=== PATIENT | female | born 1960 | race Caucasian/White ===

== ENCOUNTER → 2017-04-09 10:01 | Outpatient (POV) | payer MEDICARE, OTHER, SELFPAY ==
[2017-04-09 10:30] VITALS: BP 175/85; PULSE 106; RESP 20; TEMP 36.9; O2SAT 95; BMI 35.0
--- NOTE | 2017-04-09 10:45 | HMH.PAINSOAP ---
[facility] Pain Management SOAP Note Subjective:: This patient is a pleasant 56-year-old white female who we are treating for degenerative disease of lumbar spine with lumbar radiculopathy symptoms and postlaminectomy syndrome of the lumbar spine. She has increasing low back pain which is not relieved by her oral medication. She is failed all previous conservative therapy including injections, physical therapy, previous surgery and oral medications. She has had a successful neuropsychological evaluation. We do have approval and we will plan on pump trial possibly on May 04. We will refill her hydrocodone 7.5 mg and decrease her to twice a day. Her Chris and urine screen are all appropriate. Kaspar #[id number]. Objective:: Alert and oriented ?3 in no acute distress patient has an antalgic gait. Motor strength of the lower extremities is 5/5. There is no gross sensory deficit. Assessment:: Degenerative disc disease of lumbar spine with lumbar radiculopathy symptoms and postlaminectomy syndrome. Plan:: We will decrease her hydrocodone 7.5 mg to 1 tablet twice a day and is weaning her off this medication. We have tried multiple times to schedule intrathecal pump trial. We will tentatively plan on intrathecal pump trial on May 04. This will be a single shot fentanyl trial with 25 mcg. She has had a successful neuropsychological evaluation and we do have approval. This patient has failed all conservative therapy including injections, medications, physical therapy and previous surgery. I talked her about the risk and benefits of intrathecal therapy and answered all questions. We will give her a one-month prescription of hydrocodone 7.5 mg twice a day.
--- NOTE | 2017-04-09 10:49 | P.CONS_ITS ---
[facility] Pain Management SOAP Note Subjective:: This patient is a pleasant 56-year-old white female who we are treating for degenerative disease of lumbar spine with lumbar radiculopathy symptoms and postlaminectomy syndrome of the lumbar spine. She has increasing low back pain which is not relieved by her oral medication. She is failed all previous conservative therapy including injections, physical therapy, previous surgery and oral medications. She has had a successful neuropsychological evaluation. We do have approval and we will plan on pump trial possibly on May 04. We will refill her hydrocodone 7.5 mg and decrease her to twice a day. Her Chris and urine screen are all appropriate. Kaspar #[id number]. Objective:: Alert and oriented ?3 in no acute distress patient has an antalgic gait. Motor strength of the lower extremities is 5/5. There is no gross sensory deficit. Assessment:: Degenerative disc disease of lumbar spine with lumbar radiculopathy symptoms and postlaminectomy syndrome. Plan:: We will decrease her hydrocodone 7.5 mg to 1 tablet twice a day and is weaning her off this medication. We have tried multiple times to schedule intrathecal pump trial. We will tentatively plan on intrathecal pump trial on May 04. This will be a single shot fentanyl trial with 25 mcg. She has had a successful neuropsychological evaluation and we do have approval. This patient has failed all conservative therapy including injections, medications, physical therapy and previous surgery. I talked her about the risk and benefits of intrathecal therapy and answered all questions. We will give her a one-month prescription of hydrocodone 7.5 mg twice a day.
== END ==
PROVIDERS: Family Provider Family Medicine; PCP Family Medicine; Visit Provider Anesthesiology
DX: M54.16 Radiculopathy, lumbar region (principal)
CPT/HCPCS: 99212

== ENCOUNTER → 2017-05-04 09:02 | Day surgery (SDC) | payer MEDICARE, OTHER, SELFPAY ==
[2017-05-04] VITALS (12 sets, daily range): BP systolic 120–173; BP diastolic 68–108; PULSE 82–113; RESP 16–20; TEMP 36.4; O2SAT 94–98; BMI 35.0
--- NOTE | 2017-05-04 10:00 | PC.NURSE ---
PHYSICAL THERAPY AT BEDSIDE FOR PRE- EVAL
--- NOTE | 2017-05-04 10:52 | P.PCN_ITS ---
- Procedure Date: 05/04/17 Time: 10:50 Anesthesiologist:: Cecilio Peoples MD Complications:: None Pre-procedure Diagnosis:: Degenerative disc disease of lumbar spine with lumbar radiculopathy symptoms and postlaminectomy syndrome of lumbar spine Post-procedure Diagnosis:: Same Indications for Procedure:: This patient is a pleasant 56-year-old white female who we are treating for degenerative disease of lumbar spine with lumbar radiculopathy symptoms and postlaminectomy syndrome of lumbar spine. She has failed all conservative therapy including injections, physical therapy, previous surgery and oral medications. She has had a successful neuropsychological evaluation. She has been off her hydrocodone since last Sunday. Her Chris and urine drug screen have been appropriate. She presents for intrathecal pump trial today. I have explained the risk and benefits are all questions. Procedure Details:: Pain pump trial Informed consent was obtained and the risk and benefits of the procedure was explained to the patient. The patient was taken to the procedure room and placed prone on the procedure table. Patient was prepped and draped in sterile fashion. C-arm fluoroscopy was used to view the lumbar spine. The skin and subcutaneous tissues were anesthetized using lidocaine. I placed a 18-gauge spinal needle into the L5-S1 interspace and advanced until clear CSF was obtained. After this intrathecal catheter was inserted and advanced very easily to the L1 vertebral body. The needle was withdrawn. We were able to freely withdraw clear CSF through the catheter. The catheter was secured in place and the patient was taken to recovery in stable condition. Patient tolerated the procedure well with no complications. After obtaining one set of vitals patient was bolused with 25 mcg of intrathecal fentanyl single shot. We reevaluated the patient after 30 minutes to 1 hour. She was also reassessed by physical therapy. She was 90-100% better with pain score by 1 out of 10. Prior to procedure pain score was a 10 out of 10. She was ambulating better and able to stand longer. She did very well and wants to proceed with permanent placement. This was a successful trial. Catheter was removed and a Band-Aid was placed. We will plan on permanent placement on May 23 with intrathecal Dilaudid 1 mg/ mL to start at 0.1 mg per day. We will have her see in consult with the morning of May 23. Plan and Disposition:: We will plan on permanent placement of intrathecal pain pump with Dilaudid 1 mg/ mL to start at 0.1 mg per day. We will plan on permanent placement on May 23. We will have her see Dr. Finley for consult that morning
--- NOTE | 2017-05-04 11:16 | PC.NURSE ---
MD AT BEDSIDE TO DOSE PT @ 1113, VSS, PT STATES PAIN IS 9/10, DENIES ANY NEEDS/CONCERNS AT THIS TIME
--- NOTE | 2017-05-04 12:00 | PC.NURSE ---
PHYSICAL THERAPY AT BEDSIDE FOR POST EVAL
--- NOTE | 2017-05-04 12:08 | PC.NURSE ---
PT STATES PAIN IS MUCH BETTER AT THIS TIME, RATES PAIN 03/21, LUNCH TRAY ORDERED FOR PT, PT DENIES ANY FURTHER NEEDS/CONCERNS AT THIS TIME
--- NOTE | 2017-05-04 13:00 | PC.NURSE ---
MD AT BEDSIDE FOR POST EVAL, MD STATES PT IS DOING WELL AND OK TO BE DISCHARGED, PAIN REPORTS PAIN IS MUCH BETTER
--- NOTE | 2017-05-04 13:16 | PC.NURSE ---
MARISA CHRIS AT PT BEDSIDE TO PULL CATHETER, VSS, PT DOING WELL AND WITHOUT COMPLAINTS
[2017-05-10 15:05] LABS: POC Glucose,Bedside 175 mg/dL (70-110)
== END ==
PROVIDERS: Family Provider Family Medicine; PCP Family Medicine; Visit Provider Anesthesiology
DX: M51.16 Intervertebral disc disorders with radiculopathy, lumbar region (principal); M96.1 Postlaminectomy syndrome, not elsewhere classified; Z79.899 Other long term (current) drug therapy
CPT/HCPCS: 62323; 82962

== ENCOUNTER → 2017-05-14 14:57 | Outpatient (POV) | payer MEDICARE, OTHER, SELFPAY ==
[2017-05-14 16:00] VITALS: BP 177/94; PULSE 115; RESP 22; O2SAT 96; BMI 34.7
--- NOTE | 2017-05-14 16:55 | HMH.PAINSOAP ---
[facility] Pain Management SOAP Note Subjective:: Patient is a pleasant 57-year-old white female who presents today after her most recent intrathecal pain pump trial. Patient states during the trial she had 90-100% pain relief. She also had increased range of motion with physical therapy. Patient was doing well after the trial however her pain did return. Patient has been out of her pain medication for several days and been using Tylenol and ibuprofen for pain relief. Patient is scheduled on May 23 for her permanent pain pump implant. She rates her pain 8 out of 10 today states that it is achy and dull. ROS General: no recent weight change, no fever, no sleep disturbances Respiratory: no cough, no shortness of air, no recurring pulmonary infections Cardiovascular/Peripheral Vascular: No chest pain, No palpitations, no edema, no shortness of breath. Gastrointestinal: no incontinence, normal bowel movements reported Genitourinary: no incontinence Musculoskeletal: Back pain Psychiatric: normal mood/ affect, Neurological: [denies weakness in extremities], [denies balance issues] Objective:: Physical Exam General: Alert and oriented x3, no acute distress, pleasant and cooperative, [on room air] Lungs: Resps E/U, Symmetrical chest expansion, Eyes: PERRL Musculoskeletal: Flexion and extension of lumbar spine somewhat guarded secondary to pain, deep tendon reflexes normal, strength in upper and lower extremities [5/5], slightly antalgic gait noted Neurological: speech clear, 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 Patient and I had a long discussion in regards to her pain medication. We will not refill her pain medication she is to take ibuprofen and Tylenol prior to the appointment. Per Dr. Peoples we will start her on intrathecal Dilaudid 1 mg/mL and started 0.1 mg per day. This note was dictated using voice-recognition software may contain errors or omissions
--- NOTE | 2017-05-14 16:58 | P.CONS_ITS ---
[facility] Pain Management SOAP Note Subjective:: Patient is a pleasant 57-year-old white female who presents today after her most recent intrathecal pain pump trial. Patient states during the trial she had 90-100% pain relief. She also had increased range of motion with physical therapy. Patient was doing well after the trial however her pain did return. Patient has been out of her pain medication for several days and been using Tylenol and ibuprofen for pain relief. Patient is scheduled on May 23 for her permanent pain pump implant. She rates her pain 8 out of 10 today states that it is achy and dull. ROS General: no recent weight change, no fever, no sleep disturbances Respiratory: no cough, no shortness of air, no recurring pulmonary infections Cardiovascular/Peripheral Vascular: No chest pain, No palpitations, no edema, no shortness of breath. Gastrointestinal: no incontinence, normal bowel movements reported Genitourinary: no incontinence Musculoskeletal: Back pain Psychiatric: normal mood/ affect, Neurological: [denies weakness in extremities], [denies balance issues] Objective:: Physical Exam General: Alert and oriented x3, no acute distress, pleasant and cooperative, [ on room air] Lungs: Resps E/U, Symmetrical chest expansion, Eyes: PERRL Musculoskeletal: Flexion and extension of lumbar spine somewhat guarded secondary to pain, deep tendon reflexes normal, strength in upper and lower extremities [5/5], slightly antalgic gait noted Neurological: speech clear, work counselor 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 Patient and I had a long discussion in regards to her pain medication. We will not refill her pain medication she is to take ibuprofen and Tylenol prior to the appointment. Per Dr. Peoples we will start her on intrathecal Dilaudid 1 mg/mL and started 0.1 mg per day. This note was dictated using voice-recognition software may contain errors or omissions
== END ==
PROVIDERS: Family Provider Family Medicine; PCP Family Medicine; Visit Provider Clinical Nurse Specialist Family Health
DX: M54.16 Radiculopathy, lumbar region (principal)
CPT/HCPCS: 99212

== ENCOUNTER 2017-05-23 06:06 | Day surgery (SDC) | payer MEDICARE, OTHER, SELFPAY ==
[2017-05-22 11:58] VITALS: BMI 34.5
[2017-05-23 06:48] VITALS: BP 139/79; PULSE 95; RESP 18; TEMP 36.7; O2SAT 95
[2017-05-23 07:04] LABS: POC Glucose,Bedside 248 mg/dL (70-110)
[2017-05-23 07:09] LABS: Basophils % 0.4 % (0.1-2.0); Eosinophils # 0.1 K/mm3 (0.0-0.4); Eosinophils % 1.8 % (0.1-12.0); Hematocrit 44.1 % (37.0-47.0); Hemoglobin 14.5 g/dL (12.2-16.2); Lymphocytes # 1.7 K/mm3 (0.7-4.5); Lymphocytes % 34.8 K/mm3 (10-50); Mean Corpuscular HGB Conc 32.9 g/dL (31.8-35.4); Mean Corpuscular Volume 100.1 fl (81-99); Mean Platelet Volume 8.2 fl (7.4-10.4); Monocytes # 0.4 K/mm3 (0.1-1.0); Monocytes % 8.6 % (1.7-9.3); Neutrophils # 2.6 K/mm3 (1.8-7.8); Neutrophils % 54.4 % (37.0-80.0); Platelet Count 170 K/mm3 (142-424); Red Blood Count 4.41 M/mm3 (4.20-5.40); Red Cell Distribution Width 13.1 % (11.5-17.5); White Blood Count 4.8 K/mm3 (4.8-10.8)
[2017-05-23 07:11] LABS: Anion Gap 11.1 mEq/L (5-15); Blood Urea Nitrogen 14 mg/dL (7-18); Carbon Dioxide 27 mmol/L (21.0-32.0); Chloride 103 mmol/L (98-107); Creatinine Clearance Estimated 147 mL/min (0-300); Creatinine,Serum 0.64 mg/dL (0.55-1.02); Estimated Glomerular Filt Rate 95 ml/min (>60); GFR (African American) 115 ML/MIN (>60); Glucose 269 mg/dL (74-106); Potassium 4.1 mmoL/L (3.5-5.1); Sodium 137 mmol/L (136-145)
--- NOTE | 2017-05-23 07:17 | P.PN_ITS ---
[facility] Anesthesia Checklist - Patient Identification Patient Identification: Arm Band, Verbal (Name & ) - Structural Data Admitted From: Home Planned Operative Procedure/s: pain pump Consent for Planned Operative Procedure(s) Verified: Yes Verified Documents: Surgical Consent - NPO Status Verified Time NPO: 00:00 - Chart Verification Results Verified: CBC, BMP - Additional verifications Patient : No Anesthesia Reactions: No Hx Blood Transfusions: No Blood Transfusion Reaction: No Cephalosporin Allergy: No Previous Colonoscopy: No - Cardiovascular Assessment Heart Sounds: S1 & S2 Pulse Strength: Baseline Pulse Rhythm: Regular Peripheral Edema: No - Airway Assessment C-Spine Mobility Assessed: Yes TMJ Mobility Assessed: Yes Dentition: Edentulous - Neurological Assessment Level of Consciousness: Awake, Alert, Appropriate Hx Seizures: No Numbness or tingling in extremities: No - Anesthesia Plan Anesthesia Risk discussed: Yes Anesthesia Plan: Verified ASA Class: III Anesthesia Type: MAC [facility] Anesthesia HX I have reviewed the patient's past medical history: Yes Medical History: Reports:: Cancer (skin), Diabetes Mellitus Type 2, Hyperlipidemia, Hypertension Denies:: Internal Pacemaker, MRSA, Seizures Other Medical History: Reports: Thyroid Disease Other Surgeries: Yes: Appendectomy, Hysterectomy-Partial. No: Pacemaker Amputation: No Fractures: No *Family Hx:: Cancer, Diabetes, Heart Attack
--- NOTE | 2017-05-23 09:49 | HMH.OPNOTE ---
Date of procedure: 05/23/17 Pre-op Diagnosis:: Degenerative disc disease of lumbar spine with lumbar radiculopathy symptoms and postlaminectomy syndrome of lumbar spine Post-op Diagnosis:: Same Procedure performed:: Permanent placement intrathecal catheter with tunneling for permanent intrathecal pain pump Surgeon:: Cecilio Peoples MD FOUNDRY METALLURGIST:: Ramy Carlin Anesthesia: MAC Estimated blood loss (mL): 5 Clinical Note:: This patient is a pleasant 56-year-old white female who we have been treating degenerative disc disease of lumbar spine with lumbar radiculopathy symptoms and postlaminectomy syndrome of lumbar spine. She has failed all conservative therapy including injections, physical therapy, previous surgery and oral medications. She had a successful neuropsychological evaluation. She had a successful intrathecal pump trial with 90-100% relief in her pain symptoms. She also had increased range of motion with physical therapy. She presents for permanent placement of intrathecal pain pump today. I have explained the risk and benefits and answered all questions. We will use Dilaudid and start at 0.1 mg per day of intrathecal Dilaudid. Operative findings:: None Operative note:: Informed consent was obtained and the risk and benefits of the procedure was explained to the patient. The patient was taken to the OR and placed prone on the procedure table. She was prepped and draped in sterile fashion. C-arm fluoroscopy was used to view the lumbar spine. The skin and subcutaneous tissues adjacent to the L4-L5 and L5-S1 interspace were anesthetized using lidocaine. I made an incision and dissected down to the lumbar paraspinous fascia. I placed a 14-gauge spinal needle and advanced into the L5-S1 interspace until clear CSF was obtained. After this intrathecal catheter was inserted and advanced very easily to the L1 vertebral body. The stylet of the catheter and the needle were withdrawn. The catheter was anchored to the lumbar paraspinous fascia with an anchoring device and 2-0 Prolene. I then prepared the pump with 20 mL of intrathecal Dilaudid 1 mg/mL while Dr. Finley prepared the pump pocket. I tunneled the catheter from the back to the pump pocket and attached the catheter to the pump. The pump was placed in the pump pocket and we were able to freely withdraw clear CSF through the side-port. The pump was anchored to the fascia with 2-0 Prolene. Both incisions were then irrigated with a bacitracin solution. Both incisions were then closed with 2-0 Vicryl followed by 4-0 nylon. Patient was placed in an abdominal binder taken to recovery in stable condition. The pump was interrogated and started at 0.1 mg per day of intrathecal Dilaudid. Patient tolerated the procedure well with no complications. We will follow-up with this patient in 2 weeks. The patient and her family were counseled on side effects and risk of oversedation. If the patient experiences any signs or symptoms of oversedation or side effects there to go to the nearest emergency room and also call us in the pain clinic. We will also initiate the PTC at the 2 week follow-up. Condition: stable Disposition: PACU (We will follow-up with this patient in 2 weeks.) Complications:: None
--- NOTE | 2017-05-23 09:59 | HMH.OPNOTE ---
Date of procedure: 05/23/17 Pre-op Diagnosis:: Degenerative disc disease lumbar spine with radiculopathy, post lumbar laminectomy syndrome Post-op Diagnosis:: Same Procedure performed:: Placement of intrathecal pain pump generator Surgeon:: Alex Finley MD SPECIAL NEEDS BABYSITTER:: Mo Alvarez, [place], Ramy Carlin, Other Anesthesia: LMA Estimated blood loss (mL): 5 Clinical Note:: Patient was placed prone on the operating table in her back and flank regions were prepped and draped in sterile fashion. Once adequate IV sedation is obtained via anesthesia as well as local anesthesia utilizing half percent Marcaine with epinephrine a paraspinal incision was made by through which an intrathecal catheter was passed into the intrathecal space to the area desired by . Catheter fixed the paraspinal fascia with fixation device in 2-0 Prolene. At this point a left flank incision was made after local anesthesia obtained under which is made a pocket for placement of the reservoir. Catheter was passed from the paraspinal incision of the pocket incision was a tunneling device. Catheter fixed to the generator and placed in the pocket. CSF was aspirated from the generator noting patency of the system. Catheter was sutured to the fascia with a 2-0 Prolene suture. Subcutaneous tissues closed with interrupted stitches of 2-0 Vicryl. Skin closure was just a 4-0 nylon. Skin glue dressing and binder applied to the wound. Patient tolerated procedure well and was taken to the recovery room in stable condition. Operative findings:: Not applicable Operative note:: Patient was placed prone on the operating table in her back and flank regions were prepped and draped in sterile fashion. Once adequate IV sedation is obtained via anesthesia as well as local anesthesia utilizing half percent Marcaine with epinephrine a paraspinal incision was made by through which an intrathecal catheter was passed into the intrathecal space to the area desired by . Catheter fixed the paraspinal fascia with fixation device in 2-0 Prolene. At this point a left flank incision was made after local anesthesia obtained under which is made a pocket for placement of the reservoir. Catheter was passed from the paraspinal incision of the pocket incision was a tunneling device. Catheter fixed to the generator and placed in the pocket. CSF was aspirated from the generator noting patency of the system. Catheter was sutured to the fascia with a 2-0 Prolene suture. Subcutaneous tissues closed with interrupted stitches of 2-0 Vicryl. Skin closure was just a 4-0 nylon. Skin glue dressing and binder applied to the wound. Patient tolerated procedure well and was taken to the recovery room in stable condition. Condition: stable Disposition: PACU Specimens:: None Complications:: None
[2017-05-23 10:01] VITALS: BP 127/81; PULSE 107; RESP 16; TEMP 37; O2SAT 95
--- NOTE | 2017-05-23 10:14 | HMH.PMCON ---
Assessment and Plan - Assessment and plan all Dx Assessment and Plan for all problems:: Impression-degenerative disc disease lumbar spine with radiculopathy as well as postlaminectomy syndrome Plan-placement of intrathecal pain pump generator at the [facility] on 05/23/2017 HPI - Data of Consult Consult date: 05/23/17 Requesting Physician: Cecilio Peoples MD Primary Care Provider: Jose Martin Family Provider: Jose Martin - Consult Narrative Reason for consult: Placement of intrathecal pain pump generator History of present illness: Ms. Richardson is a 57 year old female referred for placement of an intrathecal pain pump generator. 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 She has tried other conservative methods of pain management including injections physical therapy oral medications without success. She was given an intrathecal pump pump trial significant success and she is referred now for placement of that system CC: Cecilio Peoples MD [facility] History Medical History: Reports:: Cancer (skin), Diabetes Mellitus Type 2, Hyperlipidemia, Hypertension Denies:: Internal Pacemaker, MRSA, Seizures Other Medical History: Reports: Thyroid Disease. Denies: Blood Transfusion Reaction Comment: Illnesses-hypothyroidism, hypertension, diabetes mellitus, hyperlipidemia, rheumatoid arthritis, glaucoma, history of rheumatic fever, heart murmur Other Surgeries: Yes: Appendectomy, Hysterectomy-Partial. No: Pacemaker Amputation: No Fractures: No Comment: Operations-cholecystectomy, lumbar/back surgery ?2, incisional hernia repair ?3, exploratory lap - *Social History Educational Level: Attended College Smoking Status: Current every day smoker Tobacco Type: cigarettes # Packs/Day (cigarettes): 1 Alcohol Intake: never Occupational Status: retired, disabled Housing: house Household Members: significant other - Psychiatric History Expresses thoughts of harming self/others: None Suicide Plan Description: No Plan *Family Hx:: Cancer, Diabetes, Heart Attack Meds Home Medications Medication Instructions Recorded Confirmed Type Cyanocobalamin (Vitamin B-12) 2,500 mcg PO DAILY 05/04/17 05/23/17 History [Vitamin B-12] Cyclobenzaprine HCl 10 mg PO DAILY 05/04/17 05/23/17 History [Cyclobenzaprine 10mg Tab] Fenofibrate 160 mg PO DAILY 05/04/17 05/23/17 History Hydrocodone/Acetaminophen 7.5 - 325 mg PO TID 05/04/17 05/04/17 History [Hydrocodone-Acetamin 7.5-325] Levothyroxine Sodium 137 mcg PO DAILY 05/04/17 05/23/17 History [Levothyroxine 137mcg (0.137mg) Tab] Linagliptin/Metformin HCl 1 each PO DAILY 05/04/17 05/23/17 History [Jentadueto 2.5 mg-1000 mg Tab] Lisinopril [Lisinopril 5mg Tablet] 5 mg PO DAILY 05/04/17 05/23/17 History Insulin Aspart [Novolog] 100 unit SQ DAILY 05/22/17 05/23/17 History Insulin Detemir [Levemir 100 30 unit SQ BID 05/22/17 05/23/17 History units/mL 10mL vial] Allergies Allergy/AdvReac Type Severity Reaction Status Date / Time codeine [CODEINE] Allergy Mild Verified 05/22/17 08:39 nitrofurantoin Allergy Mild Verified 05/22/17 08:39 [From MACROBID] Sulfa (Sulfonamide Allergy Mild Verified 05/22/17 08:39 Antibiotics) [SULFA (SULFONAMIDE ANTIBIOTICS)] ergocalciferol (vitamin D2) Allergy Unknown Verified 05/22/17 08:39 [From Vitamin D2] Objective Vital signs: Temp Pulse Resp BP Pulse Ox 98.1 F 95 H 18 139/79 95 05/23/17 06:48 05/23/17 06:48 05/23/17 06:48 05/23/17 06:48 05/23/17 06:48 Comments: Pale white female in no distress - *Routine Respiratory Exam Comments: Chest clear - *Routine Cardiovascular Exam Comments: Heart regular rate and rhythm - *Routine Abdominal Exam Comments: Abdomen soft and nontender
[2017-05-23 10:16] VITALS: BP 141/85; PULSE 94; RESP 16; O2SAT 97
--- NOTE | 2017-05-23 10:17 | P.CONS_ITS ---
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 Richardson is a 57 year old female referred for placement of an intrathecal pain pump generator. 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 She has tried other conservative methods of pain management including injections physical therapy oral medications without success. She was given an intrathecal pump pump trial significant success and she is referred now for placement of that system CC: Cecilio Peoples MD [facility] History Medical History: Reports:: Cancer (skin), Diabetes Mellitus Type 2, Hyperlipidemia, Hypertension Denies:: Internal Pacemaker, MRSA, Seizures Other Medical History: Reports: Thyroid Disease. Denies: Blood Transfusion Reaction Comment: Illnesses-hypothyroidism, hypertension, diabetes mellitus, hyperlipidemia, rheumatoid arthritis, glaucoma, history of rheumatic fever, heart murmur Other Surgeries: Yes: Appendectomy, Hysterectomy-Partial. No: Pacemaker Amputation: No Fractures: No Comment: Operations-cholecystectomy, lumbar/back surgery ?2, incisional hernia repair ?3, exploratory lap - *Social History Educational Level: Attended College Smoking Status: Current every day smoker Tobacco Type: cigarettes # Packs/Day (cigarettes): 1 Alcohol Intake: never Occupational Status: retired, disabled Housing: house Household Members: significant other - Psychiatric History Expresses thoughts of harming self/others: None Suicide Plan Description: No Plan *Family Hx:: Cancer, Diabetes, Heart Attack Meds Home Medications Medication Instructions Recorded Confirmed Type Cyanocobalamin (Vitamin B-12) 2,500 mcg PO DAILY 05/04/17 05/23/17 History [Vitamin B-12] Cyclobenzaprine HCl 10 mg PO DAILY 05/04/17 05/23/17 History [Cyclobenzaprine 10mg Tab] Fenofibrate 160 mg PO DAILY 05/04/17 05/23/17 History Hydrocodone/Acetaminophen 7.5 - 325 mg PO TID 05/04/17 05/04/17 History [Hydrocodone-Acetamin 7.5-325] Levothyroxine Sodium 137 mcg PO DAILY 05/04/17 05/23/17 History [Levothyroxine 137mcg (0.137mg) Tab] Linagliptin/Metformin HCl 1 each PO DAILY 05/04/17 05/23/17 History [Jentadueto 2.5 mg-1000 mg Tab] Lisinopril [Lisinopril 5mg Tablet] 5 mg PO DAILY 05/04/17 05/23/17 History Insulin Aspart [Novolog] 100 unit SQ DAILY 05/22/17 05/23/17 History Insulin Detemir [Levemir 100 30 unit SQ BID 05/22/17 05/23/17 History units/mL 10mL vial] Allergies Allergy/AdvReac Type Severity Reaction Status Date / Time codeine [CODEINE] Allergy Mild Verified 05/22/17 08:39 nitrofurantoin Allergy Mild Verified 05/22/17 08:39 [From MACROBID] Sulfa (Sulfonamide Allergy Mild Verified 05/22/17 08:39 Antibiotics) [SULFA (SULFONAMIDE ANTIBIOTICS)] ergocalciferol (vitamin D2) Allergy Unknown
[2017-05-23 10:31] VITALS: BP 159/73; PULSE 102; RESP 16; O2SAT 95
== END 2017-05-23 10:45 | disposition home or self-care (01) ==
PROVIDERS: Family Provider Family Medicine; PCP Family Medicine; Visit Provider Anesthesiology
DX: M51.16 Intervertebral disc disorders with radiculopathy, lumbar region (principal); M96.1 Postlaminectomy syndrome, not elsewhere classified; E11.9 Type 2 diabetes mellitus without complications
CPT/HCPCS: 62350; 62362; 80048; 82962; 85025; 96374; C1755; C1772; J3370

== ENCOUNTER → 2017-06-04 10:21 | Outpatient (POV) | payer MEDICARE, OTHER, SELFPAY ==
[2017-06-04 10:48] VITALS: BP 158/80; PULSE 97; RESP 18; TEMP 36.5; O2SAT 97; BMI 34.5
--- NOTE | 2017-06-04 11:09 | HMH.PMPROC ---
- Procedure Date: 06/04/17 Time: 10:45 Anesthesiologist:: Barb Aguilar APRN Complications:: None Pre-procedure Diagnosis:: Degenerative disc disease of the lumbar spine and postlaminectomy syndrome of the lumbar spine Post-procedure Diagnosis:: Same Indications for Procedure:: Patient is a pleasant 57-year-old female who presents today for follow-up after permanent placement of intrathecal pain pump. Patient is doing extremely well. Patient rates her pain a 3 out of 10 today. Patient denies any side effects including urinary retention or drowsiness. Patient states that she feels like she could use a slight increase however overall is doing extremely well. We will start her PTC today. Her stitches have been removed and her site is clean. Patient is healing well with no signs or symptoms of infection. Patient currently has a Dilaudid intrathecal pain pump going at 0.1 mg daily. ROS General: no recent weight change, no fever, no sleep disturbances Respiratory: no cough, no shortness of air, no recurring pulmonary infections Cardiovascular/Peripheral Vascular: No chest pain, No palpitations, no edema, no shortness of breath. Gastrointestinal: no incontinence, normal bowel movements reported Genitourinary: no incontinence Musculoskeletal: Back pain Psychiatric: normal mood/ affect Neurological: [denies weakness in extremities], [denies balance issues] Physical Exam General: Alert and oriented x3, no acute distress, pleasant and cooperative, [on room air] Lungs: Resps E/U, Symmetrical chest expansion, Eyes: PERRL Musculoskeletal: Flexion and extension of lumbar spine somewhat guarded secondary to pain, deep tendon reflexes normal, strength in upper and lower extremities [5/5], slightly antalgic gait noted Neurological: speech clear, karate black belt equal, no gross sensory deficits Procedure Details:: Informed consent was obtained and the risks and benefits of the procedure was explained to the patient. Patient was put in the procedure room where noninvasive monitoring was placed including noninvasive blood pressure cuff and noninvasive pulse oximeter. The pump was interrogated and the rate was changed from 0.1 mg of Dilaudid a day to 0.13 mg daily. Patient's PTC was set up at 0.01 mg every 6 hours. Patient tolerated the procedure well Plan and Disposition:: Patient will be seen in 2 weeks and we will reassess her symptoms at that time. Patient's been instructed to call us in the meantime if she has any issues or concerns. Note was dictated using voice recognition software and may contain errors or omissions
--- NOTE | 2017-06-04 11:13 | P.PCN_ITS ---
- Procedure Date: 06/04/17 Time: 10:45 Anesthesiologist:: Barb Aguilar APRN Complications:: None Pre-procedure Diagnosis:: Degenerative disc disease of the lumbar spine and postlaminectomy syndrome of the lumbar spine Post-procedure Diagnosis:: Same Indications for Procedure:: Patient is a pleasant 57-year-old female who presents today for follow-up after permanent placement of intrathecal pain pump. Patient is doing extremely well. Patient rates her pain a 3 out of 10 today. Patient denies any side effects including urinary retention or drowsiness. Patient states that she feels like she could use a slight increase however overall is doing extremely well. We will start her PTC today. Her stitches have been removed and her site is clean. Patient is healing well with no signs or symptoms of infection. Patient currently has a Dilaudid intrathecal pain pump going at 0.1 mg daily. ROS General: no recent weight change, no fever, no sleep disturbances Respiratory: no cough, no shortness of air, no recurring pulmonary infections Cardiovascular/Peripheral Vascular: No chest pain, No palpitations, no edema, no shortness of breath. Gastrointestinal: no incontinence, normal bowel movements reported Genitourinary: no incontinence Musculoskeletal: Back pain Psychiatric: normal mood/ affect Neurological: [denies weakness in extremities], [denies balance issues] Physical Exam General: Alert and oriented x3, no acute distress, pleasant and cooperative, [ on room air] Lungs: Resps E/U, Symmetrical chest expansion, Eyes: PERRL Musculoskeletal: Flexion and extension of lumbar spine somewhat guarded secondary to pain, deep tendon reflexes normal, strength in upper and lower extremities [5/5], slightly antalgic gait noted Neurological: speech clear, lithographic plate maker equal, no gross sensory deficits Procedure Details:: Informed consent was obtained and the risks and benefits of the procedure was explained to the patient. Patient was put in the procedure room where noninvasive monitoring was placed including noninvasive blood pressure cuff and noninvasive pulse oximeter. The pump was interrogated and the rate was changed from 0.1 mg of Dilaudid a day to 0.13 mg daily. Patient's PTC was set up at 0.01 mg every 6 hours. Patient tolerated the procedure well Plan and Disposition:: Patient will be seen in 2 weeks and we will reassess her symptoms at that time. Patient's been instructed to call us in the meantime if she has any issues or concerns. Note was dictated using voice recognition software and may contain errors or omissions
== END ==
PROVIDERS: Family Provider Family Medicine; PCP Family Medicine; Visit Provider Clinical Nurse Specialist Family Health
DX: M54.16 Radiculopathy, lumbar region (principal)
CPT/HCPCS: 62370

== ENCOUNTER → 2017-06-18 08:47 | Outpatient (POV) | payer MEDICARE, OTHER, SELFPAY ==
[2017-06-18 09:15] VITALS: BP 146/72; PULSE 101; RESP 18; TEMP 36.5; O2SAT 97; BMI 35.5
--- NOTE | 2017-06-18 09:25 | HMH.PAINSOAP ---
[facility] Pain Management SOAP Note Subjective:: Patient is a pleasant 57-year-old white female who presents today for follow-up. Patient is currently utilizing intrathecal pain pump for pain secondary to degenerative disc disease of the lumbar spine and postlaminectomy syndrome of the lumbar spine. Patient current rate is Dilaudid 0.13 mg a day with a PTC of 0. 01 mg every 6 hours. She is doing extremely well rates her pain a 2 out of 10 today. She states that she is much more functional and very happy with her intrathecal pain pump. Patient denies any side effects. Patient stitches have been removed and her site looks clean and intact. Patient is wanting to discard her abdominal binder as of today. ROS General: no recent weight change, no fever, no sleep disturbances Respiratory: no cough, no shortness of air, no recurring pulmonary infections Cardiovascular/Peripheral Vascular: No chest pain, No palpitations, no edema, no shortness of breath. Gastrointestinal: no incontinence, normal bowel movements reported Genitourinary: no incontinence Musculoskeletal: Back pain Psychiatric: normal mood/ affect Neurological: [denies weakness in extremities], [denies balance issues] Objective:: Physical Exam General: Alert and oriented x3, no acute distress, pleasant and cooperative, [on room air] Lungs: Resps E/U, Symmetrical chest expansion, Eyes: PERRL Musculoskeletal: Flexion and extension of lumbar spine somewhat guarded secondary to pain, deep tendon reflexes normal, strength in upper and lower extremities [5/5], normal gait noted Neurological: speech clear, die attacher equal, no gross sensory deficits Assessment:: Degenerative disc disease lumbar spine and post laminectomy syndrome of the lumbar spine Plan:: We will follow-up with this patient at her next refill. Patient is doing extremely well at this time. Patient has been instructed to call us if she has any issues in the future. This note was dictated using voice recognition software and may contain errors or omissions
--- NOTE | 2017-06-18 09:28 | P.CONS_ITS ---
[facility] Pain Management SOAP Note Subjective:: Patient is a pleasant 57-year-old white female who presents today for follow- up. Patient is currently utilizing intrathecal pain pump for pain secondary to degenerative disc disease of the lumbar spine and postlaminectomy syndrome of the lumbar spine. Patient current rate is Dilaudid 0.13 mg a day with a PTC of 0. 01 mg every 6 hours. She is doing extremely well rates her pain a 2 out of 10 today. She states that she is much more functional and very happy with her intrathecal pain pump. Patient denies any side effects. Patient stitches have been removed and her site looks clean and intact. Patient is wanting to discard her abdominal binder as of today. ROS General: no recent weight change, no fever, no sleep disturbances Respiratory: no cough, no shortness of air, no recurring pulmonary infections Cardiovascular/Peripheral Vascular: No chest pain, No palpitations, no edema, no shortness of breath. Gastrointestinal: no incontinence, normal bowel movements reported Genitourinary: no incontinence Musculoskeletal: Back pain Psychiatric: normal mood/ affect Neurological: [denies weakness in extremities], [denies balance issues] Objective:: Physical Exam General: Alert and oriented x3, no acute distress, pleasant and cooperative, [ on room air] Lungs: Resps E/U, Symmetrical chest expansion, Eyes: PERRL Musculoskeletal: Flexion and extension of lumbar spine somewhat guarded secondary to pain, deep tendon reflexes normal, strength in upper and lower extremities [5/5], normal gait noted Neurological: speech clear, real estate teacher equal, no gross sensory deficits Assessment:: Degenerative disc disease lumbar spine and post laminectomy syndrome of the lumbar spine Plan:: We will follow-up with this patient at her next refill. Patient is doing extremely well at this time. Patient has been instructed to call us if she has any issues in the future. This note was dictated using voice recognition software and may contain errors or omissions
[2017-06-18 11:16] VITALS: BP 152/81; PULSE 74; RESP 18; TEMP 36.6; O2SAT 96; BMI 29.2
== END ==
PROVIDERS: Family Provider Family Medicine; PCP Family Medicine; Visit Provider Clinical Nurse Specialist Family Health
DX: M96.1 Postlaminectomy syndrome, not elsewhere classified (principal)
CPT/HCPCS: 99212

== ENCOUNTER → 2017-07-03 08:31 | Outpatient (CLI) | payer MEDICARE, OTHER, SELFPAY ==
[2017-07-03 10:55] LABS: Alanine Aminotransferase 23 U/L (12-78); Albumin Level 3.6 gm/dL (3.4-5.0); Albumin/Globulin Ratio 0.8 (1.1-1.8); Alkaline Phosphatase 166 U/L (46-116); Anion Gap 15.4 mEq/L (5-15); Aspartate Amino Transferase 42 U/L (15-37); Bilirubin,Total 0.3 mg/dL (0.2-1.0); Blood Urea Nitrogen 10 mg/dL (7-18); Calcium 9.1 mg/dL (8.5-10.1); Carbon Dioxide 27 mmol/L (21.0-32.0); Chloride 103 mmol/L (98-107); Chol/HDL Ratio 7.5 (1-3.5); Cholesterol 196 mg/dL (140-200); Creatinine,Serum 0.63 mg/dL (0.55-1.02); Estimated Glomerular Filt Rate 97 ml/min (>60); Free T4 (Free Thyroxine) 1.43 ng/dl (0.76-1.46); GFR (African American) 117 ML/MIN (>60); Globulin 4.6 gm/dl (1.3-3.2); Glucose 144 mg/dL (74-106); HDL Cholesterol 26 mg/dL (29-89); LDL Cholesterol 125 mg/dL (0-130); Potassium 4.4 mmoL/L (3.5-5.1); Sodium 141 mmol/L (136-145); Thyroid Stimulating Hormone 2.59 uIU/ml (0.358-3.740); Total Protein,Serum 8.2 gm/dL (6.4-8.2); Triglycerides 224 mg/dL (30-200); VLDL Cholesterol 45 mg/dL (0-40)
[2017-07-06 12:43] LABS: Microalbumin, Urine 27.1 ug/mL (Not Estab.)
== END ==
PROVIDERS: PCP Psychiatry & Neurology Psychiatry; Visit Provider Psychiatry & Neurology Psychiatry
DX: E11.65 Type 2 diabetes mellitus with hyperglycemia (principal); E89.0 Postprocedural hypothyroidism; E78.5 Hyperlipidemia, unspecified
CPT/HCPCS: 36415; 80053; 80061; 82043; 84439; 84443

== ENCOUNTER 2017-07-24 08:52 | Day surgery (SDC) | payer MEDICARE, OTHER, SELFPAY ==
[2017-07-24 09:02] VITALS: BMI 35.0
[2017-07-24 09:21] VITALS: BP 172/97; PULSE 100; RESP 18; O2SAT 98
--- NOTE | 2017-07-24 09:31 | HMH.PMPROC ---
- Procedure Date: 07/24/17 Time: 09:25 Anesthesiologist:: Barb Aguilar APRN Complications:: None Pre-procedure Diagnosis:: Degenerative disc disease of lumbar spine with lumbar radiculopathy Post-procedure Diagnosis:: Same Indications for Procedure:: Patient is a pleasant 57-year-old female who presents today for intrathecal pain pump. Patient is doing extremely well. Patient rates her pain a 3 out of 10 today. Patient denies any side effects including urinary retention or drowsiness. Patient states that overall is doing extremely well. Patient is healing well with no signs or symptoms of infection. Patient currently has a Dilaudid intrathecal pain pump going at 0.13 mg daily. We will increase the patient's bolus ability to day due to increased activity and to help her sleep through the night. ROS General: no recent weight change, no fever, no sleep disturbances Respiratory: no cough, no shortness of air, no recurring pulmonary infections Cardiovascular/Peripheral Vascular: No chest pain, No palpitations, no edema, no shortness of breath. Gastrointestinal: no incontinence, normal bowel movements reported Genitourinary: no incontinence Musculoskeletal: Back pain Psychiatric: normal mood/ affect Neurological: [denies weakness in extremities], [denies balance issues] Physical Exam General: Alert and oriented x3, no acute distress, pleasant and cooperative, [on room air] Lungs: Resps E/U, Symmetrical chest expansion, Eyes: PERRL Musculoskeletal: Flexion and extension of lumbar spine somewhat guarded secondary to pain, deep tendon reflexes normal, strength in upper and lower extremities [5/5], slightly antalgic gait noted Neurological: speech clear, psychological operations specialist equal, no gross sensory deficits Procedure Details:: Informed consent was obtained and the risk and benefits of the procedure were explained to the patient. The patient was taken to the procedure room where noninvasive monitoring was placed including noninvasive blood pressure cuff and pulse oximeter. Patient's pump was interrogated. The area over the pump was cleansed with chlorhexidine as a cleansing solution. In sterile fashion the pump was accessed with a 22-gauge needle. Approximately 11 mL's were removed of the pump solution and discarded appropriately. The pump was then refilled with 20 mL's of hydromorphone 2 mg/mL. The needle was withdrawn and a bandage was placed over the puncture site. The infusion rate was left at 0.13 mg per day with a bolus of 0.01 mg per activation every 4 hours. The patient tolerated the procedure well. Plan and Disposition:: We will follow-up with this patient at her next pain pump refill she has been instructed to call the office if she has any issues prior to this. This note was dictated using voice recognition software and may contain errors or omissions
--- NOTE | 2017-07-24 09:36 | P.PCN_ITS ---
- Procedure Date: 07/24/17 Time: 09:25 Anesthesiologist:: Barb Aguilar APRN Complications:: None Pre-procedure Diagnosis:: Degenerative disc disease of lumbar spine with lumbar radiculopathy Post-procedure Diagnosis:: Same Indications for Procedure:: Patient is a pleasant 57-year-old female who presents today for intrathecal pain pump. Patient is doing extremely well. Patient rates her pain a 3 out of 10 today. Patient denies any side effects including urinary retention or drowsiness. Patient states that overall is doing extremely well. Patient is healing well with no signs or symptoms of infection. Patient currently has a Dilaudid intrathecal pain pump going at 0.13 mg daily. We will increase the patient's bolus ability to day due to increased activity and to help her sleep through the night. ROS General: no recent weight change, no fever, no sleep disturbances Respiratory: no cough, no shortness of air, no recurring pulmonary infections Cardiovascular/Peripheral Vascular: No chest pain, No palpitations, no edema, no shortness of breath. Gastrointestinal: no incontinence, normal bowel movements reported Genitourinary: no incontinence Musculoskeletal: Back pain Psychiatric: normal mood/ affect Neurological: [denies weakness in extremities], [denies balance issues] Physical Exam General: Alert and oriented x3, no acute distress, pleasant and cooperative, [ on room air] Lungs: Resps E/U, Symmetrical chest expansion, Eyes: PERRL Musculoskeletal: Flexion and extension of lumbar spine somewhat guarded secondary to pain, deep tendon reflexes normal, strength in upper and lower extremities [5/5], slightly antalgic gait noted Neurological: speech clear, grease worker equal, no gross sensory deficits Procedure Details:: Informed consent was obtained and the risk and benefits of the procedure were explained to the patient. The patient was taken to the procedure room where noninvasive monitoring was placed including noninvasive blood pressure cuff and pulse oximeter. Patient's pump was interrogated. The area over the pump was cleansed with chlorhexidine as a cleansing solution. In sterile fashion the pump was accessed with a 22-gauge needle. Approximately 11 mL's were removed of the pump solution and discarded appropriately. The pump was then refilled with 20 mL's of hydromorphone 2 mg/mL. The needle was withdrawn and a bandage was placed over the puncture site. The infusion rate was left at 0.13 mg per day with a bolus of 0.01 mg per activation every 4 hours. The patient tolerated the procedure well. Plan and Disposition:: We will follow-up with this patient at her next pain pump refill she has been instructed to call the office if she has any issues prior to this. This note was dictated using voice recognition software and may contain errors or omissions
[2017-07-24 09:39] VITALS: BP 145/79; PULSE 95; RESP 18; O2SAT 94
[2017-07-24 13:18] LABS: Amphetamine/Metha Screen,Urine Negative ng/mL (<1000); Barbiturates Screen,Urine Negative ng/mL (<200); Benzodiazepines Screen,Urine Negative ng/mL (200); Cannabinoid Screen,Urine Negative ng/mL (<50); Cocaine Screen,Urine Negative ng/g (<300); Methadone Screen,Urine Negative ng/mL (<300); Opiate Screen,Urine Negative ng/mL (<300); Phencyclidine Screen,Urine Negative ng/mL (<25)
[2017-07-31 14:29] LABS: Opiates Negative (Cutoff=100)
== END 2017-07-24 09:40 | disposition home or self-care (01) ==
PROVIDERS: Family Provider Family Medicine; PCP Family Medicine; Visit Provider Clinical Nurse Specialist Family Health
DX: M51.16 Intervertebral disc disorders with radiculopathy, lumbar region (principal)
CPT/HCPCS: 80305; 80361; 80365; 95991; G0480

== ENCOUNTER 2018-07-09 12:37 | Day surgery (SDC) | payer MEDICARE, OTHER, SELFPAY ==
[2018-07-09 12:59] VITALS: BP 154/79; PULSE 102; RESP 18; O2SAT 98; BMI 35.0
[2018-07-09 13:10] VITALS: BP 136/79; PULSE 99; RESP 18; O2SAT 98
--- NOTE | 2018-07-09 13:24 | P.PCN_ITS ---
- Procedure Date: 07/09/18 Time: 13:22 Anesthesiologist:: Barb Aguilar APRN Complications:: None Pre-procedure Diagnosis:: Degenerative disc disease lumbar spine with lumbar radiculopathy Post-procedure Diagnosis:: Same Indications for Procedure:: Patient is a pleasant 58-year-old white female who presents today for intrathecal pain pump refill and reprogram. She rates her pain a 6 out of 10 today she like a slight increase. Patient and I discussed periodic flow she is interested in trying this. Patient denies any side effects from medication. She is currently on a intrathecal infusion of 0.175 mg/day of Dilaudid. Physical Exam General: Alert and oriented x3, no acute distress, pleasant and cooperative, [on room air] Lungs: Resps E/U, Symmetrical chest expansion, Eyes: PERRL Musculoskeletal: Flexion and extension of lumbar spine somewhat guarded secondary to pain, deep tendon reflexes normal, strength in upper and lower extremities [5/5], [abnormal gait noted] Neurological: speech clear, tax compliance manager equal, no gross sensory deficits Procedure Details:: Informed consent was obtained and the risk and benefits of the procedure were ex plained to the patient. The patient was taken to the procedure room where noninvasive monitoring was placed including noninvasive blood pressure cuff and pulse oximeter. Patient's pump was interrogated. The area over the pump was cleansed with chlorhexidine as a cleansing solution. In sterile fashion the pump was accessed with a 22-gauge needle. Approximately 5 mL's were removed of the pump solution and discarded appropriately. The pump was then refilled with 20 mL's of Dilaudid 2 mg/mL. The needle was withdrawn and a bandage was placed over the puncture site. The infusion rate was reprogrammed to 0.022 mg every 2 hours. The patient tolerated the procedure well. Plan and Disposition:: I will follow-up with the patient 3 weeks reassess her symptoms at times been instructed to call the office if she has any issues prior to her next appointment. Dr. Peoples has reviewed this note and agrees with this plan of care. This note was dictated using voice recognition software and may contain errors or omissions
[2018-07-09 13:25] VITALS: BP 135/87; PULSE 87; RESP 18; O2SAT 98
[2018-07-09 15:23] LABS: Amphetamine/Metha Screen,Urine Negative ng/mL (<1000); Barbiturates Screen,Urine Negative ng/mL (<200); Benzodiazepines Screen,Urine Negative ng/mL (<200); Cannabinoid Screen,Urine Negative ng/mL (<50); Cocaine Screen,Urine Negative ng/mL (<300); Methadone Screen,Urine Negative ng/mL (<300); Opiate Screen,Urine Negative ng/mL (<300); Phencyclidine Screen,Urine Negative ng/mL (<25)
[2018-07-17 13:53] LABS: Opiates Negative (Cutoff=100)
== END 2018-07-09 13:30 | disposition home or self-care (01) ==
LOC: SC.PAINP 12:38
PROVIDERS: PCP Family Medicine; Visit Provider Clinical Nurse Specialist Family Health
DX: M51.16 Intervertebral disc disorders with radiculopathy, lumbar region (principal)
CPT/HCPCS: 62370; 80305; 80361; 80365; G0480

== ENCOUNTER → 2018-12-11 13:34 | Outpatient (CLI) | payer MEDICARE, SELFPAY ==
--- NOTE | 2018-12-11 13:40 | XR_ITS ---
PROCEDURE: XR KNEE LT 4V CLINICAL INDICATION: bilateral knee pain COMPARISON: [id number] KNEE-3 VIEWS-LT from 04/08/2015 FINDINGS: No fracture or dislocation. No lytic or blastic change. There is normal mineralization. There may be borderline mild narrowing of the medial and lateral joint compartment. Patellofemoral joint appears normal. There is no acute fracture or joint effusion. Other findings:None. IMPRESSION: No acute process. Borderline mild narrowing of the femoral/tibial joint space. Dictated by: Kuldip Toscano 12/11/2018 15:52 Electronically signed by Kuldip Toscano in [place] 12/11/2018 15:52
--- NOTE | 2018-12-11 13:40 | XR_ITS ---
PROCEDURE: XR KNEE RT 4V CLINICAL INDICATION: bilateral knee pain COMPARISON: KNEE3L KNEE-3 VIEWS-LT from 04/08/2015 FINDINGS: No fracture or dislocation. No lytic or blastic change. There is normal mineralization. There is borderline mild narrowing of the medial compartment. The remainder of the joint spaces are normal. Other findings:There is mild increased density in the suprapatellar bursa. There are posterior linear vascular calcified plaques. IMPRESSION: No acute fracture. Small joint effusion. Mild degenerative change at the medial aspect of the femoral/tibial joint space. Dictated by: Kuldip Toscano 12/11/2018 15:53 Electronically signed by Kuldip Toscano in [place] 12/11/2018 15:53
== END ==
PROVIDERS: PCP Family Medicine; Visit Provider Orthopaedic Surgery
DX: M25.561 Pain in right knee (principal); M25.562 Pain in left knee
CPT/HCPCS: 73564

== ENCOUNTER 2019-08-26 13:19 | Day surgery (SDC) | payer MEDICARE, SELFPAY ==
[2019-08-26 13:31] VITALS: BP 171/75; PULSE 102; RESP 18; TEMP 36.7; O2SAT 99; BMI 36.4
[2019-08-26 13:53] VITALS: BP 147/57; PULSE 97; RESP 18
[2019-08-26 13:54] VITALS: BP 145/89; PULSE 95; RESP 18; O2SAT 99
--- NOTE | 2019-08-26 13:58 | HMH.PMPROC ---
- Procedure Date: 08/26/19 Time: 13:58 Anesthesiologist:: Barb Aguilar APRN Complications:: None Pre-procedure Diagnosis:: Degenerative disc disease lumbar spine with lumbar radiculopathy Post-procedure Diagnosis:: Same Indications for Procedure:: She is a very pleasant 59-year-old white female who presents today for intrathecal pain pump refill and reprogram. She is currently on a periodic flow of 0.036 mg every 2 hours she rates her pain 8 out of 10 which is quite a bit higher than her normal. We will give her a one-time bolus of 0.1 mg to see if this is beneficial for her. She denies side effects from medication. [facility] #[id number] reviewed and appropriate. Drug screens have been appropriate. Physical Exam General: Alert and oriented x3, no acute distress, pleasant and cooperative, [on room air] Lungs: Resps E/U, Symmetrical chest expansion, Eyes: PERRL Musculoskeletal: Flexion and extension of lumbar spine somewhat guarded secondary to pain, deep tendon reflexes normal, strength in upper and lower extremities [5/5], [abnormal gait noted] Neurological: speech clear, maintenance services dispatcher equal, no gross sensory deficits Procedure Details:: I pain pump refill informed consent was obtained and the risk and benefits of the procedure were explained to the patient. The patient was taken to the procedure room where noninvasive monitoring was placed including noninvasive blood pressure cuff and pulse oximeter. Patient's pump was interrogated. The area over the pump was cleansed with chlorhexidine as a cleansing solution. In sterile fashion the pump was accessed with a 22-gauge needle. Approximately 5 mL's were removed of the pump solution and discarded appropriately. The pump was then refilled with 20 mL's of Dilaudid 2 mg/mL. The needle was withdrawn and a bandage was placed over the puncture site. The infusion rate was reprogrammed to 0.05 mg every 2 hours. The patient tolerated the procedure well. Plan and Disposition:: I will see the patient back at her next intrathecal pain pump refill and reprogram. She is been instructed call the office if she has any issues prior to her next appointment. Dr. Peoples has reviewed this note and agrees with this plan of care. This note was dictated using voice recognition software and may contain errors or omissions
[2019-08-26 14:17] VITALS: BP 157/73; PULSE 93; RESP 20; O2SAT 99
== END 2019-08-26 14:18 | disposition home or self-care (01) ==
LOC: SC.PAINP 13:21
PROVIDERS: PCP Family Medicine; Visit Provider Clinical Nurse Specialist Family Health
DX: M51.16 Intervertebral disc disorders with radiculopathy, lumbar region (principal)
CPT/HCPCS: 62370

== ENCOUNTER 2019-09-27 11:17 | Emergency (ER) | payer MEDICARE, SELFPAY ==
[2019-09-27 11:17] VITALS: BP 171/90; PULSE 103; RESP 16; TEMP 37.2; O2SAT 95; BMI 35.5
[2019-09-27 11:30] VITALS: BP 161/83; PULSE 101; O2SAT 97
--- NOTE | 2019-09-27 11:39 | CT_ITS ---
PROCEDURE: CT LUMBAR SPINE WO CON Patient Age:59Y CLINICAL HISTORY: PAIN. Fall off of porch. On backboard Lower back pain after fall. History of previous back surgery. COMPARISON: [facility]/O MRI-L-SPINE W/O from 09/09/[id number] abdomen pelvis w con from 03/11/2018 TECHNIQUE: No IV contrast Helical axial images obtained with sagittal and coronal reformats. All CT scans at the facility use one or more dose reduction, viz: automated exposure control, ma/kV adjustment per patient size (including targeted exams where dose is matched to indication, i.e. head), or iterative reconstruction technique. FINDINGS: The prior CT abdomen study from February 2018 is quite helpful and confirming that the superior endplate compression fracture at L1 is old and unchanged. The superior endplate concavity unchanged air and the modest anterior marginal osteophytes from the anterior margin of L1 appears stable. The scan begins at the lower T-spine and the T10-11, T11/12 disc appear intact. There is slight narrowing at the posterior aspect of T12/L1. posterior osteophyte spurring most evident left paracentral, very slightly indents the left aspect of the thecal sac. And appears similar to perhaps slightly more evident than 2018... L1/L2 stable. Disc intact. Early degenerative facet seen just Again note epidural catheter from pain pump extends up superior L1 level L2/3 minor posterior spurring at midline the stable since 2018. Stable mild facet arthropathy, and ligament flavum hypertrophy... L3/4 disc intact a moderate facet hypertrophy bilaterally most evident on right, similar to previous studies L4/5 a disc height maintained but there is moderate diffuse disc bulge along with moderately pronounced facet hypertrophy. Streak artifact from metallic posterior fixation elements limit detail here but no obvious disc herniation or acute findings. Of overall appear stable L5/S1. Posterior fusion at L5/S1 with bilateral pedicle screws at both L5 and S1 of along with associated fixation rods.. Also note disc spacer device on the left aspect of the L5/S1 disc space is not well defined and there is disc space narrowing and partial obliteration of disc space L5/S1 from fusion here. Overall appearance is similar to prior study. No acute findings. No perispinal mass. There is a spur to the left which yields yield left foraminal encroachment L5/S1, unchanged since prior study Pain pump again noted with epidural catheter entering on the left L5/S1 level and catheter tip medial knee superior L1 Sacrum and SI joints appear stable no fracture or acute findings here. Aorta is calcified. No aneurysm. Of these images focus in the lumbar spine and do not image the abdomen however I would question slight hazy appearance a just posterior to the pancreas but you may want to check amylase/lipase to correlate and if those labs abnormal you may want to consider additional CT imaging abdomen IMPRESSION: 1..No acute findings at the spine. Old superior endplate compression fracture and wedging at L1-no change since CT abdomen from Feb 2018 Perhaps scant progression of posterior spurring to the left at T12/L1 level which very slightly indents the thecal sac to the left The Other features lumbar spine appear stable since 2018; ..Stable L5/S1 fusion again noted. Spurring encroaching upon left foramen at L5/S1 appears similar as well .. Degenerative changes and facet changes throughout lumbar spine appears similar to 2018 the the my .. Pain pump again noted with epidural catheter. Stable since 2018 2..Added note : This study focuses on the lumbar spine but I would question subtle additional hazy appearance to the fa
--- NOTE | 2019-09-27 11:39 | PC.NURSE ---
pt with rad.
--- NOTE | 2019-09-27 12:51 | HMH.EDGENADL ---
ED Disposition Clinical Impression: Lumbar strain Qualifiers: Encounter type: initial encounter Qualified Code(s): S39.012A - Strain of muscle, fascia and tendon of lower back, initial encounter Disposition: Home, Self-Care Condition on Discharge: Fair Instructions: DI for Low Back Pain Additional Instructions: [place] as prescribed. Rest. Follow-up with primary care doctor next week. Additional instructions for BACK PAIN: See your physician as soon as possible for further evaluation. Return immediately if back pain becomes intolerable, or if fever, numbness or weakness of your legs, loss of control of your bowels or bladder. Additional instructions for CONTROLLED SUBSTANCES: You have been prescribed a medication that is a controlled substance. Controlled substances include pain medications known as opiates and sedative nerve medications known as benzodiazepines. Tramadol, fioricet, and gabapentin are also controlled substances. Some common opiates include: Codeine (such as Tylenol #3) Hydrocodone (Vicodin, Lortab, Lorcet, [place]) Oxycodone (Percocet, Percodan, Oxycodone, Oxy IR) Some common benzodiazepines include: Diazepam (Valium) Lorazepam (Ativan) Alprazolam (Xanax) Clonazepam (Klonopin) Oxazepam (Serax) All of these controlled substances are highly addictive and frequently abused. Misuse can and frequently does lead to addiction as well as overdose and . Medication should be stored in a locked cabinet or other secure storage unit. Do not store the medication in a motor vehicle. Short term supplies, 3 days or less, are prescribed because of the highly addictive nature of the medication. Any of the controlled substance medication NOT taken should be disposed of properly and NOT SAVED. The recommended method of disposing of unused medications is: Place the medicines in a sealable plastic bag. If the medicine is a solid, crush it or add water to dissolve it. Add something undesirable (cat litter, coffee grounds, etc.) Dispose of sealed bag in household trash Do not flush or pour unused medicines down a sink or drain. Controlled substances should not be shared, given away or sold. Because of the addictive nature and frequent abuse, these medications are sometimes stolen. These medications should be kept in a safe place where they cannot be stolen. Do not keep them in your car or purse. Lost or stolen prescriptions for controlled substances WILL NOT BE REFILLED in this emergency department, regardless of whether a police report was filed. Prescriptions: Hydrocod/Acet 5/325 mg [[place] 5/325mg tablet] 1 tab PO Q6HP PRN #6 tab PRN Reason: Pain Transmission Status: [facility] to [facility] Referrals: Raeann Hernandez DO [Primary Care Provider] - - Critical Care Critical Care Time: No Attestation: On 09/27/19, the high probability of a clinically significant, sudden or life threatening deterioration of the following system(s) required my full and direct attention, intervention and personal management. The time I documented below is in addition to time spent performing reported procedures but includes the following listed in this critical care notation. Medical Decision Making - Chris Inquiry Pt receiving controlled substance: Yes Chris was queried for this patient: Yes Reference #:: [id number] Risks and benefits of using a controlled substance: were discussed with pt by me Comment: 4 rxs for hydromorphone Vital Signs: 09/27/19 11:17 09/27/19 11:30 09/27/19 12:59 Temperature 98.9 F Temperature Source Oral Pulse Rate [Left Radial] 103 H 101 H 102 H Respiratory Rate 16 Blood Pressure [Right Arm] 171/90 H 161/83 H 170/93 H Blood Pressure Mean [Right Arm] 117 109 118 Blood Pressure Source [Right Arm] Automatic Cuff Automatic Cuff Blood Pressure Position [Right Arm] Sitting Sitting Sitting 02 Sat by Pulse Oximetry 95 97 98 Oxygen Delivery Method Room Air Nini
[2019-09-27 12:59] VITALS: BP 170/93; PULSE 102; O2SAT 98
--- NOTE | 2019-09-27 13:03 | PC.NURSE ---
ANDREW URENA removed pt from back board at this time
[2019-09-27 13:04] VITALS: BP 170/93; PULSE 100; O2SAT 99
--- NOTE | 2019-09-27 13:04 | PC.NURSE ---
Pt moved from back board at this time by .
[2019-09-27 13:32] VITALS: BP 148/71; PULSE 95; O2SAT 98
[2019-09-27 14:56] VITALS: BP 137/74; PULSE 78; RESP 16; TEMP 36.6; O2SAT 98
== END 2019-09-27 14:58 | disposition home or self-care (01) ==
PROVIDERS: Emergency Provider Emergency Medicine; PCP Family Medicine
DX: S39.012A Strain of muscle, fascia and tendon of lower back, initial encounter (principal); W17.89XA Other fall from one level to another, initial encounter; Y92.019 Unspecified place in single-family (private) house as the place of occurrence of the external cause; E78.5 Hyperlipidemia, unspecified; I10 Essential (primary) hypertension; E03.9 Hypothyroidism, unspecified; F17.210 Nicotine dependence, cigarettes, uncomplicated; Z88.2 Allergy status to sulfonamides; Z88.6 Allergy status to analgesic agent; Z90.49 Acquired absence of other specified parts of digestive tract; Z90.79 Acquired absence of other genital organ(s); Z79.899 Other long term (current) drug therapy
CPT/HCPCS: 72131; 99283

== ENCOUNTER 2019-10-13 14:32 | Day surgery (SDC) | payer MEDICARE, SELFPAY ==
[2019-10-13 14:42] VITALS: BP 154/75; PULSE 100; RESP 20; TEMP 36.3; O2SAT 97; BMI 35.5
[2019-10-13 14:58] VITALS: BP 155/75; PULSE 97; RESP 18; O2SAT 100
--- NOTE | 2019-10-13 15:10 | P.PCN_ITS ---
- Procedure Date: 10/13/19 Time: 15:10 Anesthesiologist:: Barb Aguilar APRN Complications:: None Pre-procedure Diagnosis:: Degenerative disc disease lumbar spine lumbar radiculopathy Post-procedure Diagnosis:: Same Indications for Procedure:: Patient is a pleasant 59-year-old white female who presents today for intrathecal pain pump refill and reprogram. She is currently on intrathecal infusion of 0.05 mg every 2 hours of Dilaudid. Patient is rating her pain a 10 out of 10 due to a fall that she recently had. Patient denies side effects from medication. She like an increase today. Physical Exam General: Alert and oriented x3, no acute distress, pleasant and cooperative, [on room air] Lungs: Resps E/U, Symmetrical chest expansion, Eyes: PERRL Musculoskeletal: Flexion and extension of lumbar spine somewhat guarded secondary to pain, deep tendon reflexes normal, strength in upper and lower extremities [5/5], [abnormal gait noted] Neurological: speech clear, escort service attendant equal, no gross sensory deficits Procedure Details:: Informed consent was obtained and the risk and benefits of the procedure were explained to the patient. The patient was taken to the procedure room where noninvasive monitoring was placed including noninvasive blood pressure cuff and pulse oximeter. Patient's pump was interrogated. The area over the pump was c leansed with chlorhexidine as a cleansing solution. In sterile fashion the pump was accessed with a 22-gauge needle. Approximately 5.5 mL's were removed of the pump solution and discarded appropriately. The pump was then refilled with 20 mL's of Dilaudid 2 mg/mL. The needle was withdrawn and a bandage was placed over the puncture site. The infusion rate was reprogrammed to 0.065 mg every 2 hours. The patient tolerated the procedure well. Plan and Disposition:: Patient was given several [place] at the emergency room after her fall. She is no longer taking this. I will see the patient back at her next intrathecal pain pump refill and reprogram she has been instructed to call the office if she has any issues prior to her next appointment. Dr. Peoples has reviewed this note and agrees with this plan of care. This note was dictated using voice recognition software and may contain errors or omissions
[2019-10-13 15:12] VITALS: BP 150/78; PULSE 89; RESP 18; O2SAT 100
[2019-10-13 15:32] VITALS: BP 148/73; PULSE 97; RESP 20; O2SAT 98
== END 2019-10-13 15:33 | disposition home or self-care (01) ==
LOC: SC.PAINP 14:33
PROVIDERS: PCP Family Medicine; Visit Provider Clinical Nurse Specialist Family Health
DX: M51.16 Intervertebral disc disorders with radiculopathy, lumbar region (principal); Z88.2 Allergy status to sulfonamides; Z88.8 Allergy status to other drugs, medicaments and biological substances; Z88.5 Allergy status to narcotic agent; Z72.0 Tobacco use; I10 Essential (primary) hypertension; E78.5 Hyperlipidemia, unspecified; B19.20 Unspecified viral hepatitis C without hepatic coma; Z90.49 Acquired absence of other specified parts of digestive tract; E89.0 Postprocedural hypothyroidism; Z90.710 Acquired absence of both cervix and uterus; Z79.899 Other long term (current) drug therapy
CPT/HCPCS: 62370

== ENCOUNTER → 2019-10-27 08:14 | Outpatient (POV) | payer MEDICARE, SELFPAY ==
--- NOTE | 2019-10-27 08:49 | HMH.PMPROC ---
- Procedure Date: 10/27/19 Time: 08:49 Anesthesiologist:: Barb Aguilar APRN Complications:: None Pre-procedure Diagnosis:: Degenerative disc disease lumbar spine lumbar radiculopathy Post-procedure Diagnosis:: Same Indications for Procedure:: Patient is a 59-year-old white female who presents today for intrathecal pain pump refill and reprogram. She is currently on intrathecal infusion of 0.065 mg of Dilaudid every 2 hours. She rates her pain a 10 out of 10. She just recently had another fall. On discussion she stated that she is having difficulty with that her shoes and the carpet in her home. She denies side effects from medication. Patient does have an open area on her left krishnan. We will send her to wound care. She has soreness all over. Physical Exam General: Alert and oriented x3, no acute distress, pleasant and cooperative, [on room air] Lungs: Resps E/U, Symmetrical chest expansion, Eyes: PERRL Musculoskeletal: Flexion and extension of lumbar spine somewhat guarded secondary to pain, deep tendon reflexes normal, strength in upper and lower extremities [5/5], [abnormal gait noted] Neurological: speech clear, instructor product inspection equal, no gross sensory deficits Procedure Details:: Informed consent was obtained and the risk and benefits of the procedure were explained to the patient. The patient was taken to the procedure room where noninvasive monitoring was placed including noninvasive blood pressure cuff and pulse oximeter. Patient's pump was interrogated and reprogrammed. The infusion rate was increased to 0.075 mg every 2 hours. The patient tolerated the procedure well. Plan and Disposition:: We will call in a [facility] for the patient. We will also get her to wound care in order to have an evaluation of her left krishnan. I will see the patient back at her next intrathecal pain pump refill and reprogram she has been instructed to call the office if she has any issues prior to her next appointment. Dr. Peoples has reviewed this note and agrees with this plan of care. This note was dictated using voice recognition software and may contain errors or omissions
[2019-10-27 08:50] VITALS: BP 153/83; PULSE 94; RESP 18; TEMP 36.6; O2SAT 98; BMI 35.5
== END ==
PROVIDERS: Visit Provider Clinical Nurse Specialist Family Health
DX: M51.16 Intervertebral disc disorders with radiculopathy, lumbar region (principal); Z91.81 History of falling; Z88.6 Allergy status to analgesic agent; Z88.2 Allergy status to sulfonamides; Z88.8 Allergy status to other drugs, medicaments and biological substances
CPT/HCPCS: 62368

== ENCOUNTER 2019-11-05 15:00 | Outpatient (RCR) | payer MEDICARE, SELFPAY ==
--- NOTE | 2019-10-29 15:23 | HMH.PTOPWND ---
Rehab Outpt Wound Evaluation Rehab OP Wound Evaluation Start: 10/29/19 14:49 Freq: Status: Active Protocol: Document 10/29/19 15:12 [email or web address] (Rec: 10/29/19 15:23 [email or web address] [id number]) Electronically Signed By Crispin Iglesias, SHANE 10/29/19 15:12 Subjective/History History History This is the initial Physical Therapy evaluation for Mary Richardson. Pt is a 59 y/o female referred to PT for open wound on L burnett. Pt reports R burnett began weeping and blister opened up ~ 1 month ago. Pt reports she is not on fluid pill but is diabetic Subjective Subjective c/o pain to the touch Wound Eval Wound Left Lower Distal Burnett Wound Type Stasis Ulcer Wound Length (cm) 1.0 Wound Width (cm) 2.2 Wound Bed Appearance [place] Percentage Granulated (%) 100 Surrounding Tissue Appearance [place] Edema Degree 1+ Query Text:1+ Trace, Barely Detectable, Rebound 15-30 seconds 2+ Moderate, Slight Indentation, Rebound 10-20 seconds 3+ Deep, Deeper Indentation, Rebound > 30 seconds 4+ Very Deep, Rebound > 60 seconds Drainage Description Serous Drainage Amount Small Drainage Odor No Odor Dressing Status Open to Air Wound Topical Solution/Irrigant Antibiotic Irrigant Primary Dressing Hydrocolloid Wound Debridement Method Forceps Wound Debridement Amount of Tissue Minimal Removed Wound Debridement Result Healthy Tissue Revealed Dressing Change Patient Tolerance Tolerated Poorly Left Lower Proximal Burnett Wound Type Stasis Ulcer Wound Length (cm) 0.5 Wound Width (cm) 1.1 Wound Bed Appearance [place] Percentage Granulated (%) 100 Wound Margins Description Well Defined Surrounding Tissue Appearance [place] Edema Degree 1+ Query Text:1+ Trace, Barely Detectable, Rebound 15-30 seconds 2+ Moderate, Slight Indentation, Rebound 10-20 seconds 3+ Deep, Deeper Indentation, Rebound > 30 seconds 4+ Very Deep, Rebound > 60 seconds Drainage Description Serous Drainage Amount Small Drainage Odor No Odor Dressing Status Open to Air Primary Dressing Hydrocolloid Wound Debridement Method Forceps Wound Debridement Amount of Tissue Minimal
== END 2019-11-05 16:00 | disposition home or self-care (01) ==
LOC: PT 15:00
PROVIDERS: Visit Provider Clinical Nurse Specialist Family Health
DX: L97.221 Non-pressure chronic ulcer of left calf limited to breakdown of skin (principal)
CPT/HCPCS: 97161; 97597

== ENCOUNTER 2019-11-20 12:37 | Day surgery (SDC) | payer MEDICARE, SELFPAY ==
[2019-11-20 12:47] VITALS: PULSE 95; RESP 19; TEMP 36.5; O2SAT 100; BMI 38.7
--- NOTE | 2019-11-20 13:45 | HMH.PMPROC ---
- Procedure Date: 11/20/19 Time: 13:45 Anesthesiologist:: Ioana Gates APRN Complications:: None Pre-procedure Diagnosis:: Degenerative disc disease lumbar spine with lumbar radiculopathy symptoms Post-procedure Diagnosis:: Same Indications for Procedure:: Patient is a 59-year-old white female who presents today for intrathecal pain pump refill and reprogram. She has been treated for chronic low back pain with lumbar radiculopathy symptoms. She is currently on intrathecal therapy of Dilaudid at 0.9 mg/day, periodic flow at 0.075 mg every 2 hours. She denies any side effects to the medication. She would like an increase in her dose today. We will increase her to see if she gets relief. We will also increase her concentration in her medication today. She is currently at Dilaudid 2 mg per male. Patient rates her pain a 7 out of 10. Physical exam General: Alert and oriented x3, no acute distress, pleasant and cooperative, [on room air] Lungs: Respirations even and unlabored, symmetrical chest expansion Eyes: PERRL Musculoskeletal: Flexion and extension of lumbar spine somewhat guarded secondary to pain, deep tendon reflexes normal, strength in upper and lower extremities [5/5], [abnormal gait noted] Neurological: Speech clear, saas architect equal, no gross sensory deficit Procedure Details:: Informed consent was obtained and the risk and benefits of the procedure were explained to the patient. The patient was taken to the procedure room where noninvasive monitoring was placed including noninvasive blood pressure cuff and pulse oximeter. Patient's pump was interrogated. The area over the pump was cleansed with chlorhexidine as a cleansing solution. In sterile fashion the pump was accessed with a 22-gauge needle. Approximately 4 Mls of the pump solution was removed and discarded appropriately. The pump was then refilled with 20 mL's of Dilaudid 5 mg/mL. The needle was withdrawn and a bandage was placed over the puncture site. The infusion rate was reprogrammed at Dilaudid at 1.08 mg/day. The patient tolerated well with no complication. Plan and Disposition:: We will plan to see the patient back to change her back and to periodic flow. She will go at periodic flow of Dilaudid at 0.09 mg every 2 hours. Patient has been instructed to contact clinic if she has any concerns before next appointment. The patient and I specifically discussed risk factors for COVID19. These risks include, but are not limited to age greater than 60, heart or lung disease, diabetes, immunosuppression, and travel. We also discussed NSAIDs may worsen COVID19 infection or symptoms. Patient should not use NSAIDs to treat COVID19 signs or symptoms. Patient was also informed that any type of corticosteroid of any form (oral or injection) will decrease the patient's immune system response and may increase the likelihood of COVID19 infection and symptoms.
[2019-11-20 13:58] VITALS: BP 153/65; PULSE 96; RESP 18; O2SAT 100
[2019-11-20 14:00] VITALS: BP 155/74; PULSE 85; RESP 18; O2SAT 100
[2019-11-20 14:01] VITALS: BP 161/74; PULSE 88; RESP 18; O2SAT 100
== END 2019-11-20 14:02 | disposition home or self-care (01) ==
LOC: SC.PAINP 12:39
PROVIDERS: Visit Provider Clinical Nurse Specialist Family Health
DX: M51.16 Intervertebral disc disorders with radiculopathy, lumbar region (principal); E78.5 Hyperlipidemia, unspecified; I10 Essential (primary) hypertension; K21.9 Gastro-esophageal reflux disease without esophagitis; Z72.0 Tobacco use; Z86.19 Personal history of other infectious and parasitic diseases; Z87.442 Personal history of urinary calculi; Z87.19 Personal history of other diseases of the digestive system; Z86.39 Personal history of other endocrine, nutritional and metabolic disease; Z90.49 Acquired absence of other specified parts of digestive tract; Z90.711 Acquired absence of uterus with remaining cervical stump; Z85.828 Personal history of other malignant neoplasm of skin
CPT/HCPCS: 62370

== ENCOUNTER → 2019-12-02 08:33 | Outpatient (CLI) | payer MEDICARE, SELFPAY ==
[2019-12-02 11:00] LABS: Chloride 107 mmol/L (98-107)
[2019-12-02 11:01] LABS: Potassium 4.5 mmoL/L (3.5-5.1); Sodium 141 mmol/L (136-145)
[2019-12-02 11:03] LABS: Alanine Aminotransferase 18 U/L (12-78); Alkaline Phosphatase 250 U/L (38-126); Anion Gap 9.5 mEq/L (5-15); Aspartate Amino Transferase 57 U/L (14-36); Blood Urea Nitrogen 5 mg/dl (7-17); Carbon Dioxide 29 mmol/L (22.0-30.0); Cholesterol 153 mg/dl (140-200); Estimated Glomerular Filt Rate 126 ml/min (>60); GFR (African American) 152 ML/MIN (>60); Triglycerides 119 mg/dl (30-150); VLDL Cholesterol 24 mg/dL (0-40)
[2019-12-02 11:04] LABS: Albumin Level 3.1 g/dl (3.5-5.0); Albumin/Globulin Ratio 0.8 (1.1-1.8); Chol/HDL Ratio 4.1 (1-3.5); Globulin 3.9 g/dL (1.3-3.2); Glucose 104 mg/dl (74-100); HDL Cholesterol 37 mg/dl (40-60)
[2019-12-02 11:15] LABS: Direct LDL Cholesterol 80.28 mg/dL (100-129)
[2019-12-02 11:34] LABS: T4 (Thyroxine) 13.9 ug/dl (5.53-11.0)
[2019-12-02 11:38] LABS: Free T4 (Free Thyroxine) 1.74 ng/dl (0.78-2.19)
[2019-12-02 11:41] LABS: Hemoglobin A1C 6.7 % (4.0-6.0)
[2019-12-02 11:47] LABS: Thyroid Stimulating Hormone 2.43 uIU/mL (0.465-4.68)
[2019-12-02 15:19] LABS: Creatinine,Urine Random 102 mg/dL (Not Estab.)
[2019-12-02 15:32] LABS: Microalbumin/Creatinine Ratio 8.7
== END ==
PROVIDERS: Visit Provider Internal Medicine Endocrinology, Diabetes & Metabolism
DX: E89.0 Postprocedural hypothyroidism (principal); E11.29 Type 2 diabetes mellitus with other diabetic kidney complication; E11.65 Type 2 diabetes mellitus with hyperglycemia; Z79.4 Long term (current) use of insulin
CPT/HCPCS: 36415; 80053; 80061; 82043; 82570; 83036; 84436; 84439; 84443

== ENCOUNTER 2019-12-23 12:02 | Observation (INO) | payer MEDICARE, SELFPAY ==
[2019-12-23] VITALS (14 sets, daily range): BP systolic 126–180; BP diastolic 66–84; PULSE 89–102; RESP 18–20; TEMP 36.5–37; O2SAT 92–99; BMI 33.9; BMI 33.4
--- NOTE | 2019-12-23 12:35 | HMH.EDGENADL ---
ED Disposition Clinical Impression: Dehydration Altered mental status Qualifiers: Altered mental status type: disorientation Qualified Code(s): R41.0 - Disorientation, unspecified UTI (urinary tract infection) Qualifiers: Urinary tract infection type: site unspecified Hematuria presence: without hematuria Qualified Code(s): N39.0 - Urinary tract infection, site not specified Disposition: Admitted as Observation Condition on Discharge: Fair Referrals: Raeann Hernandez DO [Primary Care Provider] - - Critical Care Critical Care Time: No Attestation: On 12/23/19, the high probability of a clinically significant, sudden or life threatening deterioration of the following system(s) required my full and direct attention, intervention and personal management. The time I documented below is in addition to time spent performing reported procedures but includes the following listed in this critical care notation. Medical Decision Making - Medical Records Medical records reviewed: Yes: I reviewed the patient's medical records. - Chris Inquiry Pt receiving controlled substance: No Vital Signs: 12/23/19 12:03 12/23/19 12:08 12/23/19 14:25 Temperature 98.6 F Temperature Source Oral Pulse Rate [Right Radial] 94 H 102 H 93 H Respiratory Rate 18 18 Blood Pressure [Right Arm] 164/74 H 151/81 H 141/71 H Blood Pressure Mean [Right Arm] 104 104 94 Blood Pressure Source [Right Arm] Automatic Cuff Automatic Cuff Blood Pressure Position [Right Arm] Sitting Sitting 02 Sat by Pulse Oximetry 96 94 L Oxygen Delivery Method Room Air Room Air - Lab Data Lab results reviewed: Yes: I reviewed the patient's lab results. Lab Results 12/23/19 12:20: Urine Color Dk yellow, Urine Appearance Sl cloudy, Urine pH 5.5, Ur Specific [place] >= 1.030, Urine Protein Negative, Urine Glucose (UA) Negative, Urine Ketones Trace, Urine Blood Negative, Urine Nitrate Negative, Urine Bilirubin Negative, Urine Urobilinogen 0.2, Ur Leukocyte Esterase 1+ A, Urine RBC 3-5, Urine WBC 5-10, Ur Squamous Epith Cells 5-10, Urine Bacteria Trace 12/23/19 12:40: WBC 5.3, RBC 3.91 L, Hgb 10.2 L, Hct 34.6 L, MCV 88.5, MCH 26.0 L, MCHC 29.4 L, RDW 16.5, Plt Count 185, MPV 8.6, Neut % (Auto) 66.3, Lymph % (Auto) 24.1, [place] % (Auto) 8.2, Eos % (Auto) 0.9, Baso % (Auto) 0.5, Neut # (Auto) 3.5, Lymph # (Auto) 1.3, [place] # (Auto) 0.4, Eos # (Auto) 0.1, Baso # (Auto) 0.0 12/23/19 12:40: Sodium 140, Potassium 4.4, Chloride 104, Carbon Dioxide 27, Anion Gap 13.4, BUN 11, Creatinine 0.60, Estimated Creat Clear 150, Estimated GFR 102, Est GFR ( Amer) 123, Glucose 179 H, Calcium 9.3, Total Bilirubin 1.4 H, AST 57 H, ALT 25, Alkaline Phosphatase 240 H, Total Protein 8.5 H, Albumin 3.8, Globulin 4.7 H, Albumin/Globulin Ratio 0.8 L 12/23/19 12:40: Lactate 4.0 H 12/23/19 12:40: TSH 1.95, Acetone Level None detected 12/23/19 12:40: SARS-CoV-2 IgG Ab (Rapid) Positive A, SARS-CoV-2 IgM Ab (Rapid) Negative 12/23/19 12:40: Troponin I < 0.01 Result diagrams: 12/23/19 12:40 12/23/19 12:40 Orders (Tests/Meds): ED MEDICATIONS Generic Name Dose Route Start Last Admin Trade Name Freq PRN Reason Stop Dose Admin Sodium Chloride 2,860 mls @ 1,430 mls/hr 12/23/19 13:16 12/23/19 13:36 Sod Chlor 0.9% 1000ml Bag 30 ml/kg infuse over 2 hr (2860 ml) 12/23/19 15:15 Not Given IV .Q2H ONE Sodium Chloride 1,000 mls @ 999 mls/hr 12/23/19 13:45 12/23/19 13:39 Sod Chlor 0.9% 1000ml Bag IV 12/23/19 14:45 999 mls/hr .Q1H1M KATJA Administration ORDERS Category Date Time Status XR chest AP Stat Exams 12/23/19 12:46 Taken Covid-19 Nasal PCR ([facility]) Routine Lab 12/23/19 13:34 Received Troponin I Q3H Lab 12/23/19 16:45 Ordered Troponin I Q3H Lab 12/23/19 19:45 Ordered Blood Culture Stat Micro 12/23/19 12:50 Received Urine Culture Stat Micro 12/23/19 12:20 Received - Radiology Data #1 Image(s): Chest Image Reviewed: Yes I reviewed the patien
[2019-12-23 12:39] LABS: Microscopic, Urine URINE MICROSCOPIC (MICROSCOPIC)
[2019-12-23 12:40] LABS: Appearance,Urine SL CLOUDY (Clear); Bilirubin,Urine Negative (Negative); Blood, Urine Negative (Negative); Color,Urine DK YELLOW (Yellow); Glucose,Urine (UA) Negative (Negative); Ketones,Urine TRACE (Negative); Leukocyte Esterase,Urine 1+ (Negative); Nitrate,Urine Negative (Negative); PH,Urine 5.5 (5.0-8.5); Protein,Urine Negative (Negative); Specific Gravity, Urine >= 1.030 (1.005-1.030); Urobilinogen,Urine 0.2 EU/dl (0.2)
--- NOTE | 2019-12-23 12:46 | CT_ITS ---
PROCEDURE: CT HEAD/BRAIN WO CON CLINICAL INDICATION: confusion Altered mental status, altered level of consciousness, confusion, disorientation COMPARISON: No exams were available for comparison TECHNIQUE: Axial images obtained. All CT scans at the facility use one or more dose reduction, viz: automated exposure control, ma/kV adjustment per patient size (including targeted exams where dose is matched to indication, i.e. head), or iterative reconstruction technique. FINDINGS: No midline shift, mass effect, intracranial hemorrhage, hydrocephalus, or extra-axial fluid collection is evident. The calvarium has an unremarkable appearance. No mastoid effusion. There is mild mucosal thickening of the ethmoid sinuses. No sinus air-fluid level. IMPRESSION: No acute intracranial finding Dictated by: Cristofer Leyva MD 12/23/2019 13:38 Cristofer Leyva MD in [facility] 12/23/2019 13:38
--- NOTE | 2019-12-23 12:46 | XR_ITS ---
PROCEDURE: XR CHEST AP CLINICAL HISTORY: cough, congestion COMPARISON: CR CXR CHEST(2 VIEWS-NOT PORTABLE) from 02/19/2014 FINDINGS: The cardiomediastinal silhouette and pulmonary vascularity are within normal limits. Clips are present overlying the tracheal region and right paratracheal area. There are minimal atelectatic changes in left lung base. No lobar consolidation or collapse. No acute bony abnormalities. IMPRESSION: Mild left basilar atelectasis Dictated by: Cristofer Leyva MD 12/23/2019 14:42 Cristofer Leyva MD in [facility] 12/23/2019 14:42
[2019-12-23 12:49] LABS: Bacteria,Urine Trace /lpf
--- NOTE | 2019-12-23 12:52 | PC.NURSE ---
suha notified of new orders on pt, spoke with tony
[2019-12-23 12:58] LABS: Acetone, Serum (Rapid) None Detected (None Detect)
[2019-12-23 13:02] LABS: Alanine Aminotransferase 25 U/L (12-78); Albumin Level 3.8 g/dl (3.5-5.0); Albumin/Globulin Ratio 0.8 (1.1-1.8); Alkaline Phosphatase 240 U/L (38-126); Anion Gap 13.4 mEq/L (5-15); Aspartate Amino Transferase 57 U/L (14-36); Bilirubin,Total 1.4 mg/dl (0.2-1.3); Blood Urea Nitrogen 11 mg/dl (7-17); Calcium 9.3 mg/dl (8.4-10.2); Carbon Dioxide 27 mmol/L (22.0-30.0); Chloride 104 mmol/L (98-107); Creatinine Clearance Estimated 150 mL/min (50-200); Estimated Glomerular Filt Rate 102 ml/min (>60); GFR (African American) 123 ML/MIN (>60); Globulin 4.7 g/dL (1.3-3.2); Glucose 179 mg/dl (74-100); Potassium 4.4 mmoL/L (3.5-5.1); Sodium 140 mmol/L (136-145); Total Protein,Serum 8.5 g/dl (6.3-8.2)
[2019-12-23 13:04] LABS: Basophils % 0.5 % (0.1-2.0); Eosinophils # 0.1 K/mm3 (0.0-0.4); Eosinophils % 0.9 % (0.1-12.0); Hematocrit 34.6 % (37.0-47.0); Hemoglobin 10.2 g/dL (12.2-16.2); Lymphocytes # 1.3 K/mm3 (0.7-4.5); Lymphocytes % 24.1 % (10-50); Mean Corpuscular HGB Conc 29.4 g/dL (31.8-35.4); Mean Corpuscular Volume 88.5 fl (81-99); Mean Platelet Volume 8.6 fl (7.4-10.4); Monocytes # 0.4 K/mm3 (0.1-1.0); Monocytes % 8.2 % (1.7-9.3); Neutrophils # 3.5 K/mm3 (1.8-7.8); Neutrophils % 66.3 % (37.0-80.0); Platelet Count 185 K/mm3 (142-424); Red Blood Count 3.91 M/mm3 (4.20-5.40); Red Cell Distribution Width 16.5 % (11.5-17.5); White Blood Count 5.3 K/mm3 (4.8-10.8)
--- NOTE | 2019-12-23 13:12 | PC.NURSE ---
ER MD notified of lactic acid level and one SIRS criteria, ER MD states no known infection at this time, gave verbal order for sepsis bolus for IVF.
--- NOTE | 2019-12-23 13:20 | PC.NURSE ---
pt return from radiology
[2019-12-23 13:24] LABS: Coronavirus 19 IgG Antibody Positive (Negative); Coronavirus 19 IgM Antibody Negative (Negative)
[2019-12-23 13:32] LABS: Thyroid Stimulating Hormone 1.95 uIU/mL (0.465-4.68)
--- NOTE | 2019-12-23 13:35 | PC.NURSE ---
covid swab sent to lab at this time
--- NOTE | 2019-12-23 13:35 | PC.NURSE ---
ER MD states to give pt 1L of NS per bolus already ordered and then reassess and he will decide if he wants additional IVF for pt.
--- NOTE | 2019-12-23 13:41 | ECG_ITS ---
APPROVED REPORT Exam: Resting ECG HR:94 bpm ECG Measurements Heart Rate 94 AXES AZ 206 P 55 QRSd 80 QRS -26 QT 406 T 49 QTc 507 Conclusion Normal sinus rhythm Left atrial abnormality Low voltage QRS Late R wave progression - old Prolonged QT Abnormal ECG Electronically signed by : Tung Lozano, 12/28/2019 09:53:00
[2019-12-23 13:59] LABS: Troponin I < 0.01 ng/ml (0.00-0.034)
--- NOTE | 2019-12-23 14:29 | PC.NURSE ---
ANDREW URENA speaking with Dr. 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
--- NOTE | 2019-12-23 14:32 | PC.NURSE ---
notified care management of admission, spoke with mina
--- NOTE | 2019-12-23 15:02 | P.CONPHA_ITS ---
[facility] Pharmacy VTE Monitoring - Patient Demographics Admission date: 12/23/19 Report Date: 12/23/19 Time: 15:02 Allergies/Adverse Reactions: Patient Allergies codeine [CODEINE] Allergy (Mild, Verified 10/13/19 14:45) nitrofurantoin [From MACROBID] Allergy (Mild, Verified 10/13/19 14:45) Sulfa (Sulfonamide Antibiotics) [SULFA (SULFONAMIDE ANTIBIOTICS)] Allergy (Mild, Verified 10/13/19 14:45) ergocalciferol (vitamin D2) [From Vitamin D2] Allergy (Unknown, Verified 10/13/19 14:45) Height: 1.68 m Weight: 95.254 kg Patient Problems: Current Active Problems UTI (urinary tract infection) (Acute) Altered mental status (Acute) Dehydration (Acute) - VTE Risk Labs: VTE Related Lab Results Hgb 10.2 g/dL (12.2-16.2) L 12/23/19 12:40 Hct 34.6 % (37.0-47.0) L 12/23/19 12:40 Plt Count 185 K/mm3 (142-424) 12/23/19 12:40 BUN 11 mg/dl (7-17) 12/23/19 12:40 Creatinine 0.60 mg/dl (0.52-1.04) 12/23/19 12:40 Estimated Creat Clear 150 mL/min (50-200) 12/23/19 12:40 Clinical Trial Participant: No - Prophylaxis VTE Prophylaxis Ordered?: Yes Types of VTE Prophylaxis: TEDS Knee High
--- NOTE | 2019-12-23 15:06 | HMH.PHAINT ---
HOME MEDICATION RECONCILIATION COMPLETED USING LIST FROM CLINIC PHARMACY.
--- NOTE | 2019-12-23 15:18 | PC.NURSE ---
report called to pettyrn on second floor at this time
--- NOTE | 2019-12-23 15:22 | PC.NURSE ---
spoke with infection control nurse katey,rn r/t questions during report to second floor about waiting on covid swab to result since pt has antibody test and swab per ER MD order. Prachi Akins states to wait on swab results since pt was swabbed we should wait to confirm results in case pt would need to be moved to a different room. notified second floor of the above conversation. contacted lab to check on status of pt covid swab results, staff stated approx 57 minutes.
--- NOTE | 2019-12-23 15:29 | PC.NURSE ---
updated pt and family on POC and waiting on swab results
--- NOTE | 2019-12-23 15:42 | PC.NURSE ---
notified ER of pt rising BP, current BP 180/77, no new orders given at this time. will continue to monitor
[2019-12-23 16:50] LABS: Reflex Lactic Add Lactic Reflex
--- NOTE | 2019-12-23 16:53 | PC.NURSE ---
notified second floor staff pt covid swab is negative per lab.
--- NOTE | 2019-12-23 17:24 | PC.NURSE ---
PT arrived to the floor at this time.
[2019-12-23 17:31] LABS: Lactic Acid Follow Up (RFLX 1) 2.3 mmol/L (0.7-2.1)
--- NOTE | 2019-12-23 17:49 | HMH.HP ---
*Admission Date: 12/23/19 *Chief complaint: AMS *History of present illness: HPI narrative from th e ER: History obtained primarily from patient's daughter. Daughter states patient has been disoriented since Sunday. Seems confused, has tried to put her dentures and upside down. Patient states she was very confused this morning and did not know what was going on. She saw her diabetes doctor in [place] today. Daughter states they have recently been having problems with her blood sugar, initially a couple of weeks ago she was having hypoglycemia at night, medication changes were made now she is running in the 200-300 range routinely. She says that today the doctor wanted her to stop her medications so that they could do some follow-up blood work to see how well her pancreas is producing insulin. Daughter states that she has a chronic cough that sounds more congested than usual. She has been urinating more frequently than usual. No fevers noted. The patient ambulates with a walker or a wheelchair. No new medications that would cause altered mental status. [facility] History Medical History: Reports:: Cancer (skin), Diabetes Mellitus Type 2, Heart Murmur, Hepatitis, Hyperlipidemia, Hypertension Denies:: Diabetes Mellitus Type 1, Internal Pacemaker, MRSA, Seizures *Have you ever received a pneumonia vaccine?: No *Have you received a flu vaccine this season?: No Other Medical History: Reports: Liver Disease, Thyroid Disease. Denies: Blood Transfusion Reaction Laterality Cases: Bilateral: Other Other Surgeries: Yes: Appendectomy, Cancer Surgery (skin), Cholecystectomy, Colonoscopy, Hernia Repair, Hysterectomy-Partial, Thyroidectomy (partial), Other (pain pump implant). No: Pacemaker Amputation: No Fractures: No - *Social History Smoking Status: Current every day smoker Tobacco Type: cigarettes # Packs/Day (cigarettes): 1 Alcohol Intake: never *Occupational Status:: retired, disabled Housing: house Household Members: significant other *Travel in the last 8 weeks: None Family Hx:: Unable to obtain Review of Systems - Constitutional Denies fever(s) - Eyes Denies change in vision - ENT Denies ear pain, Denies sore throat - *Cardiovascular Denies chest pain - *Respiratory Denies chest congestion, Denies cough, Denies shortness of breath - *Gastrointestinal Denies abdominal pain - *Genitourinary Denies difficulty urinating, Denies painful urination - *Musculoskeletal Reports joint pain (bilateral knees) - *Neurologic Reports confusion, Denies localized weakness, Denies headache(s) Meds Home Medications Medication Instructions Recorded Confirmed Type Cyclobenzaprine HCl 10 mg PO HS 05/04/17 12/23/19 History [Cyclobenzaprine 10mg Tab] Fenofibrate 160 mg PO DAILY 05/04/17 12/23/19 History Levothyroxine Sodium 137 mcg PO DAILY 05/04/17 12/23/19 History [Levothyroxine 137mcg (0.137mg) Tab] Linagliptin/Metformin HCl 1 each PO BID 05/04/17 12/23/19 History [Jentadueto 2.5 mg-1000 mg Tab] lisinopriL [Lisinopril 5mg Tablet] 5 mg PO DAILY 05/04/17 12/23/19 History Insulin Aspart [Novolog Flexpen] 15 - 30 units SQ TID 12/23/19 12/23/19 History Insulin Glargine,Hum.rec.anlog 25 unit SQ BID 12/23/19 12/23/19 History [Basaglar Kwikpen U-100] Omeprazole [Omeprazole 40mg 40 mg PO DAILY 12/23/19 12/23/19 History Capsule] Allergies Allergy/AdvReac Type Severity Reaction Status Date / Time codeine [CODEINE] Allergy Mild Verified 10/13/19 14:45 nitrofurantoin Allergy Mild Verified 10/13/19 14:45 [From MACROBID] Sulfa (Sulfonamide Allergy Mild Verified 10/13/19 14:45 Antibiotics) [SULFA (SULFONAMIDE ANTIBIOTICS)] ergocalciferol (vitamin D2) Allergy Unknown Verified 10/13/19 14:45 [From Vitamin D2] Exam Vital signs and Labs for Last 24 Hours: Temp Pulse Resp BP Pulse Ox 97.7 F 93 H 18 160/76 H 99 12/23/19 17:35 12/23/19 17:35 12/23/19 17:35
--- NOTE | 2019-12-23 17:52 | HMH.ACPN2 ---
Internal Medicine - PN: Subj *Date: 12/23/19 *Time: 17:52 Interval history: Pt came to ER from Endo's office in [place] complaining of AMS. Exam Vital signs and Labs for Last 24 Hours: Temp Pulse Resp BP Pulse Ox 97.7 F 93 H 18 160/76 H 99 12/23/19 17:35 12/23/19 17:35 12/23/19 17:35 12/23/19 17:35 12/23/19 17:35 Laboratory Results - last 24 hr 12/23/19 12:20: Urine Color Dk yellow, Urine Appearance Sl cloudy, Urine pH 5.5, Ur Specific [place] >= 1.030, Urine Protein Negative, Urine Glucose (UA) Negative, Urine Ketones Trace, Urine Blood Negative, Urine Nitrate Negative, Urine Bilirubin Negative, Urine Urobilinogen 0.2, Ur Leukocyte Esterase 1+ A, Urine RBC 3-5, Urine WBC 5-10, Ur Squamous Epith Cells 5-10, Urine Bacteria Trace 12/23/19 12:40: WBC 5.3, RBC 3.91 L, Hgb 10.2 L, Hct 34.6 L, MCV 88.5, MCH 26.0 L, MCHC 29.4 L, RDW 16.5, Plt Count 185, MPV 8.6, Neut % (Auto) 66.3, Lymph % (Auto) 24.1, [place] % (Auto) 8.2, Eos % (Auto) 0.9, Baso % (Auto) 0.5, Neut # (Auto) 3.5, Lymph # (Auto) 1.3, [place] # (Auto) 0.4, Eos # (Auto) 0.1, Baso # (Auto) 0.0 12/23/19 12:40: Sodium 140, Potassium 4.4, Chloride 104, Carbon Dioxide 27, Anion Gap 13.4, BUN 11, Creatinine 0.60, Estimated Creat Clear 150, Estimated GFR 102, Est GFR ( Amer) 123, Glucose 179 H, Calcium 9.3, Total Bilirubin 1.4 H, AST 57 H, ALT 25, Alkaline Phosphatase 240 H, Total Protein 8.5 H, Albumin 3.8, Globulin 4.7 H, Albumin/Globulin Ratio 0.8 L 12/23/19 12:40: Lactate 4.0 H 12/23/19 12:40: TSH 1.95, Acetone Level None detected 12/23/19 12:40: SARS-CoV-2 IgG Ab (Rapid) Positive A, SARS-CoV-2 IgM Ab (Rapid) Negative 12/23/19 12:40: Troponin I < 0.01 12/23/19 17:06: Lactate 2.3 H I & O for Last 24 hours: Intake & Output 12/20/19 12/21/19 12/22/19 12/23/19 23:59 23:59 23:59 23:59 Intake Total 1999 Balance 1999 Weight 207 lb 1 oz Microbiology Reports for the Last 24 Hours: Microbiology 12/23/19 13:34 Nasopharyngeal Coronavirus COVID-19 PCR - Final - Constitutional no acute distress - *Routine HEENT Exam Head: Present: normocephalic Eye: Present: EOMI, PERRL ENT: Present: mucous membranes moist - *Routine Neck Exam Present: supple. Absent: lymphadenopathy - *Routine Respiratory Exam Present: CTA bilaterally (few coarse breath sounds on right) - *Routine Cardiovascular Exam Present: RRR - *Routine Abdominal Exam Present: soft, normoactive bowel sounds. Absent: tenderness - *Routine Extremities Exam Absent: cyanosis, clubbing, edema - *Routine Skin Exam Present: warm. Absent: rash - *Routine Neurological Exam Present: alert, oriented X3 Assessment and Plan (1) Sepsis Status: Acute Category: Medical Code(s): A41.9 - Sepsis, unspecified organism (2) Altered mental status Status: Acute Qualifiers: Altered mental status type: disorientation Qualified Code(s): R41.0 - Disorientation, unspecified Category: Medical Code(s): R41.82 - Altered mental status, unspecified (3) Dehydration Status: Acute Category: Medical Code(s): E86.0 - Dehydration (4) UTI (urinary tract infection) Status: Acute Qualifiers: Urinary tract infection type: site unspecified Hematuria presence: without hematuria Qualified Code(s): N39.0 - Urinary tract infection, site not specified Category: Medical Code(s): N39.0 - Urinary tract infection, site not specified - Assessment and plan all Dx Assessment and Plan for all problems:: See H&P, continue IVF and Invanz, give dose of Lisinopril tonight.
--- NOTE | 2019-12-23 17:56 | P.EN_ITS ---
[facility] Sepsis Screen by Nursing - Level 1 - Infection Infection Criteria Present: Suspected New Infection - Level 2 - SIRS Sepsis SIRS Criteria Present: Pulse > 90 bpm - Level 3 - Organ Dysfunction Organ Dysfunction Criteria Present: Lactic Acid > 2 mmol/L - Response Sepsis Screen: No Definite Risk Action Taken: Continue to Monitor Sepsis Event Note - Evaluation Sepsis screening result: No Definite Risk Current stage of sepsis: sepsis Possible source: genitourinary - Focused Exam Date exam was performed: 12/23/19 Time exam was performed: 17:57 Vital Signs Temp Pulse Pulse Resp BP BP Pulse Ox 12/23/19 17:35 97.7 F 93 H 18 160/76 H 99 12/23/19 17:24 98.2 F 91 H 18 157/83 H 12/23/19 16:30 91 H 161/84 H 97 12/23/19 15:59 98.2 F 89 18 161/83 H 95 12/23/19 15:42 98 H 18 180/77 H 99 12/23/19 15:00 96 H 176/84 H 92 L 12/23/19 14:30 95 H 18 156/82 H 95 12/23/19 14:00 93 H 18 141/71 H 94 L 12/23/19 13:30 95 H 18 164/74 H 96 12/23/19 13:00 100 H 18 141/66 H 96 12/23/19 12:30 100 H 18 126/78 95 12/23/19 12:08 98.6 F 102 H 18 151/81 H 96 12/23/19 12:03 94 H 164/74 H Respiratory exam: Present: CTA bilaterally (few coarse breath sounds) Cardiovascular exam: Present: RRR Capillary refill: < 3 Seconds Peripheral pulse strength: Strong Peripheral pulse location: Radial Skin exam: normal turgor - Problem List (1) Sepsis Status: Acute (2) Altered mental status Status: Acute (3) Dehydration Status: Acute (4) UTI (urinary tract infection) Status: Acute
--- NOTE | 2019-12-23 18:07 | HMH.HP ---
*Admission Date: 12/23/19 *Chief complaint: AMS *History of present illness: HPI narrative from th e ER: History obtained primarily from patient's daughter. Daughter states patient has been disoriented since Sunday. Seems confused, has tried to put her dentures in upside down. Patient states she was very confused this morning and did not know what was going on. She saw her diabetes doctor in [place] today. Daughter states they have recently been having problems with her blood sugar; initially a couple of weeks ago she was having hypoglycemia at night. Medication changes were made and she is running in the 200-300 range routinely. She says that today the doctor wanted her to stop her medications so that they could do some follow-up blood work to see how well her pancreas is producing insulin. Daughter states that she has a chronic cough that sounds more congested than usual. She has been urinating more frequently than usual. No fevers noted. The patient ambulates with a walker or a wheelchair. No new medications that would cause altered mental status. At the time of this exam patient denies chest pain, shortness of breath, any upper respiratory symptoms, and dysuria. She states she has been sick for about a week and just has not felt well. She states she has not been eating or drinking well as well. In the emergency room electrolytes are normal. BUN and creatinine are normal. Blood sugar is 179. Lactate was 4 and after administration of IV fluid boluses decreased to 2.3. Liver function studies are slightly elevated with a bilirubin of 1.4, AST of 57, ALT of 25 and alkaline phosphatase of 240. TSH is 1.95. Further evaluation in the ER with chest x-ray shows a mild left basilar atelectasis and CT of the head showed no acute intracranial findings. Patient was admitted for further evaluation and treatment with IV fluids, blood sugar monitoring and IV Invanz with pending cultures. Covid test was negative. [facility] History Medical History: Reports:: Cancer (skin), Diabetes Mellitus Type 2, Heart Murmur, Hepatitis, Hyperlipidemia, Hypertension Denies:: Diabetes Mellitus Type 1, Internal Pacemaker, MRSA, Seizures *Have you ever received a pneumonia vaccine?: No *Have you received a flu vaccine this season?: No Other Medical History: Reports: Liver Disease, Thyroid Disease. Denies: Blood Transfusion Reaction Comment:: Rheumatic heart disease as a child Laterality Cases: Bilateral: Other Other Surgeries: Yes: Appendectomy, Cancer Surgery (skin), Cholecystectomy, Colonoscopy, Hernia Repair, Hysterectomy-Partial, Thyroidectomy (partial), Other (pain pump implant). No: Pacemaker Amputation: No Fractures: No - *Social History Smoking Status: Current every day smoker Tobacco Type: cigarettes # Packs/Day (cigarettes): 1 Alcohol Intake: never *Occupational Status:: retired, disabled Housing: house Household Members: significant other *Travel in the last 8 weeks: None Family Hx:: Cancer, Coronary Artery Disease, Diabetes Review of Systems - Constitutional Denies body ache(s), Denies chills, Denies headache(s) - Eyes Reports loss of vision, Denies change in vision - ENT Denies ear pain, Denies nasal congestion, Denies sore throat - *Cardiovascular Denies chest pain, Denies shortness of breath - *Respiratory Reports cough, Denies chest congestion, Denies shortness of breath - *Gastrointestinal Denies abdominal pain, Denies change in stools, Denies constipation, Denies cramping, Denies heartburn, Denies nausea, Denies vomiting - *Genitourinary Denies difficulty urinating, Denies painful urination - *Musculoskeletal Reports abnormal walking (Uses a walker for ambulation. When she is out she uses a wheelchair.) - *Neurologic Reports confusion, Reports frequent falls, Denies localized weakness, Denies headache(s), Denies seizure-like activity Meds Home Medications Medication Instructions Recorded Confirmed Type Cyclobenz
[2019-12-23 19:11] LABS: Reflex Lactic (2 hrs) Add Lactic Reflex
[2019-12-23 19:42] LABS: Lactic Acid Follow up (RFLX 2) 2.6 mmol/L (0.7-2.1)
[2019-12-24 00:47] LABS: POC Glucose,Bedside 140 (70-110)
--- NOTE | 2019-12-24 03:31 | PC.NURSE ---
A&OX3. SHEET IRONWORKER EQUAL BILAT. LUNGS NOTED CLEAR T/O AUSCULTATION. TOLERATED RA WELL. PULSES +2. +1 EDEMA NOTED TO BLE. ABDOMEN NOTED NONDISTENDED, ACTIVE BOWEL SOUNDS, SOFT AND NONTENDER PER PALPATION. ASSISTED PT X1 WITH TRANSFER [place] [facility] [place] PT TOLERATED WELL. VSS. WILL CONTINUE TO MONITOR.
[2019-12-24 04:00] VITALS: BP 135/66; PULSE 101; RESP 14; TEMP 36.9; O2SAT 93
[2019-12-24 05:31] VITALS: BMI 33.1
[2019-12-24 07:07] LABS: Basophils % 0.6 % (0.1-2.0); Eosinophils # 0.1 K/mm3 (0.0-0.4); Eosinophils % 2.6 % (0.1-12.0); Hematocrit 30.7 % (37.0-47.0); Lymphocytes # 1.3 K/mm3 (0.7-4.5); Lymphocytes % 32.8 % (10-50); Mean Corpuscular HGB Conc 29.1 g/dL (31.8-35.4); Mean Corpuscular Hemoglobin 25.7 pg (27.0-31.2); Mean Corpuscular Volume 88.3 fl (81-99); Mean Platelet Volume 8.1 fl (7.4-10.4); Monocytes # 0.4 K/mm3 (0.1-1.0); Monocytes % 9.2 % (1.7-9.3); Neutrophils # 2.2 K/mm3 (1.8-7.8); Neutrophils % 54.8 % (37.0-80.0); Platelet Count 152 K/mm3 (142-424); Red Blood Count 3.48 M/mm3 (4.20-5.40); Red Cell Distribution Width 16.7 % (11.5-17.5)
[2019-12-24 07:21] LABS: Chloride 105 mmol/L (98-107); Sodium 137 mmol/L (136-145)
[2019-12-24 07:22] LABS: Potassium 3.8 mmoL/L (3.5-5.1)
[2019-12-24 07:24] LABS: Blood Urea Nitrogen 7 mg/dl (7-17); Creatinine Clearance Estimated 177 mL/min (50-200); Estimated Glomerular Filt Rate 126 ml/min (>60); GFR (African American) 152 ML/MIN (>60)
[2019-12-24 07:25] LABS: Anion Gap 7.8 mEq/L (5-15); Calcium 8.5 mg/dl (8.4-10.2); Carbon Dioxide 28 mmol/L (22.0-30.0); Glucose 158 mg/dl (74-100)
[2019-12-24 07:45] VITALS: BP 131/77; PULSE 99; RESP 20; TEMP 36.7; O2SAT 93
--- NOTE | 2019-12-24 08:35 | HMH.ACPN2 ---
Internal Medicine - PN: Subj *Date: 12/24/19 *Time: 08:35 Interval history: Patient slept well last night, states she feels better today. Exam Vital signs and Labs for Last 24 Hours: Temp Pulse Resp BP Pulse Ox 98.0 F 99 H 20 131/77 93 L 12/24/19 07:45 12/24/19 07:45 12/24/19 07:45 12/24/19 07:45 12/24/19 07:45 Laboratory Results - last 24 hr 12/23/19 12:20: Urine Color Dk yellow, Urine Appearance Sl cloudy, Urine pH 5.5, Ur Specific [place] >= 1.030, Urine Protein Negative, Urine Glucose (UA) Negative, Urine Ketones Trace, Urine Blood Negative, Urine Nitrate Negative, Urine Bilirubin Negative, Urine Urobilinogen 0.2, Ur Leukocyte Esterase 1+ A, Urine RBC 3-5, Urine WBC 5-10, Ur Squamous Epith Cells 5-10, Urine Bacteria Trace 12/23/19 12:40: WBC 5.3, RBC 3.91 L, Hgb 10.2 L, Hct 34.6 L, MCV 88.5, MCH 26.0 L, MCHC 29.4 L, RDW 16.5, Plt Count 185, MPV 8.6, Neut % (Auto) 66.3, Lymph % (Auto) 24.1, [place] % (Auto) 8.2, Eos % (Auto) 0.9, Baso % (Auto) 0.5, Neut # (Auto) 3.5, Lymph # (Auto) 1.3, [place] # (Auto) 0.4, Eos # (Auto) 0.1, Baso # (Auto) 0.0 12/23/19 12:40: Sodium 140, Potassium 4.4, Chloride 104, Carbon Dioxide 27, Anion Gap 13.4, BUN 11, Creatinine 0.60, Estimated Creat Clear 150, Estimated GFR 102, Est GFR ( Amer) 123, Glucose 179 H, Calcium 9.3, Total Bilirubin 1.4 H, AST 57 H, ALT 25, Alkaline Phosphatase 240 H, Total Protein 8.5 H, Albumin 3.8, Globulin 4.7 H, Albumin/Globulin Ratio 0.8 L 12/23/19 12:40: Lactate 4.0 H 12/23/19 12:40: TSH 1.95, Acetone Level None detected 12/23/19 12:40: SARS-CoV-2 IgG Ab (Rapid) Positive A, SARS-CoV-2 IgM Ab (Rapid) Negative 12/23/19 12:40: Troponin I < 0.01 12/23/19 17:06: Lactate 2.3 H 12/23/19 19:26: Lactate 2.6 H 12/23/19 22:26: POC Glucose 140 H 12/24/19 06:41: WBC 4.0 L, RBC 3.48 L, Hct 30.7 L, MCV 88.3, MCH 25.7 L, MCHC 29.1 L, RDW 16.7, Plt Count 152, MPV 8.1, Neut % (Auto) 54.8, Lymph % (Auto) 32.8, [place] % (Auto) 9.2, Eos % (Auto) 2.6, Baso % (Auto) 0.6, Neut # (Auto) 2.2, Lymph # (Auto) 1.3, [place] # (Auto) 0.4, Eos # (Auto) 0.1, Baso # (Auto) 0.0 12/24/19 06:41: Sodium 137, Potassium 3.8, Chloride 105, Carbon Dioxide 28, Anion Gap 7.8, BUN 7 D, Creatinine 0.50 L, Estimated Creat Clear 177, Estimated GFR 126, Est GFR ( Amer) 152 D, Glucose 158 H, Calcium 8.5 Vital Signs - 24 hr 12/23/19 12:03 12/23/19 12:08 12/23/19 12:30 Temperature 98.6 F Pulse Rate Pulse Rate [Right Radial] 94 H 102 H 100 H Respiratory Rate 18 18 Blood Pressure Blood Pressure [Left Arm] Blood Pressure [Right Arm] 164/74 H 151/81 H 126/78 02 Sat by Pulse Oximetry 96 95 12/23/19 13:00 12/23/19 13:30 12/23/19 14:00 Temperature Pulse Rate Pulse Rate [Right Radial] 100 H 95 H 93 H Respiratory Rate 18 18 18 Blood Pressure Blood Pressure [Left Arm] Blood Pressure [Right Arm] 141/66 H 164/74 H 141/71 H 02 Sat by Pulse Oximetry 96 96 94 L 12/23/19 14:30 12/23/19 15:00 12/23/19 15:42 Temperature Pulse Rate Pulse Rate [Right Radial] 95 H 96 H 98 H Respiratory Rate 18 18 Blood Pressure Blood Pressure [Left Arm] Blood Pressure [Right Arm] 156/82 H 176/84 H 180/77 H 02 Sat by Pulse Oximetry 95 92 L 99 12/23/19 15:59 12/23/19 16:30 12/23/19 17:24 Temperature 98.2 F 98.2 F Pulse Rate 91 H Pulse Rate [Right Radial] 89 91 H Respiratory Rate 18 18 Blood Pressure 157/83 H Blood Pressure [Left Arm] Blood Pressure [Right Arm] 161/83 H 161/84 H 02 Sat by Pulse Oximetry 95 97 12/23/19 17:35 12/23/19 20:00 12/24/19 04:00 Temperature 97.7 F 98.3 F 98.5 F Pulse Rate Pulse Rate [Right Radial] 93 H 97 H 101 H Respiratory Rate 18 20 14 Blood Pressure Blood Pressure [Left Arm] 155/81 H 135/66 Blood Pressure [Right Arm] 160/76 H 02 Sat by Pulse Oximetry 99 97 93 L 12/24/19 07:45 Temperature 98.0 F Pulse Rate Pulse Rate [Right Radial] 99 H Respiratory Rate 20 Blood Pressure Blood Pressure [Left Arm] 131/77 Blood Pres
[2019-12-24 09:30] VITALS: O2SAT 95
[2019-12-24 11:28] LABS: Hemoglobin 8.9 g/dL (12.2-16.2)
[2019-12-24 11:51] LABS: POC Glucose,Bedside 141 (70-110)
[2019-12-24 11:52] LABS: POC Glucose,Bedside 208 (70-110)
[2019-12-24 15:18] VITALS: BP 133/64; PULSE 89; RESP 20; TEMP 37; O2SAT 95
[2019-12-24 16:03] VITALS: BMI 33.3
[2019-12-24 16:35] LABS: POC Glucose,Bedside 203 (70-110)
--- NOTE | 2019-12-24 18:56 | PC.NURSE ---
A&OX4. PT HAS TOLERATED ROOM AIR WELL THROUGHOUT SHIFT. RESPIRATIONS REGULAR AND UNLABORED. LUNG SOUNDS BILATERALLY CLEAR. NO COUGH NOTED. HAND ADMITTING MANAGER EQUAL. +2 PULSES NOTED THROUGHOUT. ACTIVE BOWEL SOUNDS HEARD THROUGHOUT. SOFT AND NONTENDER ABDOMEN. NO BM THIS SHIFT. PT VOIDS PER BATHROOM W 1 PERSON ASSIST. CLEAR YELLOW URINE NOTED. NO REPORTS OF PAIN THROUGHOUT SHIFT. PT IS CURRENTLY LYING IN BED RESTING. CALL LIGHT WITHIN REACH. BED IN LOWEST POSITION. VSS. WILL CONTINUE TO MONITOR.
--- NOTE | 2019-12-24 19:16 | PC.NURSE ---
report given to allison
[2019-12-24 19:52] VITALS: BP 153/73; PULSE 87; RESP 14; TEMP 37.1; O2SAT 93
[2019-12-24 21:43] LABS: POC Glucose,Bedside 167 (70-110)
--- NOTE | 2019-12-25 03:38 | PC.NURSE ---
Pt is alert and oriented x4, noted lethargic t/o shift. Pt states she sleeps a lot even at home, she has no energy to do anything . Pt has rested well with eyes closed t/o shift with no complaints. PERRLA. Cap refill < 3 seconds. Bilateral hand cable television program director noted equal and strong. Bilateral lungs noted clear t/o upon auscultation. RR noted even and unlabored. Tolerated RA well with no c/o SOA. Active bowel sounds noted in all 4 quads upon auscultation. Abdomen noted large, round, firm, and non-tender upon palpation. Pt states her last BM was 3 days ago, does not feel the urge to defecate at this time. Adequate urine output noted this shift. Urine noted clear and bright yellow in color with foul odor. Ambulation tolerated well with assistance to and from bathroom. Pt uses walker and assist x1. Refused teds. +1 pitting edema noted to BLE. VSS. Remains safe. Call light within reach. Will continue to monitor.
[2019-12-25 04:00] VITALS: BP 134/62; PULSE 85; RESP 16; TEMP 36.9; O2SAT 94
[2019-12-25 05:33] VITALS: BMI 33.6
[2019-12-25 05:46] LABS: POC Glucose,Bedside 173 (70-110)
[2019-12-25 07:28] VITALS: BP 147/77; PULSE 88; RESP 20; TEMP 36.9; O2SAT 96
--- NOTE | 2019-12-25 08:40 | HMH.ACPN2 ---
Internal Medicine - PN: Subj *Date: 12/25/19 *Time: 08:49 Interval history: Patient with no new complaints today, anxious to go home. Exam Vital signs and Labs for Last 24 Hours: Temp Pulse Resp BP Pulse Ox 98.4 F 88 20 147/77 H 96 12/25/19 07:28 12/25/19 07:28 12/25/19 07:28 12/25/19 07:28 12/25/19 07:28 Laboratory Results - last 24 hr 12/24/19 05:50: POC Glucose 141 H 12/24/19 06:41: Hgb 8.9 L D 12/24/19 11:29: POC Glucose 208 H 12/24/19 16:27: POC Glucose 203 H 12/24/19 21:05: POC Glucose 167 H 12/25/19 05:35: POC Glucose 173 H Vital Signs - 24 hr 12/24/19 09:30 12/24/19 15:18 12/24/19 19:52 Temperature 98.6 F 98.8 F Pulse Rate [Right Radial] 89 87 Respiratory Rate 20 14 Blood Pressure [Left Arm] Blood Pressure [Right Arm] 133/64 153/73 H 02 Sat by Pulse Oximetry 95 95 93 L 12/25/19 04:00 12/25/19 07:28 Temperature 98.4 F 98.4 F Pulse Rate [Right Radial] 85 88 Respiratory Rate 16 20 Blood Pressure [Left Arm] 134/62 147/77 H Blood Pressure [Right Arm] 02 Sat by Pulse Oximetry 94 L 96 I & O for Last 24 hours: Intake & Output 12/22/19 12/23/19 12/24/19 12/25/19 23:59 23:59 23:59 23:59 Intake Total 1999 2281 / 2281 918 / 918 Output Total 300 / 300 1650 / 1650 Balance 1700 / 1700 631 / 631 918 / 918 Weight 207 lb 1 oz 207 lb 3.752 oz 209 lb 2 oz Microbiology Reports for the Last 24 Hours: Microbiology 12/23/19 12:20 Urine,Clean Catch Urine Culture - Final Multiple organisms, suggests contamination. - Constitutional no acute distress - *Routine HEENT Exam Head: Present: normocephalic Eye: Present: EOMI, PERRL ENT: Present: mucous membranes moist - *Routine Neck Exam Present: supple. Absent: lymphadenopathy - *Routine Respiratory Exam Present: CTA bilaterally - *Routine Cardiovascular Exam Present: RRR - *Routine Abdominal Exam Present: soft, normoactive bowel sounds. Absent: tenderness - *Routine Extremities Exam Absent: cyanosis, clubbing, edema - *Routine Skin Exam Present: warm. Absent: rash - *Routine Neurological Exam Present: alert, oriented X3 Assessment and Plan (1) UTI (urinary tract infection) Status: Acute Qualifiers: Urinary tract infection type: site unspecified Hematuria presence: without hematuria Qualified Code(s): N39.0 - Urinary tract infection, site not specified Category: Medical Code(s): N39.0 - Urinary tract infection, site not specified (2) Sepsis Status: Acute Category: Medical Code(s): A41.9 - Sepsis, unspecified organism (3) Dehydration Status: Acute Category: Medical Code(s): E86.0 - Dehydration (4) Altered mental status Status: Acute Qualifiers: Altered mental status type: disorientation Qualified Code(s): R41.0 - Disorientation, unspecified Category: Medical Code(s): R41.82 - Altered mental status, unspecified - Assessment and plan all Dx Assessment and Plan for all problems:: Patient has improved, she is tolerating a regular diet. Plan discharge home today with oral Ceftin for continued UTI treatment. F/U with primary MD next week.
--- NOTE | 2019-12-25 15:43 | HMH.DCSUM ---
General - General Admission date:: 12/23/19 Discharge date: 12/25/19 HPI HPI: HPI narrative from th e ER: History obtained primarily from patient's daughter. Daughter stated patient had been disoriented since Sunday. Seemed confused, had tried to put her dentures in upside down. Patient stated she was very confused that morning and did not know what was going on. She had seen her diabetes doctor in [place] earlier that day. Daughter stated they had recently been having problems with her blood sugars, initially a couple of weeks prior she was having hypoglycemia at night, medication changes were made now she was running in the 200-300 range routinely. She said that the doctor wanted her to stop her medications so that they could do some follow-up blood work to see how well her pancreas was producing insulin. Daughter stated that she had a chronic cough that had sounded more congested than usual. She had been urinating more frequently than usual. No fevers noted. The patient ambulated with a walker or used a wheelchair. No new medications that would have caused altered mental status. Hospital Course Hospital Course: She was admitted with IVF and Invanz was started. By the morning following admission, she was feeling better and clinically improved. By the morning of 12/25/2019 she was felt stable for discharge with oral antibiotic for treatment of UTI with instructions to follow up with PCP within the week. Objective Vital signs: Temp Pulse Resp BP Pulse Ox 98.4 F 88 20 147/77 H 96 12/25/19 07:28 12/25/19 07:28 12/25/19 07:28 12/25/19 07:28 12/25/19 07:28 Results Labs on day of discharge: Labs from last 24 hours 12/25/19 12/24/19 12/24/19 05:35 21:05 16:27 POC Glucose 173 H 167 H 203 H Preliminary micro results at discharge 12/23/19 12:50 Blood Culture - Preliminary Blood NO GROWTH AFTER 48 HOURS 12/23/19 12:50 Blood Culture - Preliminary Blood NO GROWTH AFTER 48 HOURS DS: Diagnosis - Discharge Diagnosis (1) UTI (urinary tract infection) Status: Acute (2) Sepsis Status: Acute (3) Dehydration Status: Acute (4) Altered mental status Status: Acute Discharge Plan - Patient Discharge Instructions ACTIVITY: Continue current activity DIET: continue same diet Patient Instructions: Urinary Tract Infection, DI for Dehydration -- Adult, DI for Altered Mental Status - Follow up Plan Follow up with: Raeann Hernandez DO [Primary Care Provider] - 01/01/20 10:00 am (In [facility] ) Disposition: Home, Self-Snf Medications: Home Medications Medication Instructions Recorded Confirmed Type Cyclobenzaprine HCl 10 mg PO HS 05/04/17 12/23/19 History [Cyclobenzaprine 10mg Tab*] Fenofibrate 160 mg PO DAILY 05/04/17 12/23/19 History Levothyroxine Sodium 137 mcg PO DAILY 05/04/17 12/23/19 History [Levothyroxine 137mcg (0.137mg) Tab] Linagliptin/Metformin HCl 1 each PO BID 05/04/17 12/23/19 History [Jentadueto 2.5 mg-1000 mg Tab] lisinopriL [Lisinopril 5mg 5 mg PO DAILY 05/04/17 12/23/19 History Tablet] Omeprazole [Omeprazole 40mg 40 mg PO DAILY 12/23/19 12/23/19 History Capsule] cefUROXime axetiL [Ceftin 250mg 250 mg PO BID #20 tab 12/25/19 Rx Tablet] Prescriptions/Medication Reconciliation: New cefUROXime axetiL [Ceftin 250mg Tablet] 250 mg PO BID #20 tab Continued Linagliptin/Metformin HCl [Jentadueto 2.5 mg-1000 mg Tab] 1 each PO BID Fenofibrate 160 mg PO DAILY Cyclobenzaprine HCl [Cyclobenzaprine 10mg Tab*] 10 mg PO HS Omeprazole [Omeprazole 40mg Capsule] 40 mg PO DAILY Levothyroxine Sodium [Levothyroxine 137mcg (0.137mg) Tab] 137 mcg PO DAILY lisinopriL [Lisinopril 5mg Tablet] 5 mg PO DAILY Discontinued Insulin Glargine,Hum.rec.anlog [Basaglar Kwikpen U-100] 25 unit SQ BID Insulin Aspart [Novolog Flexpen] 15 - 30 units SQ TID - Pro
== END 2019-12-25 11:05 | disposition home or self-care (01) ==
LOC: ER 14:34 → 2ND 14:37
PROVIDERS: Admitting Provider Family Medicine; Emergency Provider Emergency Medicine; PCP Family Medicine; Visit Provider Family Medicine
DX: N39.0 Urinary tract infection, site not specified (principal); E11.9 Type 2 diabetes mellitus without complications; E03.9 Hypothyroidism, unspecified; I10 Essential (primary) hypertension; E78.5 Hyperlipidemia, unspecified; Z72.0 Tobacco use; Z86.19 Personal history of other infectious and parasitic diseases; Z79.4 Long term (current) use of insulin; Z88.2 Allergy status to sulfonamides; Z88.5 Allergy status to narcotic agent; Z88.8 Allergy status to other drugs, medicaments and biological substances
CPT/HCPCS: 36415; 70450; 71045; 80048; 80053; 81001; 82009; 82962; 83605; 84443; 84484; 85025; 86328; 87040; 87086; 93005; 96365; 96366; 96367; 99285; G0378; J1335; U0003

== ENCOUNTER → 2019-12-29 08:29 | Outpatient (CLI) | payer MEDICARE, SELFPAY ==
[2019-12-30 12:13] LABS: C-Peptide 2.5 ng/mL (1.1-4.4); Insulin Level Total 22.5 uIU/mL (2.6-24.9)
== END ==
PROVIDERS: PCP Family Medicine; Visit Provider Internal Medicine Endocrinology, Diabetes & Metabolism
DX: E16.2 Hypoglycemia, unspecified (principal); Z79.84 Long term (current) use of oral hypoglycemic drugs
CPT/HCPCS: 36415; 82533; 83525; 84681

== ENCOUNTER 2020-01-25 10:48 | Inpatient (IN) | payer MEDICARE, SELFPAY ==
[2020-01-25] VITALS (10 sets, daily range): BP systolic 127–159; BP diastolic 60–85; PULSE 84–99; RESP 14–18; TEMP 36.9–37.2; O2SAT 98–100; BMI 33.0; BMI 32.3
--- NOTE | 2020-01-25 11:12 | HMH.EDGENADL ---
ED Disposition Clinical Impression: Hepatic encephalopathy Altered mental status Qualifiers: Altered mental status type: somnolence Qualified Code(s): R40.0 - Somnolence Disposition: Admitted as Observation Condition on Discharge: Fair - Critical Care Critical Care Time: No Attestation: On , the high probability of a clinically significant, sudden or life threatening deterioration of the following system(s) required my full and direct attention, intervention and personal management. The time I documented below is in addition to time spent performing reported procedures but includes the following listed in this critical care notation. Medical Decision Making - Medical Records Medical records reviewed: Yes: I reviewed the patient's medical records. MR Comment: Reviewed December 2019 admission at this facility. Presented with confusion. Possible UTI on urine analysis, blood culture showed multiple organisms suggestive of contamination. High lactate on admission. Patient improved in the hospital and was discharged 2 days later. - Chris Inquiry Pt receiving controlled substance: No Vital Signs: 01/25/20 11:00 01/25/20 12:00 01/25/20 12:31 Temperature 98.9 F Temperature Source Oral Pulse Rate [Right Brachial] 99 H 90 88 Respiratory Rate 17 Blood Pressure [Right Arm] 138/70 157/76 H 134/61 Blood Pressure Mean [Right Arm] 92 103 85 Blood Pressure Source [Right Arm] Automatic Cuff Automatic Cuff Automatic Cuff Blood Pressure Position [Right Arm] Sitting Sitting Sitting 02 Sat by Pulse Oximetry 98 100 98 Oxygen Delivery Method Room Air Room Air Room Air 01/25/20 13:05 01/25/20 13:28 01/25/20 14:03 Temperature Temperature Source Pulse Rate [Right Brachial] 88 84 89 Respiratory Rate Blood Pressure [Right Arm] 138/65 159/60 H 127/71 Blood Pressure Mean [Right Arm] 89 93 89 Blood Pressure Source [Right Arm] Automatic Cuff Automatic Cuff Automatic Cuff Blood Pressure Position [Right Arm] Sitting Sitting Sitting 02 Sat by Pulse Oximetry 98 98 100 Oxygen Delivery Method Room Air Room Air Room Air - Lab Data Lab results reviewed: Yes: I reviewed the patient's lab results. Lab Results 01/25/20 11:15: Urine Color Yellow, Urine Appearance Clear, Urine pH 7.0, Ur Specific [place] 1.020, Urine Protein Negative, Urine Glucose (UA) 3+, Urine Ketones Negative, Urine Blood Trace-i, Urine Nitrate Negative, Urine Bilirubin Negative, Urine Urobilinogen 0.2, Ur Leukocyte Esterase Negative, Urine RBC Occasional, Urine WBC Occasional, Ur Squamous Epith Cells 10-20, Amorphous Sediment 1+, Urine Bacteria None 01/25/20 11:15: WBC 2.4 L, RBC 4.21, Hgb 11.0 L, Hct 36.3 L, MCV 86.1, MCH 26.0 L, MCHC 30.2 L, RDW 16.4, Plt Count 136 L, MPV 9.0, Neut % (Auto) 56.0, Lymph % (Auto) 33.2, [place] % (Auto) 8.4, Eos % (Auto) 1.9, Baso % (Auto) 0.5, Neut # (Auto) 1.3 L, Lymph # (Auto) 0.8, [place] # (Auto) 0.2, Eos # (Auto) 0.1, Baso # (Auto) 0.0 01/25/20 11:15: Sodium 140, Potassium 4.2, Chloride 106, Carbon Dioxide 27, Anion Gap 11.2, BUN 8, Creatinine 0.60, Estimated Creat Clear 146, Estimated GFR 102, Est GFR ( Amer) 123, Glucose 301 H, Calcium 9.1, Total Bilirubin 1.8 H, AST 63 H, ALT 20, Alkaline Phosphatase 244 H, Total Protein 8.3 H, Albumin 3.9, Globulin 4.4 H, Albumin/Globulin Ratio 0.9 L 01/25/20 11:15: Lactate 1.7 01/25/20 11:15: Urine Opiates Screen Negative, Urine Methadone Screen Negative, Ur Barbituates Screen Negative, Ur Phencyclidine Scrn Negative, Ur Amphetamines Screen Negative, U Benzodiazepines Scrn Negative, Urine Cocaine Screen Negative, U Marijuana (THC) Screen Negative 01/25/20 11:15: Plasma/Serum Alcohol < 10 01/25/20 11:15: Troponin I < 0.01, TSH 0.04 L 01/25/20 11:15: SARS-CoV-2 IgG Ab (Rapid) Negative, SARS-CoV-2 IgM Ab (Rapid) Negative 01/25/20 13:08: Specimen Source Right radial artery, O2 % Room air, ABG pH 7.43, ABG pCO2 37.5, ABG pO2 77.2 L, ABG HCO3 24.3, ABG Total CO2 25.4, ABG O2 Saturation 95, ABG Base
--- NOTE | 2020-01-25 11:27 | CT_ITS ---
PROCEDURE: CT HEAD/BRAIN WO CON CLINICAL INDICATION: altered mental status COMPARISON: CT CT HEAD/BRAIN WO CON from 12/23/2019 TECHNIQUE: Axial images obtained. All CT scans at the facility use one or more dose reduction, viz: automated exposure control, ma/kV adjustment per patient size (including targeted exams where dose is matched to indication, i.e. head), or iterative reconstruction technique. FINDINGS: No midline shift, mass effect, intracranial hemorrhage, hydrocephalus, or extra-axial fluid collection is evident. Ileum fissures and cortical sulci are mildly prominent. There are no significant chronic ischemic white matter changes. The calvarium has an unremarkable appearance. No mastoid effusion. No sinus air-fluid level. IMPRESSION: Findings of mild age-appropriate cortical atrophy, no acute intracranial pathology noted Dictated by: Dr. Brian Joshi MD 01/25/2020 12:02 Dr. Brian Joshi MD in [facility] 01/25/2020 12:02
--- NOTE | 2020-01-25 11:28 | XR_ITS ---
PROCEDURE: XR CHEST 2V CLINICAL HISTORY: AMS Smoking history COMPARISON: CR CXR CHEST(2 VIEWS-NOT PORTABLE) from 02/19/2014 CR XR CHEST AP from 12/23/2019 FINDINGS: The cardiomediastinal silhouette and pulmonary vascularity are within normal limits. The lungs are clear without infiltrates, suspicious nodules, or pleural effusions. No acute bony abnormalities. There is mild degenerate change right shoulder. There is a non recent compression fracture likely involving L1. IMPRESSION: No acute findings. Dictated by: Dr. Brian Joshi MD 01/25/2020 12:04 Dr. Brian Joshi MD in [facility] 01/25/2020 12:04
[2020-01-25 11:30] LABS: Basophils % 0.5 % (0.1-2.0); Eosinophils # 0.1 K/mm3 (0.0-0.4); Eosinophils % 1.9 % (0.1-12.0); Hematocrit 36.3 % (37.0-47.0); Lymphocytes # 0.8 K/mm3 (0.7-4.5); Lymphocytes % 33.2 % (10-50); Mean Corpuscular HGB Conc 30.2 g/dL (31.8-35.4); Mean Corpuscular Volume 86.1 fl (81-99); Monocytes # 0.2 K/mm3 (0.1-1.0); Monocytes % 8.4 % (1.7-9.3); Neutrophils # 1.3 K/mm3 (1.8-7.8); Platelet Count 136 K/mm3 (142-424); Red Blood Count 4.21 M/mm3 (4.20-5.40); Red Cell Distribution Width 16.4 % (11.5-17.5); White Blood Count 2.4 K/mm3 (4.8-10.8)
[2020-01-25 11:36] LABS: Chloride 106 mmol/L (98-107)
[2020-01-25 11:37] LABS: Potassium 4.2 mmoL/L (3.5-5.1); Sodium 140 mmol/L (136-145)
--- NOTE | 2020-01-25 11:37 | PC.NURSE ---
Pt to rad.
[2020-01-25 11:39] LABS: Alanine Aminotransferase 20 U/L (12-78); Alkaline Phosphatase 244 U/L (38-126); Aspartate Amino Transferase 63 U/L (14-36); Bilirubin,Total 1.8 mg/dl (0.2-1.3); Blood Urea Nitrogen 8 mg/dl (7-17); Creatinine Clearance Estimated 146 mL/min (50-200); Estimated Glomerular Filt Rate 102 ml/min (>60); GFR (African American) 123 ML/MIN (>60)
[2020-01-25 11:40] LABS: Albumin Level 3.9 g/dl (3.5-5.0); Albumin/Globulin Ratio 0.9 (1.1-1.8); Anion Gap 11.2 mEq/L (5-15); Calcium 9.1 mg/dl (8.4-10.2); Carbon Dioxide 27 mmol/L (22.0-30.0); Globulin 4.4 g/dL (1.3-3.2); Glucose 301 mg/dl (74-100); Lactic Acid 1.7 mmol/L (0.7-2.1); Microscopic, Urine URINE MICROSCOPIC (MICROSCOPIC); Total Protein,Serum 8.3 g/dl (6.3-8.2)
[2020-01-25 11:41] LABS: Appearance,Urine CLEAR (Clear); Bilirubin,Urine Negative (Negative); Blood, Urine TRACE-I (Negative); Color,Urine YELLOW (Yellow); Ethyl Alcohol < 10 mg/dl (0-10); Glucose,Urine (UA) 3+ (Negative); Ketones,Urine Negative (Negative); Leukocyte Esterase,Urine Negative (Negative); Nitrate,Urine Negative (Negative); Protein,Urine Negative (Negative); Urobilinogen,Urine 0.2 EU/dl (0.2)
[2020-01-25 11:49] LABS: Amorphous Sediment,Urine 1+ /lpf; RBC,Urine Occasional #/hpf (0-3); WBC,Urine Occasional #/hpf (0-3)
[2020-01-25 11:53] LABS: Barbiturates Screen,Urine Negative ng/ml (<200)
[2020-01-25 11:54] LABS: Benzodiazepines Screen,Urine Negative ng/ml (<200)
[2020-01-25 11:55] LABS: Amphetamine/Metha Screen,Urine Negative ng/ml (<1000); Cocaine Screen,Urine Negative ng/ml (<300)
[2020-01-25 11:56] LABS: Cannabinoid Screen,Urine Negative ng/ml (<50); Methadone Screen,Urine Negative ng/ml (<300)
[2020-01-25 11:58] LABS: Opiate Screen,Urine Negative ng/ml (<300); Phencyclidine Screen,Urine Negative ng/ml (<25)
[2020-01-25 12:02] LABS: Troponin I < 0.01 ng/ml (0.00-0.034)
[2020-01-25 12:11] LABS: Thyroid Stimulating Hormone 0.04 uIU/mL (0.465-4.68)
--- NOTE | 2020-01-25 12:12 | PC.NURSE ---
Dr sj weber.
--- NOTE | 2020-01-25 12:16 | ECG_ITS ---
APPROVED REPORT Exam: Resting ECG HR:90 bpm ECG Measurements Heart Rate 90 AXES CA 206 P 68 QRSd 84 QRS -17 QT 396 T 54 QTc 484 Conclusion Normal sinus rhythm Low voltage QRS Prolonged QT Abnormal ECG Electronically signed by : Tung Lozano, 01/26/2020 21:08:31
--- NOTE | 2020-01-25 12:55 | PC.NURSE ---
Dr Puentes returned call.
[2020-01-25 13:21] LABS: ABG Base Excess -0.1 mmol/L (-2.4-2.3); ABG HCO3 24.3 mmhg (22.0-26.0); ABG Oxygen Saturation 95 % (90-100); ABG PCO2 37.5 mmhg (35.0-45.0); ABG PH 7.43 mmol/L (7.35-7.45); ABG PO2 77.2 mmhg (80-100); ABG TCO2 25.4 mmhg (23-27)
[2020-01-25 13:22] LABS: Allen's Test ACCEPTABLE; Oxygen ROOM AIR %; Source RIGHT RADIAL ARTERY
[2020-01-25 13:26] LABS: Ammonia 61 umol/L (9-30)
--- NOTE | 2020-01-25 14:00 | PC.NURSE ---
Dr Deloris wbeer
--- NOTE | 2020-01-25 14:06 | PC.NURSE ---
Dr Puentes returned call
[2020-01-25 14:41] LABS: Coronavirus 19 IgG Antibody Negative (Negative); Coronavirus 19 IgM Antibody Negative (Negative)
--- NOTE | 2020-01-25 17:48 | HMH.HP ---
*Admission Date: 01/25/20 *Chief complaint: AMS *History of present illness: Ms. Talbert is a 59-year-old female who presented to the ER with her daughter due to concern for altered mental status. History obtained from the ER documentation and from patient, had no family at bedside on my interview. Reportedly she woke up confused this morning per the daughter when she arrived to the ER. She had a similar episode that occurred about a month ago where she came in, was found to have a UTI, was treated and discharged home to complete oral antibiotics. Her confusion has included her trying to eat a computer tablet, thinking it was food. Speech is slow, and she is somnolent. On initial assessment in the ER, found to have normal CO2 on blood gas, urine was not significantly remarkable for UTI, but she was deemed to not be safe to go home due to altered mental status. Further work-up obtained showing elevated ammonia level. Patient was admitted for altered mental status, and further work-up of hyperammonemia. Per review of ER history, daughter stated the patient had recently had diarrhea for few days but that had resolved. She otherwise had no fever, pain, cough or shortness of breath. No vomiting or nausea. Patient has been more sleepy for a few days but confusion became most prominent today. Family controls patient's medications, no opiates or medications notorious for confusion. On interview this evening, patient responded slowly but appropriately to most questions. Oriented to person and place but not time. Sleeping on initially entering the room, though awoke to verbal stimuli, probably went back to sleep after interview. [facility] History I have reviewed the patient's past medical history: Yes Medical History: Reports:: Diabetes Mellitus Type 2, Heart Murmur, Hepatitis, Hyperlipidemia, Hypertension Denies:: Cancer, Diabetes Mellitus Type 1, Internal Pacemaker, MRSA, Seizures *Have you ever received a pneumonia vaccine?: No *Have you received a flu vaccine this season?: Yes Other Medical History: Reports: Liver Disease, Thyroid Disease. Denies: Blood Transfusion Reaction Laterality Cases: Bilateral: Other Other Surgeries: Yes: Appendectomy, Cancer Surgery (skin), Cholecystectomy, Colonoscopy, Hernia Repair, Hysterectomy-Partial, Thyroidectomy (partial), Other (pain pump implant). No: Pacemaker Amputation: No Fractures: No - *Social History Smoking Status: Current every day smoker Tobacco Type: cigarettes # Packs/Day (cigarettes): 1 Alcohol Intake: never *Occupational Status:: disabled Housing: house Household Members: significant other *Travel in the last 8 weeks: None Family Hx:: Cancer, Hyperlipidemia, Hypertension Review of Systems - Review of Systems Review of systems:: pertinent systems reviewed and negative unless documented below (14 point review of systems performed, pertinent positives and negatives as per HPI) - *Neurologic Reports behavioral changes, Denies headache(s), Denies numbness, Denies weakness Meds Home Medications Medication Instructions Recorded Confirmed Type Cyclobenzaprine HCl 10 mg PO HS 05/04/17 01/25/20 History [Cyclobenzaprine 10mg Tab*] Fenofibrate 160 mg PO DAILY 05/04/17 01/25/20 History Levothyroxine Sodium 137 mcg PO DAILY 05/04/17 01/25/20 History [Levothyroxine 137mcg (0.137mg) Tab] lisinopriL [Lisinopril 5mg 5 mg PO DAILY 05/04/17 01/25/20 History Tablet] Omeprazole [Omeprazole 40mg 40 mg PO DAILY 12/23/19 01/25/20 History Capsule] Insulin Glargine,Hum.rec.anlog 40 unit SQ DAILY 01/25/20 01/25/20 History [[place] U-100] Allergies Allergy/AdvReac Type Severity Reaction Status Date / Time nitrofurantoin Allergy Severe Anaphylaxis Verified 01/25/20 11:12 [From MACROBID] codeine [CODEINE] Allergy Mild Verified 01/25/20 11:12 Sulfa (Sulfonamide Allergy Mild Verified 01/25/20 11:12 Antibiotics) [SULFA (SULFONAMIDE ANTIBIOTICS)]
[2020-01-25 21:19] LABS: POC Glucose,Bedside 199 (70-110)
--- NOTE | 2020-01-26 00:01 | CT_ITS ---
PROCEDURE: CT ABDOMEN PELVIS WO/W CON CLINICAL INDICATION: abdominal pain, suspected cirrhosis, generalized abdominal pain COMPARISON: CT ABDPELW CT abdomen pelvis w con from 03/11/2018 TECHNIQUE: IV Contrast: 75ML Isovue 370 Oral Contrast None Axial images obtained with sagittal and coronal reformats. All CT scans at the facility use one or more dose reduction, viz: automated exposure control, ma/kV adjustment per patient size (including targeted exams where dose is matched to indication, i.e. head), or iterative reconstruction technique. FINDINGS: LOWER THORAX: There are atelectatic changes in the lower lobes. ABDOMEN & PELVIS: There is hepatosplenomegaly. The liver measures 22 cm AP in the spleen measures 13 cm AP. The liver margin is irregular consistent with cirrhosis with some heterogeneous attenuation. Pancreas has an unremarkable appearance. There are perigastric varices. Moderate amount of retained colonic feces. No renal or ureteral calculi or hydronephrosis. Retroperitoneal varices are also present. Scattered small nodes are present in the periportal area. No evidence of appendicitis or diverticulitis. There are some mildly thickened small bowel loops in the lower mid pelvic region. Postsurgical changes are present involving the anterior abdominal wall with a small umbilical hernia containing fat. There is fatty infiltration of the rectus abdominus muscle on both sides left more extensive than right. Prior appendectomy. There are postsurgical changes at L5-S1 with inter pedicular screws in place. Neurostimulator device is present with the tip at the L1 level. There is mild wedging of L1 not significantly changed. There are small nodes in the inguinal areas as well as varices noted on the abdominal wall. IMPRESSION: 1. Findings compatible with cirrhosis and portal hypertension 2. Mild thickening of small bowel loops in the mid to lower abdomen anteriorly nonspecific but could be seen with mild enteritis. 3. Other nonacute findings as described above Dictated by: Cristofer Leyva MD 01/26/2020 15:22 Cristofer Leyva MD in [facility] 01/26/2020 15:22
[2020-01-26 03:46] LABS: POC Glucose,Bedside 208 (70-110)
[2020-01-26 03:53] VITALS: BP 153/73; PULSE 90; RESP 16; TEMP 37.1; O2SAT 95
--- NOTE | 2020-01-26 04:35 | PC.NURSE ---
shift summary, pt has rested most of shift, did go down with radiology for her CT around 0240, pt is AxOx3, has not had any complaints of pain t/o shift, VSS
[2020-01-26 05:02] VITALS: BMI 32.6
[2020-01-26 07:18] LABS: Chloride 107 mmol/L (98-107)
[2020-01-26 07:19] LABS: Potassium 3.9 mmoL/L (3.5-5.1); Sodium 139 mmol/L (136-145)
[2020-01-26 07:21] LABS: Alanine Aminotransferase 17 U/L (12-78); Alkaline Phosphatase 171 U/L (38-126); Ammonia 119 umol/L (9-30); Anion Gap 7.9 mEq/L (5-15); Aspartate Amino Transferase 53 U/L (14-36); Bilirubin,Total 1.2 mg/dl (0.2-1.3); Blood Urea Nitrogen 10 mg/dl (7-17); Carbon Dioxide 28 mmol/L (22.0-30.0); Creatinine Clearance Estimated 174 mL/min (50-200); Estimated Glomerular Filt Rate 126 ml/min (>60); GFR (African American) 152 ML/MIN (>60)
[2020-01-26 07:22] LABS: Albumin/Globulin Ratio 0.7 (1.1-1.8); Basophils % 0.7 % (0.1-2.0); Calcium 8.8 mg/dl (8.4-10.2); Eosinophils # 0.1 K/mm3 (0.0-0.4); Globulin 4.1 g/dL (1.3-3.2); Glucose 173 mg/dl (74-100); Hematocrit 30.2 % (37.0-47.0); Lymphocytes # 1.3 K/mm3 (0.7-4.5); Lymphocytes % 52.2 % (10-50); Magnesium 1.6 mg/dl (1.6-2.3); Mean Corpuscular Volume 83.9 fl (81-99); Mean Platelet Volume 8.8 fl (7.4-10.4); Monocytes # 0.3 K/mm3 (0.1-1.0); Monocytes % 10.5 % (1.7-9.3); Neutrophils # 0.8 K/mm3 (1.8-7.8); Neutrophils % 33.6 % (37.0-80.0); Platelet Count 118 K/mm3 (142-424); Red Cell Distribution Width 16.3 % (11.5-17.5); Total Protein,Serum 7.1 g/dl (6.3-8.2); White Blood Count 2.5 K/mm3 (4.8-10.8)
[2020-01-26 07:37] LABS: MANUAL DIFFERENTIAL MANUAL DIFFERENTIAL (MANUAL DIFF)
--- NOTE | 2020-01-26 07:41 | P.CONPHA_ITS ---
[facility] Pharmacy VTE Monitoring - Patient Demographics Admission date: 01/25/20 Report Date: 01/26/20 Time: 07:41 Allergies/Adverse Reactions: Patient Allergies nitrofurantoin [From MACROBID] Allergy (Severe, Verified 01/25/20 11:12) Anaphylaxis codeine [CODEINE] Allergy (Mild, Verified 01/25/20 11:12) Sulfa (Sulfonamide Antibiotics) [SULFA (SULFONAMIDE ANTIBIOTICS)] Allergy (Mild, Verified 01/25/20 11:12) ergocalciferol (vitamin D2) [From Vitamin D2] Allergy (Unknown, Verified 01/25/20 11:12) Height: 1.68 m Weight: 92.164 kg Patient Problems: Current Active Problems Abdominal pain, generalized (Acute) Altered mental status (Acute) Dehydration (Acute) Hepatic encephalopathy (Acute) Thrombocytopenia (Acute) Transaminitis (Acute) Diabetes (Chronic) - VTE Risk Labs: VTE Related Lab Results Hgb 11.0 g/dL (12.2-16.2) L 01/25/20 11:15 Hct 30.2 % (37.0-47.0) L 01/26/20 06:35 Plt Count 118 K/mm3 (142-424) L 01/26/20 06:35 BUN 10 mg/dl (7-17) 01/26/20 06:35 Creatinine 0.50 mg/dl (0.52-1.04) L 01/26/20 06:35 Estimated Creat Clear 174 mL/min (50-200) 01/26/20 06:35 Was VTE Risk Assessment Performed: Yes VTE Score: 4 VTE Risk Level: Low Risk Clinical Trial Participant: No - Prophylaxis VTE Prophylaxis Ordered?: Yes Types of VTE Prophylaxis: TEDS Knee High
[2020-01-26 08:00] VITALS: BP 126/69; PULSE 85; RESP 18; TEMP 36.9; O2SAT 96
[2020-01-26 08:00] LABS: POC Glucose,Bedside 194 (70-110)
--- NOTE | 2020-01-26 08:05 | HMH.ACPN2 ---
Internal Medicine - PN: Subj *Date: 01/26/20 *Time: 08:05 Interval history: Patient is back from CT scan. Is somewhat somnolent, denies pain or dyspnea, and is conversant when arousable but is unable to remember details of her recent medical care. Exam Vital signs and Labs for Last 24 Hours: Temp Pulse Resp BP Pulse Ox 98.7 F 90 16 153/73 H 95 01/26/20 03:53 01/26/20 03:53 01/26/20 03:53 01/26/20 03:53 01/26/20 03:53 Laboratory Results - last 24 hr 01/25/20 11:15: Urine Color Yellow, Urine Appearance Clear, Urine pH 7.0, Ur Specific [place] 1.020, Urine Protein Negative, Urine Glucose (UA) 3+, Urine Ketones Negative, Urine Blood Trace-i, Urine Nitrate Negative, Urine Bilirubin Negative, Urine Urobilinogen 0.2, Ur Leukocyte Esterase Negative, Urine RBC Occasional, Urine WBC Occasional, Ur Squamous Epith Cells 10-20, Amorphous Sediment 1+, Urine Bacteria None 01/25/20 11:15: WBC 2.4 L, RBC 4.21, Hgb 11.0 L, Hct 36.3 L, MCV 86.1, MCH 26.0 L, MCHC 30.2 L, RDW 16.4, Plt Count 136 L, MPV 9.0, Neut % (Auto) 56.0, Lymph % (Auto) 33.2, [place] % (Auto) 8.4, Eos % (Auto) 1.9, Baso % (Auto) 0.5, Neut # (Auto) 1.3 L, Lymph # (Auto) 0.8, [place] # (Auto) 0.2, Eos # (Auto) 0.1, Baso # (Auto) 0.0 01/25/20 11:15: Sodium 140, Potassium 4.2, Chloride 106, Carbon Dioxide 27, Anion Gap 11.2, BUN 8, Creatinine 0.60, Estimated Creat Clear 146, Estimated GFR 102, Est GFR ( Amer) 123, Glucose 301 H, Calcium 9.1, Total Bilirubin 1.8 H, AST 63 H, ALT 20, Alkaline Phosphatase 244 H, Total Protein 8.3 H, Albumin 3.9, Globulin 4.4 H, Albumin/Globulin Ratio 0.9 L 01/25/20 11:15: Lactate 1.7 01/25/20 11:15: Urine Opiates Screen Negative, Urine Methadone Screen Negative, Ur Barbituates Screen Negative, Ur Phencyclidine Scrn Negative, Ur Amphetamines Screen Negative, U Benzodiazepines Scrn Negative, Urine Cocaine Screen Negative, U Marijuana (THC) Screen Negative 01/25/20 11:15: Plasma/Serum Alcohol < 10 01/25/20 11:15: Troponin I < 0.01, TSH 0.04 L 01/25/20 11:15: SARS-CoV-2 IgG Ab (Rapid) Negative, SARS-CoV-2 IgM Ab (Rapid) Negative 01/25/20 13:08: Specimen Source Right radial artery, O2 % Room air, ABG pH 7.43, ABG pCO2 37.5, ABG pO2 77.2 L, ABG HCO3 24.3, ABG Total CO2 25.4, ABG O2 Saturation 95, ABG Base Excess -0.1, Cristofer Test Acceptable 01/25/20 13:10: Ammonia 61 H 01/25/20 15:56: POC Glucose 208 H 01/25/20 20:35: POC Glucose 199 H 01/26/20 05:33: POC Glucose 194 H 01/26/20 06:35: WBC 2.5 L, RBC 3.60 L, Hct 30.2 L, MCV 83.9, MCH 26.0 L, MCHC 31.0 L, RDW 16.3, Plt Count 118 L, MPV 8.8, Neut % (Auto) 33.6 L, Lymph % (Auto) 52.2 H, [place] % (Auto) 10.5 H, Eos % (Auto) 3.0, Baso % (Auto) 0.7, Neut # (Auto) 0.8 L*, Lymph # (Auto) 1.3, [place] # (Auto) 0.3, Eos # (Auto) 0.1, Baso # (Auto) 0.0 01/26/20 06:35: Sodium 139, Potassium 3.9, Chloride 107, Carbon Dioxide 28, Anion Gap 7.9, BUN 10, Creatinine 0.50 L, Estimated Creat Clear 174, Estimated GFR 126, Est GFR ( Amer) 152 D, Glucose 173 H D, Calcium 8.8, Magnesium 1.6, Total Bilirubin 1.2, AST 53 H, ALT 17, Alkaline Phosphatase 171 H, Total Protein 7.1, Albumin 3.0 L D, Globulin 4.1 H, Albumin/Globulin Ratio 0.7 L 01/26/20 06:35: Ammonia 119 H I & O for Last 24 hours: Intake & Output 01/23/20 01/24/20 01/25/20 01/26/20 11:59 11:59 11:59 11:59 Intake Total 1091 / 1091 Output Total 400 / 400 Balance 691 / 691 Weight 205 lb 203 lb 3 oz Narrative: Patient is drowsy, not jaundiced, no scleral icterus. No JVD, neck clear. Lungs clear, heart rate regular. Abdomen seems a bit swollen she is tender in the right upper quadrant down into the right flank with scar from prior cholecystectomy noted. No edema or clubbing, No skin rash. No stigmata of liver disease on the abdomen. Neurologic exam difficult because of her somnolence Assessment and Plan (1) Thrombocytopenia Status: Acute Category: Medical Code(s): D69.6 - Thrombocytopenia, unspecified (2) Hepatic encephalopathy S
[2020-01-26 08:23] LABS: Eosinophils % 1 % (0-3); Lymphocytes % 53 % (10-50); Monocytes % 4 % (2-9); Neutrophils % 42 % (42-76); Total Cells Counted 100
[2020-01-26 08:24] LABS: Anisocytosis 1+; Hypochromasia 1+; Platelet Estimate Normal
[2020-01-26 08:30] VITALS: O2SAT 96
[2020-01-26 08:49] LABS: Hemoglobin 9.4 g/dL (12.2-16.2)
--- NOTE | 2020-01-26 09:19 | HMH.PHAINT ---
Home medication list completed using information from [facility] due to patient's altered mental status and inability to recall home medications.
--- NOTE | 2020-01-26 10:01 | P.CONS_ITS ---
Gastroenterology Consult Consult:: Gastroenterology Consultation Date of Service-January 26, 2020 History of Present Illness: Mrs. Richardson is a 59-year-old female who presents with confusion and malaise. She reportedly does have a history of chronic liver disease but there is not a lot of records in regard to this. Her initial ammonia level was 61. After lactulose was administered, this actually increased to 119. She was given Xifaxan this morning. She does have some lower extremity edema. She complains of some left upper quadrant abdominal discomfort. She reports no alcohol abuse. She does have a family history of liver disease (father and brothers). She recently had some diarrhea. Her family reports lethargy. She has slowed speech and some somnolence. Her CAT scan is showing hepatosplenomegaly with no significant ascites but evidence of portal hypertension. There is also abundant retained stool within the colon. Past Medical History: 1. Type 2 diabetes mellitus 2. Hypertension 3. Hyperlipidemia Past Surgical History: 1. Appendectomy 2. Cholecystectomy 3. Partial hysterectomy 4. Thyroidectomy 5. Hernia repair Medications: 1. Synthroid 2. Lisinopril 3. Insulin 4. Omeprazole 5. Cyclobenzaprine 6. Fenofibrate ALLERGIES: 1. Macrobid 2. Sulfa drugs 3. Codeine 4. Vitamin D Social History: The patient does smoke daily but does not use alcohol Family History: See above Review of Systems: See chart Physical Examination: Gen.: The patient is a moderately obese female who is a little obtunded and speech in no acute distress HEENT: Normocephalic/atraumatic extraocular movements are intact anicteric Neck: Supple no lymphadenopathy Chest: Clear to auscultation Cardiovascular: Regular rate and rhythm Abdomen: Normoactive bowel sounds soft, mild distention with palpable firm liver Extremities: 1+ edema Labs: Radiology: Impression/Plan: 1. Chronic liver disease/cirrhosis with hepatic encephalopathy. The patient does have an elevated alkaline phosphatase. I will obtain additional serologies to exclude primary biliary cholangitis, autoimmune liver disease, chronic viral hepatitis. I would like to order smooth muscle antibody, antimitochondrial antibody, TWYLA, anti-LKM, quantitative immunoglobulins, ANNEMARIE level (angiotensin- converting enzyme level), hepatitis B surface antibody and surface antigen and hepatitis C antibody. I would also obtain ferritin, iron studies, alpha-1 antitrypsin level and phenotype. The patient will need outpatient evaluation and is showing signs of liver failure. I would continue lactulose at 45 mL p.o. twice daily and Xifaxan 550 mg p.o. twice daily. Generally encephalopathy is caused by constipation/obstipation, infection, GI bleeding or dehydration. I do feel that the former is most likely. I would continue to treat her until cognitive status improves. Based upon her present status, we will need to check meld score and determine whether she meets the criteria for evaluation for liver transplantation.
--- NOTE | 2020-01-26 10:20 | PC.NURSE ---
08:31 - Late Entry - Routine Assessment completed. Pt. falls asleep while nurse in room, awakens to voice, pt. oriented to person and place. Pt. states I can't think when asked todays date, and reason for being at hospital. Lungs CTA, Heart at RR, BS present x4 quad. Pt. reports LUQ pain upon palpation. Pt. denies pain at rest. BLE noted to be edematous. No needs noted.
--- NOTE | 2020-01-26 10:25 | PC.NURSE ---
09:50 Late entry - Dr. Day in to see pt. Pt. on BSC, Nurse informed Dr. Day of Pt. status, history, and complaints, Dr. Day v/u.
[2020-01-26 12:08] LABS: POC Glucose,Bedside 189 (70-110)
[2020-01-26 14:51] VITALS: BMI 32.5
[2020-01-26 16:00] VITALS: BP 144/82; PULSE 96; RESP 19; TEMP 36.8; O2SAT 96
--- NOTE | 2020-01-26 18:30 | PC.NURSE ---
16:28 Late Entry - Routine Reassessment completed. Pt. Alert and oriented to person, place and time, Pt. unsure of situation. Pt. has been more alert and awake this afternoon. No further acute changes noted. Lungs CTA, Heart at RRR. BS present x4 quad. Legs remain with non pitting edema, pt. denies pain and needs, will continue to monitor.
[2020-01-26 20:00] VITALS: BP 127/77; PULSE 99; RESP 14; TEMP 36.9; O2SAT 95
[2020-01-26 20:41] LABS: POC Glucose,Bedside 223 (70-110)
[2020-01-26 20:41] LABS: POC Glucose,Bedside 208 (70-110)
[2020-01-27 04:00] VITALS: BP 132/67; PULSE 97; RESP 14; TEMP 37; O2SAT 94
--- NOTE | 2020-01-27 05:04 | PC.NURSE ---
patient has rested well throughout the night, more alert then at the beginning of the shift. has been able to answer all of orientation questions/. standby assist to bsc for bowel movements post lactulose.
[2020-01-27 05:08] VITALS: BMI 32.3
[2020-01-27 06:12] LABS: Basophils % 0.7 % (0.1-2.0); Eosinophils # 0.1 K/mm3 (0.0-0.4); Eosinophils % 1.8 % (0.1-12.0); Hematocrit 31.9 % (37.0-47.0); Hemoglobin 9.3 g/dL (12.2-16.2); Lymphocytes # 1.4 K/mm3 (0.7-4.5); Lymphocytes % 44.8 % (10-50); Mean Corpuscular HGB Conc 29.2 g/dL (31.8-35.4); Mean Corpuscular Hemoglobin 25.3 pg (27.0-31.2); Mean Corpuscular Volume 86.6 fl (81-99); Mean Platelet Volume 9.9 fl (7.4-10.4); Monocytes # 0.3 K/mm3 (0.1-1.0); Monocytes % 9.5 % (1.7-9.3); Neutrophils # 1.3 K/mm3 (1.8-7.8); Neutrophils % 43.2 % (37.0-80.0); Platelet Count 114 K/mm3 (142-424); Red Blood Count 3.69 M/mm3 (4.20-5.40); Red Cell Distribution Width 16.6 % (11.5-17.5)
[2020-01-27 06:14] LABS: Chloride 109 mmol/L (98-107); Potassium 3.8 mmoL/L (3.5-5.1); Sodium 140 mmol/L (136-145)
[2020-01-27 06:16] LABS: Iron 74 ug/dL (37-170)
[2020-01-27 06:17] LABS: Alanine Aminotransferase 17 U/L (12-78); Albumin Level 3.1 g/dl (3.5-5.0); Albumin/Globulin Ratio 0.8 (1.1-1.8); Alkaline Phosphatase 183 U/L (38-126); Ammonia 54 umol/L (9-30); Anion Gap 8.8 mEq/L (5-15); Aspartate Amino Transferase 58 U/L (14-36); Bilirubin,Total 1.3 mg/dl (0.2-1.3); Blood Urea Nitrogen 9 mg/dl (7-17); Calcium 8.7 mg/dl (8.4-10.2); Carbon Dioxide 26 mmol/L (22.0-30.0); Creatinine Clearance Estimated 173 mL/min (50-200); Estimated Glomerular Filt Rate 126 ml/min (>60); GFR (African American) 152 ML/MIN (>60); Globulin 4.1 g/dL (1.3-3.2); Glucose 182 mg/dl (74-100); Total Protein,Serum 7.2 g/dl (6.3-8.2)
[2020-01-27 06:52] LABS: Ferritin 14.5 ng/ml (11.1-264)
--- NOTE | 2020-01-27 07:52 | HMH.DCSUM ---
General - General Admission date:: 01/25/20 Discharge date: 01/27/20 HPI HPI: Ms. Talbert is a 59-year-old female who presented to the ER with her daughter due to concern for altered mental status. History obtained from the ER documentation and from patient, had no family at bedside on my interview. Reportedly she woke up confused this morning per the daughter when she arrived to the ER. She had a similar episode that occurred about a month ago where she came in, was found to have a UTI, was treated and discharged home to complete oral antibiotics. Her confusion has included her trying to eat a computer tablet, thinking it was food. Speech is slow, and she is somnolent. On initial assessment in the ER, found to have normal CO2 on blood gas, urine was not significantly remarkable for UTI, but she was deemed to not be safe to go home due to altered mental status. Further work-up obtained showing elevated ammonia level. Patient was admitted for altered mental status, and further work-up of hyperammonemia. Per review of ER history, daughter stated the patient had recently had diarrhea for few days but that had resolved. She otherwise had no fever, pain, cough or shortness of breath. No vomiting or nausea. Patient has been more sleepy for a few days but confusion became most prominent today. Family controls patient's medications, no opiates or medications notorious for confusion. On interview this evening, patient responded slowly but appropriately to most questions. Oriented to person and place but not time. Sleeping on initially entering the room, though awoke to verbal stimuli, probably went back to sleep after interview. Hospital Course Hospital Course: 59-year-old female admitted for altered mental status. Work-up showed concern for elevated ammonia and other lab findings consistent with cirrhosis/chronic liver disease. She was initiated on therapy for hepatic encephalopathy including lactulose. Levels gradually improved during hospitalization and she had significant improvement in her orientation and alertness. GI was consulted during hospitalization, extensive work-up obtained including imaging of abdomen, multiple labs for autoimmune and infectious causes of cirrhosis. Most recent labs, results still pending at time of discharge. On day of discharge, patient medically stable with tolerance of oral regimen for her encephalopathy. Normal hemodynamics. Afebrile. No acute infections needing treatment. Denied chest pain, shortness of breath, nausea, vomiting. Having significant number of daily bowel movements due to lactulose. Counseled on need to have 2-3 soft bowel movements daily. Medically stable for discharge home with continued treatment in the outpatient setting. Plan for close follow-up in our office for medical management along with GI for further evaluation of her cirrhosis. GIs impression and recommendations as follows: 1. Chronic liver disease/cirrhosis with hepatic encephalopathy. The patient does have an elevated alkaline phosphatase. I will obtain additional serologies to exclude primary biliary cholangitis, autoimmune liver disease, chronic viral hepatitis. I would like to order smooth muscle antibody, antimitochondrial antibody, TWYLA, anti-LKM, quantitative immunoglobulins, ANNEMARIE level (angiotensin-converting enzyme level), hepatitis B surface antibody and surface antigen and hepatitis C antibody. I would also obtain ferritin, iron studies, alpha-1 antitrypsin level and phenotype. The patient will need outpatient evaluation and is showing signs of liver failure. 2. continue lactulose at 45 mL p.o. twice daily and Xifaxan 550 mg p.o. twice daily. Meld: -INR was not obtained unfortunately however if we presume it is normal in the setting of no bleeding, bruising, normal albumin level. She has a meld of 9. Well below level of needing referral for consideration of transplant. Would need an INR greater than 3
[2020-01-27 08:00] VITALS: BP 141/75; PULSE 100; RESP 16; TEMP 36.6; O2SAT 95
[2020-01-27 09:09] LABS: POC Glucose,Bedside 173 (70-110)
[2020-01-27 12:26] LABS: POC Glucose,Bedside 221 (70-110)
[2020-01-28 10:27] LABS: Hep A Ab, IgM Negative (Negative); Hepatitis B Core Antibody IgM Negative (Negative); Hepatitis B Surface Antigen Negative (Negative)
[2020-01-28 10:51] LABS: Hepatitis C Antibody 0.1 s/co ratio (0.0-0.9)
[2020-01-28 15:24] LABS: Immunoglobulin G, Qn 1814 mg/dL (586-1602)
[2020-01-29 09:25] LABS: Actin (Smooth Muscle) Antibody 12 Units (0-19); Angiotensin Converting Enzyme 58 U/L (14-82); Immunoglobulin A, Qn 1237 mg/dL (87-352); Immunoglobulin M, Qn 73 mg/dL (26-217); Liver-Kidney Microsomal Ab 1.3 Units (0.0-20.0); Mitochondrial (M2) Antibody <20.0 Units (0.0-20.0)
[2020-02-02 15:54] LABS: Alpha-1-Antitrypsin 67 mg/dL (101-187)
[2020-02-02 16:23] LABS: Phenotype (PI) SZ (.)
[2020-02-07 18:36] LABS: Antinuclear Antibodies (ANA) NEGATIVE
== END 2020-01-27 15:21 | disposition home or self-care (01) | DRG 443 ==
LOC: ER 14:16 → 2ND 01-26 06:16
PROVIDERS: Internal Medicine Adolescent Medicine; Internal Medicine Gastroenterology; Admitting Provider Internal Medicine Adolescent Medicine; Emergency Provider Emergency Medicine; PCP Family Medicine; Visit Provider Internal Medicine Adolescent Medicine
DX: K72.90 Hepatic failure, unspecified without coma (principal); K74.60 Unspecified cirrhosis of liver; E11.65 Type 2 diabetes mellitus with hyperglycemia; Z79.4 Long term (current) use of insulin; Z88.2 Allergy status to sulfonamides; E03.9 Hypothyroidism, unspecified; E86.0 Dehydration; Z72.0 Tobacco use; Z79.899 Other long term (current) drug therapy
CPT/HCPCS: 36415; 70450; 71046; 74178; 80053; 80074; 80305; 81001; 82103; 82104; 82140; 82164; 82728; 82784; 82803; 82962; 83036; 83540; 83605; 83735; 84443; 84484; 85007; 85025; 86038; 86255; 86256; 86328; 86376; 87040; 93005; 99284; J2405; Q9967

== ENCOUNTER 2020-02-02 13:42 | Day surgery (SDC) | payer MEDICARE, SELFPAY ==
[2020-02-02 14:03] VITALS: BP 162/71; PULSE 93; RESP 18; TEMP 36.4; O2SAT 98; BMI 32.8
[2020-02-02 14:17] VITALS: BP 162/69; PULSE 94; RESP 18
[2020-02-02 14:18] VITALS: BP 160/64; PULSE 92; RESP 18; O2SAT 99
--- NOTE | 2020-02-02 14:21 | P.PCN_ITS ---
- Procedure Date: 02/02/20 Time: 14:21 Anesthesiologist:: Barb Aguilar APRN Complications:: None Pre-procedure Diagnosis:: Degenerative disc disease lumbar spine lumbar radiculopathy Post-procedure Diagnosis:: Same Indications for Procedure:: Patient is a pleasant 59-year-old white female who presents today for intrathecal pain pump refill and reprogram. She is being treated for pain secondary to degenerative disc disease lumbar spine lumbar radiculopathy. She is recently spent time in the hospital due to renal issues. Patient currently on lactulose. Patient is also following up with a specialist. Patient and I discussed leaving her intrathecal infusion as is until this gets cleared up she is in agreement. She rates her pain today 7 out of 10. 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 The patient was taken to the procedure room where noninvasive monitoring was placed including noninvasive blood pressure cuff and pulse oximeter. Patient's pump was interrogated. The area over the pump was cleansed with chlorhexidine as a cleansing solution. In sterile fashion the pump was accessed with a 22-gauge needle. Approximately 3 mL's were removed of the pump solution and discarded appropriately. The pump was then refilled with 20 mL's of Dilaudid 5 mg/mL. The needle was withdrawn and a bandage was placed over the puncture site. The infusion rate was reprogrammed to change to a periodic flow of 0.09 mg every 2 hours. The patient tolerated the procedure well. Plan and Disposition:: We will see the patient back at her next intrathecal pain pump refill and reprogram she has been instructed to call the office if she has any issues prior to her next appointment. Dr. Peoples has reviewed this note and agrees with this plan of care. This note was dictated using voice recognition software and may contain errors or omissions
[2020-02-02 14:39] VITALS: BP 150/87; PULSE 89; RESP 20; O2SAT 98
== END 2020-02-02 14:40 | disposition home or self-care (01) ==
LOC: SC.PAINP 13:44
PROVIDERS: PCP Family Medicine; Visit Provider Clinical Nurse Specialist Family Health
DX: M51.16 Intervertebral disc disorders with radiculopathy, lumbar region (principal); I10 Essential (primary) hypertension; E78.5 Hyperlipidemia, unspecified; B19.20 Unspecified viral hepatitis C without hepatic coma; K21.9 Gastro-esophageal reflux disease without esophagitis; N05.9 Unspecified nephritic syndrome with unspecified morphologic changes; E89.0 Postprocedural hypothyroidism; Z72.0 Tobacco use
CPT/HCPCS: 62323; 62370

== ENCOUNTER → 2020-02-13 14:10 | Outpatient (CLI) | payer MEDICARE, SELFPAY ==
--- NOTE | 2020-02-13 14:59 | PC.NURSE ---
PFT Complete done. Albuterol 0.083% given via hand held nebulizer, per written protocol, Pt tolerated tx well.
== END ==
PROVIDERS: PCP Family Medicine; Visit Provider Internal Medicine Adolescent Medicine
DX: P78.81 Congenital cirrhosis (of liver) (principal); E88.01 Alpha-1-antitrypsin deficiency
CPT/HCPCS: 94060; 94726; 94729

== ENCOUNTER → 2020-03-13 11:11 | Outpatient (CLI) | payer MEDICARE, SELFPAY ==
[2020-03-13 12:07] LABS: Coronavirus 19 IgG Antibody Positive (Negative); Coronavirus 19 IgM Antibody Positive (Negative)
--- NOTE | 2020-03-13 13:11 | PC.NURSE ---
Notified of + IgG/IgM and of new outpatient order for a covid swab.
== END ==
PROVIDERS: PCP Family Medicine; Visit Provider Internal Medicine Gastroenterology
DX: Z01.818 Encounter for other preprocedural examination (principal); Z86.16 Personal history of COVID-19; Z13.810 Encounter for screening for upper gastrointestinal disorder
CPT/HCPCS: 36415; 86328; U0003

== ENCOUNTER 2020-03-15 12:38 | Day surgery (SDC) | payer MEDICARE, SELFPAY ==
[2020-03-08 12:44] VITALS: BMI 34.2
[2020-03-15 13:14] VITALS: BP 139/71; PULSE 88; RESP 18; TEMP 37.1; O2SAT 99
[2020-03-15 13:35] LABS: POC Glucose,Bedside 141 (70-110)
[2020-03-15 14:04] VITALS: O2SAT 98
--- NOTE | 2020-03-15 14:09 | P.PN_ITS ---
[facility] Anesthesia Checklist - Patient Identification Patient Identification: Arm Band - Structural Data Admitted From: Home Planned Operative Procedure/s: egd Consent for Planned Operative Procedure(s) Verified: Yes Verified Documents: Surgical Consent, History and Physical - NPO Status Verified Time NPO: 00:00 - Additional verifications Anesthesia Reactions: No Hx Blood Transfusions: No Blood Transfusion Reaction: No - Airway Assessment C-Spine Mobility Assessed: Yes (mp2) TMJ Mobility Assessed: Yes Dentition: Edentulous - Neurological Assessment Level of Consciousness: Awake, Alert - Anesthesia Plan Anesthesia Risk discussed: Yes Anesthesia Plan: Verified ASA Class: III Anesthesia Type: MAC [facility] History I have reviewed the patient's past medical history: Yes Medical History: Reports:: Cancer (skin cancer), Diabetes Mellitus Type 2, Heart Murmur, Hepatitis, Hyperlipidemia, Hypertension Denies:: Diabetes Mellitus Type 1, Internal Pacemaker, MRSA, Seizures *Have you ever received a pneumonia vaccine?: Yes *Have you received a flu vaccine this season?: Yes Other Medical History: Reports: Liver Disease, Thyroid Disease. Denies: Blood Transfusion Reaction Anesthesia experience/problems:: nac Laterality Cases: Bilateral: Other Other Surgeries: Yes: Appendectomy, Cancer Surgery (skin), Cholecystectomy, Colonoscopy, Hernia Repair, Hysterectomy-Partial, Thyroidectomy (partial), Other (pain pump implant). No: Pacemaker Amputation: No Fractures: No - *Social History Last grade of school completed: Some college Smoking Status: Current every day smoker Tobacco Type: cigarettes # Packs/Day (cigarettes): 1 Alcohol Intake: never Substance Use Type: denies use *Occupational Status:: retired Housing: house Household Members: spouse *Travel in the last 8 weeks: None Family Hx:: Cancer, Hyperlipidemia, Hypertension
--- NOTE | 2020-03-15 14:30 | P.PCN_ITS ---
[facility] Procedure Note Procedure Note:: Upper Endoscopy Procedure Report: Esophagogastroduodenoscopy with cold biopsies Endoscopost: Gilberto Day II, MD Referring Physician: Sumanth Puentes MD Date of Procedure: March 15, 2020 Equipment: Olympus GIF 180 standard upper endoscope Sedation: MAC sedation Indications: Mrs. Richardson is a 60-year-old female with recent onset of confusion/encephalopathy. Her CAT scan had shown cirrhosis with portal hypertension. She also has heterozygous alpha 1 antitrypsin deficiency (phenotype SZ) with level of 67. The patient also had elevated quantitative immunoglobulins with IgG 1814 and IgA level of 1237. She had smooth muscle antibody, antimitochondrial antibody and ANNEMARIE level. She had negative hepatitis serologies. She is undergoing pulmonary evaluation and has 2 brothers with alpha 1 antitrypsin deficiency with pulmonary involvement. She is on Xifaxan and lactulose for her hepatic encephalopathy. Procedure: Prior to the procedure, a history and physical exam was performed, and patient's medications and allergies were reviewed. The risks, benefits and alternatives of the sedation and procedure were discussed with the patient. All questions were answered and informed consent was obtained. The patient was brought to the procedure room. Patient identification and proposed procedure were verified by the physician and the nurse. The patient was placed in a left lateral decubitus position and the scope was passed under direct vision. Throughout the procedure, the patient's blood pressure, pulse, and oxygen saturations were monitored continuously. The upper GI endoscopy was accomplished without difficulty. The patient tolerated the procedure well. Findings: The scope was passed directly into the upper esophagus and advanced to the third portion of the duodenum. There was obvious scalloping of the duodenal folds/conniventes strongly consistent with celiac sprue. Multiple biopsies were obtained from the post bulbar duodenum and duodenal bulb. Within the duodenal bulb was a rounded polyp that was 7 mm in size/diameter. This was biopsied with cold biopsy forceps. The scope was withdrawn through a normal pylorus into the stomach. There was mild reactive gastropathy. There was no evidence of portal gastropathy or GAVE or gastric fundic varices. There were 3- 4 AVMs/angio ectasias of the stomach which were nonbleeding in the body of the stomach. Upon retroflexion there was no hiatal hernia or cardia varices. The scope was then withdrawn into the esophagus. There was a serrated Z-line. There was evidence of grade 1-2 esophageal varices without stigmata. There was no evidence of reflux esophagitis or Hernandez's. The remainder of the esophageal mucosa was normal. Impression: 1. Grade 1-2 esophageal varices without stigmata 2. Probable celiac disease 3. Duodenal bulb polyp (7 mm) 4. Gastric angiectasia/AVMs (not watermelon stomach) located in body of stomach nonbleeding 5. Mild gastropathy Plan: I will follow-up the biopsies to rule out celiac disease. I will also check the duodenal polyp which could be adenomatous. Celiac disease is associated with autoimmune hepatitis. The patient did have a normal ANNEMARIE level but was on an ANNEMARIE inhibitor. We will discuss this. I do feel that her chronic liver disease may have a dual component (alpha-1 antitrypsin deficiency plus possible autoimmune hepatitis). I would continue treatment for her hepatic encephalopathy. The patient does also have portal hypertension. We will discuss use of nonselective beta-gail (nadolol). I will have the patient follow-up as outpatient.
[2020-03-15 14:32] VITALS: BP 135/69; PULSE 88; RESP 18; TEMP 36.6; O2SAT 97
[2020-03-15 14:42] VITALS: BP 148/53; PULSE 86; RESP 18; O2SAT 98
[2020-03-15 14:52] VITALS: BP 138/71; PULSE 86; RESP 18; O2SAT 98
[2020-03-15 15:24] VITALS: BP 139/84; PULSE 85; RESP 18; O2SAT 98
--- NOTE | 2020-03-15 15:40 | SUR.OPER ---
LAB HERE TO DRAW LAB WORK ORDERED FOR DR VASQUEZ
--- NOTE | 2020-03-15 15:40 | SUR.PHASEII ---
LAB HERE TO DRAW LABS PER DR VASQUEZ ORDER. THIS SAME NOTE PLACED IN INTRAOPERATIVE NOTES BY ENRIQUE
[2020-03-15 16:03] LABS: Basophils % 0.6 % (0.1-2.0); Eosinophils % 1.5 % (0.1-12.0); Hematocrit 32.2 % (37.0-47.0); Hemoglobin 9.5 g/dL (12.2-16.2); Lymphocytes % 41.2 % (10-50); Mean Corpuscular HGB Conc 29.4 g/dL (31.8-35.4); Mean Corpuscular Hemoglobin 25.3 pg (27.0-31.2); Mean Corpuscular Volume 86.1 fl (81-99); Mean Platelet Volume 9.6 fl (7.4-10.4); Monocytes # 0.2 K/mm3 (0.1-1.0); Monocytes % 8.3 % (1.7-9.3); Neutrophils # 1.2 K/mm3 (1.8-7.8); Neutrophils % 48.3 % (37.0-80.0); Platelet Count 115 K/mm3 (142-424); Red Blood Count 3.74 M/mm3 (4.20-5.40); Red Cell Distribution Width 17.3 % (11.5-17.5); White Blood Count 2.4 K/mm3 (4.8-10.8)
[2020-03-15 16:09] LABS: Alanine Aminotransferase 23 U/L (12-78); Albumin Level 3.3 g/dl (3.5-5.0); Albumin/Globulin Ratio 0.8 (1.1-1.8); Alkaline Phosphatase 265 U/L (38-126); Anion Gap 10.1 mEq/L (5-15); Aspartate Amino Transferase 68 U/L (14-36); Bilirubin,Total 1.4 mg/dl (0.2-1.3); Blood Urea Nitrogen 7 mg/dl (7-17); Calcium 8.8 mg/dl (8.4-10.2); Carbon Dioxide 27 mmol/L (22.0-30.0); Chloride 106 mmol/L (98-107); Creatinine Clearance Estimated 90 mL/min (50-200); Estimated Glomerular Filt Rate 85 ml/min (>60); GFR (African American) 103 ML/MIN (>60); Globulin 4.4 g/dL (1.3-3.2); Glucose 192 mg/dl (74-100); Potassium 4.1 mmoL/L (3.5-5.1); Sodium 139 mmol/L (136-145); Total Protein,Serum 7.7 g/dl (6.3-8.2)
[2020-03-15 16:20] LABS: INR 1.22 (0.9-1.1); Prothrombin Time 13.3 seconds (9.4-11.8)
[2020-03-15 16:23] LABS: Ammonia 32 umol/L (9-30)
[2020-03-15 16:43] LABS: Ferritin 11.2 ng/ml (11.1-264)
[2020-03-15 16:47] LABS: Iron 61 ug/dL (37-170)
[2020-03-15 16:56] LABS: Total Iron Binding Capacity 379 ug/dL (265-497)
[2020-03-17 16:16] LABS: Deamidated Gliadin Abs, IgA >150 units (0-19); Deamidated Gliadin Abs, IgG 44 units (0-19); Tissue Transglutaminase IgA Ab >100 U/mL (0-3); Tissue Transglutaminase IgG Ab 6 U/mL (0-5)
[2020-03-18 09:53] LABS: Reticulin IgA Antibody Negative titer (Neg:<1:2.5)
[2020-03-19 07:55] LABS: Endomysial IgA Antibody Positive (Negative)
== END 2020-03-15 15:42 | disposition home or self-care (01) ==
LOC: OUTP 12:40
PROVIDERS: PCP Family Medicine; Visit Provider Internal Medicine Gastroenterology
PROC: 0DJ08ZZ Inspection of Upper Intestinal Tract, Via Natural or Artificial Opening Endoscopic (ICD-10-PCS; CPT 43235; principal; 2020-03-15 14:00)
DX: K74.69 Other cirrhosis of liver (principal); K76.6 Portal hypertension; K31.819 Angiodysplasia of stomach and duodenum without bleeding; K31.9 Disease of stomach and duodenum, unspecified; I85.10 Secondary esophageal varices without bleeding; K31.7 Polyp of stomach and duodenum; E88.01 Alpha-1-antitrypsin deficiency; K90.0 Celiac disease; K72.90 Hepatic failure, unspecified without coma; J44.9 Chronic obstructive pulmonary disease, unspecified; K21.9 Gastro-esophageal reflux disease without esophagitis; F17.210 Nicotine dependence, cigarettes, uncomplicated; E89.0 Postprocedural hypothyroidism; Z83.6 Family history of other diseases of the respiratory system; E11.9 Type 2 diabetes mellitus without complications; E78.5 Hyperlipidemia, unspecified; Z87.442 Personal history of urinary calculi; Z88.2 Allergy status to sulfonamides; Z88.5 Allergy status to narcotic agent; Z90.710 Acquired absence of both cervix and uterus; Z88.8 Allergy status to other drugs, medicaments and biological substances; Z98.1 Arthrodesis status; Z85.828 Personal history of other malignant neoplasm of skin; Z90.49 Acquired absence of other specified parts of digestive tract; Z82.79 Family history of other congenital malformations, deformations and chromosomal abnormalities; Z83.438 Family history of other disorder of lipoprotein metabolism and other lipidemia; Z82.49 Family history of ischemic heart disease and other diseases of the circulatory system
CPT/HCPCS: 43239; 36415; 80053; 82140; 82728; 82962; 83516; 83540; 83550; 85025; 85610; 86255; 86256; 88305

== ENCOUNTER 2020-04-12 12:18 | Day surgery (SDC) | payer MEDICARE, SELFPAY ==
[2020-04-12 13:00] VITALS: BP 146/64; PULSE 74; RESP 18; TEMP 36.6; O2SAT 98; BMI 35.5
[2020-04-12 13:13] VITALS: BP 133/54; PULSE 75; RESP 18
--- NOTE | 2020-04-12 13:16 | HMH.PMPROC ---
- Procedure Date: 04/12/20 Time: 13:22 Anesthesiologist:: Barb Aguilar APRN Complications:: None Pre-procedure Diagnosis:: Degenerative disc disease lumbar spine lumbar radiculopathy Post-procedure Diagnosis:: Same Indications for Procedure:: Patient is a pleasant 60-year-old white female who presents today for intrathecal pain pump refill and reprogram. She is currently on a Dilaudid intrathecal dose of 0.09 mg every 2 hours. Patient denies side effects from medication. [facility] #[id number] reviewed and appropriate. Patient rates her pain a 6 out of 10 she states she does not need any changes today. She recently lost her father. Procedure Details:: Informed consent was obtained and the risk and benefits of the procedure were explained to the patient. The patient was taken to the procedure room where noninvasive monitoring was placed including noninvasive blood pressure cuff and pulse oximeter. Patient's pump was interrogated. The area over the pump was cleansed with chlorhexidine as a cleansing solution. In sterile fashion the pump was accessed with a 22-gauge needle. Approximately 4 mL's were removed of the pump solution and discarded appropriately. The pump was then refilled with 20 mL's of Dilaudid 5 mg/mL. The needle was withdrawn and a bandage was placed over the puncture site. The infusion rate was reprogrammed to continued at 0.09 mg every 2 hours. The patient tolerated the procedure well. Plan and Disposition:: We will see the patient back at her next intrathecal pain pump refill and reprogram she has been instructed to call the office if she has any issues prior to her next appointment. Dr. Peoples has reviewed this note and agrees with this plan of care. This note was dictated using voice recognition software and may contain errors or omissions
[2020-04-12 13:19] VITALS: BP 135/55; PULSE 76; RESP 18; O2SAT 100
[2020-04-12 13:43] VITALS: BP 140/65; PULSE 71; RESP 18; O2SAT 98
== END 2020-04-12 13:44 | disposition home or self-care (01) ==
LOC: SC.PAINP 12:19
PROVIDERS: PCP Family Medicine; Visit Provider Clinical Nurse Specialist Family Health
DX: M51.16 Intervertebral disc disorders with radiculopathy, lumbar region (principal); Z72.0 Tobacco use; I10 Essential (primary) hypertension; E78.5 Hyperlipidemia, unspecified; K21.9 Gastro-esophageal reflux disease without esophagitis
CPT/HCPCS: 95991

== ENCOUNTER → 2020-05-10 10:36 | Outpatient (CLI) | payer MEDICARE, SELFPAY ==
[2020-05-10 11:10] LABS: Basophils % 0.6 % (0.1-2.0); Eosinophils % 1.7 % (0.1-12.0); Hematocrit 29.7 % (37.0-47.0); Hemoglobin 8.9 g/dL (12.2-16.2); Lymphocytes # 0.9 K/mm3 (0.7-4.5); Mean Corpuscular HGB Conc 29.9 g/dL (31.8-35.4); Mean Corpuscular Hemoglobin 25.3 pg (27.0-31.2); Mean Corpuscular Volume 84.5 fl (81-99); Mean Platelet Volume 9.1 fl (7.4-10.4); Monocytes # 0.3 K/mm3 (0.1-1.0); Monocytes % 12.3 % (1.7-9.3); Neutrophils # 1.2 K/mm3 (1.8-7.8); Neutrophils % 48.5 % (37.0-80.0); Platelet Count 105 K/mm3 (142-424); Red Blood Count 3.51 M/mm3 (4.20-5.40); Red Cell Distribution Width 17.2 % (11.5-17.5); White Blood Count 2.5 K/mm3 (4.8-10.8)
[2020-05-10 11:20] LABS: Ammonia 25 umol/L (9-30)
[2020-05-10 11:29] LABS: Chloride 109 mmol/L (98-107); Potassium 4.4 mmoL/L (3.5-5.1); Sodium 140 mmol/L (136-145)
[2020-05-10 11:30] LABS: INR 1.11 (0.9-1.1)
[2020-05-10 11:32] LABS: Alanine Aminotransferase 16 U/L (12-78); Albumin Level 3.4 g/dl (3.5-5.0); Albumin/Globulin Ratio 0.8 (1.1-1.8); Alkaline Phosphatase 223 U/L (38-126); Anion Gap 7.4 mEq/L (5-15); Aspartate Amino Transferase 60 U/L (14-36); Bilirubin,Total 1.4 mg/dl (0.2-1.3); Blood Urea Nitrogen 11 mg/dl (7-17); Calcium 9.1 mg/dl (8.4-10.2); Carbon Dioxide 28 mmol/L (22.0-30.0); Estimated Glomerular Filt Rate 85 ml/min (>60); GFR (African American) 103 ML/MIN (>60); Globulin 4.1 g/dL (1.3-3.2); Glucose 134 mg/dl (74-100); Total Protein,Serum 7.5 g/dl (6.3-8.2)
[2020-05-12 14:51] LABS: AFP, Tumor Marker 4.2 ng/mL (0.0-8.3)
== END ==
PROVIDERS: Visit Provider Internal Medicine Gastroenterology
DX: E88.01 Alpha-1-antitrypsin deficiency (principal); K74.69 Other cirrhosis of liver; K72.90 Hepatic failure, unspecified without coma; K76.6 Portal hypertension
CPT/HCPCS: 36415; 80053; 82105; 82140; 85025; 85610

== ENCOUNTER → 2020-05-17 13:16 | Outpatient (POV) | payer MEDICARE, SELFPAY | PROVIDERS: Visit Provider Nurse Practitioner Family | DX: Z00.00 Encounter for general adult medical examination without abnormal findings (principal) ==

== ENCOUNTER 2020-06-21 13:30 | Day surgery (SDC) | payer MEDICARE, SELFPAY ==
[2020-06-21 13:34] VITALS: BP 150/79; PULSE 97; RESP 20; TEMP 36.3; O2SAT 98; BMI 34.7
[2020-06-21 13:55] VITALS: BP 146/65; PULSE 96; RESP 18; O2SAT 98
--- NOTE | 2020-06-21 13:57 | P.PCN_ITS ---
- Procedure Date: 06/21/20 Time: 14:00 Anesthesiologist:: Barb Aguilar APRN Complications:: None Pre-procedure Diagnosis:: Degenerative disc disease lumbar spine lumbar radiculopathy and back pain Post-procedure Diagnosis:: Same Indications for Procedure:: Patient is a very pleasant 60-year-old white female who presents today for intrathecal pain pump refill and reprogram. Patient is currently on a Dilaudid dose of 0.09 mg every 2 hours. She rates her pain today 5 out of 10 she like a slight increase. [facility] #[id number] reviewed and appropriate. Patient denies side effects to her medication Procedure Details:: Informed consent was obtained and the risk and benefits of the procedure were explained to the patient. The patient was taken to the procedure room where noninvasive monitoring was placed including noninvasive blood pressure cuff and pulse oximeter. Patient's pump was interrogated. The area over the pump was cleansed with chlorhexidine as a cleansing solution. In sterile fashion the pump was accessed with a 22-gauge needle. Approximately 4.5 mL's were removed of the pump solution and discarded appropriately. The pump was then refilled with 20 mL's of hydromorphone 5 mg/mL. The needle was withdrawn and a bandage was placed over the puncture site. The infusion rate was reprogrammed to 0.11 mg every 2 hours. The patient tolerated the procedure well. Plan and Disposition:: I will follow up with the patient at her next intrathecal pain pump refill and reprogram she has been instructed to call the office if she has any issues prior to her next appointment. Dr. Peoples has reviewed this note and agrees with this plan of care. This note was dictated using voice recognition software and may contain errors or omissions
[2020-06-21 14:01] VITALS: BP 147/65; PULSE 92; RESP 18; O2SAT 98
[2020-06-21 14:12] VITALS: BP 153/71; PULSE 94; RESP 20; O2SAT 98
== END 2020-06-21 14:13 | disposition home or self-care (01) ==
LOC: SC.PAINP 13:32
PROVIDERS: PCP Family Medicine; Visit Provider Clinical Nurse Specialist Family Health
DX: M51.16 Intervertebral disc disorders with radiculopathy, lumbar region (principal); Z45.1 Encounter for adjustment and management of infusion pump; E78.5 Hyperlipidemia, unspecified; I10 Essential (primary) hypertension; E11.9 Type 2 diabetes mellitus without complications; K76.9 Liver disease, unspecified; Z88.2 Allergy status to sulfonamides; Z88.6 Allergy status to analgesic agent; Z88.8 Allergy status to other drugs, medicaments and biological substances
CPT/HCPCS: 62370

== ENCOUNTER → 2020-06-29 09:16 | Outpatient (CLI) | payer MEDICARE, SELFPAY ==
[2020-06-29 10:09] LABS: Iron 48 ug/dL (37-170)
[2020-06-29 10:18] LABS: Total Iron Binding Capacity 413 ug/dL (265-497)
[2020-06-29 10:59] LABS: Vitamin B12 890 pg/mL (239-931)
[2020-07-01 09:19] LABS: Peripheral Smear Review Scanned Result
== END ==
PROVIDERS: Visit Provider Internal Medicine Adolescent Medicine
DX: D64.9 Anemia, unspecified (principal)
CPT/HCPCS: 36415; 82607; 83540; 83550

== ENCOUNTER 2020-08-20 09:32 | Day surgery (SDC) | payer MEDICARE, SELFPAY ==
[2020-08-20 09:51] VITALS: BP 165/75; PULSE 88; RESP 18; TEMP 36.4; O2SAT 99; BMI 34.7
[2020-08-20 10:15] VITALS: BP 134/80; PULSE 86; RESP 18; O2SAT 100
[2020-08-20 10:16] VITALS: BP 134/80; RESP 8
[2020-08-20 10:45] VITALS: BP 150/64; PULSE 78; RESP 18; O2SAT 98
--- NOTE | 2020-08-20 11:19 | HMH.PMPROC ---
- Procedure Date: 08/20/20 Time: 11:19 Anesthesiologist:: Brandi Barth MD Complications:: None Pre-procedure Diagnosis:: Lumbar radiculopathy, degenerative disc disease of the lumbar spine Post-procedure Diagnosis:: Same Indications for Procedure:: This patient is a very pleasant 60-year-old white female who presents today for intrathecal pump refill and reprogram. She is currently on Dilaudid 5 mg/mL on the periodic flow setting with 0.11 mg 12 times a day, with a daily dose of 1.32 mg/day. She reports that this current dose is working well for her in regards to managing her chronic pain. The plan for today is for her to undergo intrathecal pump refill and reprogram. We will increase her concentration from Dilaudid 5 mg/mL to Dilaudid 10 mg/mL; however we will keep the daily dose at 1.32 mg/day. Due to the concentration change, we will have to switch her back from periodic flow to continuous flow Procedure Details:: Informed consent was obtained and the risks and benefits of the procedure was explained to the patient. The patient was taken to the procedure room. The pump was interrogated. The area over the pump was prepped using ChloraPrep. The pump was accessed with a 22-gauge needle. Approximately 5 mL's of the intrathecal solution was withdrawn and discarded. The pump was then refilled with 20 mL's of intrathecal Dilaudid 10 mg/mL. The pump was interrogated and the infusion was [increased from Dilaudid 5 mg/mL to Dilaudid 10 mg/mL, and switched from periodic to continuous flow]. The patient tolerated the procedure well with no complication. Plan and Disposition:: We will follow-up with the patient in 2 weeks. Will reevaluate symptoms at that time. If the patient's pain worsens, we can switch her back to periodic flow.
== END 2020-08-20 10:45 | disposition home or self-care (01) ==
LOC: SC.PAINP 09:34
PROVIDERS: PCP Family Medicine; Visit Provider Anesthesiology Pain Medicine
DX: M51.16 Intervertebral disc disorders with radiculopathy, lumbar region (principal); Z45.1 Encounter for adjustment and management of infusion pump
CPT/HCPCS: 62370

== ENCOUNTER → 2020-08-27 12:08 | Outpatient (POV) | payer MEDICARE, SELFPAY ==
[2020-08-27 13:38] VITALS: BP 176/57; PULSE 89; TEMP 36.4; O2SAT 97; BMI 34.7
--- NOTE | 2020-08-27 14:49 | HMH.PMPROC ---
- Procedure Date: 08/27/20 Time: 14:50 Anesthesiologist:: Brandi Barth MD Complications:: None Pre-procedure Diagnosis:: Degenerative disc disease of the lumbar spine, lumbar radiculopathy Post-procedure Diagnosis:: Same Indications for Procedure:: This patient is a very pleasant 61-year-old white female who we have been treating for low back pain radiating into both legs. She currently has an intrathecal pain pump with a flow Edson system and is currently on Dilaudid 10 mg/mL with a daily dose of 1.32 mg/day. Today she presents for follow-up and pump adjustment. Today the plan is for her to undergo intrathecal pump reprogram and adjustment. We will increase her daily dose by 20% and continue continuous flow setting. Procedure Details:: Was obtained and the risks and benefits of the procedure were explained to the patient. Patient was taken to the procedure room. The pump was interrogated and the infusion was increased 20%. She was increased from Dilaudid 10 mg/mL to 1.32 mg/day to Dilaudid 10 mg/mL 1.58 mg/day. She remains on continuous flow setting. Her reservoir volume is 18.8 mL. Her next refill date is December 05, 2020. Plan and Disposition:: Follow-up with the patient next week. We will reevaluate her pain symptoms and increase her pump by an additional 20% next week if necessary.
== END ==
PROVIDERS: PCP Family Medicine; Visit Provider Anesthesiology Pain Medicine
DX: M51.16 Intervertebral disc disorders with radiculopathy, lumbar region (principal); Z45.1 Encounter for adjustment and management of infusion pump
CPT/HCPCS: 99212; G0463

== ENCOUNTER → 2020-09-07 08:27 | Outpatient (CLI) | payer MEDICARE, SELFPAY ==
[2020-09-07 09:03] LABS: Basophils % 0.6 % (0.1-2.0); Eosinophils # 0.1 K/mm3 (0.0-0.4); Eosinophils % 2.2 % (0.1-12.0); Hematocrit 31.6 % (37.0-47.0); Hemoglobin 9.7 g/dL (12.2-16.2); Lymphocytes # 1.1 K/mm3 (0.7-4.5); Lymphocytes % 42.3 % (10-50); Mean Corpuscular HGB Conc 30.6 g/dL (31.8-35.4); Mean Corpuscular Hemoglobin 25.3 pg (27.0-31.2); Mean Corpuscular Volume 82.7 fl (81-99); Mean Platelet Volume 9.2 fl (7.4-10.4); Monocytes # 0.3 K/mm3 (0.1-1.0); Monocytes % 12.1 % (1.7-9.3); Neutrophils # 1.1 K/mm3 (1.8-7.8); Neutrophils % 42.8 % (37.0-80.0); Platelet Count 104 K/mm3 (142-424); Red Blood Count 3.83 M/mm3 (4.20-5.40); Red Cell Distribution Width 17.8 % (11.5-17.5); White Blood Count 2.5 K/mm3 (4.8-10.8)
[2020-09-07 09:07] LABS: Ammonia 57 umol/L (9-30)
[2020-09-07 09:57] LABS: Prothrombin Time 13.3 seconds (10.1-12.5)
[2020-09-07 10:00] LABS: Chloride 108 mmol/L (98-107); Potassium 4.8 mmoL/L (3.5-5.1); Sodium 142 mmol/L (136-145)
[2020-09-07 10:03] LABS: Alanine Aminotransferase 17 U/L (12-78); Albumin Level 3.5 g/dl (3.5-5.0); Albumin/Globulin Ratio 0.9 (1.1-1.8); Alkaline Phosphatase 249 U/L (38-126); Anion Gap 10.8 mEq/L (5-15); Aspartate Amino Transferase 54 U/L (14-36); Bilirubin,Total 1.6 mg/dl (0.2-1.3); Blood Urea Nitrogen 9 mg/dl (7-17); Calcium 8.8 mg/dl (8.4-10.2); Carbon Dioxide 28 mmol/L (22.0-30.0); Estimated Glomerular Filt Rate 102 ml/min (>60); GFR (African American) 123 ML/MIN (>60); Globulin 4.1 g/dL (1.3-3.2); Glucose 125 mg/dl (74-100); Iron 75 ug/dL (37-170); Total Protein,Serum 7.6 g/dl (6.3-8.2)
[2020-09-07 10:12] LABS: Total Iron Binding Capacity 452 ug/dL (265-497)
[2020-09-07 10:36] LABS: INR 1.14 (0.9-1.1)
[2020-09-07 10:38] LABS: Ferritin 12.9 ng/ml (11.1-264)
[2020-09-08 11:19] LABS: AFP, Tumor Marker 4.2 ng/mL (0.0-8.3)
== END ==
PROVIDERS: Visit Provider Internal Medicine Gastroenterology
DX: E88.01 Alpha-1-antitrypsin deficiency (principal); K74.69 Other cirrhosis of liver; K72.90 Hepatic failure, unspecified without coma; K76.6 Portal hypertension; K90.0 Celiac disease; D64.9 Anemia, unspecified
CPT/HCPCS: 36415; 80053; 82105; 82140; 82728; 83540; 83550; 85025; 85610

== ENCOUNTER → 2020-09-21 11:11 | Outpatient (CLI) | payer MEDICARE, SELFPAY ==
[2020-09-21 12:14] LABS: Hemoglobin A1C 6.1 % (4.0-6.0)
[2020-09-21 13:17] LABS: Free Thyroxine Index 4.7 ug/dL (5.93-13.13); T4 (Thyroxine) 13.9 ug/dl (5.53-11.0); Triiodothryronine (T3) Uptake 34 % (23.5-40.5)
[2020-09-21 13:31] LABS: Thyroid Stimulating Hormone 1.19 uIU/mL (0.465-4.68)
[2020-09-21 13:32] LABS: Vitamin B12 911 pg/mL (239-931)
== END ==
PROVIDERS: Visit Provider Internal Medicine Adolescent Medicine
DX: E03.9 Hypothyroidism, unspecified (principal); D64.9 Anemia, unspecified; E11.9 Type 2 diabetes mellitus without complications; Z79.4 Long term (current) use of insulin
CPT/HCPCS: 36415; 82607; 83036; 84436; 84443; 84479

== ENCOUNTER → 2020-11-02 11:18 | Outpatient (CLI) | payer MEDICARE, SELFPAY ==
[2020-11-02 11:45] LABS: Basophils % 0.1 % (0.1-2.0); Eosinophils % 0.3 % (0.1-12.0); Hematocrit 34.3 % (37.0-47.0); Hemoglobin 9.9 g/dL (12.2-16.2); Lymphocytes # 0.8 K/mm3 (0.7-4.5); Mean Corpuscular HGB Conc 28.9 g/dL (31.8-35.4); Mean Corpuscular Hemoglobin 25.8 pg (27.0-31.2); Mean Corpuscular Volume 89.3 fl (81-99); Mean Platelet Volume 10.4 fl (7.4-10.4); Monocytes # 0.4 K/mm3 (0.1-1.0); Monocytes % 9.8 % (1.7-9.3); Neutrophils # 2.7 K/mm3 (1.8-7.8); Neutrophils % 68.8 % (37.0-80.0); Platelet Count 106 K/mm3 (142-424); Red Blood Count 3.84 M/mm3 (4.20-5.40); Red Cell Distribution Width 16.8 % (11.5-17.5); White Blood Count 3.9 K/mm3 (4.8-10.8)
[2020-11-02 11:55] LABS: Ammonia 10 umol/L (9-30)
[2020-11-02 13:50] LABS: Alanine Aminotransferase 27 U/L (12-78); Albumin Level 2.9 g/dl (3.5-5.0); Albumin/Globulin Ratio 0.8 (1.1-1.8); Alkaline Phosphatase 187 U/L (38-126); Anion Gap 8.1 mEq/L (5-15); Aspartate Amino Transferase 48 U/L (14-36); Bilirubin,Total 1.1 mg/dl (0.2-1.3); Blood Urea Nitrogen 8 mg/dl (7-17); Calcium 8.2 mg/dl (8.4-10.2); Carbon Dioxide 34 mmol/L (22.0-30.0); Chloride 103 mmol/L (98-107); Estimated Glomerular Filt Rate 125 ml/min (>60); GFR (African American) 152 ML/MIN (>60); Globulin 3.6 g/dL (1.3-3.2); Glucose 277 mg/dl (74-100); Potassium 4.1 mmoL/L (3.5-5.1); Sodium 141 mmol/L (136-145); Total Protein,Serum 6.5 g/dl (6.3-8.2)
== END ==
PROVIDERS: Visit Provider Internal Medicine Gastroenterology
DX: K74.69 Other cirrhosis of liver (principal); E88.01 Alpha-1-antitrypsin deficiency; D64.9 Anemia, unspecified; K72.90 Hepatic failure, unspecified without coma; K90.0 Celiac disease; K76.6 Portal hypertension; K75.4 Autoimmune hepatitis
CPT/HCPCS: 36415; 80053; 82140; 85025

== ENCOUNTER → 2020-11-13 09:21 | Outpatient (CLI) | payer MEDICARE, SELFPAY ==
[2020-11-13 10:33] LABS: Creatinine,Urine Random 103 mg/dL (Not Estab.); Microalbumin/Creatinine Ratio 8.7
[2020-11-13 10:48] LABS: Basophils % 0.3 % (0.1-2.0); Eosinophils % 0.1 % (0.1-12.0); Hematocrit 38.5 % (37.0-47.0); Lymphocytes # 1.2 K/mm3 (0.7-4.5); Lymphocytes % 22.3 % (10-50); Mean Corpuscular HGB Conc 28.6 g/dL (31.8-35.4); Mean Corpuscular Hemoglobin 25.5 pg (27.0-31.2); Mean Platelet Volume 8.8 fl (7.4-10.4); Monocytes # 0.4 K/mm3 (0.1-1.0); Monocytes % 6.7 % (1.7-9.3); Neutrophils # 3.7 K/mm3 (1.8-7.8); Neutrophils % 70.6 % (37.0-80.0); Platelet Count 141 K/mm3 (142-424); Red Blood Count 4.33 M/mm3 (4.20-5.40); Red Cell Distribution Width 17.1 % (11.5-17.5); White Blood Count 5.2 K/mm3 (4.8-10.8)
[2020-11-13 11:04] LABS: Alanine Aminotransferase 33 U/L (12-78); Albumin Level 3.2 g/dl (3.5-5.0); Albumin/Globulin Ratio 0.8 (1.1-1.8); Alkaline Phosphatase 217 U/L (38-126); Anion Gap 6.9 mEq/L (5-15); Aspartate Amino Transferase 54 U/L (14-36); Bilirubin,Total 1.7 mg/dl (0.2-1.3); Blood Urea Nitrogen 14 mg/dl (7-17); Calcium 8.7 mg/dl (8.4-10.2); Carbon Dioxide 39 mmol/L (22.0-30.0); Chloride 100 mmol/L (98-107); Chol/HDL Ratio 3.4 (1-3.5); Cholesterol 228 mg/dl (140-200); Estimated Glomerular Filt Rate 125 ml/min (>60); GFR (African American) 152 ML/MIN (>60); Globulin 4.1 g/dL (1.3-3.2); Glucose 168 mg/dl (74-100); HDL Cholesterol 67 mg/dl (40-60); Sodium 143 mmol/L (136-145); Total Protein,Serum 7.3 g/dl (6.3-8.2); Triglycerides 123 mg/dl (30-150); VLDL Cholesterol 25 mg/dL (0-40)
[2020-11-13 11:08] LABS: Potassium 2.9 mmoL/L (3.5-5.1)
[2020-11-13 11:15] LABS: Direct LDL Cholesterol 92.93 mg/dL (100-129)
[2020-11-13 11:21] LABS: Free T4 (Free Thyroxine) 2.49 ng/dl (0.78-2.19)
[2020-11-13 11:23] LABS: 25-OH Vitamin D, Total 33.4 ng/mL (30-100)
[2020-11-13 11:38] LABS: Thyroid Stimulating Hormone 0.17 uIU/mL (0.465-4.68)
== END ==
PROVIDERS: Visit Provider Internal Medicine Endocrinology, Diabetes & Metabolism
DX: E11.29 Type 2 diabetes mellitus with other diabetic kidney complication (principal); E11.65 Type 2 diabetes mellitus with hyperglycemia; E89.0 Postprocedural hypothyroidism; E55.9 Vitamin D deficiency, unspecified; Z79.4 Long term (current) use of insulin
CPT/HCPCS: 36415; 80053; 80061; 82043; 82306; 82570; 84439; 84443; 85025

== ENCOUNTER → 2020-11-23 15:04 | Outpatient (CLI) | payer MEDICARE, SELFPAY ==
[2020-11-23 16:21] LABS: Chloride 98 mmol/L (98-107); Potassium 3.3 mmoL/L (3.5-5.1); Sodium 142 mmol/L (136-145)
[2020-11-23 16:24] LABS: Anion Gap 11.3 mEq/L (5-15); Blood Urea Nitrogen 15 mg/dl (7-17); Calcium 8.6 mg/dl (8.4-10.2); Carbon Dioxide 36 mmol/L (22.0-30.0); Estimated Glomerular Filt Rate 102 ml/min (>60); GFR (African American) 123 ML/MIN (>60); Glucose 298 mg/dl (74-100)
== END ==
PROVIDERS: Visit Provider Internal Medicine Endocrinology, Diabetes & Metabolism
DX: E11.29 Type 2 diabetes mellitus with other diabetic kidney complication (principal); E11.65 Type 2 diabetes mellitus with hyperglycemia
CPT/HCPCS: 36415; 80048

== ENCOUNTER 2020-11-29 13:18 | Day surgery (SDC) | payer MEDICARE, SELFPAY ==
[2020-11-29 13:57] VITALS: BP 176/78; PULSE 93; RESP 18; TEMP 36.4; O2SAT 99; BMI 38.0
[2020-11-29 14:07] VITALS: BP 177/82; PULSE 89; RESP 18; O2SAT 97
[2020-11-29 14:08] VITALS: BP 188/95; PULSE 85; RESP 18; O2SAT 97
--- NOTE | 2020-11-29 14:18 | HMH.PMPROC ---
- Procedure Date: 11/29/20 Time: 14:18 Anesthesiologist:: Ioana Gates APRN Complications:: None Pre-procedure Diagnosis:: Degenerative disc disease lumbar spine with lumbar radiculopathy symptoms Post-procedure Diagnosis:: Same Indications for Procedure:: Patient is a pleasant 60-year-old white female who presents today for intrathecal pain pump refill and reprogram. She has been treated for degenerative disc disease lumbar spine with lumbar radiculopathy symptoms. She rates her pain at a 6 out of 10 and would like an increase in her dosing. She is currently on Dilaudid at 1.58 mg/day and denies any side effects. Urine drug screen are appropriate. We will increase her today to see if she gets relief. 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 The patient was taken to the procedure room where noninvasive monitoring was placed including noninvasive blood pressure cuff and pulse oximeter. Patient's pump was interrogated. The area over the pump was cleansed with chlorhexidine as a cleansing solution. In sterile fashion the pump was accessed with a 22-gauge needle. Approximately 4 mls of the pump solution was removed and discarded appropriately. The pump was then refilled with 20 mL's of Dilaudid 10 mg/mL. The needle was withdrawn and a bandage was placed over the puncture site. The infusion rate was reprogrammed at increased to Dilaudid 1.89 mg/day. The patient tolerated well with no complication. Plan and Disposition:: We will see the patient back in the clinic at the next intrathecal refill. Patient has been instructed to contact the clinic with any concerns before the next appointment. Dr. Peoples has reviewed this note and agrees with this plan of care. This note was dictated using voice recognition software and make contain errors or omissions.
[2020-11-29 14:25] VITALS: BP 164/78; PULSE 85; RESP 20; O2SAT 99
== END 2020-11-29 14:26 | disposition home or self-care (01) ==
LOC: SC.PAINP 13:19
PROVIDERS: PCP Internal Medicine Adolescent Medicine; Visit Provider Clinical Nurse Specialist Family Health
DX: M51.16 Intervertebral disc disorders with radiculopathy, lumbar region (principal); Z45.1 Encounter for adjustment and management of infusion pump
CPT/HCPCS: 62370

== ENCOUNTER → 2020-11-30 10:46 | Outpatient (CLI) | payer MEDICARE, SELFPAY ==
[2020-11-30 11:42] LABS: Chloride 100 mmol/L (98-107); Potassium 3.1 mmoL/L (3.5-5.1); Sodium 144 mmol/L (136-145)
[2020-11-30 11:45] LABS: Anion Gap 9.1 mEq/L (5-15); Blood Urea Nitrogen 17 mg/dl (7-17); Calcium 8.6 mg/dl (8.4-10.2); Carbon Dioxide 38 mmol/L (22.0-30.0); Estimated Glomerular Filt Rate 85 ml/min (>60); GFR (African American) 103 ML/MIN (>60); Glucose 207 mg/dl (74-100)
== END ==
PROVIDERS: Visit Provider Internal Medicine Adolescent Medicine
DX: E87.6 Hypokalemia (principal)
CPT/HCPCS: 36415; 80048

== ENCOUNTER → 2020-12-28 09:48 | Outpatient (CLI) | payer MEDICARE, SELFPAY ==
[2020-12-28 10:09] LABS: Basophils % 0.4 % (0.1-2.0); Eosinophils % 0.2 % (0.1-12.0); Hematocrit 37.5 % (37.0-47.0); Hemoglobin 10.5 g/dL (12.2-16.2); Lymphocytes # 1.4 K/mm3 (0.7-4.5); Lymphocytes % 20.6 % (10-50); Mean Corpuscular Hemoglobin 25.6 pg (27.0-31.2); Mean Corpuscular Volume 91.6 fl (81-99); Mean Platelet Volume 8.4 fl (7.4-10.4); Monocytes # 0.5 K/mm3 (0.1-1.0); Monocytes % 6.8 % (1.7-9.3); Neutrophils # 4.9 K/mm3 (1.8-7.8); Platelet Count 148 K/mm3 (142-424); Red Blood Count 4.09 M/mm3 (4.20-5.40); Red Cell Distribution Width 18.6 % (11.5-17.5); White Blood Count 6.8 K/mm3 (4.8-10.8)
[2020-12-28 10:22] LABS: INR 1.26 (0.9-1.1)
[2020-12-28 10:23] LABS: Ammonia < 9 umol/L (9-30)
[2020-12-28 11:02] LABS: Magnesium 1.7 mg/dl (1.6-2.3)
[2020-12-28 11:03] LABS: Alanine Aminotransferase 30 U/L (12-78); Albumin Level 2.7 g/dl (3.5-5.0); Albumin/Globulin Ratio 0.6 (1.1-1.8); Alkaline Phosphatase 217 U/L (38-126); Anion Gap 7.5 mEq/L (5-15); Aspartate Amino Transferase 55 U/L (14-36); Bilirubin,Total 1.7 mg/dl (0.2-1.3); Blood Urea Nitrogen 15 mg/dl (7-17); Calcium 8.7 mg/dl (8.4-10.2); Carbon Dioxide 34 mmol/L (22.0-30.0); Chloride 102 mmol/L (98-107); Estimated Glomerular Filt Rate 85 ml/min (>60); GFR (African American) 103 ML/MIN (>60); Globulin 4.4 g/dL (1.3-3.2); Glucose 167 mg/dl (74-100); Potassium 4.5 mmoL/L (3.5-5.1); Sodium 139 mmol/L (136-145); Total Protein,Serum 7.1 g/dl (6.3-8.2)
== END ==
PROVIDERS: Internal Medicine Adolescent Medicine; Visit Provider Internal Medicine Gastroenterology
DX: E88.01 Alpha-1-antitrypsin deficiency (principal); I10 Essential (primary) hypertension; K74.69 Other cirrhosis of liver; K75.4 Autoimmune hepatitis
CPT/HCPCS: 36415; 80053; 82140; 83735; 85025; 85610

== ENCOUNTER → 2021-01-21 15:08 | Outpatient (CLI) | payer MEDICARE, SELFPAY ==
[2021-01-21 20:06] LABS: Anion Gap 11.3 mEq/L (5-15); Blood Urea Nitrogen 30 mg/dl (7-17); Calcium 8.9 mg/dl (8.4-10.2); Carbon Dioxide 30 mmol/L (22.0-30.0); Chloride 95 mmol/L (98-107); Estimated Glomerular Filt Rate 50 ml/min (>60); GFR (African American) 61 ML/MIN (>60); Glucose 330 mg/dl (74-100); Potassium 5.3 mmoL/L (3.5-5.1); Sodium 131 mmol/L (136-145)
[2021-01-21 21:16] LABS: Hemoglobin A1C 6.5 % (4.0-6.0)
== END ==
PROVIDERS: Visit Provider Internal Medicine Adolescent Medicine
DX: I10 Essential (primary) hypertension (principal); E11.9 Type 2 diabetes mellitus without complications; Z79.4 Long term (current) use of insulin
CPT/HCPCS: 36415; 80048; 83036

== ENCOUNTER 2021-02-06 20:47 | Emergency (ER) | payer MEDICARE, SELFPAY ==
[2021-02-06 20:49] VITALS: BP 142/73; PULSE 95; RESP 18; TEMP 36.8; O2SAT 99; BMI 32.5
--- NOTE | 2021-02-06 21:18 | CT_ITS ---
PROCEDURE INFORMATION: Exam: CT Abdomen And Pelvis Without Contrast Exam date and time: 02/06/2021 9:18 PM Age: 60 years old Clinical indication: Abdominal pain; Other: Back pain radiating around to lower abdomen; Prior surgery; Surgery date: 6+ months; Surgery type: Gb , hysterectomy, hernia, pain pump, diabetic sensor device; Additional info: Back pain radiates to low abd TECHNIQUE: Imaging protocol: Computed tomography of the abdomen and pelvis without contrast. Radiation optimization: All CT scans at this facility use at least one of these dose optimization techniques: automated exposure control; mA and/or kV adjustment per patient size (includes targeted exams where dose is matched to clinical indication); or iterative reconstruction. COMPARISON: CT ABDOMEN PELVIS WO/W CON 01/26/2020 2:58 AM FINDINGS: Liver: Cirrhotic liver with nodular contour. Gallbladder and bile ducts: Cholecystectomy. Pancreas: Normal. No ductal dilation. Spleen: Normal. No splenomegaly. Adrenal glands: Normal. No mass. Kidneys and ureters: Normal. No hydronephrosis. Stomach and bowel: Constipation. No colitis. No small bowel obstruction. Appendix: Appendix not clearly seen but no secondary signs of appendicitis. Intraperitoneal space: There is stranding in the mid abdominal mesentery. Mild amount of free fluid. Vasculature: Unremarkable. No abdominal aortic aneurysm. Lymph nodes: Unremarkable. No enlarged lymph nodes. Urinary bladder: Unremarkable as visualized. Reproductive: Unremarkable as visualized. Bones/joints: Chronic L1 fracture. Posterior lumbar fusion L5-S1. Soft tissues: There is a small right paraumbilical hernia containing a small amount of fluid. No bowel herniation. IMPRESSION: 1. No acute intra-abdominal or intrapelvic abnormality. 2. Cirrhosis. 3. Cholecystectomy. 4. No obstructive uropathy. 5. No colitis or small bowel obstruction.
--- NOTE | 2021-02-06 21:22 | HMH.EDNVD ---
ED Disposition Clinical Impression: Abdominal pain Qualifiers: Abdominal location: left lower quadrant Qualified Code(s): R10.32 - Left lower quadrant pain Disposition: Home, Self-Care Condition on Discharge: Good Instructions: DI for Acute Abdominal Pain Additional Instructions: call pcp in am Referrals: Sumanth Puentes MD [Primary Care Provider] - - Critical Care Critical Care Time: No Attestation: On 02/06/21, the high probability of a clinically significant, sudden or life threatening deterioration of the following system(s) required my full and direct attention, intervention and personal management. The time I documented below is in addition to time spent performing reported procedures but includes the following listed in this critical care notation. Medical Decision Making - Medical Records Medical records reviewed: Yes: I reviewed the patient's medical records. - Chris Inquiry Pt receiving controlled substance: No Vital Signs: 02/06/21 20:49 Temperature 98.3 F Temperature Source Oral Pulse Rate [Right] 95 H Respiratory Rate 18 Blood Pressure [Right Arm] 142/73 H Blood Pressure Mean [Right Arm] 96 Blood Pressure Source [Right Arm] Automatic Cuff 02 Sat by Pulse Oximetry 99 Oxygen Delivery Method Room Air - Lab Data Lab results reviewed: Yes: I reviewed the patient's lab results. Lab Results 02/06/21 20:55: Urine Color Yellow, Urine Appearance Sl cloudy, Urine pH 5.5, Ur Specific [place] 1.025, Urine Protein Negative, Urine Glucose (UA) Negative, Urine Ketones Trace, Urine Blood 1+, Urine Nitrate Negative, Urine Bilirubin Negative, Urine Urobilinogen 0.2, Ur Leukocyte Esterase Negative, Urine RBC 3-5, Urine WBC 5-10, Ur Squamous Epith Cells 20-50, Urine Bacteria 3+, Urine Mucus 2+ 02/06/21 21:11: WBC 6.2, RBC 3.52 L, Hgb 10.1 L, Hct 32.7 L, MCV 93.1, MCH 28.7, MCHC 30.8 L, RDW 18.5 H, Plt Count 197, MPV 8.2, Neut % (Auto) 47.0, Lymph % (Auto) 39.7, [place] % (Auto) 10.6 H, Eos % (Auto) 1.6, Baso % (Auto) 1.1, Neut # (Auto) 2.9, Lymph # (Auto) 2.4, [place] # (Auto) 0.7, Eos # (Auto) 0.1, Baso # (Auto) 0.1, ESR 123 H 02/06/21 21:11: Sodium 135 L, Potassium 5.1, Chloride 101, Carbon Dioxide 29, Anion Gap 10.1, BUN 19 H, Creatinine 1.20 H, Estimated Creat Clear 71, Estimated GFR 46 L, Est GFR ( Amer) 55 L, Glucose 65 L, Calcium 8.9, Total Bilirubin 0.8, AST 89 H, ALT 22, Alkaline Phosphatase 266 H, Troponin I < 0.01, C-Reactive Protein 15.7 H, Total Protein 7.5, Albumin 3.2 L, Globulin 4.3 H, Albumin/Globulin Ratio 0.7 L, Amylase 75, Lipase 148 02/06/21 21:11: Procalcitonin 0.376, TSH 0.58, Thyroxine (T4) 18.9 H 02/06/21 21:11: NT-Pro-B Natriuret Pep 68.3 02/06/21 22:03: POC Glucose 60 L Result diagrams: 02/06/21 21:11 02/06/21 21:11 Orders (Tests/Meds): ED MEDICATIONS Generic Name Dose Route Start Last Admin Trade Name Freq PRN Reason Stop Dose Admin Sodium Chloride 1,000 mls @ 999 mls/hr 02/06/21 21:30 02/06/21 21:22 Sod Chlor 0.9% 1000ml Bag IV 02/06/21 22:30 999 mls/hr .Q1H1M KATJA Administration Discontinued Medications Generic Name Dose Route Start Last Admin Trade Name Freq PRN Reason Stop Dose Admin Ketorolac Tromethamine 30 mg 02/06/21 21:18 02/06/21 22:11 Ketorolac 30mg/Ml Vial IV 02/06/21 21:19 30 mg ONCE ONE Administration Ondansetron HCl 4 mg 02/06/21 21:18 02/06/21 21:20 Ondansetron 4mg/2ml Vial IV 02/06/21 21:19 4 mg ONCE ONE Administration ORDERS Category Date Time Status Troponin I Q3H Lab 02/07/21 00:30 Ordered Troponin I Q3H Lab 02/07/21 03:30 Ordered Urine Culture Stat Micro 02/06/21 20:55 Received - Radiology Data #1 Image(s): Chest Image Reviewed: Yes I have reviewed radiologist's interpretation Preliminary Findings: Normal/NAD - CT Data CT Scan: Abdomen, Pelvis Time Received: 22:[address] Reviewed: Yes: I have viewed the radiologist's interpretation Preliminary Findings: Abnormal (see report) Medical Dec
[2021-02-06 21:25] LABS: Microscopic, Urine URINE MICROSCOPIC (MICROSCOPIC)
[2021-02-06 21:32] LABS: Appearance,Urine SL CLOUDY (Clear); Bilirubin,Urine Negative (Negative); Blood, Urine 1+ (Negative); Color,Urine YELLOW (Yellow); Glucose,Urine (UA) Negative (Negative); Ketones,Urine TRACE (Negative); Leukocyte Esterase,Urine Negative (Negative); Nitrate,Urine Negative (Negative); PH,Urine 5.5 (5.0-8.5); Protein,Urine Negative (Negative); Specific Gravity, Urine 1.025 (1.005-1.030); Urobilinogen,Urine 0.2 EU/dl (0.2)
[2021-02-06 21:32] LABS: Basophils # 0.1 K/mm3 (0-0.2); Basophils % 1.1 % (0.1-2.0); Eosinophils # 0.1 K/mm3 (0.0-0.4); Eosinophils % 1.6 % (0.1-12.0); Hematocrit 32.7 % (37.0-47.0); Hemoglobin 10.1 g/dL (12.2-16.2); Lymphocytes # 2.4 K/mm3 (0.7-4.5); Lymphocytes % 39.7 % (10-50); Mean Corpuscular HGB Conc 30.8 g/dL (31.8-35.4); Mean Corpuscular Hemoglobin 28.7 pg (27.0-31.2); Mean Corpuscular Volume 93.1 fl (81-99); Mean Platelet Volume 8.2 fl (7.4-10.4); Monocytes # 0.7 K/mm3 (0.1-1.0); Monocytes % 10.6 % (1.7-9.3); Neutrophils # 2.9 K/mm3 (1.8-7.8); Platelet Count 197 K/mm3 (142-424); Red Blood Count 3.52 M/mm3 (4.20-5.40); Red Cell Distribution Width 18.5 % (11.5-17.5); White Blood Count 6.2 K/mm3 (4.8-10.8)
[2021-02-06 21:33] LABS: Chloride 101 mmol/L (98-107); Potassium 5.1 mmoL/L (3.5-5.1); Sodium 135 mmol/L (136-145)
[2021-02-06 21:35] LABS: Amylase 75 U/L (30-110)
[2021-02-06 21:36] LABS: Alanine Aminotransferase 22 U/L (12-78); Albumin Level 3.2 g/dl (3.5-5.0); Albumin/Globulin Ratio 0.7 (1.1-1.8); Alkaline Phosphatase 266 U/L (38-126); Anion Gap 10.1 mEq/L (5-15); Aspartate Amino Transferase 89 U/L (14-36); Bilirubin,Total 0.8 mg/dl (0.2-1.3); Blood Urea Nitrogen 19 mg/dl (7-17); Calcium 8.9 mg/dl (8.4-10.2); Carbon Dioxide 29 mmol/L (22.0-30.0); Creatinine Clearance Estimated 71 mL/min (50-200); Estimated Glomerular Filt Rate 46 ml/min (>60); GFR (African American) 55 ML/MIN (>60); Globulin 4.3 g/dL (1.3-3.2); Glucose 65 mg/dl (74-100); Lipase 148 U/L (23-300); Total Protein,Serum 7.5 g/dl (6.3-8.2)
[2021-02-06 21:40] LABS: Bacteria,Urine 3+ /lpf; Mucus,Urine 2+ /lpf; Squamous Epithelial Cell,Urine 20-50 #/hpf (0-5)
[2021-02-06 21:42] LABS: C-Reactive Protein 15.7 mg/L (0-4)
[2021-02-06 21:47] LABS: NT Pro Brain Natriuretic Pep. 68.3 pg/mL (0-125)
[2021-02-06 21:53] LABS: Procalcitonin 0.376 ng/mL (0.0-2.0); T4 (Thyroxine) 18.9 ug/dl (5.53-11.0)
[2021-02-06 21:56] LABS: Erythrocyte Sedimentation Rate 123 mm/hr (0-30)
[2021-02-06 21:57] LABS: Troponin I < 0.01 ng/ml (0.00-0.034)
--- NOTE | 2021-02-06 21:58 | XR_ITS ---
PROCEDURE INFORMATION: Exam: XR Chest Exam date and time: 02/06/2021 9:58 PM Age: 60 years old Clinical indication: Cough TECHNIQUE: Imaging protocol: XR of the chest. Views: 1 view. COMPARISON: CR XR CHEST 2V 01/25/2020 11:30 AM FINDINGS: Lungs: Interstitial opacities in both lungs findings which could indicate mild interstitial pneumonia. Granulomatous changes. Pleural spaces: Unremarkable. No pleural effusion. No pneumothorax. Heart/Mediastinum: Unremarkable. No cardiomegaly. Bones/joints: Unremarkable. IMPRESSION: Mild interstitial pneumonia. Correlate clinically.
[2021-02-06 22:11] LABS: Thyroid Stimulating Hormone 0.58 uIU/mL (0.465-4.68)
[2021-02-06 22:14] LABS: POC Glucose,Bedside 60 (70-110)
[2021-02-06 22:42] VITALS: BP 125/78; PULSE 78; RESP 18; TEMP 36.8; O2SAT 96
== END 2021-02-06 23:14 | disposition home or self-care (01) ==
PROVIDERS: Emergency Provider Emergency Medicine; PCP Internal Medicine Adolescent Medicine
DX: R10.32 Left lower quadrant pain (principal); R06.09 Other forms of dyspnea; E11.649 Type 2 diabetes mellitus with hypoglycemia without coma; I10 Essential (primary) hypertension; E78.5 Hyperlipidemia, unspecified
CPT/HCPCS: 71045; 74176; 80053; 81001; 82150; 82962; 83690; 83880; 84145; 84436; 84443; 84484; 85025; 85651; 86140; 87086; 96365; 96367; 96375; 99283; J2405

== ENCOUNTER → 2021-02-21 12:58 | Outpatient (CLI) | payer MEDICARE, SELFPAY ==
[2021-02-21 13:03] LABS: Microscopic, Urine URINE MICROSCOPIC (MICROSCOPIC)
[2021-02-21 13:35] LABS: Appearance,Urine CLEAR (Clear); Bilirubin,Urine Negative (Negative); Blood, Urine 1+ (Negative); Color,Urine YELLOW (Yellow); Glucose,Urine (UA) Negative (Negative); Ketones,Urine Negative (Negative); Leukocyte Esterase,Urine TRACE (Negative); Nitrate,Urine Negative (Negative); Protein,Urine Negative (Negative); Urobilinogen,Urine 0.2 EU/dl (0.2)
[2021-02-21 16:16] LABS: Bacteria,Urine Trace /lpf; RBC,Urine Occasional #/hpf (0-3)
== END ==
PROVIDERS: Visit Provider Internal Medicine Adolescent Medicine
DX: M51.36 Other intervertebral disc degeneration, lumbar region (principal)
CPT/HCPCS: 81001

== ENCOUNTER 2021-02-21 13:09 | Day surgery (SDC) | payer MEDICARE, SELFPAY ==
[2021-02-21 13:17] VITALS: BP 120/59; PULSE 82; RESP 18; TEMP 36.1; O2SAT 96; BMI 32.4
[2021-02-21 13:38] VITALS: BP 114/62; PULSE 77; RESP 18; O2SAT 98
[2021-02-21 13:39] VITALS: BP 114/62; PULSE 80; RESP 18; O2SAT 99
[2021-02-21 13:45] LABS: Barbiturates Screen,Urine Negative ng/ml (<200); Benzodiazepines Screen,Urine Negative ng/ml (<200)
[2021-02-21 13:46] LABS: Amphetamine/Metha Screen,Urine Negative ng/ml (<1000); Methadone Screen,Urine Negative ng/ml (<300)
[2021-02-21 13:47] LABS: Cannabinoid Screen,Urine Negative ng/ml (<50)
[2021-02-21 13:48] LABS: Cocaine Screen,Urine Negative ng/ml (<300); Opiate Screen,Urine Positive ng/ml (<300)
[2021-02-21 13:49] LABS: Phencyclidine Screen,Urine Negative ng/ml (<25)
--- NOTE | 2021-02-21 13:52 | P.PCN_ITS ---
- Procedure Date: 02/21/21 Time: 13:52 Anesthesiologist:: Ioana Gates APRN Complications:: None Pre-procedure Diagnosis:: Degenerative disc disease of the lumbar spine with lumbar radiculopathy symptoms Post-procedure Diagnosis:: Same Indications for Procedure:: Patient is a pleasant 60-year-old female who presents today for intrathecal pain pump [refill] [and reprogram]. The patient is being treated for degenerative disc disease of the lumbar spine with lumbar radiculopathy symptoms. Patient is currently being managed with Dilaudid 10 mg/mL at a rate of 1.89 mg/day. Chitra bruno says she has been having worsening low back pain. She would like to hold off on getting injections. Patient denies any side effects from any of these medications. Patient denies any loss of bowel and bladder functions. Patient rates pain a 8 out of 10. Drug screen is appropriate. Chris [ ] has been reviewed and is appropriate. Physical exam General: Alert and oriented x3, no acute distress, pleasant and cooperative, [on room air] Lungs: Respirations even and unlabored, symmetrical chest expansion Eyes: PERRL Musculoskeletal: Flexion and extension of lumbar [spine] somewhat guarded secondary to pain, [antalgic gait noted] Neurological: Speech clear, no gross sensory deficit Procedure Details:: Informed consent was obtained and the risk and benefits of the procedure were explained to the patient. The patient was taken to the procedure room where noninvasive monitoring was placed including noninvasive blood pressure cuff and pulse oximeter. Patient's pump was interrogated. The area over the pump was cleansed with chlorhexidine as a cleansing solution. In sterile fashion the pump was accessed with a 22-gauge needle. Approximately 4 mls of the pump solution was removed and discarded appropriately. The pump was then refilled with 20 mL's of Dilaudid 10 mg/mL. The needle was withdrawn and a bandage was placed over the puncture site. The infusion rate was reprogrammed at Dilaudid 2.07 mg/day. The patient tolerated well with no complication. Plan and Disposition:: We will see the patient back in the clinic at the next intrathecal refill. Patient has been instructed to contact the clinic with any concerns before the next appointment. Dr. Peoples has reviewed this note and agrees with this plan of care. This note was dictated using voice recognition software and make contain errors or omissions.
[2021-02-21 13:55] VITALS: BP 130/65; PULSE 85; RESP 20; O2SAT 99
== END 2021-02-21 13:56 | disposition home or self-care (01) ==
LOC: SC.PAINP 13:09
PROVIDERS: PCP Internal Medicine Adolescent Medicine; Visit Provider Clinical Nurse Specialist Family Health
DX: M51.16 Intervertebral disc disorders with radiculopathy, lumbar region (principal); Z45.1 Encounter for adjustment and management of infusion pump; J44.9 Chronic obstructive pulmonary disease, unspecified; K76.9 Liver disease, unspecified; E89.0 Postprocedural hypothyroidism; E11.9 Type 2 diabetes mellitus without complications; Z90.49 Acquired absence of other specified parts of digestive tract; Z72.0 Tobacco use; Z85.828 Personal history of other malignant neoplasm of skin
CPT/HCPCS: 62370; 80305; 81001

== ENCOUNTER → 2021-02-22 09:29 | Outpatient (CLI) | payer MEDICARE, SELFPAY ==
[2021-02-22 10:21] LABS: Basophils # 0.1 K/mm3 (0-0.2); Basophils % 1.1 % (0.1-2.0); Eosinophils # 0.1 K/mm3 (0.0-0.4); Eosinophils % 1.3 % (0.1-12.0); Hematocrit 37.7 % (37.0-47.0); Hemoglobin 11.3 g/dL (12.2-16.2); Lymphocytes # 2.3 K/mm3 (0.7-4.5); Lymphocytes % 34.8 % (10-50); Mean Corpuscular HGB Conc 29.9 g/dL (31.8-35.4); Mean Corpuscular Volume 93.4 fl (81-99); Mean Platelet Volume 8.1 fl (7.4-10.4); Monocytes # 0.6 K/mm3 (0.1-1.0); Neutrophils # 3.5 K/mm3 (1.8-7.8); Neutrophils % 53.8 % (37.0-80.0); Platelet Count 186 K/mm3 (142-424); Red Blood Count 4.04 M/mm3 (4.20-5.40); Red Cell Distribution Width 17.8 % (11.5-17.5); White Blood Count 6.5 K/mm3 (4.8-10.8)
[2021-02-22 10:26] LABS: Magnesium 1.5 mg/dl (1.6-2.3)
[2021-02-22 10:26] LABS: INR 1.21 (0.9-1.1); Prothrombin Time 13.5 seconds (10.1-12.5)
[2021-02-22 10:27] LABS: Alanine Aminotransferase 17 U/L (12-78); Albumin/Globulin Ratio 0.7 (1.1-1.8); Alkaline Phosphatase 204 U/L (38-126); Anion Gap 8.8 mEq/L (5-15); Aspartate Amino Transferase 66 U/L (14-36); Bilirubin,Total 1.2 mg/dl (0.2-1.3); Blood Urea Nitrogen 15 mg/dl (7-17); Carbon Dioxide 32 mmol/L (22.0-30.0); Chloride 101 mmol/L (98-107); Estimated Glomerular Filt Rate 64 ml/min (>60); GFR (African American) 77 ML/MIN (>60); Globulin 4.1 g/dL (1.3-3.2); Glucose 104 mg/dl (74-100); Potassium 4.8 mmoL/L (3.5-5.1); Sodium 137 mmol/L (136-145); Total Protein,Serum 7.1 g/dl (6.3-8.2)
[2021-02-22 15:56] LABS: Chloride 102 mmol/L (98-107); Potassium 4.9 mmoL/L (3.5-5.1); Sodium 140 mmol/L (136-145)
[2021-02-22 15:58] LABS: Alanine Aminotransferase 25 U/L (12-78); Aspartate Amino Transferase 46 U/L (14-36); Blood Urea Nitrogen 18 mg/dl (7-17); Estimated Glomerular Filt Rate 85 ml/min (>60); GFR (African American) 103 ML/MIN (>60)
[2021-02-22 15:59] LABS: Albumin Level 4.6 g/dl (3.5-5.0); Albumin/Globulin Ratio 1.6 (1.1-1.8); Alkaline Phosphatase 120 U/L (38-126); Anion Gap 16.9 mEq/L (5-15); Bilirubin,Total 0.6 mg/dl (0.2-1.3); Calcium 9.3 mg/dl (8.4-10.2); Carbon Dioxide 26 mmol/L (22.0-30.0); Cholesterol 140 mg/dl (140-200); Globulin 2.8 g/dL (1.3-3.2); Glucose 56 mg/dl (74-100); HDL Cholesterol 35 mg/dl (40-60); Total Protein,Serum 7.4 g/dl (6.3-8.2); Triglycerides 169 mg/dl (30-150); VLDL Cholesterol 34 mg/dL (0-40)
[2021-02-22 16:11] LABS: Direct LDL Cholesterol 82.26 mg/dL (100-129)
== END ==
PROVIDERS: Internal Medicine Gastroenterology; Visit Provider Internal Medicine Adolescent Medicine
DX: I10 Essential (primary) hypertension (principal); E88.01 Alpha-1-antitrypsin deficiency; D64.9 Anemia, unspecified; K90.0 Celiac disease; K74.69 Other cirrhosis of liver; Z79.891 Long term (current) use of opiate analgesic
CPT/HCPCS: 36415; 80053; 80061; 83735; 85025; 85610

== ENCOUNTER 2021-03-20 13:32 | Emergency (ER) | payer MEDICARE, SELFPAY ==
[2021-03-20 13:33] VITALS: BP 149/74; PULSE 85; RESP 20; TEMP 36.9; O2SAT 99; BMI 31.3
--- NOTE | 2021-03-20 14:03 | HMH.EDGENADL ---
ED Disposition Clinical Impression: Dizziness, Nausea, Cough Chronic back pain Qualifiers: Back pain location: low back pain Back pain laterality: unspecified Sciatica presence: unspecified whether sciatica present Qualified Code(s): M54.50 - Low back pain, unspecified; G89.29 - Other chronic pain Disposition: Home, Self-Care Condition on Discharge: Good Instructions: DI for Low Back Pain, DI for Dizziness-Nonvertigo, DI for Nausea -- Adult Additional Instructions: Take Levaquin as prescribed. Radiologist thinks she might have an early pneumonia in your left lung. Follow-up with your primary care doctor tomorrow, call the office. Zofran as needed for nausea. Rest and drink plenty of fluids. Follow-up with your pain management doctor tomorrow for back pain, call the office. Prescriptions: levoFLOXacin [Levaquin 500mg tab] 500 mg PO DAILY #9 tab Transmission Status: Pending to [facility] Ondansetron [Zofran 4mg ODT] 4 mg PO TIDP PRN #10 tab PRN Reason: Nausea And Vomiting Transmission Status: Pending to [facility] Referrals: Sumanth Puentes MD [Primary Care Provider] - - Critical Care Critical Care Time: No Attestation: On 03/20/21, the high probability of a clinically significant, sudden or life threatening deterioration of the following system(s) required my full and direct attention, intervention and personal management. The time I documented below is in addition to time spent performing reported procedures but includes the following listed in this critical care notation. Medical Decision Making - Medical Records Medical records reviewed: Yes: I reviewed the patient's medical records. MR Comment: Reviewed last pain clinic appointment note 02/21/2021. She was complaining of increased back pain at that time. Reviewed emergency department note from 02/06/2021, seen for the same symptoms she has today. Work-up unremarkable, including CT abdomen pelvis. Treated with a dose of intravenous Toradol, I discussed this with her and she thinks that it did help. - Chris Inquiry Pt receiving controlled substance: No Vital Signs: 03/20/21 13:33 Temperature 98.4 F Temperature Source Oral Pulse Rate [Right Radial] 85 Respiratory Rate 20 Blood Pressure [Right Arm] 149/74 H Blood Pressure Mean [Right Arm] 99 Blood Pressure Source [Right Arm] Automatic Cuff Blood Pressure Position [Right Arm] Sitting 02 Sat by Pulse Oximetry 99 Oxygen Delivery Method Room Air - Lab Data Lab Results 03/20/21 14:00: Urine Color Yellow, Urine Appearance Clear, Urine pH 6.5, Ur Specific [place] 1.020, Urine Protein Negative, Urine Glucose (UA) Negative, Urine Ketones Negative, Urine Blood Negative, Urine Nitrate Negative, Urine Bilirubin Negative, Urine Urobilinogen 0.2, Ur Leukocyte Esterase 1+ A, Urine RBC None, Urine WBC 3-5, Ur Squamous Epith Cells Occasional, Urine Bacteria Trace 03/20/21 14:25: WBC 6.0, RBC 3.90 L, Hgb 11.0 L, Hct 35.7 L, MCV 91.7, MCH 28.3, MCHC 30.8 L, RDW 17.0, Plt Count 157, MPV 8.5, Neut % (Auto) 52.0, Lymph % (Auto) 34.6, [place] % (Auto) 10.9 H, Eos % (Auto) 1.2, Baso % (Auto) 1.2, Neut # (Auto) 3.1, Lymph # (Auto) 2.1, [place] # (Auto) 0.7, Eos # (Auto) 0.1, Baso # (Auto) 0.1 03/20/21 14:25: Sodium 136, Potassium 3.9, Chloride 101, Carbon Dioxide 28, Anion Gap 10.9, BUN 16, Creatinine 0.80, Estimated Creat Clear 81, Estimated GFR 73, Est GFR ( Amer) 88, Glucose 111 H, Calcium 9.2, Total Bilirubin 1.1, AST 53 H, ALT 14, Alkaline Phosphatase 172 H, Troponin I < 0.01, Total Protein 7.6, Albumin 3.2 L, Globulin 4.4 H, Albumin/Globulin Ratio 0.7 L 03/20/21 14:25: SARS-CoV-2 (PCR) Not detected, Influenza A Untype (PCR) Not detected, Influenza Type B (PCR) Not detected Result diagrams: 03/20/21 14:25 03/20/21 14:25 Orders (Tests/Meds): ED MEDICATIONS Discontinued Medications Generic Name Dose Route Start Last Admin Trade Name Freq PRN Reason Stop Dose Admin Ketorolac
[2021-03-20 14:06] LABS: Microscopic, Urine URINE MICROSCOPIC (MICROSCOPIC)
[2021-03-20 14:09] LABS: Appearance,Urine CLEAR (Clear); Bilirubin,Urine Negative (Negative); Blood, Urine Negative (Negative); Color,Urine YELLOW (Yellow); Glucose,Urine (UA) Negative (Negative); Ketones,Urine Negative (Negative); Leukocyte Esterase,Urine 1+ (Negative); Nitrate,Urine Negative (Negative); PH,Urine 6.5 (5.0-8.5); Protein,Urine Negative (Negative); Urobilinogen,Urine 0.2 EU/dl (0.2)
--- NOTE | 2021-03-20 14:20 | XR_ITS ---
PROCEDURE INFORMATION: Exam: XR Chest Exam date and time: 03/20/2021 2:20 PM Age: 61 years old Clinical indication: Patient HX: Cough for a week, shortness of breath. TECHNIQUE: Imaging protocol: XR of the chest. Views: 1 view. COMPARISON: CR XR CHEST PORTABLE 02/06/2021 10:09 PM FINDINGS: Airway: Patent Lungs: COPD/emphysema is appreciated. Subtle linear and hazy opacifications in the left lung base. Remainder of the lungs are clear. Pleural spaces: Unremarkable. No pleural effusion. No pneumothorax. Heart/Mediastinum: Unremarkable. No cardiomegaly. Vasculature: Calcified aortic knob. Bones/joints: No acute skeletal abnormality or aggressive osseous lesion. IMPRESSION: Concern for early interstitial and airspace disease/pneumonia in the left lung base.
[2021-03-20 14:27] LABS: Bacteria,Urine Trace /lpf; Squamous Epithelial Cell,Urine Occasional #/hpf (0-5)
[2021-03-20 14:36] LABS: Coronavirus 19, PCR Not Detected (NotDetected); Influenza A, PCR Not Detected (NotDetected); Influenza B, PCR Not Detected (NotDetected)
[2021-03-20 14:41] LABS: Basophils # 0.1 K/mm3 (0-0.2); Basophils % 1.2 % (0.1-2.0); Eosinophils # 0.1 K/mm3 (0.0-0.4); Eosinophils % 1.2 % (0.1-12.0); Hematocrit 35.7 % (37.0-47.0); Lymphocytes # 2.1 K/mm3 (0.7-4.5); Lymphocytes % 34.6 % (10-50); Mean Corpuscular HGB Conc 30.8 g/dL (31.8-35.4); Mean Corpuscular Hemoglobin 28.3 pg (27.0-31.2); Mean Corpuscular Volume 91.7 fl (81-99); Mean Platelet Volume 8.5 fl (7.4-10.4); Monocytes # 0.7 K/mm3 (0.1-1.0); Monocytes % 10.9 % (1.7-9.3); Neutrophils # 3.1 K/mm3 (1.8-7.8); Platelet Count 157 K/mm3 (142-424)
[2021-03-20 14:43] LABS: Chloride 101 mmol/L (98-107); Potassium 3.9 mmoL/L (3.5-5.1); Sodium 136 mmol/L (136-145)
[2021-03-20 14:46] LABS: Alanine Aminotransferase 14 U/L (12-78); Albumin Level 3.2 g/dl (3.5-5.0); Albumin/Globulin Ratio 0.7 (1.1-1.8); Alkaline Phosphatase 172 U/L (38-126); Anion Gap 10.9 mEq/L (5-15); Aspartate Amino Transferase 53 U/L (14-36); Bilirubin,Total 1.1 mg/dl (0.2-1.3); Blood Urea Nitrogen 16 mg/dl (7-17); Carbon Dioxide 28 mmol/L (22.0-30.0); Creatinine Clearance Estimated 81 mL/min (50-200); Estimated Glomerular Filt Rate 73 ml/min (>60); GFR (African American) 88 ML/MIN (>60); Globulin 4.4 g/dL (1.3-3.2); Total Protein,Serum 7.6 g/dl (6.3-8.2)
[2021-03-20 14:47] LABS: Calcium 9.2 mg/dl (8.4-10.2); Glucose 111 mg/dl (74-100)
[2021-03-20 14:59] LABS: Troponin I < 0.01 ng/ml (0.00-0.034)
--- NOTE | 2021-03-20 15:02 | ECG_ITS ---
APPROVED REPORT Exam: Resting ECG HR:75 bpm ECG Measurements Heart Rate 75 AXES MT 208 P 61 QRSd 90 QRS -31 QT 402 T 39 QTc 448 Conclusion Normal sinus rhythm Left axis deviation Low voltage QRS Septal infarct, age undetermined Abnormal ECG Electronically signed by : Tung Lozano MD 03/24/2021 13:53:09
[2021-03-20 15:53] VITALS: BP 115/60; PULSE 77; RESP 18; TEMP 36.9; O2SAT 97
== END 2021-03-20 15:55 | disposition home or self-care (01) ==
PROVIDERS: Emergency Provider Emergency Medicine; PCP Internal Medicine Adolescent Medicine
DX: R42 Dizziness and giddiness (principal); G89.29 Other chronic pain; M54.50 Low back pain, unspecified; E11.9 Type 2 diabetes mellitus without complications; I10 Essential (primary) hypertension; E78.5 Hyperlipidemia, unspecified; E03.9 Hypothyroidism, unspecified; F17.210 Nicotine dependence, cigarettes, uncomplicated; Z88.2 Allergy status to sulfonamides; Z79.899 Other long term (current) drug therapy
CPT/HCPCS: 71045; 80053; 81001; 84484; 85025; 87086; 93005; 96374; 96375; 99283; C9803; J2405; U0003; U0005

== ENCOUNTER 2021-04-02 17:02 | Emergency (ER) | payer MEDICARE, SELFPAY ==
[2021-04-02 17:03] VITALS: BP 116/50; PULSE 70; RESP 16; TEMP 36.8; O2SAT 98; BMI 29.7
--- NOTE | 2021-04-02 17:34 | XR_ITS ---
PROCEDURE INFORMATION: Exam: XR Chest Exam date and time: 04/02/2021 5:34 PM Age: 61 years old Clinical indication: Sternal or substernal pain TECHNIQUE: Imaging protocol: XR of the chest. Views: 1 view. COMPARISON: CR XR CHEST PORTABLE 03/20/2021 2:28 PM FINDINGS: Lungs: Unremarkable. No consolidation. Pleural spaces: Unremarkable. No pleural effusion. No pneumothorax. Heart/Mediastinum: Unremarkable. No cardiomegaly. Bones/joints: Unremarkable. IMPRESSION: No acute findings.
[2021-04-02 17:39] LABS: Influenza A, PCR Not Detected (NotDetected); Influenza B, PCR Not Detected (NotDetected)
[2021-04-02 17:45] LABS: Basophils # 0.1 K/mm3 (0-0.2); Basophils % 0.8 % (0.1-2.0); Eosinophils % 0.6 % (0.1-12.0); Hematocrit 38.1 % (37.0-47.0); Hemoglobin 12.1 g/dL (12.2-16.2); Lymphocytes # 2.3 K/mm3 (0.7-4.5); Lymphocytes % 37.9 % (10-50); Mean Corpuscular HGB Conc 31.8 g/dL (31.8-35.4); Mean Corpuscular Hemoglobin 29.6 pg (27.0-31.2); Mean Corpuscular Volume 92.9 fl (81-99); Mean Platelet Volume 9.2 fl (7.4-10.4); Monocytes # 0.8 K/mm3 (0.1-1.0); Monocytes % 12.2 % (1.7-9.3); Neutrophils % 48.6 % (37.0-80.0); Platelet Count 150 K/mm3 (142-424); White Blood Count 6.2 K/mm3 (4.8-10.8)
[2021-04-02 17:49] LABS: Alanine Aminotransferase 17 U/L (12-78); Albumin Level 3.5 g/dl (3.5-5.0); Albumin/Globulin Ratio 0.8 (1.1-1.8); Alkaline Phosphatase 154 U/L (38-126); Anion Gap 12.8 mEq/L (5-15); Aspartate Amino Transferase 72 U/L (14-36); Bilirubin,Total 1.4 mg/dl (0.2-1.3); Blood Urea Nitrogen 25 mg/dl (7-17); Calcium 9.5 mg/dl (8.4-10.2); Carbon Dioxide 28 mmol/L (22.0-30.0); Chloride 92 mmol/L (98-107); Creatinine Clearance Estimated 64 mL/min (50-200); Estimated Glomerular Filt Rate 46 ml/min (>60); GFR (African American) 55 ML/MIN (>60); Globulin 4.2 g/dL (1.3-3.2); Glucose 272 mg/dl (74-100); Potassium 4.8 mmoL/L (3.5-5.1); Sodium 128 mmol/L (136-145); Total Protein,Serum 7.7 g/dl (6.3-8.2)
--- NOTE | 2021-04-02 17:51 | PC.NURSE ---
Radiology at bedside
[2021-04-02 18:08] LABS: Coronavirus 19, PCR Detected (NotDetected)
[2021-04-02 18:13] VITALS: BP 113/44; PULSE 79; O2SAT 96
--- NOTE | 2021-04-02 18:28 | HMH.EDGENADL ---
ED Disposition Clinical Impression: COVID-19 virus infection, UTI (urinary tract infection) Disposition: Home, Self-Care Condition on Discharge: Fair Instructions: DI for Acute Abdominal Pain Prescriptions: Cefdinir [Omnicef 300mg Capsule] 300 mg PO BID #20 cap Transmission [facility]: [id number] Ondansetron [Zofran 4mg ODT] 4 mg PO TIDP PRN #12 tab PRN Reason: Nausea Transmission Status: [id number] Referrals: Sumanth Puentes MD [Primary Care Provider] - - Critical Care Critical Care Time: No Attestation: On 04/02/21, the high probability of a clinically significant, sudden or life threatening deterioration of the following system(s) required my full and direct attention, intervention and personal management. The time I documented below is in addition to time spent performing reported procedures but includes the following listed in this critical care notation. Medical Decision Making - Chris Inquiry Pt receiving controlled substance: No Vital Signs: 04/02/21 17:03 04/02/21 18:13 04/02/21 20:32 Temperature 98.2 F 98.2 F Temperature Source Oral Oral Pulse Rate 79 72 Pulse Rate [Right] 70 Respiratory Rate 16 16 Blood Pressure 113/44 L 121/74 Blood Pressure [Right Arm] 116/50 L Blood Pressure Mean [Right Arm] 72 Blood Pressure Source [Right Arm] Automatic Cuff Blood Pressure Position Sitting Blood Pressure Position [Right Arm] Sitting 02 Sat by Pulse Oximetry 98 96 Oxygen Delivery Method Room Air - Lab Data Lab Results 04/02/21 17:28: WBC 6.2, RBC 4.10 L, Hgb 12.1 L, Hct 38.1, MCV 92.9, MCH 29.6, MCHC 31.8, RDW 17.0, Plt Count 150, MPV 9.2, Neut % (Auto) 48.6, Lymph % (Auto) 37.9, [place] % (Auto) 12.2 H, Eos % (Auto) 0.6, Baso % (Auto) 0.8, Neut # (Auto) 3.0, Lymph # (Auto) 2.3, [place] # (Auto) 0.8, Eos # (Auto) 0.0, Baso # (Auto) 0.1 04/02/21 17:28: Sodium 128 L, Potassium 4.8, Chloride 92 L, Carbon Dioxide 28, Anion Gap 12.8, BUN 25 H, Creatinine 1.20 H, Estimated Creat Clear 64, Estimated GFR 46 L, Est GFR ( Amer) 55 L, Glucose 272 H, Calcium 9.5, Total Bilirubin 1.4 H, AST 72 H, ALT 17, Alkaline Phosphatase 154 H, Total Protein 7.7, Albumin 3.5, Globulin 4.2 H, Albumin/Globulin Ratio 0.8 L 04/02/21 17:28: SARS-CoV-2 (PCR) Detected A, Influenza A Untype (PCR) Not detected, Influenza Type B (PCR) Not detected 04/02/21 18:52: Troponin I < 0.01 04/02/21 19:10: Urine Color Yellow, Urine Appearance Clear, Urine pH 6.0, Ur Specific [place] 1.015, Urine Protein Negative, Urine Glucose (UA) 1+, Urine Ketones Negative, Urine Blood Negative, Urine Nitrate Negative, Urine Bilirubin Negative, Urine Urobilinogen 0.2, Ur Leukocyte Esterase Negative, Urine RBC None, Urine WBC 3-5, Ur Squamous Epith Cells 5-10, Urine Bacteria 1+ Result diagrams: 04/02/21 17:28 04/02/21 17:28 Orders (Tests/Meds): ED MEDICATIONS Discontinued Medications Generic Name Dose Route Start Last Admin Trade Name Arlen PRN Reason Stop Dose Admin Acetaminophen 500 mg 04/02/21 18:27 04/02/21 19:23 Acetaminophen 500mg Tab PO 04/02/21 18:28 Not Given ONCE ONE Belladonna Alkaloids 60 ml 04/02/21 18:26 04/02/21 19:08 Gi Cocktail 60ml Udc PO 04/02/21 18:27 60 ml ONCE ONE Administration Dicyclomine HCl 20 mg 04/02/21 18:27 04/02/21 19:08 Dicyclomine 20 Mg/2ml Vial IM 04/02/21 18:28 20 mg ONCE ONE Administration Famotidine 20 mg 04/02/21 18:27 04/02/21 19:08 Famotidine 20mg/2ml Vial IV 04/02/21 18:28 20 mg ONCE ONE Administration Lactated Ringer's 500 mls @ 999 mls/hr 04/02/21 17:45 04/02/21 17:42 Lactated Ringer's 1000 Ml Bag IV 04/02/21 18:15 500 mls/hr .Q31M KATJA Administration Morphine Sulfate 4 mg 04/02/21 18:27 04/02/21 19:09 Morphine 4mg/Ml Syringe IV 04/02/21 18:28 4 mg ONCE ONE Administration Ondansetron HCl 4 mg 04/02/21 17:34 04/02/21 17:41 Ondansetron 4mg/2ml Vial IV 04/02/21 17:35
--- NOTE | 2021-04-02 18:30 | ECG_ITS ---
APPROVED REPORT Exam: Resting ECG HR:88 bpm ECG Measurements Heart Rate 88 AXES WI 233 P 31 QRSd 86 QRS -21 QT 338 T 44 QTc 383 Conclusion SINUS RHYTHM WITH FIRST DEGREE AV BLOCK LOW QRS VOLTAGE IN PRECORDIAL LEADS [QRS DEFLECTION < 1.0 mV IN CHEST LEADS] Old septal changes [40+ ms Q WAVE IN V1/V2] ABNORMAL ECG UNCONFIRMED REPORT Electronically signed by : Tung Lozano MD 04/03/2021 14:04:25
--- NOTE | 2021-04-02 19:04 | PC.NURSE ---
Patient to restroom by wheelchair
[2021-04-02 19:26] LABS: Troponin I < 0.01 ng/ml (0.00-0.034)
[2021-04-02 19:58] LABS: Microscopic, Urine URINE MICROSCOPIC (MICROSCOPIC)
[2021-04-02 20:02] LABS: Appearance,Urine CLEAR (Clear); Bilirubin,Urine Negative (Negative); Blood, Urine Negative (Negative); Color,Urine YELLOW (Yellow); Glucose,Urine (UA) 1+ (Negative); Ketones,Urine Negative (Negative); Leukocyte Esterase,Urine Negative (Negative); Nitrate,Urine Negative (Negative); Protein,Urine Negative (Negative); Specific Gravity, Urine 1.015 (1.005-1.030); Urobilinogen,Urine 0.2 EU/dl (0.2)
[2021-04-02 20:11] LABS: Bacteria,Urine 1+ /lpf
[2021-04-02 20:32] VITALS: BP 121/74; PULSE 72; RESP 16; TEMP 36.8; O2SAT 96
== END 2021-04-02 20:34 | disposition home or self-care (01) ==
PROVIDERS: Emergency Provider Student in an Organized Health Care Education/Training Program; PCP Internal Medicine Adolescent Medicine
DX: U07.1 COVID-19 (principal); N30.00 Acute cystitis without hematuria; E11.9 Type 2 diabetes mellitus without complications; I10 Essential (primary) hypertension; E78.5 Hyperlipidemia, unspecified; F17.210 Nicotine dependence, cigarettes, uncomplicated; Z79.899 Other long term (current) drug therapy
CPT/HCPCS: 36415; 71045; 80053; 81001; 84484; 85025; 93005; 96365; 96375; 99284; C9803; J2405; U0003; U0005

== ENCOUNTER 2021-04-03 21:43 | Emergency (ER) | payer MEDICARE, SELFPAY ==
[2021-04-03 21:45] VITALS: BP 111/64; PULSE 88; RESP 20; TEMP 37.5; O2SAT 99; BMI 29.7
--- NOTE | 2021-04-03 22:10 | XR_ITS ---
PROCEDURE INFORMATION: Exam: XR Right Knee Exam date and time: 04/03/2021 10:10 PM Age: 61 years old Clinical indication: Injury or trauma; Fall; Sprain or strain; Patella or knee; Right; Injury date: 04/03/2020; Injury details: Fell TECHNIQUE: Imaging protocol: XR Right knee. Views: 3 views. COMPARISON: CR XR KNEE RT 4V 12/11/2018 1:42 PM FINDINGS: Bones/joints: Osteopenia. No acute displaced fracture. No dislocation. No significant joint effusion. Minimal to mild tricompartmental osteoarthrosis. Soft tissues: Atherosclerotic calcifications. IMPRESSION: No acute finding.
--- NOTE | 2021-04-03 22:10 | XR_ITS ---
PROCEDURE INFORMATION: Exam: XR Right Femur Exam date and time: 04/03/2021 10:10 PM Age: 61 years old Clinical indication: Injury or trauma; Fall; Blunt trauma; Hip; Right; Injury date: 04/03/2021; Prior surgery; Surgery date: 6+ months; Surgery type: Low back surgery x 3 pain pump; Additional info: Fall pain low back and RT side TECHNIQUE: Imaging protocol: XR Right femur. Views: 2 views. COMPARISON: CR XR HIP RT 2-3V W/PELVIS 04/03/2021 10:49 PM FINDINGS: Bones/joints: Osteopenia. No acute displaced fracture. No dislocation. Soft tissues: Unremarkable. Vasculature: Atherosclerotic calcifications. IMPRESSION: No acute finding.
--- NOTE | 2021-04-03 22:10 | XR_ITS ---
PROCEDURE INFORMATION: Exam: XR Right Humerus Exam date and time: 04/03/2021 10:10 PM Age: 61 years old Clinical indication: Injury or trauma; Fall; Blunt trauma (contusions or hematomas); Arm, upper; Right; Injury date: 04/03/2021; Additional info: Fall pain in RT shoulder TECHNIQUE: Imaging protocol: XR Right humerus. Views: 2 or more views. COMPARISON: SHOU[facility] [id number] 05/31/2015 9:13 AM FINDINGS: Bones/joints: No acute fracture. No dislocation. Soft tissues: Normal. IMPRESSION: No acute findings.
--- NOTE | 2021-04-03 22:10 | XR_ITS ---
PROCEDURE INFORMATION: Exam: XR Right Shoulder Exam date and time: 04/03/2021 10:10 PM Age: 61 years old Clinical indication: Injury or trauma; Fall; Blunt trauma (contusions or hematomas); Shoulder; Right; Injury date: 04/03/2021; Additional info: Fall pain in RT shoulder TECHNIQUE: Imaging protocol: XR Right shoulder. Views: 2 or more views. COMPARISON: [facility] [id number] 05/31/2015 9:13 AM FINDINGS: Bones/joints: No acute fracture. No dislocation. [id number] AC joint osteoarthrosis. Minimal glenohumeral joint degenerative spurring. Cortical irregularity of the greater tuberosity of the humerus suggests chronic rotator cuff tendinopathy. Soft tissues: Normal. IMPRESSION: No acute finding.
--- NOTE | 2021-04-03 22:11 | CT_ITS ---
PROCEDURE INFORMATION: Exam: CT Lumbar Spine Without Contrast Exam date and time: 04/03/2021 10:11 PM Age: 61 years old Clinical indication: Injury or trauma; Fall; Blunt trauma (contusions or hematomas); Injury date: 04/03/2021; Prior surgery; Surgery date: 6+ months; Surgery type: Low back surgery x 3 pain pump TECHNIQUE: Imaging protocol: Computed tomography images of the lumbar spine without contrast. Radiation optimization: All CT scans at this facility use at least one of these dose optimization techniques: automated exposure control; mA and/or kV adjustment per patient size (includes targeted exams where dose is matched to clinical indication); or iterative reconstruction. COMPARISON: CT LUMBAR SPINE WO CON 09/27/2019 11:47 AM FINDINGS: Tubes, catheters and devices: Partially visualized neurostimulator device with lead entering the spinal canal at the L5-S1 level and ascending cranially to the T12-L1 level. Vertebrae: Osteopenia. Chronic superior endplate compression deformity of L1. Remaining vertebral body heights are maintained. No acute fracture. No spondylolisthesis. Status post posterior decompression and instrumented fusion at L5-S1. L1-L2: No significant spinal canal stenosis or neural foraminal narrowing. L2-L3: No significant spinal canal stenosis or neural foraminal narrowing. L3-L4: Mild disc bulging and degenerative endplate spurring. Mild hypertrophic facet arthropathy. Mild spinal canal and lateral recess stenosis. Mild to moderate right and mild left neural foraminal narrowing. L4-L5: Disc bulge. Posterior endplate spurring. Moderate hypertrophic facet arthropathy with ligamentum flavum thickening. Moderate spinal canal and lateral recess stenosis. Qlko-[id number] bilateral neural foraminal narrowing. L5-S1: Right hemilaminectomy and instrumented fusion. Spinal canal appears adequately patent. Moderate left and mild right neural foraminal narrowing. Soft tissues: Postsurgical changes in the posterior lower lumbar soft tissues. Scattered atherosclerotic calcifications. IMPRESSION: 1. No acute fracture. Unchanged chronic L1 compression deformity. 2. Fusion at L5-S1. Degenerative changes as described.
--- NOTE | 2021-04-03 22:11 | CT_ITS ---
PROCEDURE INFORMATION: Exam: CT Cervical Spine Without Contrast Exam date and time: 04/03/2021 10:11 PM Age: 61 years old Clinical indication: Injury or trauma; Fall; Blunt trauma; Injury date: 04/03/2021 TECHNIQUE: Imaging protocol: Computed tomography images of the cervical spine without contrast. Radiation optimization: All CT scans at this facility use at least one of these dose optimization techniques: automated exposure control; mA and/or kV adjustment per patient size (includes targeted exams where dose is matched to clinical indication); or iterative reconstruction. COMPARISON: CT HEAD/BRAIN WO CON 04/03/2021 10:35 PM FINDINGS: Bones/joints: Osteopenia. No acute fracture. Normal alignment. Discs/Spinal canal/Neural foramina: Posterior disc-osteophyte ridge and uncovertebral hypertrophy produce mild spinal canal stenosis at the C5-C6 level. No high-grade spinal canal stenosis. Moderate left and mild right neural foraminal narrowing at C5-C6. Thyroid: Prior right thyroidectomy. Lungs: Lung apices are normal. Vasculature: Scattered atherosclerotic calcifications. Incidental retropharyngeal course of the left common and internal carotid arteries. Soft tissues: Unremarkable. IMPRESSION: 1. No acute cervical spine fracture or traumatic malalignment. 2. Degenerative changes at C5-C6.
--- NOTE | 2021-04-03 22:11 | CT_ITS ---
PROCEDURE INFORMATION: Exam: CT Head Without Contrast Exam date and time: 04/03/2021 10:11 PM Age: 61 years old Clinical indication: Injury or trauma; Fall; Blunt trauma (contusions or hematomas); Without loss of consciousness; Injury date: 04/03/2021; Additional info: Fall trauma protocols TECHNIQUE: Imaging protocol: Computed tomography of the head without contrast. Radiation optimization: All CT scans at this facility use at least one of these dose optimization techniques: automated exposure control; mA and/or kV adjustment per patient size (includes targeted exams where dose is matched to clinical indication); or iterative reconstruction. COMPARISON: CT HEAD/BRAIN WO CON 01/25/2020 11:44 AM FINDINGS: Brain: No intracranial bleed, suspicious mass, or mass effect. Ventricles appear unremarkable. There is low attenuation change in the white matter most consistent with chronic age related small vessel ischemic change. No acute territorial infarction is seen. These can be initially occult on head CT. Cerebral ventricles: See Brain finding. Paranasal sinuses: Visualized sinuses are unremarkable. No fluid levels. Mastoid air cells: Visualized mastoid air cells are well aerated. Bones/joints: Unremarkable. No acute fracture. Soft tissues: Unremarkable. IMPRESSION: 1. No intracranial bleed, suspicious mass, or mass effect. Ventricles appear unremarkable. 2. There is low attenuation change in the white matter most consistent with chronic age related small vessel ischemic change. No acute territorial infarction is seen. These can be initially occult on head CT.
--- NOTE | 2021-04-03 22:13 | XR_ITS ---
PROCEDURE INFORMATION: Exam: XR Right Hip Exam date and time: 04/03/2021 10:13 PM Age: 61 years old Clinical indication: Injury or trauma; Fall; Blunt trauma (contusions or hematomas); Right; Hip; Injury date: 04/03/2021; Prior surgery; Surgery date: 6+ months; Surgery type: Pain pump low back surgery x 3; Additional info: Fall pain RT side and back TECHNIQUE: Imaging protocol: XR Right hip. Views: 2 or 3 views hip with pelvis when performed. COMPARISON: CT ABDOMEN PELVIS WO CON 02/06/2021 9:31 PM FINDINGS: Tubes, catheters and devices: Neurostimulator device projects over the left lower quadrant. Bones/joints: Osteopenia. No acute displaced fracture. No dislocation. Fusion hardware at L5-S1. Soft tissues: Unremarkable. Vasculature: Pelvic phleboliths. IMPRESSION: No acute displaced fracture.
[2021-04-03 22:23] LABS: Chloride 91 mmol/L (98-107); Potassium 5.3 mmoL/L (3.5-5.1); Sodium 129 mmol/L (136-145)
[2021-04-03 22:25] LABS: Basophils # 0.1 K/mm3 (0-0.2); Basophils % 1.3 % (0.1-2.0); Blood Urea Nitrogen 25 mg/dl (7-17); Creatinine Clearance Estimated 64 mL/min (50-200); Eosinophils % 0.2 % (0.1-12.0); Estimated Glomerular Filt Rate 46 ml/min (>60); GFR (African American) 55 ML/MIN (>60); Hematocrit 39.3 % (37.0-47.0); Hemoglobin 12.2 g/dL (12.2-16.2); Lymphocytes # 1.8 K/mm3 (0.7-4.5); Lymphocytes % 26.3 % (10-50); Mean Corpuscular Hemoglobin 29.3 pg (27.0-31.2); Mean Corpuscular Volume 94.7 fl (81-99); Mean Platelet Volume 9.1 fl (7.4-10.4); Monocytes # 0.8 K/mm3 (0.1-1.0); Monocytes % 11.8 % (1.7-9.3); Neutrophils # 4.1 K/mm3 (1.8-7.8); Neutrophils % 60.4 % (37.0-80.0); Platelet Count 155 K/mm3 (142-424); Red Blood Count 4.15 M/mm3 (4.20-5.40); Red Cell Distribution Width 17.4 % (11.5-17.5); White Blood Count 6.8 K/mm3 (4.8-10.8)
[2021-04-03 22:26] LABS: Alanine Aminotransferase 19 U/L (12-78); Albumin Level 3.7 g/dl (3.5-5.0); Albumin/Globulin Ratio 0.8 (1.1-1.8); Alkaline Phosphatase 172 U/L (38-126); Anion Gap 11.3 mEq/L (5-15); Aspartate Amino Transferase 80 U/L (14-36); Bilirubin,Total 1.9 mg/dl (0.2-1.3); Calcium 9.3 mg/dl (8.4-10.2); Carbon Dioxide 32 mmol/L (22.0-30.0); Globulin 4.5 g/dL (1.3-3.2); Glucose 277 mg/dl (74-100); Total Protein,Serum 8.2 g/dl (6.3-8.2)
--- NOTE | 2021-04-03 22:41 | HMH.EDFALL ---
ED Disposition Clinical Impression: COVID-19 virus infection Fall Qualifiers: Encounter type: initial encounter Qualified Code(s): W19.XXXA - Unspecified fall, initial encounter Lumbar strain Qualifiers: Encounter type: initial encounter Qualified Code(s): S39.012A - Strain of muscle, fascia and tendon of lower back, initial encounter Right knee sprain Qualifiers: Encounter type: initial encounter Involved ligament of knee: unspecified ligament Qualified Code(s): S83.91XA - Sprain of unspecified site of right knee, initial encounter Shoulder contusion Qualifiers: Encounter type: initial encounter Laterality: right Qualified Code(s): S40.011A - Contusion of right shoulder, initial encounter Diabetes Qualifiers: Diabetes mellitus type: type 2 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 insulin use status Diabetes mellitus complication status: with other specified complication Qualified Code(s): E11.69 - Type 2 diabetes mellitus with other specified complication Disposition: Home, Self-Care Condition on Discharge: Good Instructions: DI for Ligament Sprains Additional Instructions: fluids and use meds and call pcp for follow up Referrals: Sumanth Puentes MD [Primary Care Provider] - - Critical Care Critical Care Time: No Attestation: On 04/03/21, the high probability of a clinically significant, sudden or life threatening deterioration of the following system(s) required my full and direct attention, intervention and personal management. The time I documented below is in addition to time spent performing reported procedures but includes the following listed in this critical care notation. Medical Decision Making - Medical Records Medical records reviewed: Yes: I reviewed the patient's medical records. - Chris Inquiry Pt receiving controlled substance: No Vital Signs: 04/03/21 21:45 Temperature 99.5 F Temperature Source Oral Pulse Rate [Apical] 88 Respiratory Rate 20 Blood Pressure [Right Arm] 111/64 Blood Pressure Mean [Right Arm] 79 Blood Pressure Source [Right Arm] Manual Cuff/ Doppler Blood Pressure Position [Right Arm] Sitting 02 Sat by Pulse Oximetry 99 Oxygen Delivery Method Room Air - Lab Data Lab results reviewed: Yes: I reviewed the patient's lab results. Lab Results 04/03/21 22:03: WBC 6.8, RBC 4.15 L, Hgb 12.2, Hct 39.3, MCV 94.7, MCH 29.3, MCHC 31.0 L, RDW 17.4, Plt Count 155, MPV 9.1, Neut % (Auto) 60.4, Lymph % (Auto) 26.3, [place] % (Auto) 11.8 H, Eos % (Auto) 0.2, Baso % (Auto) 1.3, Neut # (Auto) 4.1, Lymph # (Auto) 1.8, [place] # (Auto) 0.8, Eos # (Auto) 0.0, Baso # (Auto) 0.1 04/03/21 22:03: Sodium 129 L, Potassium 5.3 H, Chloride 91 L, Carbon Dioxide 32 H, Anion Gap 11.3, BUN 25 H, Creatinine 1.20 H, Estimated Creat Clear 64, Estimated GFR 46 L, Est GFR ( Amer) 55 L, Glucose 277 H, Calcium 9.3, Total Bilirubin 1.9 H, AST 80 H, ALT 19, Alkaline Phosphatase 172 H, Total Protein 8.2, Albumin 3.7, Globulin 4.5 H, Albumin/Globulin Ratio 0.8 L Result diagrams: 04/03/21 22:03 04/03/21 22:03 Orders (Tests/Meds): ED MEDICATIONS Generic Name Dose Route Start Last Admin Trade Name Freq PRN Reason Stop Dose Admin Sodium Chloride 1,000 mls @ 999 mls/hr 04/03/21 22:15 04/03/21 22:15 Sod Chlor 0.9% 1000ml Bag IV 04/03/21 23:15 999 mls/hr .Q1H1M KATJA Administration Discontinued Medications Generic Name Dose Route Start Last Admin Trade Name Freq PRN Reason Stop Dose Admin Dexamethasone Sodium Phosphate 10 mg 04/03/21 22:10 04/03/21 22:15 Dexamethasone 4mg/Ml 5ml Mdv IV 04/03/21 22:11 10 mg ONCE ONE Administration Ketorolac Tromethamine 30 mg 04/03/21 22:13 04/03/21 22:15 Ketorolac 30mg/Ml Vial IV 04/03/21 22:14 30 mg ONCE ONE Administration Ondansetron HCl 4 mg 04/03/21 22:13 04/03/21 22:15 Ondansetron 4mg/2ml Vial IV 04/03/21 22:14 4 mg ONCE ONE Administration ORDERS Category Date Time Status Ammo
--- NOTE | 2021-04-03 22:42 | XR_ITS ---
PROCEDURE INFORMATION: Exam: XR Chest Exam date and time: 04/03/2021 10:42 PM Age: 61 years old Clinical indication: Injury or trauma; Fall; Blunt trauma (contusions or hematomas); Injury date: 04/03/2021; Additional info: Patient unable to stand for 2view chest. Covid positive. Fell this afternoon TECHNIQUE: Imaging protocol: XR of the chest. Views: 1 view. COMPARISON: CR XR CHEST PORTABLE 04/02/2021 5:50 PM FINDINGS: Lungs: No consolidation. No radiographic evidence of pneumonia. No overt pulmonary edema. Pleural spaces: No pleural effusion. No pneumothorax. Heart/Mediastinum: Heart size appears within normal limits. Aortic atherosclerosis. Bones/joints: Osteopenia. Chronic L1 compression deformity. IMPRESSION: No acute finding. No change since 04/02/2021.
[2021-04-04 01:03] LABS: Ammonia < 9 umol/L (9-30)
[2021-04-04 01:19] VITALS: BP 102/64; PULSE 75; RESP 18; TEMP 36.8; O2SAT 99
== END 2021-04-04 01:24 | disposition home or self-care (01) ==
PROVIDERS: Emergency Provider Emergency Medicine; PCP Internal Medicine Adolescent Medicine
DX: S39.012A Strain of muscle, fascia and tendon of lower back, initial encounter (principal); S83.91XA Sprain of unspecified site of right knee, initial encounter; S40.011A Contusion of right shoulder, initial encounter; W01.0XXA Fall on same level from slipping, tripping and stumbling without subsequent striking against object, initial encounter; Y92.019 Unspecified place in single-family (private) house as the place of occurrence of the external cause; U07.1 COVID-19; E78.5 Hyperlipidemia, unspecified; I10 Essential (primary) hypertension; F17.210 Nicotine dependence, cigarettes, uncomplicated; Z88.2 Allergy status to sulfonamides; Z79.899 Other long term (current) drug therapy; E11.69 Type 2 diabetes mellitus with other specified complication
CPT/HCPCS: 70450; 71045; 72125; 72131; 73030; 73060; 73502; 73552; 73562; 80053; 82140; 85025; 96365; 96375; 99282; J2405

== ENCOUNTER 2021-05-09 12:38 | Day surgery (SDC) | payer MEDICARE, SELFPAY ==
[2021-05-09 13:00] VITALS: BP 148/64; PULSE 100; RESP 20; TEMP 36.6; O2SAT 99; BMI 32.3
[2021-05-09 13:06] VITALS: BP 154/62; PULSE 99; RESP 20; O2SAT 100
[2021-05-09 13:08] VITALS: BP 155/68; PULSE 101; RESP 18; O2SAT 100
[2021-05-09 13:40] VITALS: BP 147/65; PULSE 100; RESP 20; O2SAT 98
[2021-05-09 14:13] LABS: Basophils % 0.6 % (0.1-2.0); Eosinophils # 0.1 K/mm3 (0.0-0.4); Eosinophils % 1.1 % (0.1-12.0); Hematocrit 32.5 % (37.0-47.0); Hemoglobin 9.9 g/dL (12.2-16.2); Lymphocytes # 1.6 K/mm3 (0.7-4.5); Lymphocytes % 30.3 % (10-50); Mean Corpuscular HGB Conc 30.5 g/dL (31.8-35.4); Mean Corpuscular Hemoglobin 26.8 pg (27.0-31.2); Mean Corpuscular Volume 87.8 fl (81-99); Mean Platelet Volume 8.8 fl (7.4-10.4); Monocytes # 0.6 K/mm3 (0.1-1.0); Monocytes % 11.6 % (1.7-9.3); Neutrophils % 56.4 % (37.0-80.0); Platelet Count 142 K/mm3 (142-424); Red Cell Distribution Width 17.6 % (11.5-17.5); White Blood Count 5.3 K/mm3 (4.8-10.8)
--- NOTE | 2021-05-09 14:17 | P.PCN_ITS ---
- Procedure Date: 05/09/21 Time: 14:17 Anesthesiologist:: Brandi Barth MD Complications:: None Pre-procedure Diagnosis:: Degenerative disc disease of the lumbar spine with lumbar radiculopathy Post-procedure Diagnosis:: Same Indications for Procedure:: Is a very pleasant 61-year-old white female who presents today for pump refill and reprogram. She is currently being treated for degenerative disease of lumbar spine lumbar radiculopathy. She has a pump with a flowonix system with intrathecal Dilaudid 10 mg/mL at 2.07 mg/day. She states that her current dose settings are adequately managing her chronic pain symptoms. The plan for today is for the patient to undergo intrathecal pump refill and reprogram with no changes to her pump settings today. Procedure Details:: Informed consent was obtained and the risks and benefits of the procedure was explained to the patient. The patient was taken to the procedure room. The pump was interrogated. The area over the pump was prepped using ChloraPrep. The pump was accessed with a 22-gauge needle. Approximately 4. 9mL's of the intrathecal solution was withdrawn and discarded. The pump was then refilled with 20 mL's of intrathecal [Dilaudid 10 mg/mL]. The pump was interrogated and the infusion was renewed at 2.07 mg/day. The patient tolerated the procedure well with no complications. Next refill date is on [July 26, 2021]. Plan and Disposition:: We will follow-up with this patient on her before her next refill date. We will reassess her chronic pain symptoms at that time and make any additional pump adjustments if indicated. [facility] #[id number] was reviewed and appropriate.
[2021-05-09 14:55] LABS: Chloride 100 mmol/L (98-107); Sodium 132 mmol/L (136-145)
[2021-05-09 14:56] LABS: Potassium 4.6 mmoL/L (3.5-5.1)
[2021-05-09 14:58] LABS: Alanine Aminotransferase 14 U/L (12-78); Alkaline Phosphatase 234 U/L (38-126); Anion Gap 5.6 mEq/L (5-15); Aspartate Amino Transferase 57 U/L (14-36); Bilirubin,Total 1.6 mg/dl (0.2-1.3); Blood Urea Nitrogen 9 mg/dl (7-17); Calcium 8.1 mg/dl (8.4-10.2); Carbon Dioxide 31 mmol/L (22.0-30.0); Creatinine Clearance Estimated 84 mL/min (50-200); Estimated Glomerular Filt Rate 85 ml/min (>60); GFR (African American) 103 ML/MIN (>60); Glucose 286 mg/dl (74-100)
[2021-05-09 14:59] LABS: Albumin Level 2.9 g/dl (3.5-5.0); Albumin/Globulin Ratio 0.7 (1.1-1.8); Globulin 4.2 g/dL (1.3-3.2); Magnesium 1.5 mg/dl (1.6-2.3); Total Protein,Serum 7.1 g/dl (6.3-8.2)
== END 2021-05-09 13:41 | disposition home or self-care (01) ==
LOC: SC.PAINP 12:41
PROVIDERS: PCP Internal Medicine Adolescent Medicine; Visit Provider Anesthesiology Pain Medicine
DX: M51.16 Intervertebral disc disorders with radiculopathy, lumbar region (principal); Z45.1 Encounter for adjustment and management of infusion pump; E78.5 Hyperlipidemia, unspecified; I10 Essential (primary) hypertension; E11.9 Type 2 diabetes mellitus without complications
CPT/HCPCS: 36415; 80053; 83735; 85025; 95991

== ENCOUNTER → 2021-05-30 07:45 | Outpatient (CLI) | payer MEDICARE, SELFPAY ==
--- NOTE | 2021-05-30 07:56 | US_ITS ---
FINAL REPORT CLINICAL HISTORY: CIRRHOSIS,CELIAC DISEASE,ANEMIA,HTN,ALPHA 1-ANTITRYPSIN COMPARISON: CT dated February 06, 2021 FINDINGS: ULTRASOUND RIGHT UPPER QUADRANT Sonographic imaging of the right upper quadrant was obtained. The pancreas is partially obscured. The liver has a nodular margin which is consistent with cirrhosis. The portal vein is tortuous and flow cannot be documented in all segments of the portal vein. The gallbladder is surgically absent. There is no biliary ductal dilatation. The common duct is normal at 4 mm. Limited images of the right kidney are unremarkable. Small amount of ascites is noted. IMPRESSION: Nodular liver margin consistent with cirrhosis. Small amount of ascites. Incomplete visualization of flow within the portal vein. Three phase liver CT could better evaluate the patency of the portal system. Reviewed, Interpreted and Dictated by Benito Cruz MD Transcribed by Celina Shoemaker Authenticated by Benito Cruz MD on 05/30/2021 12:14:08 PM [facility]
== END ==
PROVIDERS: PCP Internal Medicine Adolescent Medicine; Visit Provider Nurse Practitioner Family
DX: K75.4 Autoimmune hepatitis (principal); K74.69 Other cirrhosis of liver; K90.0 Celiac disease; K72.90 Hepatic failure, unspecified without coma; K76.6 Portal hypertension; K75.81 Nonalcoholic steatohepatitis (NASH); D64.9 Anemia, unspecified; E88.01 Alpha-1-antitrypsin deficiency
CPT/HCPCS: 76705

== ENCOUNTER → 2021-06-06 08:47 | Outpatient (CLI) | payer MEDICARE, SELFPAY ==
[2021-06-06 09:39] LABS: Basophils % 0.9 % (0.1-2.0); Eosinophils # 0.1 K/mm3 (0.0-0.4); Eosinophils % 1.5 % (0.1-12.0); Hematocrit 31.9 % (37.0-47.0); Hemoglobin 9.8 g/dL (12.2-16.2); Lymphocytes # 1.5 K/mm3 (0.7-4.5); Lymphocytes % 38.7 % (10-50); Mean Corpuscular HGB Conc 30.6 g/dL (31.8-35.4); Mean Corpuscular Volume 84.9 fl (81-99); Mean Platelet Volume 9.3 fl (7.4-10.4); Monocytes # 0.4 K/mm3 (0.1-1.0); Monocytes % 11.6 % (1.7-9.3); Neutrophils # 1.8 K/mm3 (1.8-7.8); Neutrophils % 47.3 % (37.0-80.0); Platelet Count 139 K/mm3 (142-424); Red Blood Count 3.75 M/mm3 (4.20-5.40); White Blood Count 3.8 K/mm3 (4.8-10.8)
[2021-06-06 09:41] LABS: Ammonia 21 umol/L (9-30); INR 1.47 (0.9-1.1); Prothrombin Time 16.1 seconds (10.1-12.5)
[2021-06-06 17:05] LABS: Chloride 102 mmol/L (98-107); Potassium 4.1 mmoL/L (3.5-5.1); Sodium 136 mmol/L (136-145)
[2021-06-06 17:07] LABS: Alanine Aminotransferase 18 U/L (12-78); Aspartate Amino Transferase 62 U/L (14-36); Blood Urea Nitrogen 11 mg/dl (7-17); Estimated Glomerular Filt Rate 73 ml/min (>60); GFR (African American) 88 ML/MIN (>60)
[2021-06-06 17:08] LABS: Albumin Level 2.9 g/dl (3.5-5.0); Albumin/Globulin Ratio 0.6 (1.1-1.8); Alkaline Phosphatase 276 U/L (38-126); Anion Gap 8.1 mEq/L (5-15); Bilirubin,Total 2.2 mg/dl (0.2-1.3); Calcium 8.1 mg/dl (8.4-10.2); Carbon Dioxide 30 mmol/L (22.0-30.0); Globulin 4.6 g/dL (1.3-3.2); Glucose 128 mg/dl (74-100); Iron 49 ug/dL (37-170); Total Protein,Serum 7.5 g/dl (6.3-8.2)
[2021-06-06 17:17] LABS: Total Iron Binding Capacity 341 ug/dL (265-497)
[2021-06-06 17:43] LABS: Ferritin 22.2 ng/ml (11.1-264)
[2021-06-09 14:13] LABS: Tissue Transglutaminase IgA Ab 35 U/mL (0-3)
== END ==
PROVIDERS: Visit Provider Nurse Practitioner Family
DX: K75.4 Autoimmune hepatitis (principal); K74.69 Other cirrhosis of liver; K90.0 Celiac disease; K72.90 Hepatic failure, unspecified without coma; K76.6 Portal hypertension; K75.81 Nonalcoholic steatohepatitis (NASH); E88.01 Alpha-1-antitrypsin deficiency; D64.9 Anemia, unspecified
CPT/HCPCS: 36415; 80053; 82105; 82140; 82728; 83516; 83540; 83550; 85025; 85610

== ENCOUNTER 2021-07-18 14:01 | Day surgery (SDC) | payer MEDICARE, SELFPAY ==
[2021-07-18 14:14] VITALS: BP 141/72; PULSE 78; RESP 18; TEMP 36.4; O2SAT 98; BMI 28.8
[2021-07-18 14:23] VITALS: BP 127/67; PULSE 77; RESP 18; O2SAT 98
[2021-07-18 14:24] VITALS: BP 138/73; PULSE 74; RESP 18; O2SAT 97
[2021-07-18 14:32] VITALS: BP 137/66; PULSE 78; RESP 20; O2SAT 99
--- NOTE | 2021-07-18 14:37 | HMH.PMPROC ---
- Procedure Date: 07/18/21 Time: 14:37 Anesthesiologist:: ARIAN Jones Complications:: None Pre-procedure Diagnosis:: Degenerative disc disease of the lumbar spine with lumbar radiculopathy symptoms Post-procedure Diagnosis:: Same Indications for Procedure:: Patient is a pleasant 62-year-old female who presents today for intrathecal pain pump [refill] [and reprogram]. The patient is being treated for degenerative disc disease of the lumbar spine with lumbar radiculopathy symptoms. Currently being managed with Dilaudid 10 mg/mL at a rate of 2.07 mg/day. Denies any side effects from this medication. Denies any change in location and type of pain. Patient states that she has been feeling nauseated for the last 3 weeks. She does have an end-stage liver disease. She has a follow-up with her potable water treatment operator tomorrow to see if she is a good transplant candidate. She is wanting adjustment today. Patient rates pain a 9 out of 10. Drug screen is appropriate. Chris [phone] with an active morphine equivalent of 0 has been reviewed and is appropriate. Patient is unable to lay down on her stomach. We were not able to use fluoroscopy to access her pump. Physical exam General: Alert and oriented x3, no acute distress, pleasant and cooperative, [on room air] Lungs: Respirations even and unlabored, symmetrical chest expansion Eyes: PERRL Musculoskeletal: Flexion and extension of lumbar [spine] somewhat guarded secondary to pain, [antalgic gait noted] Neurological: Speech clear, no gross sensory deficit Procedure Details:: Informed consent was obtained and the risk and benefits of the procedure were explained to the patient. The patient was taken to the procedure room where noninvasive monitoring was placed including noninvasive blood pressure cuff and pulse oximeter. Patient's pump was interrogated. The area over the pump was cleansed with chlorhexidine as a cleansing solution. In sterile fashion the pump was accessed with a 22-gauge needle. Approximately 5 mls of the pump solution was removed and discarded appropriately. The pump was then refilled with 20 mL's of Dilaudid 10 mg/mL. The needle was withdrawn and a bandage was placed over the puncture site. The infusion rate was reprogrammed and increased to Dilaudid 2.27 mg/day. The patient tolerated well with no complication. Plan and Disposition:: We will see the patient back in the clinic at the next intrathecal refill. Patient has been instructed to contact the clinic with any concerns before the next appointment. Dr. Peoples has reviewed this note and agrees with this plan of care. This note was dictated using voice recognition software and make contain errors or omissions.
== END 2021-07-18 14:33 | disposition home or self-care (01) ==
LOC: SC.PAINP 14:03
PROVIDERS: PCP Internal Medicine Adolescent Medicine; Visit Provider Student in an Organized Health Care Education/Training Program
DX: M51.16 Intervertebral disc disorders with radiculopathy, lumbar region (principal); Z45.1 Encounter for adjustment and management of infusion pump; E78.5 Hyperlipidemia, unspecified; I10 Essential (primary) hypertension; E11.9 Type 2 diabetes mellitus without complications; Z72.0 Tobacco use; J44.9 Chronic obstructive pulmonary disease, unspecified; M19.90 Unspecified osteoarthritis, unspecified site; E03.9 Hypothyroidism, unspecified; Z86.16 Personal history of COVID-19; Z88.2 Allergy status to sulfonamides; Z88.6 Allergy status to analgesic agent
CPT/HCPCS: 62370

== ENCOUNTER → 2021-09-26 12:10 | Outpatient (CLI) | payer MEDICARE, SELFPAY ==
[2021-09-26 13:06] LABS: Anion Gap 10.9 mEq/L (5-15); Blood Urea Nitrogen 15 mg/dl (7-17); Calcium 9.2 mg/dl (8.4-10.2); Carbon Dioxide 31 mmol/L (22.0-30.0); Chloride 99 mmol/L (98-107); Estimated Glomerular Filt Rate 63 ml/min (>60); GFR (African American) 77 ML/MIN (>60); Glucose 174 mg/dl (74-100); Potassium 3.9 mmoL/L (3.5-5.1); Sodium 137 mmol/L (136-145)
[2021-09-26 13:25] LABS: Free T4 (Free Thyroxine) 3.13 ng/dl (0.78-2.19)
[2021-09-26 13:38] LABS: Thyroid Stimulating Hormone 0.12 uIU/mL (0.465-4.68)
[2021-09-27 09:01] LABS: T4 (Thyroxine) 17.3 ug/dl (5.53-11.0)
== END ==
PROVIDERS: PCP Internal Medicine Adolescent Medicine; Visit Provider Internal Medicine Endocrinology, Diabetes & Metabolism
DX: E89.0 Postprocedural hypothyroidism (principal)
CPT/HCPCS: 36415; 80048; 84436; 84439; 84443

== ENCOUNTER 2021-09-26 13:07 | Day surgery (SDC) | payer MEDICARE, SELFPAY ==
[2021-09-26 13:17] VITALS: BP 142/64; PULSE 76; RESP 20; TEMP 36.4; O2SAT 98; BMI 30.7
[2021-09-26 13:18] VITALS: BP 144/57; PULSE 76; RESP 20; O2SAT 99
--- NOTE | 2021-09-26 13:25 | HMH.PMPROC ---
- Procedure Date: 09/26/21 Time: 13:25 Anesthesiologist:: ARIAN Jones Complications:: None Pre-procedure Diagnosis:: Degenerative disc disease of lumbar spine with lumbar radiculopathy symptoms Post-procedure Diagnosis:: Same Indications for Procedure:: Patient is a pleasant 61-year-old white female who presents today for intrathecal pain pump refill and adjustment. The patient is being treated for degenerative disc disease of lumbar spine with lumbar radiculopathy symptoms. Patient is currently being managed with Dilaudid 10 mg/mL at 2.27 mg/day. Patient denies any side effects from this medication. Patient rates pain a 9 out of 10. Drug screen is appropriate. [facility] [id number] has been reviewed and is appropriate. Physical exam General: Alert and oriented x3, no acute distress, pleasant and cooperative Lungs: Respirations even and unlabored, symmetrical chest expansion Eyes: PERRL Musculoskeletal: Flexion and extension of lumbar [spine] somewhat guarded secondary to pain, [antalgic gait noted] Neurological: Speech clear, no gross sensory deficit Procedure Details:: Informed consent was obtained and the risk and benefits of the procedure were explained to the patient. The patient was taken to the procedure room where noninvasive monitoring was placed including noninvasive blood pressure cuff and pulse oximeter. Patient's pump was interrogated. The area over the pump was cleansed with chlorhexidine as a cleansing solution. In sterile fashion the pump was accessed with a 22-gauge needle. Approximately 4 mls of the pump solution was removed and discarded appropriately. The pump was then refilled with 20 mL's of Dilaudid 10 mg/mL. The needle was withdrawn and a bandage was placed over the puncture site. The infusion rate was reprogrammed and increased to Dilaudid 10 mg/mL with a daily dose 2.5 mg a day. The patient tolerated well with no complication. Plan and Disposition:: We will see the patient back in the clinic at the next intrathecal refill. Patient has been instructed to contact the clinic with any concerns before the next appointment. Dr. Peoples has reviewed this note and agrees with this plan of care. This note was dictated using voice recognition software and make contain errors or omissions.
[2021-09-26 13:27] VITALS: BP 139/74; PULSE 75; RESP 20; O2SAT 99
== END 2021-09-26 13:28 | disposition home or self-care (01) ==
LOC: SC.PAINP 13:07
PROVIDERS: PCP Internal Medicine Adolescent Medicine; Visit Provider Nurse Anesthetist, Certified Registered
DX: M51.16 Intervertebral disc disorders with radiculopathy, lumbar region (principal); E11.9 Type 2 diabetes mellitus without complications; I10 Essential (primary) hypertension; I25.10 Atherosclerotic heart disease of native coronary artery without angina pectoris
CPT/HCPCS: 36415; 62370; 80048; 84436; 84439; 84443

== ENCOUNTER → 2021-10-11 10:05 | Outpatient (CLI) | payer MEDICARE, SELFPAY ==
[2021-10-11 11:12] LABS: Basophils # 0.1 K/mm3 (0-0.2); Basophils % 1.4 % (0.1-2.0); Eosinophils # 0.1 K/mm3 (0.0-0.4); Hematocrit 39.5 % (37.0-47.0); Hemoglobin 12.3 g/dL (12.2-16.2); Lymphocytes % 28.6 % (10-50); Mean Corpuscular HGB Conc 31.3 g/dL (31.8-35.4); Mean Corpuscular Hemoglobin 36.4 pg (27.0-31.2); Mean Corpuscular Volume 116.5 fl (81-99); Mean Platelet Volume 8.9 fl (7.4-10.4); Monocytes # 0.4 K/mm3 (0.1-1.0); Monocytes % 12.4 % (1.7-9.3); Neutrophils # 1.9 K/mm3 (1.8-7.8); Neutrophils % 53.5 % (37.0-80.0); Platelet Count 108 K/mm3 (142-424); Red Blood Count 3.39 M/mm3 (4.20-5.40); White Blood Count 3.5 K/mm3 (4.8-10.8)
[2021-10-11 11:19] LABS: Ammonia 53 umol/L (9-30)
[2021-10-11 11:38] LABS: Chloride 105 mmol/L (98-107)
[2021-10-11 11:39] LABS: Sodium 139 mmol/L (136-145)
[2021-10-11 11:40] LABS: Potassium 4.1 mmoL/L (3.5-5.1)
[2021-10-11 11:41] LABS: Alanine Aminotransferase 20 U/L (12-78); Anion Gap 6.1 mEq/L (5-15); Aspartate Amino Transferase 77 U/L (14-36); Blood Urea Nitrogen 13 mg/dl (7-17); Carbon Dioxide 32 mmol/L (22.0-30.0); Estimated Glomerular Filt Rate 73 ml/min (>60); GFR (African American) 88 ML/MIN (>60)
[2021-10-11 11:42] LABS: Albumin/Globulin Ratio 0.8 (1.1-1.8); Alkaline Phosphatase 294 U/L (38-126); Bilirubin,Total 2.4 mg/dl (0.2-1.3); Globulin 3.7 g/dL (1.3-3.2); Glucose 78 mg/dl (74-100); Total Protein,Serum 6.7 g/dl (6.3-8.2)
== END ==
PROVIDERS: PCP Internal Medicine Adolescent Medicine; Visit Provider Internal Medicine Adolescent Medicine
DX: D69.6 Thrombocytopenia, unspecified (principal); K74.69 Other cirrhosis of liver
CPT/HCPCS: 36415; 80053; 82140; 85025

== ENCOUNTER → 2021-11-21 08:00 | Outpatient (CLI) | payer MEDICARE, SELFPAY ==
--- NOTE | 2021-11-21 08:09 | US_ITS ---
FINAL REPORT CLINICAL HISTORY: CIRRHOSIS,ANEMIA,PORTAL HYPERTENSION,ALPHA 1 COMPARISON: May 30, 2021 FINDINGS: Sonographic images of the right upper quadrant were obtained. The pancreas is partially obscured. The liver has coarsened echotexture with a lobular border consistent with cirrhosis. The portal vein is patent with normal directional flow. It's normal size measures 6 mm. Hepatic veins are patent. The gallbladder is surgically absent. There is no evidence of biliary ductal dilatation.The common duct measures 4mm. Limited images of the right kidney are unremarkable. IMPRESSION: Findings consistent with liver cirrhosis. Cholecystectomy. Reviewed, Interpreted and Dictated by Luis Carlos Israel III, MD Transcribed by Celina Shoemaker Authenticated and [facility]
== END ==
PROVIDERS: PCP Internal Medicine Adolescent Medicine; Visit Provider Nurse Practitioner Family
DX: K75.4 Autoimmune hepatitis (principal); K74.69 Other cirrhosis of liver; E88.01 Alpha-1-antitrypsin deficiency; K90.0 Celiac disease; D64.9 Anemia, unspecified; K72.90 Hepatic failure, unspecified without coma; K76.6 Portal hypertension; K75.81 Nonalcoholic steatohepatitis (NASH)
CPT/HCPCS: 76705

== ENCOUNTER → 2021-11-29 08:31 | Day surgery (SDC) | payer MEDICARE, SELFPAY ==
[2021-11-29 09:23] VITALS: BP 116/58; PULSE 68; RESP 18; O2SAT 99
[2021-11-29 09:25] VITALS: BP 116/58; PULSE 71; RESP 18; O2SAT 98
--- NOTE | 2021-11-29 09:28 | EXP.PAIN.PRO ---
Procedure Date: 11/29/21 Time: 09:29 Anesthesiologist:: Clay Paniagua CRNA Complications:: None Pre-procedure Diagnosis:: Degenerative disc disease of lumbar spine with lumbar radiculopathy symptoms Post-procedure Diagnosis:: Same Indications for Procedure:: Patient is a pleasant 61-year-old female who presents today for intrathecal pain pump refill and reprogram. We are currently treating the patient for degenerative disc disease of lumbar spine with lumbar radiculopathy symptoms. Patient is currently being managed with Dilaudid 10 mg/mL with a daily dose of 2.5 mg/day. Patient denies any side effects from this medication. She states this medication is adequately helping manage her pain. Physical exam General: Alert and oriented x3, no acute distress, pleasant and cooperative on room air Lungs: Respirations even and unlabored, symmetrical chest expansion Eyes: PERRL Musculoskeletal: Flexion and extension of lumbar spine somewhat guarded secondary to pain, antalgic gait noted Neurological: Speech clear, no gross sensory deficit Procedure Details:: Informed consent was obtained and the risk and benefits of the procedure were explained to the patient. The patient was taken the procedure room where noninvasive monitoring was placed including noninvasive blood pressure cuff and pulse oximeter. Patient's pump was interrogated. The area over the pump was cleansed with a chlorhexidine as a cleansing solution. In sterile fashion the pump was accessed using a 22-gauge needle. From the interrogation of the system, mL was expected. Approximately 4 mL of the pump solution was removed and discarded appropriately the pump was then refilled with 20 mL of Dilaudid 20 mg/mL. The needle was withdrawn and a bandage was placed over the puncture site. The infusion rate was increased 10% to Dilaudid 2.75 mg/day. The patient tolerated the procedure well with no complications. Plan and Disposition:: We will see the patient back in clinic at the next intrathecal refill. Patient has been instructed to contact the clinic with any concerns before the next appointment. Dr. Peoples is reviewed this note and agrees with this plan of care. The note was dictated using voice recognition software and may contain errors or omissions.
[2021-11-29 09:40] VITALS: BP 138/63; PULSE 75; RESP 20; O2SAT 97; BMI 30.4
== END | disposition home or self-care (01) ==
PROVIDERS: PCP Internal Medicine Adolescent Medicine; Visit Provider Nurse Anesthetist, Certified Registered
DX: M51.16 Intervertebral disc disorders with radiculopathy, lumbar region (principal); F17.210 Nicotine dependence, cigarettes, uncomplicated
CPT/HCPCS: 62370

== ENCOUNTER → 2021-12-06 09:05 | Outpatient (CLI) | payer MEDICARE, SELFPAY ==
[2021-12-06 09:41] LABS: Ammonia 72 umol/L (9-30)
[2021-12-06 09:43] LABS: INR 1.42 (0.9-1.1)
[2021-12-06 09:50] LABS: Chloride 97 mmol/L (98-107)
[2021-12-06 09:51] LABS: Potassium 4.6 mmoL/L (3.5-5.1); Sodium 138 mmol/L (136-145)
[2021-12-06 09:53] LABS: Alanine Aminotransferase 18 U/L (12-78); Aspartate Amino Transferase 67 U/L (14-36); Bilirubin,Total 2.9 mg/dl (0.2-1.3); Blood Urea Nitrogen 14 mg/dl (7-17); Estimated Glomerular Filt Rate 56 ml/min (>60); GFR (African American) 68 ML/MIN (>60)
[2021-12-06 09:54] LABS: Albumin Level 3.2 g/dl (3.5-5.0); Albumin/Globulin Ratio 0.8 (1.1-1.8); Alkaline Phosphatase 343 U/L (38-126); Anion Gap 13.6 mEq/L (5-15); Carbon Dioxide 32 mmol/L (22.0-30.0); Globulin 3.9 g/dL (1.3-3.2); Glucose 138 mg/dl (74-100); Total Protein,Serum 7.1 g/dl (6.3-8.2)
[2021-12-07 14:15] LABS: AFP, Tumor Marker 5.7 ng/mL (0.0-9.2)
[2021-12-07 15:10] LABS: Tissue Transglutaminase IgA Ab 25 U/mL (0-3)
== END ==
PROVIDERS: PCP Internal Medicine Adolescent Medicine; Visit Provider Nurse Practitioner Family
DX: K75.4 Autoimmune hepatitis (principal); K90.0 Celiac disease; E88.01 Alpha-1-antitrypsin deficiency; K75.81 Nonalcoholic steatohepatitis (NASH); K74.69 Other cirrhosis of liver
CPT/HCPCS: 36415; 80053; 82105; 82140; 83516; 85610

== ENCOUNTER 2021-12-15 00:21 | Inpatient (IN) | payer MEDICARE, SELFPAY ==
[2021-12-15] VITALS (16 sets, daily range): BP systolic 103–149; BP diastolic 50–78; PULSE 92–113; RESP 11–18; TEMP 36.2–37; O2SAT 94–100; BMI 29.8; BMI 29.4
--- NOTE | 2021-12-15 00:59 | ECG_ITS ---
APPROVED REPORT Exam: Resting ECG HR:101 bpm ECG Measurements Heart Rate 101 AXES IA 208 P 57 QRSd 106 QRS -13 QT 374 T 41 QTc 432 Conclusion SINUS TACHYCARDIA Old septal changes ABNORMAL ECG UNCONFIRMED REPORT Electronically signed by : Tung Lozano MD 12/17/2021 17:43:52
--- NOTE | 2021-12-15 01:06 | CT_ITS ---
PROCEDURE INFORMATION: Exam: CT Abdomen And Pelvis With Contrast Exam date and time: 12/15/2021 1:48 AM Age: 61 years old Clinical indication: Nausea and vomiting; Abdominal pain; Additional info: Abd pain TECHNIQUE: Imaging protocol: Computed tomography of the abdomen and pelvis with contrast. Radiation optimization: All CT scans at this facility use at least one of these dose optimization techniques: automated exposure control; mA and/or kV adjustment per patient size (includes targeted exams where dose is matched to clinical indication); or iterative reconstruction. Contrast material: ISOVUE; Contrast volume: 75 ml; Contrast route: IV; COMPARISON: CT ABDOMEN PELVIS WO CON 02/06/2021 9:31 PM FINDINGS: Tubes, catheters and devices: Implanted spinal stimulator device in place with intrathecal lead tips in stable position at T12-L1. Liver: Nodular cirrhotic liver. Gallbladder and bile ducts: Status post cholecystectomy. Pancreas: Atrophic pancreas, unchanged. Spleen: Unremarkable. Adrenal glands: Unremarkable. Kidneys and ureters: Unremarkable. Stomach and bowel: Unremarkable. Appendix: Appendix is not visualized. Intraperitoneal space: Hazy mesenteric fat stranding centered in the mesenteric root and leaflets (e.g. 'lia mesentery'), slightly less conspicuous compared with prior exam on 02/06/2021. No free fluid. No pneumoperitoneum. Vasculature: Splenic and paraesophageal varices compatible with chronic sequelae of portal venous hypertension. Spontaneous portosystemic shunt in the right hemiabdomen, which appears to be new since most recent available abdominal imaging performed on 01/29/2021. Moderate amount of calcific arterial atherosclerosis. No abdominal aortic aneurysm or dissection. Lymph nodes: Conspicuous, shotty mesenteric lymph nodes in the central mesentery. Urinary bladder: Unremarkable. Reproductive: Unremarkable. Bones/joints: Stable appearance of post-operative changes related to prior posterior lumbosacral fixation. Chronic compression fracture of L1, also unchanged. No evidence of acute osseous abnormality. Soft tissues: Stable subcutaneous 1.5 cm soft tissue nodule in the anterior abdominal wall. Small fat containing umbilical hernia, unchanged. IMPRESSION: 1. No acute findings in the abdomen or pelvis. 2. Ill-defined inflammatory changes centered in the mesenteric root and leaflets compatible with mesenteric panniculitis, slightly less conspicuous compared with prior exam on 02/06/2021. 3. Cirrhosis with evidence of longstanding portal venous hypertension, including splenic and paraesophageal varices. 4. Spontaneous portosystemic shunt in the right hemiabdomen, which appears to be new since most recent available abdominal imaging performed on 01/29/2021. 5. Additional chronic ancillary findings are unchanged from prior exam, as detailed above.
--- NOTE | 2021-12-15 01:07 | XR_ITS ---
PROCEDURE INFORMATION: Exam: XR Chest Exam date and time: 12/15/2021 2:11 AM Age: 61 years old Clinical indication: Cough TECHNIQUE: Imaging protocol: Radiologic exam of the chest. Views: 1 view. COMPARISON: CR XR CHEST PORTABLE 04/03/2021 10:40 PM FINDINGS: Lungs: No acute airspace consolidation. No appreciable pulmonary edema. Pleural spaces: No pleural effusion. No pneumothorax. Heart/Mediastinum: Cardiomediastinal silouhette is within normal limits. Bones/joints: No evidence of acute osseous abnormality. IMPRESSION: No acute findings.
[2021-12-15 01:14] LABS: Coronavirus 19, PCR Not Detected (NotDetected); Influenza A, PCR Not Detected (NotDetected); Influenza B, PCR Not Detected (NotDetected)
[2021-12-15 01:19] LABS: Basophils # 0.1 K/mm3 (0-0.2); Eosinophils # 0.1 K/mm3 (0.0-0.4); Eosinophils % 0.8 % (0.1-12.0); Hematocrit 41.1 % (37.0-47.0); Hemoglobin 12.9 g/dL (12.2-16.2); Lymphocytes # 1.7 K/mm3 (0.7-4.5); Lymphocytes % 24.1 % (10-50); Mean Corpuscular HGB Conc 31.3 g/dL (31.8-35.4); Mean Corpuscular Hemoglobin 35.5 pg (27.0-31.2); Mean Corpuscular Volume 113.1 fl (81-99); Mean Platelet Volume 8.7 fl (7.4-10.4); Monocytes # 0.6 K/mm3 (0.1-1.0); Monocytes % 9.2 % (1.7-9.3); Neutrophils # 4.5 K/mm3 (1.8-7.8); Neutrophils % 64.9 % (37.0-80.0); Platelet Count 122 K/mm3 (142-424); Red Blood Count 3.63 M/mm3 (4.20-5.40); Red Cell Distribution Width 14.9 % (11.5-17.5); White Blood Count 6.9 K/mm3 (4.8-10.8)
[2021-12-15 01:20] LABS: Occult Blood,Gastric Fluid Positive (Negative)
[2021-12-15 01:22] LABS: Anion Gap 11.4 mEq/L (5-15); Blood Urea Nitrogen 28 mg/dl (7-17); Carbon Dioxide 33 mmol/L (22.0-30.0); Chloride 95 mmol/L (98-107); Creatinine Clearance Estimated 77 mL/min (50-200); Potassium 4.4 mmoL/L (3.5-5.1); Sodium 135 mmol/L (136-145)
[2021-12-15 01:23] LABS: Amylase 58 U/L (30-110); Calcium 9.3 mg/dl (8.4-10.2); Estimated Glomerular Filt Rate 56 ml/min (>60); GFR (African American) 68 ML/MIN (>60); Glucose 208 mg/dl (74-100); Lactic Acid 1.7 mmol/L (0.7-2.1); Lipase 89 U/L (23-300); Magnesium 1.6 mg/dl (1.6-2.3)
[2021-12-15 01:27] LABS: C-Reactive Protein 4.7 mg/L (0-4)
[2021-12-15 01:38] LABS: Troponin I < 0.01 ng/ml (0.00-0.034)
--- NOTE | 2021-12-15 01:40 | PC.NURSE ---
Medical release of information faxed to [facility] to request patients medical records.
[2021-12-15 01:41] LABS: Procalcitonin 0.326 ng/mL (0.0-2.0)
[2021-12-15 01:53] LABS: Erythrocyte Sedimentation Rate 78 mm/hr (0-30)
[2021-12-15 02:07] LABS: Occult Blood,Stool Positive (Negative)
[2021-12-15 02:48] LABS: INR 1.46 (0.9-1.1); Prothrombin Time 15.4 seconds (10.1-12.5)
[2021-12-15 03:13] LABS: Ammonia 190 umol/L (9-30)
--- NOTE | 2021-12-15 03:22 | PC.NURSE ---
Reached out to [facility] to request medical records again. Was told that records will be faxed soon.
--- NOTE | 2021-12-15 03:28 | PC.NURSE ---
spoke with regarding patients ct abdomen and pelvis. Per , he does not feel as though this is a urological condition so patient is free to be admitted to [facility] to her pcp.
--- NOTE | 2021-12-15 03:37 | PC.NURSE ---
speaking to regarding pt condition.
--- NOTE | 2021-12-15 03:41 | PC.NURSE ---
Per , patient will be admitted [facility] to [place] for acute pyelonephritis and SIRS. Patient notified and agreeable to admission. Patient is currently resting in bed.
--- NOTE | 2021-12-15 04:21 | PC.NURSE ---
Patient continues to have episodes of vomiting that appears to be bloody in nature. MD notified.
--- NOTE | 2021-12-15 04:50 | PC.NURSE ---
Called [facility] they will call back at this time
--- NOTE | 2021-12-15 05:02 | HMH.EDGIBL ---
Discharge Plan Disposition Patient Disposition: Admitted As Inpatient Chief Complaint: GI Bleed Clinical Impressions Clinical Impression: Acute hepatic encephalopathy, Thrombocytopenia, Acute upper GI bleed Discharge ED Provider: Ward Velazquez GI Bleed HPI General Chief complaint: GI Bleed Stated complaint: Vomiting,stomach pain Time Seen by Provider: 12/15/21 05:02 Mode of Arrival: Wheelchair Source of Information: Patient, Relative and Medical Record Limitations: No Limitations Description of Symptoms (Recalled from ER Triage Doc. by RN): Patient states that she woke up Sunday with nausea and became excessively more nauseaus throughout the day and began vomiting around 0900. Pt states she has vomitted more than 10 times throughout the day and has centralized abdominal pain without radiation. Patient has had more than 3 bm's throughout the day and states the color has gotten darker. Pt daughter states she was diagnosed with esophageal varicies last year but was told that they should be okay . History of Present Illness HPI Narrative: pt with known cirrhosis - followed at - last visit a couple of weeks ago - started vomiting this am and possible gi bleed this am -no pain reported MD complaint: other (dark vomitus ) Onset (ago): hour(s) Consistency: intermittent Severity: moderate Context: liver disease and known esophageal varices Associated symptoms: malaise Treatments Prior to Arrival: none Related Data Home Medications Medication Instructions Recorded Confirmed fenofibrate 160 mg tablet 160 mg PO DAILY Cholesterol 05/04/17 12/15/21 levothyroxine 137 mcg tablet 137 mcg PO DAILY HYPOTHYOIDISM 05/04/17 12/15/21 lisinopril 5 mg tablet 5 mg PO DAILY High blood pressure 05/04/17 12/15/21 omeprazole 40 mg capsule,delayed 40 mg PO DAILY ACID REFLUX 12/23/19 12/15/21 release insulin glargine 100 unit/mL (3 40 unit SQ BID Diabetes 01/25/20 12/15/21 mL) subcutaneous pen insulin aspart U-100 100 unit/mL 15 - 30 units SQ TIDWM Diabetes 01/26/20 12/15/21 (3 mL) subcutaneous pen lactulose 20 gram/30 mL oral 30 ml PO QID elevated ammonia 02/02/20 12/15/21 solution rifaximin 200 mg tablet 600 mg PO BID liver 02/02/20 12/15/21 alpha lipoic acid 200 mg capsule 200 mg PO DAILY . 02/06/21 12/15/21 furosemide 40 mg tablet 40 mg PO DAILY Fluid 02/06/21 12/15/21 nadolol 20 mg tablet 5 mg PO DAILY gi 02/06/21 12/15/21 potassium chloride 20 mEq 20 meq PO BID Supplement 02/06/21 12/15/21 tablet,extended release(part/cryst) spironolactone 100 mg tablet 100 mg PO DAILY Fluid 02/06/21 12/15/21 umeclidinium 62.5 mcg-vilanterol 1 inh IH DAILY . 02/06/21 12/15/21 25 mcg/actuation powdr for inhalation Allergies Allergy/AdvReac Type Severity Reaction Status Date / Time nitrofurantoin Allergy Severe Anaphylaxis Verified 02/21/21 13:23 [From MACROBID] codeine [CODEINE] Allergy Mild Verified 02/21/21 13:23 Sulfa (Sulfonamide Allergy Mild Verified 02/21/21 13:23 Antibiotics) [SULFA (SULFONAMIDE ANTIBIOTICS)] ergocalciferol (vitamin D2) Allergy Unknown Verified 02/21/21 13:23 [From Vitamin D2] [facility] Medical History (Updated 12/15/21 @ 06:01 by Ward Velazquez MD) [id number] deficiency Diabetes type 2, controlled Frequent urinary tract infections GERD (gastroesophageal reflux disease) Glaucoma HTN (hypertension) Hyperammonemia Hyperlipidemia Hypothyroidism Liver cirrhosis Family History (Updated 11/29/21 @ 09:44 by Shanon Oh RN) No significant family history Social History (Updated 11/29/21 @ 09:42 by Shanon Oh RN) Smoking Status: Former smoker second hand exposure: Yes alcohol intake: never substance use type: denies use current occupational status: other Travel in the last 8 weeks: None household members: other housing: house current occupational exposures/hazards: No caffeine: Yes ROS Obtained: Yes unobtain
[2021-12-15 05:22] LABS: Microscopic, Urine URINE MICROSCOPIC (MICROSCOPIC)
[2021-12-15 05:23] LABS: Appearance,Urine CLEAR (Clear); Bilirubin,Urine Negative (Negative); Blood, Urine TRACE-I (Negative); Color,Urine YELLOW (Yellow); Glucose,Urine (UA) Negative (Negative); Ketones,Urine TRACE (Negative); Leukocyte Esterase,Urine Negative (Negative); Nitrate,Urine Negative (Negative); PH,Urine 6.5 (5.0-8.5); Protein,Urine Negative (Negative); Urobilinogen,Urine 0.2 EU/dl (0.2)
--- NOTE | 2021-12-15 05:37 | PC.NURSE ---
patient vomited following lactulose dosing earlier. Medication reordered per md to be given rectally.
--- NOTE | 2021-12-15 05:43 | PC.NURSE ---
Spoke with Stiven at [facility] regarding lactulose dosing. Per Edwin, patient is to be given 200gm of lactulose, or 300mL, mixed in 700mL of water and to be given as an enema and retained for 30 minutes if possible.
--- NOTE | 2021-12-15 05:44 | PC.NURSE ---
Order changed by . Per , he would prefer to wait until in the morning to give lactulose when our pharmacy is available to round on patient.
--- NOTE | 2021-12-15 05:47 | PC.NURSE ---
Spoke with patients daughter Rose regarding patients admission to [facility]. Advised daughter that patient is accepted to but there are no rooms available so she will be accepted to [facility] pending room availability at . Daughter verbalized understanding.
[2021-12-15 05:50] LABS: Bacteria,Urine Trace /lpf
--- NOTE | 2021-12-15 06:34 | PC.NURSE ---
patient up to floor via stretcher @ this time.
[2021-12-15 06:36] LABS: POC Glucose,Bedside 256 (70-110)
[2021-12-15 08:01] LABS: Basophils % 0.3 % (0.1-2.0); Eosinophils % 0.3 % (0.1-12.0); Hematocrit 36.3 % (37.0-47.0); Hemoglobin 11.7 g/dL (12.2-16.2); Lymphocytes # 0.9 K/mm3 (0.7-4.5); Lymphocytes % 18.3 % (10-50); Mean Corpuscular HGB Conc 32.2 g/dL (31.8-35.4); Mean Corpuscular Hemoglobin 36.5 pg (27.0-31.2); Mean Corpuscular Volume 113.5 fl (81-99); Mean Platelet Volume 9.1 fl (7.4-10.4); Monocytes # 0.3 K/mm3 (0.1-1.0); Neutrophils # 3.8 K/mm3 (1.8-7.8); Platelet Count 99 K/mm3 (142-424); White Blood Count 5.1 K/mm3 (4.8-10.8)
--- NOTE | 2021-12-15 08:05 | P.CONPHA_ITS ---
[facility] Pharmacy VTE Monitoring Patient Demographics Admission date: 12/14/21 Report Date: 12/15/21 Time: 08:05 Patient Allergies nitrofurantoin [From MACROBID] Allergy (Severe, Verified 02/21/21 13:23) Anaphylaxis codeine [CODEINE] Allergy (Mild, Verified 02/21/21 13:23) Sulfa (Sulfonamide Antibiotics) [SULFA (SULFONAMIDE ANTIBIOTICS)] Allergy (Mild, Verified 02/21/21 13:23) ergocalciferol (vitamin D2) [From Vitamin D2] Allergy (Unknown, Verified 02/21/21 13:) Height: 1.68 m Weight: 82.962 kg Current Active Problems (Updated 12/15/21 @ 06:25 by Callie Ratliff RN) Thrombocytopenia (Acute) Acute hepatic encephalopathy (Acute) Acute upper GI bleed (Acute) VTE Risk Labs: VTE Related Lab Results Hgb 12.9 g/dL (12.2-16.2) 12/15/21 01:05 Hct 41.1 % (37.0-47.0) 12/15/21 01:05 Plt Count 122 K/mm3 (142-424) L 12/15/21 01:05 PT 15.4 seconds (10.1-12.5) H 12/15/21 01:05 INR 1.46 (0.9-1.1) H 12/15/21 01:05 BUN 28 mg/dl (7-17) H 12/15/21 01:05 Creatinine 1.00 mg/dl (0.52-1.04) 12/15/21 01:05 Estimated Creat Clear 77 mL/min (50-200) 12/15/21 01:05 Prophylaxis VTE Prophylaxis Ordered?: No If no, why not: PT ADMITTED WITH GI BLEED, PT AMBULATING IN ROOM
[2021-12-15 08:15] LABS: Ammonia 116 umol/L (9-30)
--- NOTE | 2021-12-15 08:33 | PC.NURSE ---
Notified [facility] of consult on patient. Spoke with Pedro.
[2021-12-15 08:45] LABS: Chloride 100 mmol/L (98-107); Sodium 138 mmol/L (136-145)
[2021-12-15 08:48] LABS: Blood Urea Nitrogen 33 mg/dl (7-17); Creatinine Clearance Estimated 76 mL/min (50-200); Estimated Glomerular Filt Rate 73 ml/min (>60); GFR (African American) 88 ML/MIN (>60)
--- NOTE | 2021-12-15 08:48 | EXP.HP ---
History of Present Illness *Admission Date: 12/14/21 *Reason for visit:: Mental status changes, hematemesis *History of present illness: 61-year-old white female with chronic liver disease, chronic liver cirrhosis, and a history of variceal bleeding, who came to the emergency department with 2 to 3 days of worsening mental status changes and black/tarry stool. She did not vomit, but reported widespread abdominal pain. In the emergency department she had high ammonia levels, was encephalopathic, and noted to have elevated liver functions. INR was 1.4. Guaiac test of stool was positive with black/tarry stool. Given her high risk of variceal bleeding [facility] was contacted and she is now on the wait list for bed transfer. She was admitted given the need for waiting on beds and has been given octreotide, lactulose and IV fluids. [facility] Medical History (Updated 12/15/21 @ 08:51 by Tung Lozano MD) [id number] deficiency Diabetes type 2, controlled Esophageal varices Frequent urinary tract infections GERD (gastroesophageal reflux disease) Glaucoma HTN (hypertension) Hyperammonemia Hyperlipidemia Hypothyroidism Liver cirrhosis Family History (Updated 11/29/21 @ 09:44 by Shanon Oh RN) No significant family history Social History (Updated 11/29/21 @ 09:42 by Shanon Oh RN) Smoking Status: Former smoker second hand exposure: Yes alcohol intake: never substance use type: denies use current occupational status: other Travel in the last 8 weeks: None household members: other housing: house current occupational exposures/hazards: No caffeine: Yes Review of Systems Review of Systems Review of systems:: unable to obtain Meds Home Medications and Allergies Home Medications Medication Instructions Recorded Confirmed Type fenofibrate 160 mg tablet 160 mg PO DAILY Cholesterol 05/04/17 12/15/21 History levothyroxine 137 mcg tablet 137 mcg PO DAILY Hypothyroidism 05/04/17 12/15/21 History omeprazole 40 mg capsule,delayed 40 mg PO DAILY ACID REFLUX 12/23/19 11/29/21 History release insulin glargine 100 unit/mL (3 40 unit SQ DAILY Diabetes 01/25/20 12/15/21 History mL) subcutaneous pen insulin aspart U-100 100 unit/mL 15 - 30 units SQ TIDWM Diabetes 01/26/20 12/15/21 History (3 mL) subcutaneous pen lactulose 20 gram/30 mL oral 30 ml PO TID elevated ammonia 02/02/20 12/15/21 History solution alpha lipoic acid 200 mg capsule 200 mg PO DAILY . 02/06/21 12/15/21 History furosemide 40 mg tablet 40 mg PO DAILY Fluid 02/06/21 12/15/21 History nadolol 20 mg tablet 5 mg PO DAILY blood pressure 02/06/21 12/15/21 History potassium chloride 20 mEq 20 meq PO BID Supplement 02/06/21 12/15/21 History tablet,extended release(part/cryst) spironolactone 100 mg tablet 100 mg PO DAILY Fluid 02/06/21 12/15/21 History umeclidinium 62.5 mcg-vilanterol 1 inh IH DAILY . 02/06/21 12/15/21 History 25 mcg/actuation powdr for inhalation omeprazole 20 mg capsule,delayed 20 mg PO DAILY acid reflux 12/15/21 12/15/21 History release rifaximin 550 mg tablet (Xifaxan) 550 mg PO BID liver 12/15/21 12/15/21 History New Prescriptions to Start Prescriptions: Allergies Allergy/AdvReac Type Severity Reaction Status Date / Time nitrofurantoin Allergy Severe Anaphylaxis Verified 02/21/21 13:23 [From MACROBID] codeine [CODEINE] Allergy Mild Verified 02/21/21 13:23 Sulfa (Sulfonamide Allergy Mild Verified 02/21/21 13:23 Antibiotics) [SULFA (SULFONAMIDE ANTIBIOTICS)] ergocalciferol (vitamin D2) Allergy Unknown Verified 02/21/21 13:23 [From Vitamin D2] Exam Data for Last 24 hours Vital signs and Labs for Last 24 Hours: Temp Pulse Resp BP Pulse Ox 98.2 F 105 H 18 131/50 L 99 12/15/21 07:58 12/15/21 07:58 12/15/21 07:58 12/15/21 07:58 12/15/21 07:58 Laboratory Results - last 24 hr 12/15/21 01:05: WBC 6.9, RBC 3.63
[2021-12-15 08:49] LABS: Calcium 8.9 mg/dl (8.4-10.2); Carbon Dioxide 29 mmol/L (22.0-30.0); Glucose 289 mg/dl (74-100)
--- NOTE | 2021-12-15 09:01 | EXP.SURG.CON ---
History of Present Illness *Admission Date: 12/14/21 *Reason for visit:: Upper gastrointestinal hemorrhage/history of variceal bleed *History of present illness: This is a 61-year-old female seen in consultation from Dr. Lozano for evaluation regarding upper gastrointestinal hemorrhage. Please see HPI forwarded from emergency department evaluation/admission H&P below. 61-year-old white female with chronic liver disease, chronic liver cirrhosis, and a history of variceal bleeding, who came to the emergency department with 2 to 3 days of worsening mental status changes and black/tarry stool. She did not vomit, but reported widespread abdominal pain. In the emergency department she had high ammonia levels, was encephalopathic, and noted to have elevated liver functions. INR was 1.4. Guaiac test of stool was positive with black/tarry stool. Given her high risk of variceal bleeding [facility] was contacted and she is now on the wait list for bed transfer. She was admitted given the need for waiting on beds and has been given octreotide, lactulose and IV fluids. [facility] Medical History (Updated 12/15/21 @ 09:03 by Chente Abel MD) Aosni-6-yandgwyvtqd deficiency Diabetes type 2, controlled Esophageal varices Frequent urinary tract infections GERD (gastroesophageal reflux disease) Glaucoma HTN (hypertension) Hyperammonemia Hyperlipidemia Hypothyroidism Liver cirrhosis Family History (Updated 11/29/21 @ 09:44 by Shanon Oh RN) No significant family history Social History (Updated 11/29/21 @ 09:42 by Shanon Oh RN) Smoking Status: Former smoker second hand exposure: Yes alcohol intake: never substance use type: denies use current occupational status: other Travel in the last 8 weeks: None household members: other housing: house current occupational exposures/hazards: No caffeine: Yes Meds Home Medications and Allergies Home Medications Medication Instructions Recorded Confirmed Type fenofibrate 160 mg tablet 160 mg PO DAILY Cholesterol 05/04/17 12/15/21 History levothyroxine 137 mcg tablet 137 mcg PO DAILY Hypothyroidism 05/04/17 12/15/21 History omeprazole 40 mg capsule,delayed 40 mg PO DAILY ACID REFLUX 12/23/19 11/29/21 History release insulin glargine 100 unit/mL (3 40 unit SQ DAILY Diabetes 01/25/20 12/15/21 History mL) subcutaneous pen insulin aspart U-100 100 unit/mL 15 - 30 units SQ TIDWM Diabetes 01/26/20 12/15/21 History (3 mL) subcutaneous pen lactulose 20 gram/30 mL oral 30 ml PO TID elevated ammonia 02/02/20 12/15/21 History solution alpha lipoic acid 200 mg capsule 200 mg PO DAILY . 02/06/21 12/15/21 History furosemide 40 mg tablet 40 mg PO DAILY Fluid 02/06/21 12/15/21 History nadolol 20 mg tablet 5 mg PO DAILY blood pressure 02/06/21 12/15/21 History potassium chloride 20 mEq 20 meq PO BID Supplement 02/06/21 12/15/21 History tablet,extended release(part/cryst) spironolactone 100 mg tablet 100 mg PO DAILY Fluid 02/06/21 12/15/21 History umeclidinium 62.5 mcg-vilanterol 1 inh IH DAILY . 02/06/21 12/15/21 History 25 mcg/actuation powdr for inhalation omeprazole 20 mg capsule,delayed 20 mg PO DAILY acid reflux 12/15/21 12/15/21 History release rifaximin 550 mg tablet (Xifaxan) 550 mg PO BID liver 12/15/21 12/15/21 History New Prescriptions to Start Prescriptions: Allergies Allergy/AdvReac Type Severity Reaction Status Date / Time nitrofurantoin Allergy Severe Anaphylaxis Verified 02/21/21 13:23 [From MACROBID] codeine [CODEINE] Allergy Mild Verified 02/21/21 13:23 Sulfa (Sulfonamide Allergy Mild Verified 02/21/21 13:23 Antibiotics) [SULFA (SULFONAMIDE ANTIBIOTICS)] ergocalciferol (vitamin D2) Allergy Unknown Verified 02/21/21 13:23 [From Vitamin D2] Exam (Inpt) Vital signs and Labs for Last 24 Hours: Temp Pulse Resp BP Pulse Ox 98.2 F 105 H 18 131/50 L 99 1
--- NOTE | 2021-12-15 09:40 | HMH.PHAINT1 ---
Pharmacy Intervention Comments: Home medication reconciliation completed using outpatient pharmacy list.
[2021-12-15 12:26] LABS: POC Glucose,Bedside 244 (70-110)
[2021-12-15 17:05] LABS: POC Glucose,Bedside 171 (70-110)
--- NOTE | 2021-12-15 18:50 | PC.NURSE ---
Patient alert and oriented but too lethargic to finish med rec. Patient able to answer all questions and follow commands but very weak. Lactulose enemas given, pt produced many black blood bowel movements. 1300 dose held, Dr. Knott notified. Ok to give 1700 and nightime dose per Dr. Knott. VS stable. Protonix drip maintained, octreotide drip started. Patient slept throughout the day but easily arousable. No other changes noted.
[2021-12-15 22:15] LABS: POC Glucose,Bedside 149 (70-110)
[2021-12-16 04:00] VITALS: BP 102/45; PULSE 91; RESP 16; TEMP 36.8; O2SAT 96
--- NOTE | 2021-12-16 04:15 | PC.NURSE ---
pt has rested t/o the shift, lactulose given this shift, with only a small amount of fluid/stool expelled, has had no complaints of pain or SOA, remains on room air with O2 sats 96-98%, harvey remains in place with 300 mL out so far this shift
[2021-12-16 05:00] VITALS: BMI 29.8
[2021-12-16 05:20] LABS: POC Glucose,Bedside 142 (70-110)
[2021-12-16 05:51] LABS: Basophils # 0.1 K/mm3 (0-0.2); Basophils % 1.4 % (0.1-2.0); Eosinophils # 0.1 K/mm3 (0.0-0.4); Eosinophils % 1.1 % (0.1-12.0); Lymphocytes % 31.5 % (10-50); Mean Corpuscular HGB Conc 30.6 g/dL (31.8-35.4); Mean Corpuscular Hemoglobin 35.5 pg (27.0-31.2); Mean Corpuscular Volume 116.1 fl (81-99); Mean Platelet Volume 8.9 fl (7.4-10.4); Monocytes # 0.7 K/mm3 (0.1-1.0); Monocytes % 10.8 % (1.7-9.3); Neutrophils # 3.6 K/mm3 (1.8-7.8); Neutrophils % 55.3 % (37.0-80.0); Platelet Count 103 K/mm3 (142-424); Red Blood Count 2.84 M/mm3 (4.20-5.40); Red Cell Distribution Width 15.2 % (11.5-17.5); White Blood Count 6.5 K/mm3 (4.8-10.8)
[2021-12-16 05:56] LABS: Hemoglobin 10.1 g/dL (12.2-16.2)
[2021-12-16 05:58] LABS: Chloride 104 mmol/L (98-107); Potassium 4.1 mmoL/L (3.5-5.1); Sodium 139 mmol/L (136-145)
[2021-12-16 06:01] LABS: Alanine Aminotransferase 22 U/L (12-78); Albumin Level 2.4 g/dl (3.5-5.0); Albumin/Globulin Ratio 0.7 (1.1-1.8); Alkaline Phosphatase 180 U/L (38-126); Anion Gap 10.1 mEq/L (5-15); Aspartate Amino Transferase 62 U/L (14-36); Bilirubin,Total 3.2 mg/dl (0.2-1.3); Blood Urea Nitrogen 31 mg/dl (7-17); Carbon Dioxide 29 mmol/L (22.0-30.0); Creatinine Clearance Estimated 78 mL/min (50-200); Estimated Glomerular Filt Rate 63 ml/min (>60); GFR (African American) 77 ML/MIN (>60); Globulin 3.3 g/dL (1.3-3.2); Total Protein,Serum 5.7 g/dl (6.3-8.2)
[2021-12-16 06:02] LABS: Ammonia 40 umol/L (9-30); Calcium 8.1 mg/dl (8.4-10.2); Glucose 145 mg/dl (74-100)
[2021-12-16 07:45] VITALS: BP 122/46; PULSE 104; RESP 18; TEMP 37.3; O2SAT 97
--- NOTE | 2021-12-16 08:43 | EXP.ACUTE.PN ---
Subjective *Date: 12/16/21 *Time: 08:43 Interval history: Patient with no new complaints today, still has some nausea, states she vomited once last night, still has some abdominal pain. Medical Exam Vital signs and Labs for Last 24 Hours: Temp Pulse Resp BP Pulse Ox 99.1 F 104 H 18 122/46 L 97 12/16/21 07:45 12/16/21 07:45 12/16/21 07:45 12/16/21 07:45 12/16/21 07:45 Laboratory Results - last 24 hr 12/15/21 07:55: Sodium 138, Potassium 5.0, Chloride 100, Carbon Dioxide 29, Anion Gap 14.0, BUN 33 H, Creatinine 0.80, Estimated Creat Clear 76, Estimated GFR 73, Est GFR ( Amer) 88 D, Glucose 289 H D, Calcium 8.9 12/15/21 11:39: POC Glucose 244 H 12/15/21 16:34: POC Glucose 171 H 12/15/21 21:54: POC Glucose 149 H 12/16/21 05:04: POC Glucose 142 H 12/16/21 05:41: WBC 6.5 D, RBC 2.84 L, Hgb 10.1 L D, Hct 33.0 L, MCV 116.1 H, MCH 35.5 H, MCHC 30.6 L, RDW 15.2, Plt Count 103 L, MPV 8.9, Neut % (Auto) 55.3, Lymph % (Auto) 31.5, [place] % (Auto) 10.8 H, Eos % (Auto) 1.1, Baso % (Auto) 1.4, Neut # (Auto) 3.6, Lymph # (Auto) 2.0, [place] # (Auto) 0.7, Eos # (Auto) 0.1, Baso # (Auto) 0.1 12/16/21 05:41: Sodium 139, Potassium 4.1, Chloride 104, Carbon Dioxide 29, Anion Gap 10.1, BUN 31 H, Creatinine 0.90, Estimated Creat Clear 78, Estimated GFR 63, Est GFR ( Amer) 77, Glucose 145 H D, Calcium 8.1 L, Total Bilirubin 3.2 H, AST 62 H, ALT 22, Alkaline Phosphatase 180 H, Total Protein 5.7 L, Albumin 2.4 L, Globulin 3.3 H, Albumin/Globulin Ratio 0.7 L 12/16/21 05:41: Ammonia 40 H I & O for Labs for Last 24 Hours: Intake & Output 12/13/21 12/14/21 12/15/21 12/16/21 23:59 23:59 23:59 23:59 Intake Total 762 / 762 1190 / 1190 Output Total 600 / 600 300 / 300 Balance 162 / 162 890 / 890 Weight 182 lb 14.4 oz 185 lb 14.4 oz Constitutional: Present no acute distress Respiratory: Present CTA bilaterally Cardiac: Present Reg Rate and Rhythm GI: Present soft and tenderness (periumbilical and epigastric); Absent rigidity Assessment and Plan *Assessment and plan (1) Abdominal pain, generalized: Status: Acute Category: Medical Code(s): R10.84 - Generalized abdominal pain (2) Hepatic encephalopathy: Status: Acute Category: Medical Code(s): K72.90 - Hepatic failure, unspecified without coma (3) Transaminitis: Status: Chronic Category: Medical Code(s): R74.01 - Elevation of levels of liver transaminase levels (4) Diabetes: Status: Chronic Qualifiers: Diabetes mellitus type: type 2 Diabetes mellitus correction insulin use: 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
[2021-12-16 11:30] VITALS: BP 125/60; PULSE 101; RESP 18; TEMP 37.2; O2SAT 97
[2021-12-16 11:53] LABS: POC Glucose,Bedside 189 (70-110)
[2021-12-16 12:03] VITALS: BMI 29.8
--- NOTE | 2021-12-16 14:51 | DIET.NUTRFU ---
RD interviewed patient, she reports hx of celiac dz (not listed on profile) and practices a gluten free, diabetic diet at home. When medically feasible to advance from NPO facility will provide gluten free choices. She is well educated on gluten free and diabetic diet, no handouts needed at this time. [facility] has been notified
--- NOTE | 2021-12-16 15:21 | PC.NURSE ---
Patient much more alert today than day before. Patient oriented and able to stay awake for longer periods of time. VS stable and pt remained on room air. No nausea or pain reported. LActulose enema given in am and pt able to have a couple of dark bloody bowel movements. Octreotide and protonix drips currently infusing as well as normal saline fluids. Abdomen soft, non-tender
[2021-12-16 16:00] VITALS: BP 122/58; PULSE 99; RESP 18; TEMP 37; O2SAT 96
[2021-12-16 19:36] VITALS: BP 120/56; PULSE 95; RESP 16; TEMP 37.4; O2SAT 97
[2021-12-16 19:45] LABS: POC Glucose,Bedside 178 (70-110)
[2021-12-16 20:31] LABS: POC Glucose,Bedside 118 (70-110)
[2021-12-16 23:43] VITALS: BP 124/65; PULSE 97; RESP 18; TEMP 37; O2SAT 97
--- NOTE | 2021-12-17 00:05 | PC.NURSE ---
PT IS RESTING IN BED. ALERT AND ORIENTED X4. PT HAS SOME RIGHT SIDED ABDOMINAL TENDERNESS WITH PALPATION. LUNG SOUNDS DIMINISHED. NO SWELLING NOTED TO BLE. PT DID HAVE A DARK/TARRY BOWEL MOVEMENT AFTER LACTULOSE. WILL CONTINUE TO MONITOR.
[2021-12-17 03:33] VITALS: BP 123/58; PULSE 94; RESP 16; TEMP 36.9; O2SAT 95
[2021-12-17 05:27] VITALS: BMI 30.9
[2021-12-17 05:37] LABS: POC Glucose,Bedside 135 (70-110)
[2021-12-17 07:38] VITALS: BP 123/61; PULSE 91; RESP 20; TEMP 37; O2SAT 94
--- NOTE | 2021-12-17 08:34 | P.PN_ITS ---
Subjective *Date: 12/17/21 *Time: 08:38 Interval history: Patient states she feels a little better this morning, less abdominal pain, less nausea. Exam Data for Last 24 hours Vital signs and Labs for Last 24 Hours: Temp Pulse Resp BP Pulse Ox 98.6 F 91 H 20 123/61 94 L 12/17/21 07:38 12/17/21 07:38 12/17/21 07:38 12/17/21 07:38 12/17/21 07:38 Laboratory Results - last 24 hr 12/16/21 11:41: POC Glucose 189 H 12/16/21 16:39: POC Glucose 178 H 12/16/21 20:02: POC Glucose 118 H 12/17/21 05:18: POC Glucose 135 H I & O for Last 24 hours: Intake & Output 12/14/21 12/15/21 12/16/21 12/17/21 23:59 23:59 23:59 23:59 Intake Total 762 / 762 1879 / 1879 1049 / 1049 Output Total 600 / 600 1300 / 1300 620 / 620 Balance 162 / 162 579 / 579 429 / 429 Weight 182 lb 14.4 oz 185 lb 14.406 oz 192 lb 3 oz Constitutional Constitutional: no acute distress *Routine Respiratory Exam Respiratory: Present CTA bilaterally *Routine Cardiovascular Exam Cardiovascular: Present RRR *Routine Abdominal Exam Abdominal: Present soft; Absent tenderness *Routine Skin Exam Skin: Present warm; Absent rash *Routine Neurological Exam Neurological: Present alert and oriented X3 Assessment and Plan *Assessment and plan (1) Abdominal pain, generalized: Status: Acute Category: Medical Code(s): R10.84 - Generalized abdominal pain (2) Hepatic encephalopathy: Status: Acute Category: Medical Code(s): K72.90 - Hepatic failure, unspecified without coma (3) Transaminitis: Status: Chronic Category: Medical Code(s): R74.01 - Elevation of levels of liver transaminase levels (4) Diabetes: Status: Chronic Qualifiers: Diabetes mellitus type: type 2 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
[2021-12-17 09:23] LABS: Basophils % 0.7 % (0.1-2.0); Eosinophils # 0.1 K/mm3 (0.0-0.4); Eosinophils % 2.2 % (0.1-12.0); Hematocrit 30.1 % (37.0-47.0); Hemoglobin 9.4 g/dL (12.2-16.2); Lymphocytes # 1.6 K/mm3 (0.7-4.5); Lymphocytes % 38.1 % (10-50); Mean Corpuscular HGB Conc 31.2 g/dL (31.8-35.4); Mean Corpuscular Hemoglobin 35.6 pg (27.0-31.2); Mean Corpuscular Volume 114.1 fl (81-99); Mean Platelet Volume 8.9 fl (7.4-10.4); Monocytes # 0.5 K/mm3 (0.1-1.0); Monocytes % 11.1 % (1.7-9.3); Neutrophils % 47.8 % (37.0-80.0); Platelet Count 95 K/mm3 (142-424); Red Blood Count 2.63 M/mm3 (4.20-5.40); Red Cell Distribution Width 15.3 % (11.5-17.5); White Blood Count 4.2 K/mm3 (4.8-10.8)
[2021-12-17 09:25] LABS: Ammonia 58 umol/L (9-30)
[2021-12-17 09:30] LABS: Chloride 107 mmol/L (98-107); Potassium 4.1 mmoL/L (3.5-5.1); Sodium 139 mmol/L (136-145)
[2021-12-17 09:33] LABS: Alanine Aminotransferase 20 U/L (12-78); Albumin Level 2.2 g/dl (3.5-5.0); Albumin/Globulin Ratio 0.7 (1.1-1.8); Alkaline Phosphatase 165 U/L (38-126); Anion Gap 8.1 mEq/L (5-15); Aspartate Amino Transferase 67 U/L (14-36); Bilirubin,Total 2.8 mg/dl (0.2-1.3); Blood Urea Nitrogen 20 mg/dl (7-17); Carbon Dioxide 28 mmol/L (22.0-30.0); Creatinine Clearance Estimated 80 mL/min (50-200); Estimated Glomerular Filt Rate 73 ml/min (>60); GFR (African American) 88 ML/MIN (>60); Globulin 3.2 g/dL (1.3-3.2); Total Protein,Serum 5.4 g/dl (6.3-8.2)
[2021-12-17 09:34] LABS: Calcium 7.7 mg/dl (8.4-10.2); Glucose 138 mg/dl (74-100)
[2021-12-17 11:39] LABS: POC Glucose,Bedside 188 (70-110)
[2021-12-17 11:41] VITALS: BP 131/69; PULSE 94; RESP 20; TEMP 36.9; O2SAT 96
--- NOTE | 2021-12-17 12:16 | PC.NURSE ---
spoke with transfer center at . gave update but still no availability
[2021-12-17 13:21] LABS: POC Glucose,Bedside 201 (70-110)
--- NOTE | 2021-12-17 15:02 | PC.NURSE ---
report Called to Bonnie @ [facility]. pt NOK contacted. pt will be going to Room [address] dr thayer accepting physician
--- NOTE | 2021-12-17 16:03 | PC.NURSE ---
pt has left unit via EMS. report Called to Bonnie MONTEIRO contacted.
--- NOTE | 2022-01-30 19:36 | EXP.DC.SUM ---
General Admission date:: 12/15/21 Discharge date: 01/17/22 HPI HPI HPI: This is a 61-year-old female seen in consultation from Dr. Lozano for evaluation regarding upper gastrointestinal hemorrhage. Please see HPI forwarded from emergency department evaluation/admission H&P below. 61-year-old white female with chronic liver disease, chronic liver cirrhosis, and a history of variceal bleeding, who came to the emergency department with 2 to 3 days of worsening mental status changes and black/tarry stool. She did not vomit, but reported widespread abdominal pain. In the emergency department she had high ammonia levels, was encephalopathic, and noted to have elevated liver functions. INR was 1.4. Guaiac test of stool was positive with black/tarry stool. Given her high risk of variceal bleeding [facility] was contacted and she is now on the wait list for bed transfer. She was admitted given the need for waiting on beds and has been given octreotide, lactulose and IV fluids. Hospital Course Hospital Course Hospital Course: admitted, stabilzied on octreotide and IVF... tranferred to [facility] on 12/17 when bed available... see progress notes for details Exam Data for Last 24 hours Vital signs and Labs for Last 24 Hours: Temp Pulse Resp BP Pulse Ox 98.4 F 94 H 20 131/69 96 12/17/21 11:41 12/17/21 11:41 12/17/21 11:41 12/17/21 11:41 12/17/21 11:41 Constitutional Constitutional: no acute distress *Routine Respiratory Exam Respiratory: Present CTA bilaterally *Routine Cardiovascular Exam Cardiovascular: Present RRR *Routine Abdominal Exam Abdominal: Present soft; Absent tenderness *Routine Skin Exam Skin: Present warm; Absent rash *Routine Neurological Exam Neurological: Present alert and oriented X3 DS: Diagnosis Discharge Diagnosis (1) Abdominal pain, generalized: Status: Acute (2) Hepatic encephalopathy: Status: Acute (3) Transaminitis: Status: Chronic (4) Diabetes: Status: Chronic (5) Acute upper GI bleed: Status: Acute Meds Home Medications and Allergies Home Medications Medication Instructions Recorded Confirmed Type fenofibrate 160 mg tablet 160 mg PO DAILY Cholesterol 05/04/17 12/15/21 History levothyroxine 137 mcg tablet 137 mcg PO DAILY Hypothyroidism 05/04/17 12/15/21 History insulin glargine 100 unit/mL (3 40 unit SQ DAILY Diabetes 01/25/20 12/15/21 History mL) subcutaneous pen insulin aspart U-100 100 unit/mL 15 - 30 units SQ TIDWM Diabetes 01/26/20 12/15/21 History (3 mL) subcutaneous pen lactulose 20 gram/30 mL oral 30 ml PO TID elevated ammonia 02/02/20 12/15/21 History solution alpha lipoic acid 200 mg capsule 200 mg PO DAILY . 02/06/21 12/15/21 History furosemide 40 mg tablet 40 mg PO DAILY Fluid 02/06/21 12/15/21 History nadolol 20 mg tablet 5 mg PO DAILY blood pressure 02/06/21 12/15/21 History potassium chloride 20 mEq 20 meq PO BID Supplement 02/06/21 12/15/21 History tablet,extended release(part/cryst) spironolactone 100 mg tablet 100 mg PO DAILY Fluid 02/06/21 12/15/21 History omeprazole 20 mg capsule,delayed 20 mg PO DAILY acid reflux 12/15/21 12/15/21 History release rifaximin 550 mg tablet (Xifaxan) 550 mg PO BID liver 12/15/21 12/15/21 History umeclidinium 62.5 mcg-vilanterol 1 inh inhalation DAILY COPD 12/15/21 12/15/21 History 25 mcg/actuation powdr for inhalation (Anoro Ellipta) ursodiol 300 mg capsule 600 mg PO BID Gallstone 12/15/21 12/15/21 History promethazine 25 mg tablet 25 mg PO Q6H PRN nausea and 01/28/22 Rx vomiting #20 tabs New Prescriptions to Start Prescriptions: Allergies Allergy/AdvReac Type Severity Reaction Status Date / Time nitrofurantoin Allergy Severe Anaphylaxis Verified 02/21/21 13:23 [From MACROBID] codeine [CODEINE] Allergy Mild Verified 02/21/21 13:23 Sulfa (Sulfonamide Allergy Mild Verified 02/21/21 13:23 Antibiotics) [SULFA (SULFONAMIDE
== END 2021-12-17 15:45 | disposition short-term general hospital (02) | DRG 379 ==
LOC: ER 00:56 → 2ND 06:01
PROVIDERS: Family Medicine; Admitting Provider Family Medicine; Emergency Provider Emergency Medicine; PCP Internal Medicine Adolescent Medicine; Visit Provider Internal Medicine Adolescent Medicine
DX: K92.0 Hematemesis (principal); K74.60 Unspecified cirrhosis of liver; K76.82 Hepatic encephalopathy; D69.6 Thrombocytopenia, unspecified; Z79.4 Long term (current) use of insulin; I10 Essential (primary) hypertension; E78.5 Hyperlipidemia, unspecified; E03.9 Hypothyroidism, unspecified; Z87.891 Personal history of nicotine dependence; E11.69 Type 2 diabetes mellitus with other specified complication; I85.10 Secondary esophageal varices without bleeding
CPT/HCPCS: 36415; 51702; 71045; 74177; 80048; 80053; 81001; 82140; 82150; 82272; 82962; 83605; 83690; 83735; 84145; 84484; 85025; 85610; 85651; 86140; 93005; 99285; C9803; G0328; J2354; J2405; Q9967; U0003; U0005

== ENCOUNTER 2022-01-28 04:22 | Emergency (ER) | payer MEDICARE, SELFPAY ==
[2022-01-28 04:25] VITALS: BP 140/68; PULSE 77; RESP 16; TEMP 36.8; O2SAT 98; BMI 30.7
[2022-01-28 04:35] VITALS: BP 140/68; PULSE 79; O2SAT 98
--- NOTE | 2022-01-28 04:42 | CT_ITS ---
PROCEDURE INFORMATION: Exam: CT Abdomen And Pelvis With Contrast Exam date and time: 01/28/2022 5:31 AM Age: 61 years old Clinical indication: Other: Ruq pain; Prior surgery; Surgery date: 6+ months; Surgery type: Gb hysterectomy back surgery pain pump insertion appendectomy TECHNIQUE: Imaging protocol: Computed tomography of the abdomen and pelvis with contrast. Radiation optimization: All CT scans at this facility use at least one of these dose optimization techniques: automated exposure control; mA and/or kV adjustment per patient size (includes targeted exams where dose is matched to clinical indication); or iterative reconstruction. Contrast material: ISOVUE; Contrast volume: 75 ml; Contrast route: IV; COMPARISON: CT ABDOMEN PELVIS W CON 12/15/2021 1:48 AM FINDINGS: Tubes, catheters and devices: Thoracic nerve stimulator is in place. Lungs: Left basilar atelectasis. Pleural spaces: Small left pleural effusion. Liver: Cirrhotic morphology of the liver. Gallbladder and bile ducts: Cholecystectomy. Pancreas: Normal. No ductal dilation. Spleen: Normal. No splenomegaly. Adrenal glands: Normal. No mass. Kidneys and ureters: Subcentimeter low-density lesions in the kidneys are too small to characterize, though statistically benign. No hydronephrosis. Stomach and bowel: Unremarkable. No obstruction. No mucosal thickening. Appendix: No evidence of appendicitis. Intraperitoneal space: Small volume abdominopelvic ascites, new from prior. There is mesenteric edema. Vasculature: Esophageal varices are seen. Moderate burden of atherosclerotic plaque in the abdominal aorta and branch vessels. No aneurysm. Diminutive appearance of the main portal vein, similar to prior. Lymph nodes: Unremarkable. No enlarged lymph nodes. Urinary bladder: Unremarkable as visualized. Reproductive: Unremarkable as visualized. Bones/joints: Remote compression fracture involving the superior endplate of L1. Changes of PLIF at L5-S1. Soft tissues: Small fat containing periumbilical hernia. Similar hyperdense nodule within the subcutaneous fat of the right hemiabdomen. Anasarca. IMPRESSION: 1. Cirrhosis with evidence of portal hypertension including small volume abdominopelvic ascites. 2. Small left pleural effusion with left basilar atelectasis.
[2022-01-28 04:47] LABS: Microscopic, Urine URINE MICROSCOPIC (MICROSCOPIC)
[2022-01-28 04:52] LABS: Appearance,Urine CLEAR (Clear); Blood, Urine Negative (Negative); Color,Urine DK YELLOW (Yellow); Glucose,Urine (UA) Negative (Negative); Ketones,Urine Negative (Negative); Leukocyte Esterase,Urine Negative (Negative); Nitrate,Urine Negative (Negative); PH,Urine 5.5 (5.0-8.5); Protein,Urine Negative (Negative); Specific Gravity, Urine >= 1.030 (1.005-1.030)
[2022-01-28 04:54] LABS: Bilirubin,Urine 2+ (Negative)
[2022-01-28 05:00] VITALS: BP 122/53; PULSE 76; O2SAT 97
[2022-01-28 05:02] LABS: Basophils % 0.6 % (0.1-2.0); Eosinophils # 0.1 K/mm3 (0.0-0.4); Eosinophils % 1.4 % (0.1-12.0); Hematocrit 36.8 % (37.0-47.0); Hemoglobin 11.5 g/dL (12.2-16.2); Lymphocytes % 27.1 % (10-50); Mean Corpuscular HGB Conc 31.2 g/dL (31.8-35.4); Mean Corpuscular Hemoglobin 34.2 pg (27.0-31.2); Mean Corpuscular Volume 109.5 fl (81-99); Mean Platelet Volume 8.6 fl (7.4-10.4); Monocytes # 0.3 K/mm3 (0.1-1.0); Monocytes % 9.2 % (1.7-9.3); Neutrophils # 2.2 K/mm3 (1.8-7.8); Neutrophils % 61.7 % (37.0-80.0); Platelet Count 119 K/mm3 (142-424); Red Blood Count 3.36 M/mm3 (4.20-5.40); Red Cell Distribution Width 19.2 % (11.5-17.5); White Blood Count 3.6 K/mm3 (4.8-10.8)
[2022-01-28 05:08] LABS: Chloride 91 mmol/L (98-107); Potassium 3.8 mmoL/L (3.5-5.1); Sodium 130 mmol/L (136-145)
[2022-01-28 05:10] LABS: Amylase 49 U/L (30-110)
[2022-01-28 05:11] LABS: Alanine Aminotransferase 24 U/L (12-78); Albumin Level 3.1 g/dl (3.5-5.0); Albumin/Globulin Ratio 0.8 (1.1-1.8); Alkaline Phosphatase 207 U/L (38-126); Ammonia 10 umol/L (9-30); Anion Gap 11.8 mEq/L (5-15); Aspartate Amino Transferase 65 U/L (14-36); Bilirubin,Total 5.6 mg/dl (0.2-1.3); Blood Urea Nitrogen 19 mg/dl (7-17); Calcium 9.2 mg/dl (8.4-10.2); Carbon Dioxide 31 mmol/L (22.0-30.0); Creatinine Clearance Estimated 53 mL/min (50-200); Estimated Glomerular Filt Rate 35 ml/min (>60); GFR (African American) 43 ML/MIN (>60); Globulin 3.9 g/dL (1.3-3.2); Glucose 135 mg/dl (74-100); INR 1.52 (0.9-1.1); Lipase 60 U/L (23-300)
--- NOTE | 2022-01-28 05:12 | HMH.EDABDPAI ---
Discharge Plan Disposition Patient Disposition: Home, Self-Care Chief Complaint: Abdominal Pain Prescriptions Prescriptions: No Action levothyroxine 137 MCG tablet 137 mcg PO DAILY fenofibrate 160 MG tablet 160 mg PO DAILY insulin glargine 100 UNIT/ML insulin pen 40 unit SQ DAILY insulin aspart U-100 100 UNIT/ML insulin pen 15 - 30 units SQ TIDWM Label Comments: INJECT 15 TO 30 UNITS SUBCUTANEOUSLY THREE TIMES DAILY NEEDED -MAX DOSE OF 90 UNITS DAILY- Xifaxan 550 mg tablet 550 mg PO BID Label Comments: TAKE ONE TABLET BY MOUTH TWICE DAILY DIRECTED omeprazole 20 mg capsule,delayed release(DR/EC) 20 mg PO DAILY Label Comments: TAKE ONE CAPSULE BY MOUTH EVERY DAY ursodiol 300 mg capsule 600 mg PO BID Label Comments: TAKE TWO CAPSULES BY MOUTH TWICE DAILY Anoro Ellipta 62.5-25 mcg/actuation blister with device 1 inh INHALATION DAILY Label Comments: INHALE 1 PUFF BY MOUTH EVERY DAY lactulose 20 GM/30 ML solution 30 ml PO TID furosemide 40 MG tablet 40 mg PO DAILY spironolactone 100 MG tablet 100 mg PO DAILY nadolol 20 MG tablet 5 mg PO DAILY potassium chloride 20 MEQ tablet 20 meq PO BID alpha lipoic acid 200 MG capsule 200 mg PO DAILY Referrals Follow up/Referrals: Tung Lozano MD [Primary Care Provider] - See instructions Clinical Impressions Clinical Impression: Thrombocytopenia, Cirrhosis of liver, JAISON (acute kidney injury) Instructions Patient Instructions: DI for Cirrhosis Discharge ED Provider: Ward Velazquez Abdominal Pain HPI General Chief Complaint: Abdominal Pain Stated Complaint: nausea Time Seen by Provider: 01/28/22 05:12 Mode of Arrival: Wheelchair Source of Information: Patient, Relative and Medical Record Limitations: No Limitations Description of Symptoms (Recalled from ER Triage Doc. by RN): pt c/o RUQ pain with nauesa that started tonight. History of Present Illness HPI narrative: pt with known liver disease and presents with rt upper abd pain with nausea - no bleeding complaint: abdominal pain Onset (ago): hour(s) Consistency: intermittent Location: RUQ Severity: moderate Associated symptoms: nausea Related Data Home Medications Medication Instructions Recorded Confirmed fenofibrate 160 mg tablet 160 mg PO DAILY Cholesterol 05/04/17 12/15/21 levothyroxine 137 mcg tablet 137 mcg PO DAILY Hypothyroidism 05/04/17 12/15/21 insulin glargine 100 unit/mL (3 40 unit SQ DAILY Diabetes 01/25/20 12/15/21 mL) subcutaneous pen insulin aspart U-100 100 unit/mL 15 - 30 units SQ TIDWM Diabetes 01/26/20 12/15/21 (3 mL) subcutaneous pen lactulose 20 gram/30 mL oral 30 ml PO TID elevated ammonia 02/02/20 12/15/21 solution alpha lipoic acid 200 mg capsule 200 mg PO DAILY . 02/06/21 12/15/21 furosemide 40 mg tablet 40 mg PO DAILY Fluid 02/06/21 12/15/21 nadolol 20 mg tablet 5 mg PO DAILY blood pressure 02/06/21 12/15/21 potassium chloride 20 mEq 20 meq PO BID Supplement 02/06/21 12/15/21 tablet,extended release(part/cryst) spironolactone 100 mg tablet 100 mg PO DAILY Fluid 02/06/21 12/15/21 omeprazole 20 mg capsule,delayed 20 mg PO DAILY acid reflux 12/15/21 12/15/21 release rifaximin 550 mg tablet (Xifaxan) 550 mg PO BID liver 12/15/21 12/15/21 umeclidinium 62.5 mcg-vilanterol 1 inh inhalation DAILY COPD 12/15/21 12/15/21 25 mcg/actuation powdr for inhalation (Anoro Ellipta) ursodiol 300 mg capsule 600 mg PO BID Gallstone 12/15/21 12/15/21 Allergies Allergy/AdvReac Type Severity Reaction Status Date / Time nitrofurantoin Allergy Severe Anaphylaxis Verified 02/21/21 13:23 [From MACROBID] codeine [CODEINE] Allergy Mild Verified 02/21/21 13:23 Sulfa (Sulfonamide Allergy Mild Verified 02/21/21 13:23 Antibiotics) [SULFA (SULFONAMIDE ANTIBIOTICS)] ergocalciferol (vitamin D2) Allergy Unknown Verified 02/21/21 13:23
[2022-01-28 05:28] LABS: Lactic Acid 1.1 mmol/L (0.7-2.1)
[2022-01-28 06:00] VITALS: BP 129/64; PULSE 75; O2SAT 98
[2022-01-28 06:30] VITALS: BP 125/56; PULSE 78; O2SAT 98
[2022-01-28 06:57] LABS: T4 (Thyroxine) 14.4 ug/dl (5.53-11.0)
[2022-01-28 07:05] VITALS: BP 122/61; PULSE 72; RESP 16; TEMP 36.8; O2SAT 98
[2022-01-28 07:10] LABS: Thyroid Stimulating Hormone 0.39 uIU/mL (0.465-4.68)
== END 2022-01-28 07:20 | disposition home or self-care (01) ==
PROVIDERS: Emergency Provider Emergency Medicine; PCP Internal Medicine Adolescent Medicine
DX: N17.9 Acute kidney failure, unspecified (principal); K74.60 Unspecified cirrhosis of liver; D69.6 Thrombocytopenia, unspecified; Z79.899 Other long term (current) drug therapy; Z79.4 Long term (current) use of insulin; E11.9 Type 2 diabetes mellitus without complications; E03.9 Hypothyroidism, unspecified; K21.9 Gastro-esophageal reflux disease without esophagitis; J44.9 Chronic obstructive pulmonary disease, unspecified; I10 Essential (primary) hypertension; E78.5 Hyperlipidemia, unspecified; Z87.891 Personal history of nicotine dependence
CPT/HCPCS: 74177; 80053; 81001; 82140; 82150; 83605; 83690; 84436; 84443; 85025; 85610; 96365; 96375; 99284; J2405; Q9967

== ENCOUNTER 2022-02-03 03:25 | Inpatient (IN) | payer MEDICARE, SELFPAY ==
[2022-02-03 03:26] VITALS: BP 118/54; PULSE 77; RESP 18; TEMP 36.6; O2SAT 98; BMI 30.7
[2022-02-03 03:35] VITALS: BMI 33.3
[2022-02-03 03:47] LABS: Coronavirus 19, PCR Not Detected (NotDetected); Influenza A, PCR Not Detected (NotDetected); Influenza B, PCR Not Detected (NotDetected)
--- NOTE | 2022-02-03 03:50 | ECG_ITS ---
APPROVED REPORT Exam: Resting ECG HR:71 bpm ECG Measurements Heart Rate 71 AXES MO 152 P 52 QRSd 109 QRS 10 QT 430 T 54 QTc 453 Conclusion SINUS RHYTHM LOW QRS VOLTAGE IN PRECORDIAL LEADS [QRS DEFLECTION < 1.0 mV IN CHEST LEADS] MODERATE ST DEPRESSION [0.05+ mV ST DEPRESSION] ABNORMAL ECG UNCONFIRMED REPORT Electronically signed by : Tung Lozano MD 02/03/2022 16:23:47
[2022-02-03 03:57] LABS: Microscopic, Urine URINE MICROSCOPIC (MICROSCOPIC)
[2022-02-03 04:00] LABS: Basophils # 0.1 K/mm3 (0-0.2); Basophils % 1.8 % (0.1-2.0); Eosinophils % 0.9 % (0.1-12.0); Hematocrit 36.6 % (37.0-47.0); Hemoglobin 11.4 g/dL (12.2-16.2); Lymphocytes # 1.1 K/mm3 (0.7-4.5); Lymphocytes % 26.7 % (10-50); Mean Corpuscular Hemoglobin 34.4 pg (27.0-31.2); Mean Platelet Volume 8.5 fl (7.4-10.4); Monocytes # 0.4 K/mm3 (0.1-1.0); Monocytes % 9.6 % (1.7-9.3); Neutrophils # 2.6 K/mm3 (1.8-7.8); Neutrophils % 61.1 % (37.0-80.0); Platelet Count 105 K/mm3 (142-424); Red Cell Distribution Width 19.7 % (11.5-17.5); White Blood Count 4.2 K/mm3 (4.8-10.8)
[2022-02-03 04:01] LABS: Chloride 95 mmol/L (98-107); Potassium 3.8 mmoL/L (3.5-5.1); Sodium 133 mmol/L (136-145)
[2022-02-03 04:04] LABS: Alanine Aminotransferase 25 U/L (12-78); Albumin Level 2.9 g/dl (3.5-5.0); Albumin/Globulin Ratio 0.7 (1.1-1.8); Alkaline Phosphatase 234 U/L (38-126); Anion Gap 11.8 mEq/L (5-15); Aspartate Amino Transferase 66 U/L (14-36); Bilirubin,Total 4.3 mg/dl (0.2-1.3); Blood Urea Nitrogen 18 mg/dl (7-17); Carbon Dioxide 30 mmol/L (22.0-30.0); Creatinine Clearance Estimated 52 mL/min (50-200); Estimated Glomerular Filt Rate 33 ml/min (>60); GFR (African American) 40 ML/MIN (>60); Globulin 3.9 g/dL (1.3-3.2); Total Protein,Serum 6.8 g/dl (6.3-8.2)
[2022-02-03 04:05] LABS: Calcium 9.5 mg/dl (8.4-10.2); Glucose 92 mg/dl (74-100)
[2022-02-03 04:09] LABS: Ammonia 60 umol/L (9-30); Magnesium 1.8 mg/dl (1.6-2.3)
[2022-02-03 04:14] LABS: NT Pro Brain Natriuretic Pep. 211 pg/mL (0-125)
--- NOTE | 2022-02-03 04:15 | HMH.EDABDPAI ---
Discharge Plan Disposition Patient Disposition: Admitted As Inpatient Chief Complaint: Abdominal Pain Prescriptions Prescriptions: No Action levothyroxine 137 MCG tablet 137 mcg PO DAILY fenofibrate 160 MG tablet 160 mg PO DAILY insulin glargine 100 UNIT/ML insulin pen 40 unit SQ DAILY insulin aspart U-100 100 UNIT/ML insulin pen 15 - 30 units SQ TIDWM Label Comments: INJECT 15 TO 30 UNITS SUBCUTANEOUSLY THREE TIMES DAILY NEEDED -MAX DOSE OF 90 UNITS DAILY- Xifaxan 550 mg tablet 550 mg PO BID Label Comments: TAKE ONE TABLET BY MOUTH TWICE DAILY DIRECTED omeprazole 20 mg capsule,delayed release(DR/EC) 20 mg PO DAILY Label Comments: TAKE ONE CAPSULE BY MOUTH EVERY DAY ursodiol 300 mg capsule 600 mg PO BID Label Comments: TAKE TWO CAPSULES BY MOUTH TWICE DAILY Anoro Ellipta 62.5-25 mcg/actuation blister with device 1 inh INHALATION DAILY Label Comments: INHALE 1 PUFF BY MOUTH EVERY DAY promethazine 25 mg tablet 25 mg PO Q6H PRN (Reason: nausea and vomiting) Qty: 20 0RF lactulose 20 GM/30 ML solution 30 ml PO TID furosemide 40 MG tablet 40 mg PO DAILY spironolactone 100 MG tablet 100 mg PO DAILY nadolol 20 MG tablet 5 mg PO DAILY potassium chloride 20 MEQ tablet 20 meq PO BID alpha lipoic acid 200 MG capsule 200 mg PO DAILY Referrals Follow up/Referrals: Tung Lozano MD [Primary Care Provider] - See instructions Clinical Impressions Clinical Impression: Hepatic encephalopathy Instructions Patient Instructions: DI for Acute Abdominal Pain Discharge ED Provider: Ward Velazquez Abdominal Pain HPI General Chief Complaint: Abdominal Pain Stated Complaint: Vomiting, weakness Time Seen by Provider: 02/03/22 04:15 Mode of Arrival: Wheelchair Source of Information: Patient, Relative and Medical Record Limitations: No Limitations Description of Symptoms (Recalled from ER Triage Doc. by RN): pt c/o nausea, vomiting and abdominal pain. pt daughter states the pt was [place] until 1030 pm when the sudden symptoms came on and have gotten worse since then. the pt states the pain is 10/10n in the right upper quadrant flank area. the pt stated that she also hasnt had a bm since sunday but hasnt taken her lactulose. pt also presents with +3 pitting edema bilaterally in the lower extremities History of Present Illness HPI narrative: pt with nausea and abd pain but no bleeding and element of confusion worse tonight - hx of liver disease - has been off meds and has increased swelling to lower ext bilat MD complaint: abdominal pain Onset (ago): day(s) Consistency: constant Location: diffuse Severity: moderate Context: history of similar episodes Associated symptoms: denies other symptoms Related Data Home Medications Medication Instructions Recorded Confirmed fenofibrate 160 mg tablet 160 mg PO DAILY Cholesterol 05/04/17 12/15/21 levothyroxine 137 mcg tablet 137 mcg PO DAILY Hypothyroidism 05/04/17 12/15/21 insulin glargine 100 unit/mL (3 40 unit SQ DAILY Diabetes 01/25/20 12/15/21 mL) subcutaneous pen insulin aspart U-100 100 unit/mL 15 - 30 units SQ TIDWM Diabetes 01/26/20 12/15/21 (3 mL) subcutaneous pen lactulose 20 gram/30 mL oral 30 ml PO TID elevated ammonia 02/02/20 12/15/21 solution alpha lipoic acid 200 mg capsule 200 mg PO DAILY . 02/06/21 12/15/21 furosemide 40 mg tablet 40 mg PO DAILY Fluid 02/06/21 12/15/21 nadolol 20 mg tablet 5 mg PO DAILY blood pressure 02/06/21 12/15/21 potassium chloride 20 mEq 20 meq PO BID Supplement 02/06/21 12/15/21 tablet,extended release(part/cryst) spironolactone 100 mg tablet 100 mg PO DAILY Fluid 02/06/21 12/15/21 omeprazole 20 mg capsule,delayed 20 mg PO DAILY acid reflux 12/15/21 12/15/21 release rifaximin 550 mg tablet (Xifaxan) 550 mg PO BID liver 12/15/21 12/15/21 umeclidinium 62.5 mcg-vilanterol 1 inh inhalation
[2022-02-03 04:20] LABS: Troponin I < 0.01 ng/ml (0.00-0.034)
[2022-02-03 04:38] LABS: Appearance,Urine CLEAR (Clear); Blood, Urine Negative (Negative); Color,Urine YELLOW (Yellow); Glucose,Urine (UA) Negative (Negative); Ketones,Urine Negative (Negative); Leukocyte Esterase,Urine TRACE (Negative); Nitrate,Urine Negative (Negative); Protein,Urine Negative (Negative); Specific Gravity, Urine 1.025 (1.005-1.030)
--- NOTE | 2022-02-03 04:38 | PC.NURSE ---
Dr. Velazquez s/w hospitalist for admission
[2022-02-03 04:41] LABS: Bacteria,Urine 1+ /lpf; Bilirubin,Urine Negative (Negative); Mucus,Urine 1+ /lpf
[2022-02-03 04:46] LABS: INR 1.56 (0.9-1.1); Prothrombin Time 16.4 seconds (10.1-12.5)
--- NOTE | 2022-02-03 04:58 | EXP.HP ---
History of Present Illness *Admission Date: 02/03/22 *Reason for visit:: Altered mental status *History of present illness: This is a 61-year-old female with past medical history of cirrhosis of the liver and alpha 1 antitrypsin deficiency, diabetes, recent upper GI bleed who presents to the emergency department today with complaints of continued confusion. Daughter at bedside states that she was admitted last week in here for dark tarry stool and encephalopathy and was transferred to for GI services. She did undergo at that time an EGD was found to have ulcers but no other diagnoses at that time. She is under the care of liver specialist at for possible transplantation secondary to cirrhosis and alpha-1 antitrypsin deficiency. Daughter reports previous meld score was approximately 16. Today she presents with lethargy, icteric skin and mild confusion. Emergency department work-up significant for ammonia level of 60, creatinine of 1.6 up from a baseline of 0.8 in December. Bilirubin of 4.3, platelets of 105, INR of 1.56. On my exam she is mildly lethargic but able to answer some questions. She does complain of abdominal pain. Skin is mildly icteric. Due to the above-mentioned complaints she will be admitted to the hospital service for further evaluation and management. [facility] Medical History Esbue-9-[id number] deficiency Diabetes type 2, controlled Esophageal varices Frequent urinary tract infections GERD (gastroesophageal reflux disease) Glaucoma HTN (hypertension) Hyperammonemia Hyperlipidemia Hypothyroidism Liver cirrhosis Family History Other No significant family history Social History Smoking Status: Former smoker second hand exposure: Yes alcohol intake: never substance use type: denies use current occupational status: other Travel in the last 8 weeks: None household members: other housing: house current occupational exposures/hazards: No caffeine: Yes Review of Systems Constitutional Constitutional: Reports system reviewed and no additional complaints, except as documented Eyes Eyes: Reports system reviewed and no additional complaints, except as documented ENT Ears, Nose, Mouth, and Throat: Reports system reviewed and no additional complaints, except as documented *Cardiovascular Cardiovascular: Reports system reviewed and no additional complaints, except as documented *Respiratory Respiratory: Reports system reviewed and no additional complaints, except as documented *Gastrointestinal Gastrointestinal: Reports system reviewed and no additional complaints, except as documented *Genitourinary Genitourinary: Reports system reviewed and no additional complaints, except as documented *Musculoskeletal Musculoskeletal: Reports system reviewed and no additional complaints, except as documented Integumentary/Breasts Skin/Breast: Reports system reviewed and no additional complaints, except as documented *Neurologic Neurologic: Reports system reviewed and no additional complaints, except as documented Psychiatric Psychiatric: Reports system reviewed and no additional complaints, except as documented Endocrine Endocrine: Reports system reviewed and no additional complaints, except as documented Hematologic/Lymphatic Hematologic/Lymphatic: Reports system reviewed and no additional complaints, except as documented Allergic/Immunologic Allergic/Immunologic: Reports system reviewed and no additional complaints, except as documented Meds Home Medications and Allergies Home Medications Medication Instructions Recorded Confirmed Type fenofibrate 160 mg tablet 160 mg PO DAILY Cholesterol 05/04/17 12/15/21 History levothyroxine 137 mcg tablet 137 mcg PO DAILY Hypothyroidism 05/04/17 12/15/21 History insulin glargine 100 unit/mL (3 40 u
--- NOTE | 2022-02-03 05:49 | PC.NURSE ---
report called to Yeni WELLINGTON
[2022-02-03 05:50] VITALS: BP 111/53; PULSE 69; RESP 15; TEMP 36.6; O2SAT 98
[2022-02-03 06:15] LABS: Basophils % 0.6 % (0.1-2.0); Hematocrit 34.8 % (37.0-47.0); Hemoglobin 10.8 g/dL (12.2-16.2); Lymphocytes % 26.2 % (10-50); Mean Corpuscular Hemoglobin 34.5 pg (27.0-31.2); Mean Corpuscular Volume 111.3 fl (81-99); Mean Platelet Volume 8.8 fl (7.4-10.4); Monocytes # 0.5 K/mm3 (0.1-1.0); Monocytes % 12.6 % (1.7-9.3); Neutrophils # 2.3 K/mm3 (1.8-7.8); Neutrophils % 59.6 % (37.0-80.0); Platelet Count 96 K/mm3 (142-424); Red Blood Count 3.12 M/mm3 (4.20-5.40); Red Cell Distribution Width 19.5 % (11.5-17.5); White Blood Count 3.9 K/mm3 (4.8-10.8)
[2022-02-03 06:19] LABS: Alanine Aminotransferase 22 U/L (12-78); Albumin Level 2.8 g/dl (3.5-5.0); Albumin/Globulin Ratio 0.8 (1.1-1.8); Alkaline Phosphatase 249 U/L (38-126); Anion Gap 13.8 mEq/L (5-15); Aspartate Amino Transferase 65 U/L (14-36); Bilirubin,Total 4.1 mg/dl (0.2-1.3); Blood Urea Nitrogen 19 mg/dl (7-17); Calcium 9.3 mg/dl (8.4-10.2); Carbon Dioxide 31 mmol/L (22.0-30.0); Chloride 90 mmol/L (98-107); Creatinine Clearance Estimated 52 mL/min (50-200); Estimated Glomerular Filt Rate 33 ml/min (>60); GFR (African American) 40 ML/MIN (>60); Globulin 3.6 g/dL (1.3-3.2); Glucose 107 mg/dl (74-100); Magnesium 1.7 mg/dl (1.6-2.3); Potassium 3.8 mmoL/L (3.5-5.1); Sodium 131 mmol/L (136-145); Total Protein,Serum 6.4 g/dl (6.3-8.2)
[2022-02-03 06:25] VITALS: BP 132/62; PULSE 74; RESP 16; TEMP 36.4; O2SAT 99; BMI 33.4
--- NOTE | 2022-02-03 07:23 | HMH.PHAINT1 ---
Pharmacy Intervention Comments: Medication reconciliation completed via external fill history and chart review. -Patrica Martinez, PharmD Candidate 2022
[2022-02-03 08:00] VITALS: BP 115/58; PULSE 73; RESP 16; RESP 19; TEMP 36.4; O2SAT 95
[2022-02-03 08:55] LABS: Troponin I < 0.01 ng/ml (0.00-0.034)
--- NOTE | 2022-02-03 10:47 | US_ITS ---
FINAL REPORT CLINICAL HISTORY: ABD TENDERNESS FINDINGS: Sonographic images of the right upper quadrant were obtained. The pancreas is partially obscured. The liver is small with a coarsened echotexture and irregular contour consistent with cirrhosis. There is no flow identified within the portal vein which is likely thrombosed. The gallbladder appears normal without evidence of gallstones.There is no evidence of biliary ductal dilatation.The common duct measures 3 mm. The right kidney measures 9.0 cm in length. There is a small amount of ascites noted. IMPRESSION: Cirrhosis. Small amount of ascites. Reviewed, Interpreted and Dictated by Luis Carlos Israel III, MD Transcribed by Claudia West Authenticated and [facility]
[2022-02-03 10:54] LABS: Troponin I < 0.01 ng/ml (0.00-0.034)
--- NOTE | 2022-02-03 11:01 | EXP.PULM.CON ---
History of Present Illness History of present illness: Ms. Colunga is a 61-year-old female no significant smoking history, alpha-1 antitrypsin deficiency history of cirrhosis currently [place] list recently admitted for upper GI bleed discharge presented to [facility] for worsening mentation found to be in hepatic encephalopathy decompensated cirrhosis worsening renal function pulmonary was called for further evaluation. [facility] Medical History (Updated 02/03/22 @ 13:49 by Jolly Barrios MD) Odbbn-0-hqgplgufeun deficiency Decompensated hepatic cirrhosis Diabetes type 2, controlled Esophageal varices Frequent urinary tract infections GERD (gastroesophageal reflux disease) Glaucoma HTN (hypertension) Hyperammonemia Hyperlipidemia Hypothyroidism Liver cirrhosis SBP (spontaneous bacterial peritonitis) Family History Other No significant family history Social History Smoking Status: Former smoker second hand exposure: Yes alcohol intake: never substance use type: denies use current occupational status: other Travel in the last 8 weeks: None household members: other housing: house current occupational exposures/hazards: No caffeine: Yes Review of Systems Constitutional Constitutional: Reports anorexia, Reports body ache(s) and Reports fatigue Eyes Eyes: Denies eye discharge, Denies dry eyes, Denies irritation and Denies itchy eyes ENT Ears, Nose, Mouth, and Throat: Denies epistaxis, Denies facial pain, Denies lip swelling and Denies throat swelling *Cardiovascular Cardiovascular: Reports dyspnea on exertion *Respiratory Respiratory: Denies chest congestion, Denies cough, Reports dyspnea on exertion, Denies excessive phlegm production, Denies hemoptysis, Denies pain on inspiration and Denies wheezing *Gastrointestinal Gastrointestinal: Reports abdominal pain, Denies belching and Denies cramping *Musculoskeletal Musculoskeletal: Reports back pain, Reports myalgias and Reports other (No small joint swelling or Pain) *Neurologic Neurologic: Reports system reviewed and no additional complaints, except as documented Psychiatric Psychiatric: Denies homicidal ideation and Denies suicidal ideation Endocrine Endocrine: Reports fatigue and Denies heat intolerance Hematologic/Lymphatic Hematologic/Lymphatic: Denies easy bleeding and Denies lymphadenopathy Allergic/Immunologic Allergic/Immunologic: Denies itchy eyes, Denies lip swelling, Denies throat swelling and Denies wheezing Pulmonology Exam Inpatient Vital signs and Labs for Last 24 Hours: Temp Pulse Resp BP Pulse Ox 97.5 F L 73 16 115/58 L 95 02/03/22 08:00 02/03/22 08:00 02/03/22 08:00 02/03/22 08:00 02/03/22 08:00 Laboratory Results - last 24 hr 02/03/22 03:34: Urine Color Yellow, Urine Appearance Clear, Urine pH 6.0, Ur Specific [place] 1.025, Urine Protein Negative, Urine Glucose (UA) Negative, Urine Ketones Negative, Urine Blood Negative, Urine Nitrate Negative, Urine Bilirubin Negative, Urine Urobilinogen 1.0, Ur Leukocyte Esterase Trace, Urine WBC 3-5, Ur Squamous Epith Cells 3-5, Urine Bacteria 1+, Urine Mucus 1+ 02/03/22 03:38: SARS-CoV-2 (PCR) Not detected, Influenza A Untype (PCR) Not detected, Influenza Type B (PCR) Not detected 02/03/22 03:44: WBC 4.2 L, RBC 3.30 L, Hgb 11.4 L, Hct 36.6 L, MCV 111.0 H, MCH 34.4 H, MCHC 31.0 L, RDW 19.7 H, Plt Count 105 L, MPV 8.5, Neut % (Auto) 61.1, Lymph % (Auto) 26.7, [place] % (Auto) 9.6 H, Eos % (Auto) 0.9, Baso % (Auto) 1.8, Neut # (Auto) 2.6, Lymph # (Auto) 1.1, [place] # (Auto) 0.4, Eos # (Auto) 0.0, Baso # (Auto) 0.1 02/03/22 03:44: Sodium 133 L, Potassium 3.8, Chloride 95 L, Carbon Dioxide 30, Anion Gap 11.8, BUN 18 H, Creatinine 1.60 H, Estimated Creat Clear 52, Estimated GFR 33 L, Est GFR ( Amer) 40 L, Glucose 92, Calcium 9.5, Total Bilirubin 4.3 H, AST 66 H, ALT 25, Alkaline Phosphat
[2022-02-03 11:43] VITALS: BMI 33.4
--- NOTE | 2022-02-03 11:55 | DIET.NUTRFU ---
PAD HAND evaluated and recommended MSOFT d/t lack of teeth and duration of chewing with fito cracker. Patient reported only consuming chicken broth at home d/t nausea and abdominal pain. RD encouraged and educated her that when diet is ordered 2gmNa is what is recommended, chicken broth is fairly high in Na which can cause more fluid gains. She is up 10# since last admit on 12/16 and 2-3+ edema in BLE. According to ultrasound she is not holding enough fluid in abdomen for a paracentesis. She has advanced cirrhosis waiting for liver transplant. 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 IVF was stopped d/t fluid status and albumin started. RD will continue to follow oral diet and meal intake.
--- NOTE | 2022-02-03 12:07 | HMH.SLDYSPHA ---
Speech & Language Evaluation Speech/Language Dysphagia Evaluation Start: 02/03/22 11:55 Freq: ONCE Status: Active Protocol: Document 02/03/22 11:55 CATARINA (Rec: 02/03/22 12:06 BLANCARICHARDLUCRETIA [id number]) Dysphagia Assess/Goals/Plan Assessment Date of Evaluation: 02/03/22 Evaluation Type Initial Certification Assessment/Problems Pt assessed via clinical bedside swallow evaluation sitting upright in bed following ultrasound per MD order. Does Patient Qualify for Service No Qualify/Failure Comment Based on the results of the CSE and pt demonstrating no overt s/sxs of aspiration during the assessment, no skilled speech therapy services are warranted at this time. Recommendations PHYSICIAN CERTIFICATION: The specified therapy services are required, authorized, and reviewed every 30 days. Diet Recommendations Mechanical Soft Liquid Type Recommendations Normal/Thin SL Swallow Guidelines Alt bite w/sip thru meal, Standard Aspiration Prec. Dysphagia Swallow Precautions/Strategies Sitting Upright (90 deg),Small Bites and Sips,Alternate Liquids/Solids Plan Pt/Guardian verbally ack understanding Yes of dx/prognosis/goals G -code Required No Education Instructions provided CSE results and standard aspiration precautions/diet recommendations discussed with nurse, picture copyist, and pt who expressed understanding. Pt/Caregiver able to recall information Able to recall/restate Reinforcement needed No Speech & Language HPI History Present Illness Description of Patient Problem Per ER report, 61-year-old female with past medical history of cirrhosis of the liver and alpha 1 antitrypsin deficiency, diabetes, recent upper GI bleed who presents to the emergency department today with complaints of continued confusion. Pt is a former smoker with PMH including: hgtcu-2-odiichiyxxz deficiency, Diabetes type 2; controlled, Esophageal varices , Frequent urinary tract
[2022-02-03 16:00] VITALS: BP 117/58; PULSE 83; RESP 18; TEMP 36.8; O2SAT 98
--- NOTE | 2022-02-03 16:47 | EXP.EVENT.NO ---
interval update: 61-year-old female with alpha 1 antitrypsin cirrhosis presenting with hepatic encephalopathy secondary to spontaneous bacterial peritonitis. Patient has an JAIOSN secondary to hepatorenal syndrome Spontaneous bacterial peritonitis -Ultrasound did not demonstrate adequate ascites for paracentesis -Will treat SBP empirically with 2 g Rocephin every 24hr minimum 5 days Hepatorenal syndrome -Albumin 1 g/kg, goal MAP increase 10 mmHg -Octreotide continuous infusion -Midodrine Hepatic encephalopathy -Lactulose -Rifaximin 550 -Goal 2-3 bowel movements per day DVT prophylaxis with Lovenox initiated. Given decompensated cirrhosis risk of thrombus is greater than risk of GI bleed at this time. Will monitor for blood loss.
[2022-02-03 17:47] LABS: POC Glucose,Bedside 113 (70-110)
[2022-02-03 20:00] VITALS: BP 101/48; PULSE 80; PULSE 82; RESP 20; TEMP 36.7; O2SAT 97
[2022-02-03 20:22] LABS: POC Glucose,Bedside 110 (70-110)
[2022-02-04] VITALS (8 sets, daily range): BP systolic 92–125; BP diastolic 40–66; PULSE 70–77; RESP 16–20; TEMP 36.7–37.3; O2SAT 94–98; BMI 34.0
--- NOTE | 2022-02-04 05:08 | PC.NURSE ---
NO ACUTE CHANGES SINCE PREVIOUS ASSESSMENT. PT HAS SLEPT WELL THIS SHIFT. LUNG SOUNDS CLEAR. REMAINS ON ROOM AIR. PT REMAINS NSR WITH A FIRST DEGREE BLOCK ON TELE. PT HAS C/O ABD PAIN ONCE THIS SHIFT AND WAS MEDICATED PER MAR FOR PAIN WITH ADEQUATE RELIEF. PT HAS NO C/O NAUSEA OR VOMITING THIS SHIFT. PT WAS ABLE TO HAVE TWO LARGE, LOOSE BM'S THIS SHIFT. PT STATES THAT SHE FEELS BETTER THIS AM. CALL HAMILTON WITHIN REACH.
[2022-02-04 05:47] LABS: POC Glucose,Bedside 105 (70-110)
--- NOTE | 2022-02-04 09:05 | EXP.ACUTE.PN ---
Subjective *Date: 02/04/22 *Time: 09:05 Interval history: Patient is doing well this morning she is much more communicative and able to provide a history she endorses 3 bowel movements in the last 12 hours. She is hungry and requesting a diet. Abdomen is still hurting but otherwise no complaints. Medical Exam Vital signs and Labs for Last 24 Hours: Vital Signs Temp Pulse Pulse Resp BP Pulse Ox 02/04/22 08:00 98.7 F 74 16 114/56 L 97 02/04/22 04:00 98.1 F 76 20 102/55 L 94 L 02/04/22 04:00 70 02/04/22 00:00 75 02/04/22 00:00 75 02/04/22 00:00 98.1 F 77 18 106/48 L 97 02/03/22 20:00 80 02/03/22 20:00 98.1 F 82 20 101/48 L 97 02/03/22 16:00 98.3 F 83 18 117/58 L 98 Intake and Output 02/03/22 02/04/22 02/04/22 23:59 07:59 15:59 Intake Total 372 / 372 Output Total 0 / 150 150 / 150 Balance 0 / -150 222 / 222 Intake: Intake, Total IV Amount 372 / 372 Octreotide Acetate 500 mcg In 0 372 / 372 .9 % Sodium Chloride 250 ml @ 50 MCG/HR 25.5 mls/hr IV .Q10H [facility] Rx#:[id number] Output: Output, Urine Amount 0 / 150 150 / 150 Other: Number of Unmeasured Voids 1 Weight 92.805 kg Patient Weight 02/04/22 23:59 Weight 92.805 kg Laboratory Results - last 24 hr 02/03/22 10:10: Troponin I < 0.01 02/03/22 17:39: POC Glucose 113 H 02/03/22 20:13: POC Glucose 110 02/04/22 05:40: POC Glucose 105 I & O for Labs for Last 24 Hours: Intake & Output 02/01/22 02/02/22 02/03/22 02/04/22 23:59 23:59 23:59 23:59 Intake Total 372 / 372 Output Total 150 / 150 150 / 150 Balance -150 / -150 222 / 222 Weight 90.94 kg 92.805 kg Head: Present atraumatic and normocephalic ENT: Present mucous membranes moist Neck: Present normal inspection Respiratory: Present CTA bilaterally; Absent accessory muscle use Cardiac: Present Reg Rate and Rhythm and S1/S2 GI: Present soft, distention and tenderness Rectal (female): Present deferred (female): Present deferred Extremities: Present edema Comment:: Bilateral lower extremity edema venous stasis changes Skin: Present intact and dry Assessment and Plan *Assessment and plan (1) Cirrhosis of liver: Status: Acute Qualifiers: Ascites presence: without ascites Category: Medical Code(s): K74.60 - Unspecified cirrhosis of liver (2) JAISON (acute kidney injury): Status: Acute Category: Medical Code(s): N17.9 - Acute kidney failure, unspecified (3) Hyperammonemia: Status: Acute Category: Medical Code(s): E72.20 - Disorder of urea cycle metabolism, unspecified (4) Acute hepatic encephalopathy: Status: Acute Category: Medical Code(s): K76.82 - Hepatic encephalopathy (5) Diabetes: Status: Chronic Qualifiers: Diabetes mellitus type: type 2 Diabetes mellitus long-term insulin use: unspecified emt intermediate insulin use status Diabetes mellitus complication status: with other specified complication Qualified Code(s): E11.69 - Type 2 diabetes mellitus with other specified complication Category: Medical Code(s): E11.9 - Type 2 diabetes mellitus without complications (6) Hepatorenal syndrome: Status: Acute Category: Medical Code(s): K76.7 - Hepatorenal syndrome Plan 61-year-old female with alpha-1 antitrypsin and cirrhosis on [place] hepatic transplant list admitted for decompensated cirrhosis with hepatic encephalopathy and hepatorenal syndrome. Patient's hepatic encephalopathy has improved with lactulose and rifaximin. Status of hepatorenal syndrome is tenuous. Spontaneous bacterial peritonitis -Ultrasound did not demonstrate adequate ascites for paracentesis -Will treat SBP empirically with 2 g Rocephin every 24hr minimum 5 days Hepatorenal syndrome -Albumin 1 g/kg, goal MAP increase 10 mmHg -Octreotide continuous infusion -Midod
[2022-02-04 09:53] LABS: Chloride 98 mmol/L (98-107); Potassium 3.7 mmoL/L (3.5-5.1); Sodium 135 mmol/L (136-145)
[2022-02-04 09:55] LABS: Alanine Aminotransferase 20 U/L (12-78); Aspartate Amino Transferase 49 U/L (14-36); Blood Urea Nitrogen 16 mg/dl (7-17); Creatinine Clearance Estimated 66 mL/min (50-200); Estimated Glomerular Filt Rate 42 ml/min (>60); GFR (African American) 50 ML/MIN (>60)
[2022-02-04 09:56] LABS: Albumin Level 3.2 g/dl (3.5-5.0); Albumin/Globulin Ratio 1.2 (1.1-1.8); Alkaline Phosphatase 107 U/L (38-126); Anion Gap 12.7 mEq/L (5-15); Bilirubin,Total 5.1 mg/dl (0.2-1.3); Calcium 9.5 mg/dl (8.4-10.2); Carbon Dioxide 28 mmol/L (22.0-30.0); Globulin 2.7 g/dL (1.3-3.2); Glucose 98 mg/dl (74-100); Magnesium 1.9 mg/dl (1.6-2.3); Total Protein,Serum 5.9 g/dl (6.3-8.2)
[2022-02-04 09:57] LABS: INR 1.91 (0.9-1.1); Prothrombin Time 19.9 seconds (10.1-12.5)
[2022-02-04 10:48] LABS: Phosphorous 3.1 mg/dl (2.5-4.5)
[2022-02-04 11:13] LABS: POC Glucose,Bedside 235 (70-110)
[2022-02-04 11:19] LABS: Basophils % 0.7 % (0.1-2.0); Eosinophils # 0.1 K/mm3 (0.0-0.4); Eosinophils % 2.1 % (0.1-12.0); Hematocrit 29.4 % (37.0-47.0); Hemoglobin 8.7 g/dL (12.2-16.2); Lymphocytes % 33.7 % (10-50); Mean Corpuscular HGB Conc 29.7 g/dL (31.8-35.4); Mean Corpuscular Hemoglobin 33.6 pg (27.0-31.2); Mean Corpuscular Volume 113.3 fl (81-99); Mean Platelet Volume 8.3 fl (7.4-10.4); Monocytes # 0.4 K/mm3 (0.1-1.0); Neutrophils # 1.5 K/mm3 (1.8-7.8); Neutrophils % 51.4 % (37.0-80.0); Platelet Count 89 K/mm3 (142-424); Red Blood Count 2.59 M/mm3 (4.20-5.40)
[2022-02-04 16:24] LABS: POC Glucose,Bedside 264 (70-110)
--- NOTE | 2022-02-04 17:50 | PC.NURSE ---
patient is a/o x 4. currently receiving albumin infusions and tolerating well. FSBS has been elevated requiring S/S insulin. fine crackles noted in bilat posterior bases. no cough. no SOA. HR regular, murmer noted. tele demonstrates SR 1st degree AVB. abdomen soft/distended. 2-3+ pitting edema BLEs.
[2022-02-04 22:31] LABS: POC Glucose,Bedside 170 (70-110)
[2022-02-05] VITALS (8 sets, daily range): BP systolic 105–126; BP diastolic 47–62; PULSE 70–82; RESP 18–20; TEMP 36.7–37.2; O2SAT 92–96; BMI 34.8
--- NOTE | 2022-02-05 05:56 | PC.NURSE ---
Pt a/o x4. Pt has c/o nausea 1x t/o shift, medicated per MAR. Pt has had 2 BMs t/o night. Ambulating to BSC with 1 person assist. Call light within reach.
[2022-02-05 06:35] LABS: POC Glucose,Bedside 113 (70-110)
[2022-02-05 07:22] LABS: Basophils % 0.6 % (0.1-2.0); Eosinophils # 0.1 K/mm3 (0.0-0.4); Eosinophils % 2.2 % (0.1-12.0); Hematocrit 27.5 % (37.0-47.0); Hemoglobin 8.1 g/dL (12.2-16.2); Lymphocytes # 0.9 K/mm3 (0.7-4.5); Mean Corpuscular HGB Conc 29.5 g/dL (31.8-35.4); Mean Corpuscular Hemoglobin 33.7 pg (27.0-31.2); Mean Corpuscular Volume 114.1 fl (81-99); Monocytes # 0.5 K/mm3 (0.1-1.0); Monocytes % 15.5 % (1.7-9.3); Neutrophils # 1.6 K/mm3 (1.8-7.8); Neutrophils % 52.7 % (37.0-80.0); Platelet Count 81 K/mm3 (142-424); Red Blood Count 2.41 M/mm3 (4.20-5.40); Red Cell Distribution Width 19.1 % (11.5-17.5)
[2022-02-05 07:31] LABS: INR 2.04 (0.9-1.1); Prothrombin Time 21.2 seconds (10.1-12.5)
[2022-02-05 07:33] LABS: Alanine Aminotransferase 17 U/L (12-78); Albumin Level 3.7 g/dl (3.5-5.0); Albumin/Globulin Ratio 1.4 (1.1-1.8); Alkaline Phosphatase 119 U/L (38-126); Aspartate Amino Transferase 42 U/L (14-36); Blood Urea Nitrogen 16 mg/dl (7-17); Calcium 9.6 mg/dl (8.4-10.2); Carbon Dioxide 27 mmol/L (22.0-30.0); Chloride 94 mmol/L (98-107); Creatinine Clearance Estimated 67 mL/min (50-200); Estimated Glomerular Filt Rate 42 ml/min (>60); GFR (African American) 50 ML/MIN (>60); Globulin 2.7 g/dL (1.3-3.2); Glucose 110 mg/dl (74-100); Magnesium 1.7 mg/dl (1.6-2.3); Phosphorous 2.7 mg/dl (2.5-4.5); Sodium 139 mmol/L (136-145); Total Protein,Serum 6.4 g/dl (6.3-8.2)
[2022-02-05 08:09] LABS: Anion Gap 21.5 mEq/L (5-15); Potassium 3.5 mmoL/L (3.5-5.1)
--- NOTE | 2022-02-05 10:06 | EXP.ACUTE.PN ---
Subjective *Date: 02/05/22 *Time: 10:06 Interval history: Patient is doing okay today she endorses continued abdominal pain. She is having 2-3 bowel movements per day. Does not endorse any bleeding that she is aware of. Mentation is significantly improved. Otherwise no concerns or complaints at this time Medical Exam Vital signs and Labs for Last 24 Hours: Vital Signs Temp Pulse Pulse Resp BP Pulse Ox 02/05/22 08:00 98.3 F 77 18 112/51 L 92 L 02/05/22 04:00 70 02/05/22 04:00 98.0 F 76 20 105/47 L 95 02/04/22 20:00 70 02/05/22 00:00 70 02/04/22 23:33 98.4 F 72 19 111/48 L 96 02/04/22 19:40 98.4 F 77 19 125/66 94 L 02/04/22 16:00 73 02/04/22 12:00 76 02/04/22 16:00 98.5 F 73 16 113/57 L 98 02/04/22 12:00 99.2 F 75 16 92/40 L 94 L Intake and Output 02/04/22 02/05/22 02/05/22 23:59 07:59 15:59 Intake Total 882 / 1734 300 / 540 240 / 540 Output Total 500 / 1250 0 / 0 Balance 382 / 484 300 / 540 240 / 540 Intake: Intake, Oral Amount 240 / 720 240 / 240 Intake, Total IV Amount 642 / 1014 300 / 300 Albumin Human 400 ml @ 100 mls/ 362 / 362 hr IV ONCE ONE Rx#:[id number] Octreotide Acetate 500 mcg In 0 280 / 652 300 / 300 .9 % Sodium Chloride 250 ml @ 50 MCG/HR 25.5 mls/hr IV .Q10H [facility] Rx#:[id number] Output: Output, Urine Amount 500 / 1250 0 / 0 Other: Number of Unmeasured Voids 1 Number of Bowel Movements 1 Weight 94.858 kg Patient Weight 02/05/22 23:59 Weight 94.858 kg Laboratory Results - last 24 hr 02/04/22 09:18: Sodium 135 L, Potassium 3.7, Chloride 98, Carbon Dioxide 28, Anion Gap 12.7, BUN 16, Creatinine 1.30 H, Estimated Creat Clear 66, Estimated GFR 42 L, Est GFR ( Amer) 50 L D, Glucose 98, Calcium 9.5, Magnesium 1.9 D, Total Bilirubin 5.1 H, AST 49 H, ALT 20, Alkaline Phosphatase 107, Total Protein 5.9 L, Albumin 3.2 L D, Globulin 2.7, Albumin/Globulin Ratio 1.2 02/04/22 09:18: WBC 3.0 L, RBC 2.59 L, Hgb 8.7 L, Hct 29.4 L, MCV 113.3 H, MCH 33.6 H, MCHC 29.7 L, RDW 19.0 H, Plt Count 89 L, MPV 8.3, Neut % (Auto) 51.4, Lymph % (Auto) 33.7, [place] % (Auto) 12.0 H, Eos % (Auto) 2.1, Baso % (Auto) 0.7, Neut # (Auto) 1.5 L, Lymph # (Auto) 1.0, [place] # (Auto) 0.4, Eos # (Auto) 0.1, Baso # (Auto) 0.0 02/04/22 09:18: PT 19.9 H, INR 1.91 H 02/04/22 09:18: Phosphorus 3.1 02/04/22 11:06: POC Glucose 235 H 02/04/22 16:17: POC Glucose 264 H 02/04/22 22:10: POC Glucose 170 H 02/05/22 06:26: POC Glucose 113 H 02/05/22 06:39: WBC 3.0 L, RBC 2.41 L, Hgb 8.1 L, Hct 27.5 L, MCV 114.1 H, MCH 33.7 H, MCHC 29.5 L, RDW 19.1 H, Plt Count 81 L, MPV 8.0, Neut % (Auto) 52.7, Lymph % (Auto) 29.0, [place] % (Auto) 15.5 H, Eos % (Auto) 2.2, Baso % (Auto) 0.6, Neut # (Auto) 1.6 L, Lymph # (Auto) 0.9, [place] # (Auto) 0.5, Eos # (Auto) 0.1, Baso # (Auto) 0.0 02/05/22 06:39: PT 21.2 H, INR 2.04 H 02/05/22 06:39: Sodium 139, Potassium 3.5, Chloride 94 L, Carbon Dioxide 27, Anion Gap 21.5 H, BUN 16, Creatinine 1.30 H, Estimated Creat Clear 67, Estimated GFR 42 L, Est GFR ( Amer) 50 L, Glucose 110 H, Calcium 9.6, Phosphorus 2.7, Magnesium 1.7 D, Total Bilirubin 4.0 H, AST 42 H, ALT 17, Alkaline Phosphatase 119, Total Protein 6.4, Albumin 3.7 D, Globulin 2.7, Albumin/Globulin Ratio 1.4 I & O for Labs for Last 24 Hours: Intake & Output 02/02/22 02/03/22 02/04/22 02/05/22 23:59 23:59 23:59 23:59 Intake Total 1734 / 1734 540 / 540 Output Total 150 / 150 1250 / 1250 0 / 0 Balance -150 / -150 484 / 484 540 / 540 Weight 90.94 kg 92.805 kg 94.858 kg Head: Present normocephalic Neck: Present normal inspection Respiratory: Present CTA bilaterally; Absent accessory muscle use Cardiac: Present Reg Rate and Rhythm and Audible Murmur GI: Present soft and tenderness Comments:: Symptoms improved Rectal (female): Present deferred (female): Present deferred Comment:: Left upper extremity bruising
[2022-02-05 11:42] LABS: POC Glucose,Bedside 204 (70-110)
[2022-02-05 16:13] LABS: POC Glucose,Bedside 258 (70-110)
--- NOTE | 2022-02-05 16:32 | DIET.NUTRFU ---
Pt diet has been advanced to low sodium, mechanical soft chopped. Pt glucose running high at 110, 204, 258. Will add diabetic restrictions if glucose continues to run high. PO intake 25% at last three meals. Will add Glucerna to dinner tray to help supplement diet. Plan to transfer pt per MD progress note.
--- NOTE | 2022-02-05 16:58 | PC.NURSE ---
PT IS RESTING IN BED. ALERT AND ORIENTED X3. PT HAS BEEN MEDICATED PER MAR FOR NAUSEA. PT HAS BEEN GETTING UP TO THE BSC WITH 1 ASSIST. LUNG SOUNDS DIMINISHED WITH FINE CRACKLES (BASES). ABDOMINAL TENDERNESS NOTED. SWELLING NOTED TO BLE. WILL CONTINUE TO MONITOR.
--- NOTE | 2022-02-05 17:57 | PC.NURSE ---
Current Medications Chelsea Richardson 59 Acetaminophen (Acetaminophen 325mg Tab) 650 mg PO Q4HP PRN PRN Reason: Fever or Mild Pain Stop: 03/05/22 04:52 Last Admin: 02/04/22 08:11 Dose: 650 mg Enoxaparin Sodium (Enoxaparin 40mg/0.4ml Syringe) 40 mg SQ DAILY KATJA Stop: 03/05/22 10:59 Last Admin: 02/05/22 08:06 Dose: 40 mg Ceftriaxone Sodium 2 gm/ (Sodium Chloride) 100 mls @ 200 mls/hr IV Q24H KATJA Stop: 02/18/22 08:59 Last Admin: 02/05/22 08:06 Dose: 200 mls/hr Octreotide Acetate 500 mcg/ (Sodium Chloride) 255 mls @ 25.5 mls/hr IV .Q10H KATJA Stop: 03/05/22 15:29 Last Admin: 02/05/22 17:47 Dose: 25.5 mls/hr Pantoprazole Sodium 80 mg/ (Sodium Chloride) 100 mls @ 10 mls/hr IV .Q10H KATJA Stop: 02/08/22 10:14 Last Admin: 02/05/22 10:16 Dose: 10 mls/hr Insulin Human Lispro (Humalog 100 Units/Ml 3ml Vial ([facility])) 0 unit SQ [facility]; Protocol Stop: 03/05/22 16:29 Last Admin: 02/05/22 16:00 Dose: 6 unit Lactulose (Lactulose 20gm/30ml Udc) 20 gm PO QID KATJA Stop: 03/05/22 05:59 Last Admin: 02/05/22 16:01 Dose: 20 gm Levothyroxine Sodium (Levothyroxine 137mcg (0.137mg) Tab) 137 mcg PO DAILYDM KATJA Stop: 03/06/22 06:59 Last Admin: 02/05/22 06:24 Dose: 137 mcg Midodrine (Midodrine Hcl 5 Mg Tablet) 5 mg PO TID KATJA Stop: 03/05/22 10:59 Last Admin: 02/05/22 12:52 Dose: 5 mg Ondansetron HCl (Ondansetron 4mg/2ml Vial) 4 mg IV Q8HP PRN PRN Reason: Nausea Stop: 03/05/22 04:52 Last Admin: 02/05/22 11:16 Dose: 4 mg Pantoprazole Sodium (Pantoprazole 40mg Vial) 40 mg IV HS KATJA Stop: 03/10/22 20:59 Rifaximin (Rifaximin 550mg Tablet) 550 mg PO BID KATJA Stop: 03/05/22 11:44 Last Admin: 02/05/22 08:06 Dose: 550 mg Sodium Chloride (Sodium Chloride 0.9% 10ml Flush Syringe) 10 ml IV NEEDED PRN PRN Reason: Maintain IV Site Stop: 03/05/22 06:03 Sodium Chloride (Sodium Chloride 0.9% 10ml Vial) 10 ml IV NEEDED PRN PRN Reason: Reconstitute Medications Stop: 03/05/22 10:50 Last Admin: 02/04/22 22:10 Dose: 10 ml
--- NOTE | 2022-02-05 18:10 | EXP.DC.SUM ---
General Admission date:: 02/03/22 Discharge date: 02/05/22 HPI HPI HPI: This is a 61-year-old female with past medical history of cirrhosis of the liver and alpha 1 antitrypsin deficiency, diabetes, recent upper GI bleed who presents to the emergency department today with complaints of continued confusion. Daughter at bedside states that she was admitted last week in here for dark tarry stool and encephalopathy and was transferred to for GI services. She did undergo at that time an EGD was found to have ulcers but no other diagnoses at that time. She is under the care of liver specialist at for possible transplantation secondary to cirrhosis and alpha-1 antitrypsin deficiency. Daughter reports previous meld score was approximately 16. Today she presents with lethargy, icteric skin and mild confusion. Emergency department work-up significant for ammonia level of 60, creatinine of 1.6 up from a baseline of 0.8 in December. Bilirubin of 4.3, platelets of 105, INR of 1.56. On my exam she is mildly lethargic but able to answer some questions. She does complain of abdominal pain. Skin is mildly icteric. Due to the above-mentioned complaints she will be admitted to the hospital service for further evaluation and management. Hospital Course Hospital Course Hospital Course: Patient was admitted for hepatic encephalopathy secondary to spontaneous bacterial peritonitis. Ultrasound of the abdomen showed no adequate ascites pocket to perform paracentesis and was treated empirically with Rocephin. Patient was started on lactulose and rifaximin and had improvement of her mentation. As her mentation improved she began to endorse diffuse abdominal pain. On admission it was also noted she had an elevation in her creatinine and she was treated for hepatorenal syndrome. She received Rocephin, octreotide continuous infusion, midodrine, 1.5 g/kg IV albumin for 2 days. Treatment plan for SBP required 1 g/kg albumin on third day however our facility had critically low albumin levels and was a unable to provide her with adequate albumin. Her mentation had improved, abdomen remained tender, and creatinine has improved and she has improved significantly from a clinical standpoint from her admission, however was unable to receive further full treatment plan due to the facilities low albumin. Due to her significant improvement and clinical decompensation if she does not receive we will treat plan, she was transferred to [facility] where she is being evaluated for hepatic transplant. Exam Data for Last 24 hours Vital signs and Labs for Last 24 Hours: Temp Pulse Resp BP Pulse Ox 99.0 F 77 18 126/62 96 02/05/22 16:00 02/05/22 16:00 02/05/22 16:00 02/05/22 16:00 02/05/22 16:00 Laboratory Results - last 24 hr 02/04/22 22:10: POC Glucose 170 H 02/05/22 06:26: POC Glucose 113 H 02/05/22 06:39: WBC 3.0 L, RBC 2.41 L, Hgb 8.1 L, Hct 27.5 L, MCV 114.1 H, MCH 33.7 H, MCHC 29.5 L, RDW 19.1 H, Plt Count 81 L, MPV 8.0, Neut % (Auto) 52.7, Lymph % (Auto) 29.0, [place] % (Auto) 15.5 H, Eos % (Auto) 2.2, Baso % (Auto) 0.6, Neut # (Auto) 1.6 L, Lymph # (Auto) 0.9, [place] # (Auto) 0.5, Eos # (Auto) 0.1, Baso # (Auto) 0.0 02/05/22 06:39: PT 21.2 H, INR 2.04 H 02/05/22 06:39: Sodium 139, Potassium 3.5, Chloride 94 L, Carbon Dioxide 27, Anion Gap 21.5 H, BUN 16, Creatinine 1.30 H, Estimated Creat Clear 67, Estimated GFR 42 L, Est GFR ( Amer) 50 L, Glucose 110 H, Calcium 9.6, Phosphorus 2.7, Magnesium 1.7 D, Total Bilirubin 4.0 H, AST 42 H, ALT 17, Alkaline Phosphatase 119, Total Protein 6.4, Albumin 3.7 D, Globulin 2.7, Albumin/Globulin Ratio 1.4 02/05/22 11:26: POC Glucose 204 H 02/05/22 16:00: POC Glucose 258 H I & O for Last 24 hours: Intake & Output 02/02/22 02/03/22 02/04/22 02/05/22 23:59 23:59 23:59 23:59 Intake Total 1734 / 1734 1080 / 1080 Output Total 150 / 150 1250 / 1250 0 / 0 Balance -150 / -150 484 / 484 1080 / 1080 We
--- NOTE | 2022-02-05 18:13 | PC.NURSE ---
Notified Daughter Khalida that patient has a bed at [facility].
[2022-02-05 21:46] LABS: POC Glucose,Bedside 177 (70-110)
--- NOTE | 2022-02-06 01:16 | PC.NURSE ---
pt transferred via stretcher by jeannine Scherer [id number].
== END 2022-02-06 01:16 | disposition short-term general hospital (02) | DRG 441 ==
LOC: ER 05:00 → 2ND 06:09
PROVIDERS: Nurse Practitioner Acute Care; Admitting Provider Student in an Organized Health Care Education/Training Program; Emergency Provider Emergency Medicine; PCP Internal Medicine Adolescent Medicine; Visit Provider Student in an Organized Health Care Education/Training Program
DX: K76.82 Hepatic encephalopathy (principal); K65.2 Spontaneous bacterial peritonitis; K76.7 Hepatorenal syndrome; N17.9 Acute kidney failure, unspecified; K74.60 Unspecified cirrhosis of liver; E11.69 Type 2 diabetes mellitus with other specified complication; K72.90 Hepatic failure, unspecified without coma; E88.01 Alpha-1-antitrypsin deficiency; Z79.4 Long term (current) use of insulin; Z79.899 Other long term (current) drug therapy
CPT/HCPCS: 36415; 80053; 81001; 82140; 82962; 83735; 83880; 84100; 84484; 85025; 85610; 87040; 92610; 93005; 93306; 93975; 99285; C9803; J0696; J2354; J2405; P9047; U0003; U0005

== ENCOUNTER 2022-02-25 06:34 | Inpatient (IN) | payer MEDICARE, SELFPAY ==
[2022-02-25] VITALS (29 sets, daily range): BP systolic 81–122; BP diastolic 34–68; PULSE 68–91; RESP 12–20; TEMP 36.4–36.9; O2SAT 95–100; BMI 30.7; BMI 30.5
[2022-02-25 07:02] LABS: Influenza A, PCR Not Detected (NotDetected); Influenza B, PCR Not Detected (NotDetected)
--- NOTE | 2022-02-25 07:04 | HMH.EDGIBL ---
Discharge Plan Disposition Patient Disposition: Admitted As Inpatient Chief Complaint: GI Bleed Prescriptions Prescriptions: No Action levothyroxine 137 MCG tablet 137 mcg PO DAILY fenofibrate 160 MG tablet 160 mg PO DAILY insulin glargine 100 UNIT/ML insulin pen 35 unit SQ DAILY insulin aspart U-100 100 UNIT/ML insulin pen 10 - 20 units SQ TIDWM Label Comments: INJECT 15 TO 30 UNITS SUBCUTANEOUSLY THREE TIMES DAILY NEEDED -MAX DOSE OF 90 UNITS DAILY- Xifaxan 550 mg tablet 550 mg PO BID Label Comments: TAKE ONE TABLET BY MOUTH TWICE DAILY DIRECTED ursodiol 300 mg capsule 600 mg PO BID Label Comments: TAKE TWO CAPSULES BY MOUTH TWICE DAILY Anoro Ellipta 62.5-25 mcg/actuation blister with device 1 inh INHALATION DAILY Label Comments: INHALE 1 PUFF BY MOUTH EVERY DAY promethazine 25 mg tablet 25 mg PO Q6H PRN (Reason: nausea and vomiting) Qty: 20 0RF Rx Instructions: 5-day supply dispensed on 01/28 ondansetron HCl 4 mg tablet 4 mg PO TIDP PRN (Reason: Nausea) Label Comments: TAKE ONE TABLET BY MOUTH THREE TIMES DAILY NEEDED carvedilol 3.125 mg tablet 3.125 mg PO BID Label Comments: TAKE ONE TABLET BY MOUTH TWICE DAILY --TAKE WITH FOOD-- pantoprazole 40 mg tablet,delayed release (DR/EC) 40 mg PO DAILY Label Comments: TAKE ONE TABLET BY MOUTH EVERY DAY cholecalciferol (vitamin D3) 1,250 mcg (50,000 unit) capsule 50,000 unit PO WEEKLY Label Comments: TAKE ONE CAPSULE BY MOUTH ONCE a WEEK ferrous sulfate 324 mg (65 mg iron) tablet,delayed release (DR/EC) 324 mg PO DAILY Label Comments: TAKE ONE TABLET BY MOUTH EVERY DAY lactulose 20 GM/30 ML solution 30 ml PO TID furosemide 40 MG tablet 40 mg PO DAILY spironolactone 100 MG tablet 100 mg PO DAILY nadolol 20 MG tablet 5 mg PO DAILY potassium chloride 20 MEQ tablet 20 meq PO BID alpha lipoic acid 200 MG capsule 200 mg PO DAILY Clinical Impressions Clinical Impression: Acute lower gastrointestinal bleeding, Diabetes, Cirrhosis of liver, Hepatorenal syndrome, Thrombocytopenia, ABLA (acute blood loss anemia) Instructions Patient Instructions: DI for Gastrointestinal Bleeding Discharge ED Provider: Ward Velazquez GI Bleed HPI General Chief complaint: GI Bleed Stated complaint: GI bleeding, low BP Time Seen by Provider: 12/17/22 06:35 Mode of Arrival: EMS Source of Information: Patient, EMS and Medical Record Limitations: No Limitations Description of Symptoms (Recalled from ER Triage Doc. by RN): c\o of large amounts of bright red blood from the rectum the pt stated that she was also having clots. pt has a chronic hx of rectal bleeding and also tested positive for covid this past week. History of Present Illness HPI Narrative: pt sent from [facility] with hx of brrb started this am - hx of same and recent eval at -pt with covid-19 MD complaint: gross hematochezia Onset (ago): hour(s) Consistency: intermittent Severity: similar to previous episodes Context: history of GI bleed and liver disease Associated symptoms: denies other symptoms Related Data Home Medications Medication Instructions Recorded Confirmed fenofibrate 160 mg tablet 160 mg PO DAILY Cholesterol 05/04/17 02/25/22 levothyroxine 137 mcg tablet 137 mcg PO DAILY Hypothyroidism 05/04/17 02/25/22 insulin glargine 100 unit/mL (3 35 unit SQ DAILY Diabetes 01/25/20 02/25/22 mL) subcutaneous pen insulin aspart U-100 100 unit/mL 10 - 20 units SQ TIDWM Diabetes 01/26/20 02/25/22 (3 mL) subcutaneous pen lactulose 20 gram/30 mL oral 30 ml PO TID elevated ammonia 02/02/20 02/25/22 solution alpha lipoic acid 200 mg capsule 200 mg PO DAILY Supplement 02/06/21 02/25/22 furosemide 40 mg tablet 40 mg PO DAILY Edema 02/06/21 02/25/22 nadolol 20 mg tablet 5 mg PO DAILY pulmonary 02/06/21 02/25/22 hypertension
[2022-02-25 07:05] LABS: Chloride 101 mmol/L (98-107); Potassium 4.4 mmoL/L (3.5-5.1); Sodium 134 mmol/L (136-145)
[2022-02-25 07:06] LABS: Basophils % 0.8 % (0.1-2.0); Eosinophils % 0.4 % (0.1-12.0); Lymphocytes # 0.8 K/mm3 (0.7-4.5); Lymphocytes % 26.2 % (10-50); Mean Corpuscular HGB Conc 31.4 g/dL (31.8-35.4); Mean Corpuscular Hemoglobin 36.1 pg (27.0-31.2); Mean Corpuscular Volume 114.9 fl (81-99); Mean Platelet Volume 10.2 fl (7.4-10.4); Monocytes # 0.5 K/mm3 (0.1-1.0); Monocytes % 14.5 % (1.7-9.3); Neutrophils # 1.9 K/mm3 (1.8-7.8); Neutrophils % 58.1 % (37.0-80.0); Platelet Count 121 K/mm3 (142-424); Red Blood Count 1.67 M/mm3 (4.20-5.40); Red Cell Distribution Width 19.7 % (11.5-17.5); White Blood Count 3.2 K/mm3 (4.8-10.8)
[2022-02-25 07:08] LABS: Alanine Aminotransferase 18 U/L (12-78); Albumin Level 2.5 g/dl (3.5-5.0); Alkaline Phosphatase 138 U/L (38-126); Ammonia 26 umol/L (9-30); Anion Gap 10.4 mEq/L (5-15); Aspartate Amino Transferase 42 U/L (14-36); Bilirubin,Total 3.2 mg/dl (0.2-1.3); Blood Urea Nitrogen 25 mg/dl (7-17); Calcium 8.5 mg/dl (8.4-10.2); Carbon Dioxide 27 mmol/L (22.0-30.0); Creatinine Clearance Estimated 38 mL/min (50-200); Estimated Glomerular Filt Rate 24 ml/min (>60); GFR (African American) 29 ML/MIN (>60); Globulin 2.6 g/dL (1.3-3.2); Glucose 244 mg/dl (74-100); Hematocrit 19.2 % (37.0-47.0); Total Protein,Serum 5.1 g/dl (6.3-8.2)
[2022-02-25 07:09] LABS: INR 2.04 (0.9-1.1); Prothrombin Time 21.2 seconds (10.1-12.5)
[2022-02-25 07:19] LABS: Coronavirus 19, PCR Detected (NotDetected)
--- NOTE | 2022-02-25 07:26 | CT_ITS ---
PROCEDURE INFORMATION: Exam: CT Abdomen And Pelvis Without Contrast Exam date and time: 02/25/2022 7:50 AM Age: 61 years old Clinical indication: Abdominal pain; Epigastric TECHNIQUE: Imaging protocol: Computed tomography of the abdomen and pelvis without contrast. Radiation optimization: All CT scans at this facility use at least one of these dose optimization techniques: automated exposure control; mA and/or kV adjustment per patient size (includes targeted exams where dose is matched to clinical indication); or iterative reconstruction. COMPARISON: CT ABDOMEN PELVIS W CON 01/28/2022 5:31 AM FINDINGS: Lungs: Bibasilar atelectasis Pleural spaces: 6.8 mm pleural based nodule in the right middle lobe. Liver: Lobulated liver may reflect cirrhosis. Gallbladder and bile ducts: Cholecystectomy Pancreas: Inflammatory changes around the pancreas may represent pancreatitis in the appropriate clinical setting. Spleen: Normal. No splenomegaly. Adrenal glands: Normal. No mass. 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 No obstruction. No mucosal thickening. Appendix: No evidence of appendicitis. Intraperitoneal space: Mild ascites in the abdomen and pelvis. Vasculature: Unremarkable. No abdominal aortic aneurysm. Lymph nodes: Unremarkable. No enlarged lymph nodes. Urinary bladder: Correia catheter in the bladder Reproductive: Surgical resection of the uterus Bones/joints: Internal fixation device at L5 and S1 Soft tissues: A ventral hernia contains a segment of colon series 3, image 70. Sagittal series 1002, image 40. There are inflammatory changes around the finger of bowel. 15 mm nodule in the subcutaneous fat anteriorly series 1002, image 22 IMPRESSION: 1. A ventral hernia contains a segment of colon series 3, image 70. There are inflammatory changes around the finger of bowel. 2. Inflammatory changes around the pancreas may represent pancreatitis in the appropriate clinical setting. 3. Lobulated liver may reflect cirrhosis. 4. Mild ascites in the abdomen and pelvis. 5. 6.8 mm pleural based nodule in the right middle lobe. For patients at low risk (minimal or absent history of smoking and of other known risk factors), recommend CT Chest at 6-12 months, then consider CT Chest at 18-24 months. For patients at high risk (history of smoking or of other known risk factors), recommend CT Chest at 6-12 months, then CT Chest at 18-24 months. (Reference: Mariza) References: Mariza Mendez et al. Guidelines for Management of Incidental Pulmonary Nodules Detected on CT Images: From the Fleischner Society 2017. Radiology. 2017;284(1):228-243.
--- NOTE | 2022-02-25 07:26 | XR_ITS ---
PROCEDURE INFORMATION: Exam: XR Chest Exam date and time: 02/25/2022 8:07 AM Age: 61 years old Clinical indication: Cough TECHNIQUE: Imaging protocol: Radiologic exam of the chest. Views: 1 view. COMPARISON: CR XR CHEST PORTABLE 12/15/2021 2:11 AM FINDINGS: Lungs: Unremarkable. No consolidation. Pleural spaces: Unremarkable. No pleural effusion. No pneumothorax. Heart/Mediastinum: Unremarkable. No cardiomegaly. Bones/joints: Unremarkable. Soft tissues: Stable linear hyperdensities overlying the soft tissues of the neck IMPRESSION: No acute findings.
--- NOTE | 2022-02-25 07:26 | PC.NURSE ---
pt report request sent to [facility]
--- NOTE | 2022-02-25 07:40 | PC.NURSE ---
0864 CONSENT SIGNED FOR BLOOD AT THIS TIME
--- NOTE | 2022-02-25 07:50 | PC.NURSE ---
pt to ct at this time
--- NOTE | 2022-02-25 07:59 | PC.NURSE ---
PT RETURNED FROM CT
[2022-02-25 08:10] LABS: Microscopic, Urine URINE MICROSCOPIC (MICROSCOPIC)
[2022-02-25 08:18] LABS: Appearance,Urine CLEAR (Clear); Blood, Urine Negative (Negative); Color,Urine DK YELLOW (Yellow); Glucose,Urine (UA) TRACE (Negative); Ketones,Urine TRACE (Negative); Leukocyte Esterase,Urine Negative (Negative); Nitrate,Urine POSITIVE (Negative); PH,Urine 5.5 (5.0-8.5); Protein,Urine Negative (Negative); Urobilinogen,Urine 0.2 EU/dl (0.2)
--- NOTE | 2022-02-25 08:20 | PC.NURSE ---
0820 FAMILY CALLED TO CHECK ON PT, UPDATED AT THIS TIME
--- NOTE | 2022-02-25 08:29 | PC.NURSE ---
pt daughter updated on pt condition
[2022-02-25 08:41] LABS: Bilirubin,Urine 1+ (Negative)
[2022-02-25 08:45] LABS: Bacteria,Urine Trace /lpf; Squamous Epithelial Cell,Urine Occasional #/hpf (0-5)
--- NOTE | 2022-02-25 08:52 | PC.NURSE ---
DR. RODRIGUEZ SPEAKING WITH DR. KINNEY
--- NOTE | 2022-02-25 08:59 | PC.NURSE ---
calling [facility] for transfer
--- NOTE | 2022-02-25 09:16 | PC.NURSE ---
PT TOLERATING BLOOD TRANSFUSION. WITHOUT NEEDS AT THIS TIME. CALL LIGHT WITHIN REACH
--- NOTE | 2022-02-25 09:20 | PC.NURSE ---
Dr Velazquez speaking with Dr Shoemaker [facility]
--- NOTE | 2022-02-25 09:21 | PC.NURSE ---
DR. RODRIGUEZ SPEAKING WITH DR. HELLER AT [facility]
--- NOTE | 2022-02-25 09:45 | PC.NURSE ---
DR. RODRIGUEZ MADE AWARE OF HYPOTENSION, NO NEW ORDERS
--- NOTE | 2022-02-25 10:19 | PC.NURSE ---
REPORT GIVEN TO Terence HELLER RN
[2022-02-25 11:50] LABS: POC Glucose,Bedside 225 (70-110)
--- NOTE | 2022-02-25 15:44 | EXP.SURG.CON ---
History of Present Illness *Admission Date: 02/25/22 *Reason for visit:: Gastrointestinal hemorrhage *History of present illness: This is a 61-year-old female seen in consultation from Dr. Lozano for evaluation regarding lower gastrointestinal hemorrhage. The patient has a long history of anemia and intermittent gastrointestinal hemorrhage including treatment for esophageal varices. She was recently admitted to the [facility] for evaluation of gastrointestinal hemorrhage. Plans were reportedly made for colonoscopy; however, she developed COVID and the procedure was postponed. Seemingly, she stabilized from a clinical perspective and was discharged home. She returned to [facility] this morning with complaints of large-volume bright red blood per rectum with clots. Please see HPI forwarded below. Forwarded from emergency department evaluation: General Chief complaint: GI Bleed Stated complaint: GI bleeding, low BP Time Seen by Provider: 02/25/22 06:35 Mode of Arrival: EMS Source of Information: Patient, EMS and Medical Record Limitations: No Limitations Description of Symptoms (Recalled from ER Triage Doc. by RN): c\o of large amounts of bright red blood from the rectum? the pt stated that she was also having clots. pt has a chronic hx of rectal bleeding and also tested positive for covid this past week. History of Present Illness HPI Narrative: pt sent from [facility] with hx of brrb started this am - hx of same and recent eval at -pt with covid-19 MD complaint: gross hematochezia Onset (ago): hour(s) Consistency: intermittent Severity: similar to previous episodes Context: history of GI bleed and liver disease Associated symptoms: denies other symptoms PFSH PFSH Disclaimer: The information contained in this section may have been updated after the patient was seen, as this information can be updated by other users. Medical History (Updated 02/25/22 @ 15:57 by Chente Abel MD) [id number] deficiency Cataract Decompensated hepatic cirrhosis Diabetes type 2, controlled Esophageal varices Frequent urinary tract infections GERD (gastroesophageal reflux disease) Glaucoma History of anemia HTN (hypertension) Hyperammonemia Hyperlipidemia Hypothyroidism Liver cirrhosis SBP (spontaneous bacterial peritonitis) Skin cancer Surgical History History of back surgery History of cholecystectomy Family History Other No significant family history Social History Smoking Status: Former smoker second hand exposure: Yes alcohol intake: never substance use type: denies use current occupational status: other Travel in the last 8 weeks: None household members: other housing: house current occupational exposures/hazards: No caffeine: Yes Meds Home Medications and Allergies Home Medications Medication Instructions Recorded Confirmed Type fenofibrate 160 mg tablet 160 mg PO DAILY Cholesterol 05/04/17 02/25/22 History levothyroxine 137 mcg tablet 137 mcg PO DAILY Hypothyroidism 05/04/17 02/25/22 History insulin glargine 100 unit/mL (3 35 unit SQ DAILY Diabetes 01/25/20 02/25/22 History mL) subcutaneous pen insulin aspart U-100 100 unit/mL 10 - 20 units SQ TIDWM Diabetes 01/26/20 02/25/22 History (3 mL) subcutaneous pen lactulose 20 gram/30 mL oral 30 ml PO TID elevated ammonia 02/02/20 02/25/22 History solution alpha lipoic acid 200 mg capsule 200 mg PO DAILY Supplement 02/06/21 02/25/22 History furosemide 40 mg tablet 40 mg PO DAILY Edema 02/06/21 02/25/22 History nadolol 20 mg tablet 5 mg PO DAILY pulmonary 02/06/21 02/25/22 History hypertension potassium chloride 20 mEq 20 meq PO BID Suppleme
--- NOTE | 2022-02-25 16:55 | PC.NURSE ---
Addendum entered by Danielle Shoemaker RN 02/25/22 21:46: time was 185 Original Note: Went into pts room to add fluids to existing line. Went in and pts had a neuro change of status. Pt was doing non-purposeful movements. She was able to tell me her name, but just kept mumbling this over and over. She eventually got to where she would answer her date of and follow a few commands.
[2022-02-25 17:13] LABS: POC Glucose,Bedside 209 (70-110)
[2022-02-25 17:23] LABS: Hematocrit 30.6 % (37.0-47.0)
[2022-02-25 17:24] LABS: Hemoglobin 9.5 g/dL (12.2-16.2)
--- NOTE | 2022-02-25 17:37 | EXP.HPDC ---
General Admission date:: 02/25/22 Discharge date: 02/25/22 *Admission Date: 02/25/22 *Chief complaint: GI bleeding/abdominal pain *History of present illness: 61-year-old white female with long history of GI issues, liver disease, recently discharged from with recurrent liver issues. Records are currently unavailable, but patient presented to the emergency department with low hemoglobin, fatigue, abdominal pain and was found to have lower GI bleeding. did not have a bed so she was admitted to hospital for evaluation until bed available. [facility] Disclaimer: The information contained in this section may have been updated after the patient was seen, as this information can be updated by other users. Medical History (Updated 02/25/22 @ 15:57 by Chente Abel MD) Dfgha-[id number] deficiency Cataract Decompensated hepatic cirrhosis Diabetes type 2, controlled Esophageal varices Frequent urinary tract infections GERD (gastroesophageal reflux disease) Glaucoma History of anemia HTN (hypertension) Hyperammonemia Hyperlipidemia Hypothyroidism Liver cirrhosis SBP (spontaneous bacterial peritonitis) Skin cancer Surgical History History of back surgery History of cholecystectomy Family History Other No significant family history Social History Smoking Status: Former smoker second hand exposure: Yes alcohol intake: never substance use type: denies use current occupational status: other Travel in the last 8 weeks: None household members: other housing: house current occupational exposures/hazards: No caffeine: Yes Review of Systems Review of Systems Review of systems:: pertinent systems reviewed and negative unless documented below Exam Data for Last 24 hours Vital signs and Labs for Last 24 Hours: Temp Pulse Resp BP Pulse Ox 97.8 F 70 18 93/36 L 100 02/25/22 16:05 02/25/22 16:05 02/25/22 16:05 02/25/22 16:05 02/25/22 16:05 Laboratory Results - last 24 hr 02/25/22 06:20: WBC 3.2 L, RBC 1.67 L*, Hgb 6.0 L*, Hct 19.2 L*, MCV 114.9 H, MCH 36.1 H, MCHC 31.4 L, RDW 19.7 H, Plt Count 121 L, MPV 10.2, Neut % (Auto) 58.1, Lymph % (Auto) 26.2, [place] % (Auto) 14.5 H, Eos % (Auto) 0.4, Baso % (Auto) 0.8, Neut # (Auto) 1.9, Lymph # (Auto) 0.8, [place] # (Auto) 0.5, Eos # (Auto) 0.0, Baso # (Auto) 0.0 02/25/22 06:20: PT 21.2 H, INR 2.04 H 02/25/22 06:20: Sodium 134 L, Potassium 4.4, Chloride 101, Carbon Dioxide 27, Anion Gap 10.4, BUN 25 H, Creatinine 2.10 H, Estimated Creat Clear 38, Estimated GFR 24 L, Est GFR ( Amer) 29 L, Glucose 244 H, Calcium 8.5, Total Bilirubin 3.2 H, AST 42 H, ALT 18, Alkaline Phosphatase 138 H, Total Protein 5.1 L, Albumin 2.5 L, Globulin 2.6, Albumin/Globulin Ratio 1.0 L 02/25/22 06:20: Ammonia 26 02/25/22 06:20: Blood Type Confirm O Positive 02/25/22 07:00: SARS-CoV-2 (PCR) Detected A, Influenza A Untype (PCR) Not detected, Influenza Type B (PCR) Not detected 02/25/22 07:25: Blood Type O Positive, Antibody Screen Negative, Crossmatch (AHG) See Detail 02/25/22 07:35: Urine Color Dk yellow, Urine Appearance Clear, Urine pH 5.5, Ur Specific [place] 1.020, Urine Protein Negative, Urine Glucose (UA) Trace, Urine Ketones Trace, Urine Blood Negative, Urine Nitrate Positive, Urine Bilirubin 1+ A, Urine Urobilinogen 0.2, Ur Leukocyte Esterase Negative, Urine RBC None, Urine WBC None, Ur Squamous Epith Cells Occasional, Urine Bacteria Trace 02/25/22 11:42: POC Glucose 225 H 02/25/22 16:50: Hgb 9.5 L D, Hct 30.6 L 02/25/22 16:56: POC Glucose 209 H I & O for Last 24 hours: Intake & Output 02/23/22 02/24/22 02/25/2218/22 11:59 11:59 11:59 11:59 Intake Total 250 / 250 250 / 250 Output Total 0 / 0 225 / 225 Balance 250 / 250 25 / 25 Weight 190 lb 7 oz Constitutional Constitutional: no ac
[2022-02-25 18:50] LABS: Hematocrit 22.6 % (37.0-47.0); Hemoglobin 7.3 g/dL (12.2-16.2)
--- NOTE | 2022-02-25 19:03 | PC.NURSE ---
Paged Dr. Knott
--- NOTE | 2022-02-25 19:05 | PC.NURSE ---
Spoke with Dr. Knott about pts status change
--- NOTE | 2022-02-25 19:05 | PC.NURSE ---
Spoke with Dr. Lozano to get a stat ammonia level.
[2022-02-25 19:11] LABS: POC Glucose,Bedside 187 (70-110)
[2022-02-25 19:24] LABS: Ammonia 280 umol/L (9-30)
--- NOTE | 2022-02-25 19:49 | CT_ITS ---
PROCEDURE INFORMATION: Exam: CT Head Without Contrast Exam date and time: 02/25/2022 8:03 PM Age: 61 years old Clinical indication: Altered mental status/memory loss; Additional info: Acute AMS TECHNIQUE: Imaging protocol: Computed tomography of the head without contrast. Radiation optimization: All CT scans at this facility use at least one of these dose optimization techniques: automated exposure control; mA and/or kV adjustment per patient size (includes targeted exams where dose is matched to clinical indication); or iterative reconstruction. COMPARISON: CT HEAD/BRAIN WO CON 04/03/2021 10:35 PM FINDINGS: Brain: Mild stable diffuse cerebral atrophy is consistent with this patient's age. The visualized basilar cisterns are patent. The cortical/white matter interfaces are preserved throughout the brain. There is no evidence of mass, mass effect or midline shift. There is no evidence of acute hemorrhage within the brain parenchyma or the subarachnoid space.There is mild stable heterogeneity and patchy areas of bilateral decreased attenuation of the white matter consistent with chronic white matter ischemic change. The intracranial vasculature demonstrates diffuse moderate atherosclerotic calcification. Cerebral ventricles: The ventricular system is normal in size and distribution. Paranasal sinuses: The visualized portions of the sinuses are clear. Mastoid air cells: The mastoid sinuses are normal. Orbital cavities: The orbits are normal. Bones/joints: There is no evidence of acute fracture. Soft tissues: No significant soft tissue edema. No significant soft tissue edema. IMPRESSION: No acute posttraumatic abnormality. Stable exam.
--- NOTE | 2022-02-25 20:01 | EXP.RR ---
Acute Rapid Response Note Subjective Date Responded: 02/25/22 Time Responded: 07:40 Provider Note: RN called Provider in room initially at beginning of shift while rounding on unit. Reported an acute change from earlier in the day. Reported patient was saying her name over and over. When Provider went into room patient was able to say her name, , would slightly follow commands. Chart reviewed, patient with Decompensated Liver Cirrhosis, Alpha 1-Antitripsin Deficiency with h/o Hepatic Encephalopathy on Lacultose and Rifaxin and history of SBP. Current concern per notes is Lower GI bleed versus upper GI bleed per Specialist even with history of banding, due to symptoms melena, acute confusion. She is on Transfer list at and received 2 units of blood earlier in day with drop in hemoglobin despite transfusion. She was also noted to be hypotensive earlier in the day, but is now normotensive with blood and volume resuscitation per RN significant melena during the day, pictures taken and noted. Call made to PCP to discuss. Approximately 30 minutes later a Rapid Response was called to patient's room. ER Doctor at bedside, RN reported became lethargic. Weak on all extremities, called Rapid Response. Patient not following command well, equally weak on both sides. She was sent down for CT of the head without contrast. Called and spoke with Primary Services, she is on transfer list to ICU. With current concerns moving to ICU level for closer monitoring, transfusing with more blood, checking INR, PT. Once starts receiving blood will give Lactulose with severe encephalopathy, started on Protonix gtt, Octreotide, started Rocephin empirically to cover empirically for SBP with acute encephalopathy. Family at bedside at 2119, daughter Rose Kirk and significant other Avni. Updated on patient's condition and plan for transfer. Both were agreeable to the plan of care. 2214, patient left the facility by Air, transferred to on Octreotide, Protonix for higher level of care and evaluation. Objective Findings: Vital Signs - Last 4 Hours Temperature 97.8 F 02/25/22 16:05 Temperature Source Oral 02/25/22 16:05 Pulse Rate 70 02/25/22 16:05 Respiratory Rate 18 02/25/22 16:05 TAR Vitals Timing 1 Hour Post Infusion 02/25/22 16:05 Blood Pressure 93/36 L 02/25/22 16:05 Blood Pressure Mean 55 02/25/22 16:05 Blood Pressure Source Automatic Cuff 02/25/22 16:05 Blood Pressure Position Supine 02/25/22 16:05 02 Sat by Pulse Oximetry 100 02/25/22 16:05 Oxygen Delivery Method 02/25/22 19:00 Lab Results for Past 12 Hours 02/25/22 19:03: POC Glucose 187 H 02/25/22 18:40: Ammonia 280 H 02/25/22 18:40: Hgb 7.3 L D, Hct 22.6 L 02/25/22 16:56: POC Glucose 209 H 02/25/22 16:50: Hgb 9.5 L D, Hct 30.6 L 02/25/22 11:42: POC Glucose 225 H 02/25/22 07:35: Urine Color Dk yellow, Urine Appearance Clear, Urine pH 5.5, Ur Specific [place] 1.020, Urine Protein Negative, Urine Glucose (UA) Trace, Urine Ketones Trace, Urine Blood Negative, Urine Nitrate Positive, Urine Bilirubin 1+ A, Urine Urobilinogen 0.2, Ur Leukocyte Esterase Negative, Urine RBC None, Urine WBC None, Ur Squamous Epith Cells Occasional, Urine Bacteria Trace 02/25/22 07:25: Blood Type O Positive, Antibody Screen Negative, Crossmatch (AHG) See Detail My Orders Category Date Time Status Transfer activity ONCE Care 02/25/22 20:[address] head/brain wo con Stat Cat Scan 02/25/22 19:[address] head/brain wo con Stat Cat Scan 02/25/22 19:50 Ordered Radiology Findings #1: Xray Reviewed: Chest Image Reviewed: Yes I reviewed the patient's radiology results ED XR Results: Normal/NAD Rapid Response Exam General General appearance: in no apparent distress and lethargic Head Head exam: normocephalic Eye Eye exam: Present other ENT ENT exam: Present mucous membranes dry Neck Neck exam: Present normal inspection Chest Chest inspection:
[2022-02-25 20:52] LABS: POC Glucose,Bedside 176 (70-110)
[2022-02-25 21:09] LABS: INR 1.69 (0.9-1.1); Prothrombin Time 17.7 seconds (10.1-12.5)
--- NOTE | 2022-02-25 21:17 | PC.NURSE ---
AT 1930 [facility]PONSE CALLED. ER DOC/JERRELL AND JEVON Hameed DNP RESPONDED. PATIENTs MENTAL STATUS DECLINED. UNRESPONSIVE. WENT TO RADIOLOGY FOR CT OF HEAD TO R/O STROKE. CT NEGATIVE. AMMONIA LEVEL 280. MOST LIKELY HEPATIC ENCEPHALOPATHY. VSs AT 2011 UPON RETURN TO MED SURG WAS 126/57 BP, 87 HR, 98% 02 SAT ON RA, 97.7 TEMP, 16 RESPS. ORDER RECIEVED TO TRANSFER TO STEP DOWN BUT [facility] CALLED WITH BED AVAILABLE. REPORT CALLED TO [facility]/ICU NURSE BY RAMESH HELLER RN AT 2114. PATIENT TO BE AIR LIFTED, ETA 12 MINS.
--- NOTE | 2022-02-25 21:47 | PC.NURSE ---
Called report to timothy WELLINGTON at
--- NOTE | 2022-02-25 22:00 | PC.NURSE ---
REPORT GIVEN TO [facility] AND FLIGHT NURSE BY Terence HELLER RN AT 2200. TRANSFERED TO [facility] AT 2210 VIA [facility].
--- NOTE | 2022-02-25 22:25 | PC.NURSE ---
[facility] take off at 2224 to [facility] w/ pt.
== END 2022-02-25 22:37 | disposition short-term general hospital (02) | DRG 377 ==
LOC: ER 09:40 → 2ND 10:03
PROVIDERS: Nurse Practitioner Family; Admitting Provider Internal Medicine Adolescent Medicine; Emergency Provider Emergency Medicine; PCP Internal Medicine Adolescent Medicine; Visit Provider Internal Medicine Adolescent Medicine
DX: K92.2 Gastrointestinal hemorrhage, unspecified (principal); K76.7 Hepatorenal syndrome; K74.60 Unspecified cirrhosis of liver; I10 Essential (primary) hypertension; E11.9 Type 2 diabetes mellitus without complications; E03.9 Hypothyroidism, unspecified; E78.5 Hyperlipidemia, unspecified; K21.9 Gastro-esophageal reflux disease without esophagitis; Z85.828 Personal history of other malignant neoplasm of skin; Z79.4 Long term (current) use of insulin; R79.1 Abnormal coagulation profile; E88.01 Alpha-1-antitrypsin deficiency
CPT/HCPCS: 36415; 36430; 51702; 70450; 71045; 74176; 80053; 81001; 82140; 82962; 85014; 85018; 85025; 85610; 86850; C9803; J2354; J2405; P9016; P9017; U0003; U0005